=== PATIENT | female | born 1935 | race Caucasian/White ===

== ENCOUNTER 2016-09-13 14:57 | Emergency (ER) | payer MEDICARE, OTHER ==
[2016-03-18 13:57] VITALS: BMI 30.9
[~2016-09-13 14:57] MED LIST: ARICEPT10 MG PO; B12 INJECTION; BUMEX 1 MG TAB1 MG PO; CARAFATE1 G PO; CARDURA2 MG PO; CATAPRES0.1 MG PO; DESYREL50 MG PO; GABAPENTIN100 MG PO; GEMFIBROZIL600 MG PO; GLYBURIDE MICR1.5 MG PO; LEVOTHROID88 MCG PO; LOPRESSOR25 MG PO; METOPROLOL TAR100 MG PO; METOPROLOL TART50 MG PO; NEURONTIN 300300 MG PO; NITRO-DUR0.1 MG TRANSDERM; NITRO-DUR0.4 MG TD; NITROSTAT0.4 MG SL; OXYBUTYNIN CHLOR5 MG PO; PEPCID40 MG PO; PLAVIX75 MG PO; RESTORIL15 MG PO; RYBIX ODT50 MG PO; SINEMET 25-1001 EACH PO; SINGULAIR10 MG PO; TALWIN NX1 TAB; VITAMIN D250000 UNIT PO; ZYLOPRIM300 MG PO
== END 2016-09-13 18:59 | disposition home or self-care (01) ==
LOC: D.ER 14:57
DX: S01.01XA Laceration without foreign body of scalp, initial encounter (principal); W07.XXXA Fall from chair, initial encounter; Y93.89 Activity, other specified; Y92.019 Unspecified place in single-family (private) house as the place of occurrence of the external cause

== ENCOUNTER 2016-12-14 15:18 | Observation (INO) | payer MEDICARE, OTHER ==
[~2016-12-14] VITALS: Ht 162.6 cm; Wt 71.4 kg
--- NOTE | ~2016-12-14 | HEMODYNAMI ---
PATIENT:SRAVAN DOWNEY MEDICAL RECORD: [id number] : 33 [facility]ATION[id number] ADMISSION DATE: 12/14/16 Generatedon:12/15/201613:14 Patient name: SRAVAN DOWNEY Patient #: [id number] SSN: [id number] : 1935 Date of study: 12/15/2016 Page: Of Hemodynamic Procedure Report Patient Data Patient Demographics Procedure consent was obtained First Name: SRAVAN Gender: Female Last Name: NASREEN : 1935 Middle Initial: A Age: 81 year(s) Patient #: [id number] Race: Unknown SSN: [id number] Additional ID: [id number] Contact details Address: [address] [place] [address] [facility] State: [place] City: [place] Zip code: [address] Past Medical History Allergies Allergen Reaction Date Comments Reported Other allergy 12/15/2016 see list Admission Admission Data Admission Date: 12/14/2016 Admission Time: 20:21 Arrival Date: 12/15/2016 Arrival Time: 0:00 Room #: D.2105 Procedure Procedure Types Cath Procedure Diagnostic Procedure LHC LHC w/Coronaries Miscellaneous Procedures Moderate Sedation up to 15 minutes Procedure Description Procedure Date Procedure Date: 12/15/2016 Procedure Start Time: 12:59 Procedure End Time: 13:11 Procedure Staff Name Function Bola Bella RT Scrub Guillermo Kaufman RN Nurse Angie Masters RT Monitor Carlos Aleman MD Performing Physician Procedure Data Cath Procedure Fluoroscopy Diagnostic fluoroscopy Total fluoroscopy Time: 1.5 time: 1.5 min min Diagnostic fluoroscopy Total fluoroscopy dose: 332 dose: 332 mGy mGy Contrast Material Contrast Material Type Amount (ml) Isovue 300 67 Entry Location Entry Primary Successful Side Size Upsize Upsize Entry Closure Succes sful Closure Location (Fr) 1 (Fr) 2 (Fr) Remarks Device Remarks Femoral Right 5 Fr Exoseal artery Estimated blood loss: 10 ml Diagnostic catheters Device Type Used For End Catheter Placement Cordis 5Fr JL 4.0 Procedure Catheter (MP) Cordis 5Fr 3DRC Catheter Procedure (MP) Cordis 5Fr Pigtail Ventriculography Catheter (MP) Procedure Complications No complications Procedure Medications Medication Administration Route Dosage Oxygen NC 2 l/min Lidocaine 2% added to field 20 Heparin Flush Bag added to field 2 bags (1000units/500ml NS) 0.9% NaCl I.V. 100 ml/hr Zofran I.V. 4 mg Versed I.V. 0.5 mg Dilaudid I.V. 0.5 mg Versed I.V. 0.5 mg Dilaudid I.V. 0.5 mg Versed I.V. 0.5 mg Hemodynamics Rest Heart Rate: 61 (bpm) Pressure Samples Time Site Value (mmHg) Purpose Heart Use Rate(bpm) 13:04 LV 139/-8,11 Snapshot 61 13:04 AO 142/54(88) Pullback 62 13:04 LV 135/-2,20 Pullback 62 Gradients Valve Time Site 1 Site 2 Mean SEP/DFP Peak To Heart Use (mmHg) (sec/min) Peak Rate (mmHg) (bpm) Aortic 13:04 LV AO 0 9 0 62 135/-2,20 142/54(88) Calculations Valve P-P Mean Valve Index Valve Source Name Gradient Area Flow (cm2) Aortic 0 0 0 0 Snapshots Pre Cath Intra NCS Post Cath Vital Signs Time Heart Resp SPO2 NIBP (mmHg) Rhythm Pain Sedation Rate (ipm) (%) Status Level (bpm) 12:46:47 63 16 99 192/79(148) NSR 0 (11) 10(A) , No pain 12:51:16 59 16 99 171/71(148) NSR 0 (11) 10(A) , No pain 12:55:38 61 18 98 160/69(129) NSR 0 (11) 10(A) , No pain 13:00:06 59 19 95 132/59(107) NSR 0 (11) 9(A) , No pain 13:04:26 60 16 97 128/54(105) NSR 0 (11) 9(A) , No pain 13:08:44 61 17 95 132/54(110) NSR 0 (11) 10(A) , No pain Medications Time Medication Route Dose Verified Delivered Reason Notes Ef fectiveness by by 12:44:14 Oxygen NC 2 Figueroa Buffie used for l/min Axel Kaufman RN procedure 12:44:20 Heparin Flush added 2 Figueroa Figueroa used for verifed Bag to bags Axel Reyna MD procedure with (1000units/500ml field pharmacy NS) that is pork heparin, no beef. 12:44:20 Lidocaine 2% added 20ml Figueroa Figueroa for local to vial Axel Reyna MD anesthetic field 12:44:44 0.9% NaCl I.V. 100 Figueroa Buffie Per verifed ml/hr Axel Kaufman RN physician with pharmacy that is pork heparin, no beef. 12:45:21 Zofran I.V. 4 mg Figueroa Buffie Per Axel Kaufman RN physician 12:45:29 Versed I.V. 0.5 Figueroa Buffie for mg Axel Kaufman RN sedation 12:52:46 Dilaudid I.V. 0.5 Figueroa Buffie for mg Axel Kaufman RN sedation 12:57:12 Versed I.V. 0.5 Figueroa Buffie for mg Axel Kaufman RN sedation 12:57:16 Dilaudid I.V. 0.5 Figueroa Buffie for mg Axel Kaufman RN sedation 13:03:26 Versed I.V. 0.5 Figueroa Buffie for mg Axel Kaufman RN sedation Procedure Log Time Note 12:22:55 Arrival Date: 12/15/2016 12:00:00 AM 12:23:36 Diagnostic Cath status Elective 12:23:40 Guillermo Kaufman RN sent for patient. Start room use. 12:23:42 Time tracking: Regular hours 12:23:48 Plan of Care:Hemodynamics will remain stable., Cardiac rhythm will remain stable., Comfort level will be maintained., Respiratory function will remain adequate., Patient/ family verbilizes understanding of procedure., Procedure tolerated without complication., Recovers from procedure without complications.. 12:23:55 Patient received from Med II to CCL 2 Alert and oriented. Tansferred to table in Supine position. 12:44:13 Warm blankets applied, and jian hugger turned on for patient comfort. 12:44:14 Oxygen 2 l/min NC was administered by Guillermo Kaufman RN; used for procedure; 12:44:14 Correct patient and procedure confirmed by team. 12:44:15 Signed procedure consent form obtained from patient. 12:44:16 ECG and BP/O2 sat monitors applied to patient. 12:44:17 Vital chart was started 12:44:18 Baseline sample Acquired. 12:44:20 Heparin Flush Bag (1000units/500ml NS) 2 bags added to field was administered by Figueroa Reyna MD; used for procedure; verifed with pharmacy that is pork heparin, no beef. 12:44:20 Lidocaine 2% 20ml vial added to field was administered by Figueroa Reyna MD; for local anesthetic; 12:44:22 Rhythm: sinus rhythm 12:44:24 Full Disclosure recording started 12:44:34 H&P Date Dictated: 12/15/2016 Within 30 days and on chart.. 12:44:35 Pre-procedure instructions explained to patient. 12:44:38 Family unavailable. 12:44:40 Patient NPO since Midnight. 12:44:44 0.9% NaCl 100 ml/hr I.V. was administered by Guillermo Kaufman RN; Per physician; verifed with pharmacy that is pork heparin, no beef. 12:44:57 Patient allergic to Other allergysee list 12:45:01 Is the patient allergic to Iodine/contrast media? No. 12:45:05 Is patient on blood thinner?Yes 12:45:09 ACC The patient was administered the following blood thiners within the last 24 hours: ACCPlavix 12:45:16 Snore? Yes 12:45:17 Sleep apnea? Yes 12:45:21 Zofran 4 mg I.V. was administered by Guillermo Kaufman RN; Per physician; 12:45:25 Dentures? No ? 12:45:29 Versed 0.5 mg I.V. was administered by Guillermo Kaufman RN; for sedation; 12:45:31 Airway obstruction? No ? 12:45:45 Patient diabetic? No. 12:45:55 IV patent on arrival in right forearm with 0.9% NaCl at [facility]. 12:46:05 Lab results completed and on chart. 12:46:11 Right groin area was prepped with chlora-prep and draped in sterile fashion 12:46:20 Alarms reviewed by R. N. 12:46:21 Sharps counted by scrub and verified by RAdebayoNAdebayo 12:46:22 Physician paged 12:46:24 Physician arrived 12:47:56 --------ALL STOP TIME OUT------ 12:52:46 Dilaudid 0.5 mg I.V. was administered by Guillermo Kaufman RN; for sedation; 12:54:58 Final Timeout: patient, procedure, and site verified with staff and physician. All members of the team are in agreement. 12:55:01 Right groin site verified by team. 12:55:06 Physical assessment completed. ASA score P 2 - A patient with mild systemic disease as per Guillermo Kaufman RN. 12:55:10 Sedation plan: IV Moderate Sedation Versed 12:55:20 Use device set Femoral Dx 12:55:28 Acist Syringe opened to sterile field. 12:55:28 Bag Decanter opened to sterile field. 12:55:29 Medline Cath Pack opened to sterile field. 12:55:29 Terumo 5Fr [place] Sheath opened to sterile field. 12:55:30 St Gabriel 260cm J .035 wire opened to sterile field. 12:55:38 Acist Hand Control opened to sterile field. 12:55:38 Acist Manifold opened to sterile field. 12:55:39 Diagnostic Infinity 5Fr Multipack catheter opened to sterile field. 12:55:40 Tegaderm 4 x 4 opened to sterile field. 12:57:12 Versed 0.5 mg I.V. was administered by Guillermo Kaufman RN; for sedation; 12:57:16 Dilaudid 0.5 mg I.V. was administered by Guillermo Kaufman RN; for sedation; 12:58:21 Zero performed for pressure channel P1 12:58:46 Procedure started. 12:59:01 Local anesthetic to right femoral artery with Lidocaine 2% by Carlos Aleman MD.INITIAL ACCESS ONLY 12:59:10 A 5 Fr sheath was inserted into the Right Femoral artery 13:00:00 A Cordis 5Fr JL 4.0 Catheter (MP) was advanced over the wire and used for Procedure. 13:00:57 Catheter removed. 13:01:04 A Cordis 5Fr 3DRC Catheter (MP) was advanced over the wire and used for Procedure. 13:02:29 RCA angiography performed. 13:02:32 Catheter removed. 13:03:18 A Cordis 5Fr Pigtail Catheter (MP) was advanced over the wire and used for Ventriculography. 13:03:26 Versed 0.5 mg I.V. was administered by Guillermo Kaufman RN; for sedation; 13:03:37 LV gram done using KISER 13:04:57 Catheter removed. 13:05:18 Cordis 5Fr Exoseal opened to sterile field. 13:05:40 Sheath removed intact; hemostasis achieved with Exoseal to the Right Femoral artery. 13:06:02 Procedure ended.(Physican Out) 13:06:11 Fluoroscopy time 01.50 minutes. 13:07:03 Flurop Dose total: 332 13:07:03 Fluoroscopy dose: 332 mGy 13:07:08 Contrast amount:Isovue 300 67ml. 13:07:10 Sharps counted by scrub and verified by R.N. 13:09:39 Insertion/operative site no bleeding no hematoma. 13:09:44 Post-op/insertion site Right Femoral artery dressed using a 4 x 4 and Tegaderm. 13:09:49 Post Procedure Pulses reassessed and unchanged 13:10:02 Post-procedure physical assessment completed. ASA score P 2 - A patient with mild systemic disease as per Carlos Aleman MD. 13:10:06 Post procedure rhythm: unchanged. 13:10:10 Estimated blood loss: 10 ml 13:10:16 Post procedure instruction explained to patient.Patient verbalizes understanding. 13:10:23 Procedure and supply charges have been captured, reviewed, submitted and are correct. 13:10:46 Procedure Complication : No complications 13:10:49 Vital chart was stopped 13:10:50 See physician's report for complete and final results. 13:10:55 Report given to Med II. 13:11:00 Patient transfered to Med II with Bed. 13:11:02 Procedure ended. 13:11:02 Full Disclosure recording stopped 13:11:04 End room use (Document Last) Device Usage Item Name Manufacture Quantity Catalog Hospital Part Current Minimal Lo t# / Number Charge Number Stock Stock Serial# Code Acist Acist 1 34033 018624 942747 515443 20 Syringe Medical [employer] Inc Bag Microtek 1 2002S 857625 67391 608377 5 Wetpaint. Medline Cardinal 1 [id number] 144682 74710 269904 5 Cath Pack Health Terumo 5Fr Terumo 1 [id number] 462721 837215 505784 [address] [facility] 1 391983 446670 488506 755656 30 260cm J .035 wire Acist Hand Acist 1 43668 029598 722999 923662 5 Control Medical Systems Inc Acist Acist 1 72624 997678 700173 377537 5 Manifold Medical Systems Inc Diagnostic Cardinal 1 [id number] 762254 07952 275976 30 Infinity Health 5Fr Multipack catheter Tegaderm 4 3M 1 1626W 027250 967813 300991 5 x 4 Cordis 5Fr Cardinal 1 266125 5 JL 4.0 Health Catheter (MP) Cordis 5Fr Cardinal 1 750222 5 3DRC Health Catheter (MP) Cordis 5Fr Cardinal 1 748570 5 Pigtail Health Catheter (MP) Cordis 5Fr Cardinal 1 EX500 263215 192526 013781 10 [facility] Autoniq Signature Audit [place] Stage Time Signature Unsigned Intra-Procedure 12/15/2016 Angie Masters 1:14:17 PM RT(R) Signatures Monitor : Angie Masters Signature : RT Date : Time : [place] [id number] [place] [address]
[2016-12-14 16:52] LABS: BASOPHILS 0.3 % (0-2); EOSINOPHILS 1.8 % (0-7); HEMOGLOBIN 11.6 g/dL (12-16); IMMATURE GRANULOCYTES 0.2 % (0-5); LYMPHOCYTES 23.1 % (15-50); MCH 29.9 pg (26.0-34.0); MCHC 31.4 g/dL (31.0-37.0); MCV 95.4 fL (80.0-100.0); MEAN PLATELET VOLUME 10.4 fL (7.4-10.4); MONOCYTES 6.1 % (2-11); NEUTROPHILS 68.5 % (40-80); PLATELET COUNT 155 10x3/uL (130-400); RBC 3.88 10x6/uL (4.00-5.40); RDW 15.3 % (11.5-14.5); WBC 6.6 10x3/uL (4.8-10.8)
[2016-12-14 17:24] LABS: ALBUMIN 3.4 g/dL (3.4-5.0); ALKALINE PHOSPHATASE 70 U/L (46-116); ALT (SGPT) 10 U/L (10-68); BILIRUBIN - TOTAL 0.49 mg/dL (0.2-1.3); CALC OSMOLALITY 283 mosm/kg (275-300); CALCIUM 9.9 mg/dL (8.5-10.1); CARBON DIOXIDE 27.9 mmol/L (21.0-32.0); CHLORIDE - SERUM 104 mmol/L (98-107); CREATININE - SERUM 1.3 mg/dL (0.6-1.3); GLUCOSE 106 mg/dL (74-106); POTASSIUM - SERUM 4.4 mmol/L (3.5-5.1); PROTEIN - SERUM 6.5 g/dL (6.4-8.2); SODIUM 140 mmol/L (136-145); UREA NITROGEN 27 mg/dL (7-18); eGFR NON AFRICAN AMERICAN 41 mL/min (90-120)
[2016-12-14 17:37] LABS: CHOL - HDL RATIO 5.7 ratio (2.3-4.1); CHOLESTEROL, TOTAL 229 mg/dL (0-200); CKMB 1.2 U/L (0.0-3.6); CREATINE KINASE 63 UL (21-215); HDL CHOLESTEROL 40 mg/dL (32-96); LDL CHOLESTEROL 145 mg/dL (0-100); LDL-HDL RATIO 3.6 ratio (1.5-3.5); TRIGLYCERIDE 221 mg/dL (30-200)
[2016-12-14 17:49] LABS: TROPONIN-I < 0.017 ng/mL (0.000-0.060)
[2016-12-14 20:01] LABS: CKMB 1.2 U/L (0.0-3.6); CREATINE KINASE 78 UL (21-215)
[2016-12-14 20:03] LABS: TROPONIN-I < 0.017 ng/mL (0.000-0.060)
--- NOTE | 2016-12-14 22:30 | NUR ---
RECIEVED TO ROOM 2104 FROM ER. PT A&O. RESPERATIONS EVEN ON O2 AT 2 LITER VIA NC. IV TO RIGHT AC SL. PLACED ON TELEMETRY, 64 SR PER MT. PT DENIES PAIN OR NEEDS, BED LOW, CL IN REACH.
[2016-12-14] MEDS ORDERED: CRANBERRY 400 M1 TA1 PO (22:54)
[2016-12-15 02:42] VITALS: Ht 162.6 cm; Wt 71.4 kg
--- NOTE | 2016-12-15 03:03 | NUR ---
UP WITH ASSIST TO BR.
[2016-12-15 03:47] VITALS: BP 109/55
--- NOTE | 2016-12-15 07:19 | NUR ---
PT SITTING UP IN BED DENIES NEEDS WILL CONT TO MONITOR
[2016-12-15 07:37] LABS: BASOPHILS 0.5 % (0-2); EOSINOPHILS 3.2 % (0-7); HEMOGLOBIN 10.3 g/dL (12-16); LYMPHOCYTES 29.7 % (15-50); MCH 29.4 pg (26.0-34.0); MCHC 31.2 g/dL (31.0-37.0); MCV 94.3 fL (80.0-100.0); MEAN PLATELET VOLUME 9.8 fL (7.4-10.4); MONOCYTES 6.5 % (2-11); NEUTROPHILS 60.1 % (40-80); PLATELET COUNT 153 10x3/uL (130-400); WBC 5.6 10x3/uL (4.8-10.8)
[2016-12-15 07:56] LABS: ANION GAP 7.6 mmol/L (8-16); CALCIUM 9.4 mg/dL (8.5-10.1); CARBON DIOXIDE 30.5 mmol/L (21.0-32.0); CREATININE - SERUM 1.2 mg/dL (0.6-1.3); POTASSIUM - SERUM 4.1 mmol/L (3.5-5.1)
--- NOTE | 2016-12-15 08:25 | NUR ---
CONSENTS SIGNED FOR ACCOUNT MANAGEMENT ASSISTANT, PT PREOPED. CALLED AND SPOKE WITH JORGE IN ACCOUNT MANAGEMENT ASSISTANT AND LET HIM KNOW PT WAS ALLERGIC TO BEEF HEPARIN AND ASA.
[2016-12-15 08:34] VITALS: BP 133/44
[2016-12-15 11:53] VITALS: BP 163/61
--- NOTE | 2016-12-15 13:40 | NUR ---
PT IS BACK FROM [facility] SPECIALIST VS ARE WNL. R CHRISSY SITE IS WNL. PT STILL LETHARGIC, BUT EASY TO ARROUSE. WILL CONT TO MONITOR
--- NOTE | 2016-12-15 14:08 | NUR ---
PT VS STILL WNL PT R GROIN STILL WNL. AT BEDSIDE. PT STILL LETHARGIC BUT ARROUSES EASILY. DENIES NEEDS OTHER THAN FOOD. ORDERED WILL CONT TO MONITOR
--- NOTE | 2016-12-15 15:21 | NUR ---
CALLED DR GALAN AND GOT TELEPHONE ORDER FOR PT DC. ORDERED. DC PAPERWORK IS COMPLETE, WAITING ON PT BEDREST TO BE FINISHED AND HER TO WAKE UP A LITTLE MORE BEFORE DC HOME.
--- NOTE | 2016-12-15 15:40 | NUR ---
PT BEDREST IS FINISHED VS ARE WNL R GROIN SITE STILL WNL. PT IS STILL VERY LETHARGIC, WILL LET PT BECOME MORE AWAKE BEFORE DC HOME. DC PIV WITH CATH TIP INTACT. DC TELE AND RETURNED TO SUGAR REPROCESS OPERATOR HEAD WILL CONT TO MONITOR
--- NOTE | 2016-12-15 16:41 | NUR ---
PT IS STILL LETHARGIC. STILL EASY TO ARROUSE BUT STATES SHE DOESNT FEEL AWAKE ENOUGHT TO GO HOME YET. R GROIN SITE STILL WNL. STILL AT BEDSIDE.
--- NOTE | 2016-12-15 17:33 | NUR ---
WENT OVER DC PAPERWORK WITH PT PT VERBALIZES UNDERSTANDING. PT IS SITTING UP IN BED EATING DINNER AT BEDSIDE. PT TO CALL WHEN FINISHED WITH DINNER TO HELP HER GET DRESSED AND DC HOME
--- NOTE | 2016-12-17 10:39 | OP ---
PATIENT NAME: SRAVAN DOWNEY MEDICAL RECORD: [id number] :33 LOCATION:D.M2 D.2105 ADMISSION DATE:12/14/16 SURGEON: JOANIE LYLE MD DATE OF OPERATION: 12/15/2016 PROCEDURES: Left heart catheterization, selective coronary angiography, right femoral artery approach. CATHETERS: 5-Yakut sheath, 5/4/ left and right Anam, 5/4 pig. The procedure was well tolerated and the patient returned to tello. Sheath removed. ExoSeal device was placed. FINDINGS: Left ventriculography in 30-degree KISER view: Normal wall motion, normal systolic function. CORONARY ANATOMY: LEFT MAIN: Left main is free of disease. LAD: LAD is free of disease. Area of previous stenting is widely patent. No evidence of restenosis. No progression of [place] disease. CIRCUMFLEX: Free of disease. RIGHT CORONARY ARTERY: Dominant artery, gives rise to PDA, free of disease. IMPRESSION: No evidence of restenosis. No progression of [place] disease. Normal systolic function. TRANSINT:[id number] Voice Confirmation ID: [id number] DOCUMENT ID: [id number] JOANIE LYLE MD at 1039 CC: [id number] DICTATION DATE: 12/15/16 1310 WATER RESOURCE PROJECT MANAGER: 12/15/161946 DIS IN 12/15/16 [id number] [place] [address]
== END 2016-12-15 20:00 | disposition home or self-care (01) ==
LOC: D.ER 15:18 → OBSVTIME 20:21 → D.M2 20:21
PROVIDERS: Emergency Medicine; Internal Medicine Cardiovascular Disease; Nurse Practitioner Acute Care; ADMIT Family Medicine
DX: I25.10 Atherosclerotic heart disease of native coronary artery without angina pectoris (principal); I10 Essential (primary) hypertension

== ENCOUNTER → 2016-12-30 20:46 | Outpatient (CLI) | payer MEDICARE, OTHER ==
[~2016-12-30 20:46] MED LIST changes: +CRANBERRY 400 M1 TA1 PO
[2016-12-30 20:58] LABS: APPEARANCE CLEAR (CLEAR); BILIRUBIN NEGATIVE (NEGATIVE); COLOR YELLOW (YELLOW); GLUCOSE NEGATIVE (NEGATIVE); KETONE NEGATIVE (NEGATIVE); LEUKOCYTE ESTERASE NEGATIVE (NEGATIVE); NITRITE NEGATIVE (NEGATIVE); PROTEIN NEGATIVE (NEGATIVE); SPECIFIC GRAVITY 1.015 (1.005-1.020); UROBILINOGEN NORMAL (NORMAL)
== END | disposition home or self-care (01) ==
LOC: D.LABREF 20:46
PROVIDERS: Urology
DX: N39.0 Urinary tract infection, site not specified (principal)

== ENCOUNTER 2017-01-12 06:34 | Day surgery (SDC) | payer MEDICARE, OTHER ==
[2017-01-11 12:45] LABS: INR 1.06 (0.85-1.17); PROTIME 13.6 SECONDS (11.6-15.0)
[2017-01-11 12:46] LABS: CALCIUM 9.3 mg/dL (8.5-10.1); CARBON DIOXIDE 25.6 mmol/L (21.0-32.0); CREATININE - SERUM 1.2 mg/dL (0.6-1.3); POTASSIUM - SERUM 4.6 mmol/L (3.5-5.1)
[2017-01-11 13:25] LABS: BASOPHILS 0.3 % (0-2); EOSINOPHILS 4.4 % (0-7); HEMATOCRIT 33.4 % (36.0-48.0); HEMOGLOBIN 10.8 g/dL (12-16); IMMATURE GRANULOCYTES 0.2 % (0-5); LYMPHOCYTES 26.4 % (15-50); MCH 29.9 pg (26.0-34.0); MCHC 32.3 g/dL (31.0-37.0); MCV 92.5 fL (80.0-100.0); MEAN PLATELET VOLUME 11.6 fL (7.4-10.4); MONOCYTES 7.9 % (2-11); NEUTROPHILS 60.8 % (40-80); PLATELET COUNT 156 10x3/uL (130-400); RBC 3.61 10x6/uL (4.00-5.40); RDW 14.9 % (11.5-14.5); WBC 6.6 10x3/uL (4.8-10.8)
[~2017-01-12] VITALS: Ht 162.6 cm; Wt 71.2 kg
[2017-01-12 08:46] VITALS: BP 141/54; Ht 162.6 cm; Wt 71.2 kg
--- NOTE | 2017-01-12 14:09 | NUR ---
1120- PT TO ROOM WITH HOB ELEVATED. FAMILY AT BEDSIDE. VSS. FULL LIQUIDS OFFERED. 1155- VOIDED WITHOUT DIFFICULTY AFTER MEDICATION INSTILLATION. 1215- FULL LIQUIDS TOLERATED. 1240- IV D/C'D, PT TOLERATED. CATHETER INTACT. 1300- DISCHARGE INSTRUCTIONS COMPLETED, PT VERBALIZED UNDERSTANDING. PAPERWORK SIGNED. 1310- PT DISCHARGED VIA WHEELCHAIR WITH .
--- NOTE | 2017-01-13 14:28 | OP ---
PATIENT NAME: SRAVAN DOWNEY MEDICAL RECORD: [id number] :33 LOCATION:D.OPS ADMISSION DATE: SURGEON: CLARK LANDEROS MD DATE OF OPERATION: 01/12/2017 SURGEON: Clark Landeros MD. ANESTHESIA: MAC by Dr. Cooper. PREOPERATIVE DIAGNOSIS: Interstitial cystitis. FINDINGS: Single ureteral orifices, bladder inflammation with glomerulations. PROCEDURES: Cystoscopy, intravesical Rimso instillation 50 mL times 50%. SPECIMENS: None. COMPLICATIONS: None. ESTIMATED BLOOD LOSS: None. CLINICAL HISTORY: This is an 81-year-old female who has ongoing symptoms of urinary tract infection including urinary frequency, urgency, dysuria and suprapubic pain. We obtained a urine for specimen for culture by straight catheterization, it grew nothing. She comes now for cystoscopy to check for interstitial cystitis or bladder inflammation. She has tried oxybutynin, which did not help her urinary frequency. She also tried Myrbetriq to which she developed an allergy and the medication had to be stopped. She is allergic to multiple antibiotics, but she can tolerate Levaquin. We gave her Levaquin 250 mg IV instrumentation designer to the OR. DESCRIPTION OF PROCEDURE: The patient was given IV sedation. She was placed in the dorsal lithotomy position and prepped and draped. A 21-Belarusian cystoscope was used. She has single ureteral orifices on each side. No bladder tumors were seen. There is diffuse bladder inflammation and as the bladder was filled, we saw some of the capillaries burst and form little petechial hemorrhages in the bladder wall and there are called glomerulations. We then drained the bladder and removed the cystoscope. A 14-Belarusian red rubber catheter was introduced into the bladder and 50 mL of 50% Rimso solution was instilled into the bladder. We then removed the catheter, leaving the Rimso in the bladder. She will hold this for about 15 minutes and then void it out. She will come back to see me next week to have treatment of #2 given to her. TRANSINT:[id number] Voice Confirmation ID: [id number] DOCUMENT ID: [id number] CLARK LANDEROS MD at 1428 CC: [id number] DICTATION DATE: 01/12/17 1046 HEALTH RESEARCHER: 01/12/172032 [facility] 01/12/17 [facility] [address] [place] [address]
== END 2017-01-12 13:10 | disposition home or self-care (01) ==
LOC: D.OPS 06:34 → D.PAN 10:00 → D.OPS 10:00 → D.PAN 10:15 → D.OPS 13:10
PROVIDERS: Anesthesiology
DX: N30.10 Interstitial cystitis (chronic) without hematuria (principal); Z01.812 Encounter for preprocedural laboratory examination

== ENCOUNTER 2017-01-20 09:23 | Outpatient (CLI) | payer MEDICARE, OTHER ==
[~2017-01-20] VITALS: Ht 157.5 cm; Wt 72.7 kg
--- NOTE | ~2017-01-20 | PRO ---
PATIENT:SRAVAN DOWNEY MEDICAL RECORD: [id number] : 33 LOCATION:D.CAT ADMISSION DATE: 01/20/17 PROCEDURE PERFORMED BY: NIC BENAVIDES MD PROCEDURES: 1. Stent placement popliteal right. 2. COTTON WEIGHER popliteal right. 3. Aortofemoral runoff. 4. Abdominal aortography. INDICATIONS: Claudication, peripheral vascular disease. PROCEDURE IN DETAIL: After informed consent was obtained and after detailed Explanation of risks, benefits as well as alternative therapies, the patient elected to proceed with angiogram and angioplasty. The left femoral area was prepped and draped in normal sterile fashion. The left femoral artery was cannulated via modified Seldinger technique with placement of 6-Maldivian __sheath. All catheters exchanged through this sheath. FINDINGS: Abdominal aortography was performed. The catheter was pulled down for aortofemoral runoff. Abdominal aortography reveals no significant abdominal aortic disease. No dissection or aneurysmal formation. No renal artery stenosis. LEFT LEG: A. Iliac: The common internal and external iliacs have mild irregularities, but no flow limiting stenosis. B. Femoral system: The common, superficial, and deep femoral have mild irregularities, but no flow limiting stenosis. C. Popliteal and infrapopliteal vessels: Patent, although mildly diffusely diseased, but there is three vessel runoff to the foot. RIGHT LEG: A. Iliac: The common internal and external iliacs have mild irregularities, but no flow limiting stenosis. B. Femoral system: The common, superficial, and deep femoral are widely patent with only mild irregularities, no flow limiting stenosis. C. Popliteal and infrapopliteal vessels: The proximal popliteal vessel had 75% stenosis, otherwise this vessel is patent. There is three vessel runoff to the foot. COTTON WEIGHER AND STENT OF THE RIGHT POPLITEAL: Balloon used was a 6 x 40 balloon, it showed suboptimal result with ___ dissection. Stenting was undertaken with a 7 x 40 SMART stent resulting in 0% residual stenosis. OVERALL IMPRESSION: Successful COTTON WEIGHER and stenting of the right popliteal artery going from 75% initial stenosis to 0% residual stenosis. PROCEDURE NOTE [id number] SRAVAN DOWNEY NIC BENAVIDES MD CC: [id number] DICTATION DATE: 01/20/1718[address] JUSTICE: TC 01/21/171823 DEP CLI 01/20/17 [facility] [address] [place] [address]
--- NOTE | ~2017-01-20 | HEMODYNAMI ---
PATIENT:SRAVAN DOWNEY MEDICAL RECORD: [id number] : 33 LOCATION:[facility] ADMISSION DATE: 01/20/17 Generatedon:01/20/201714:43 Patient name: SRAVAN DOWNEY Patient #: [id number] SSN: [id number] : 1935 Date of study: 01/20/2017 Page: Of Hemodynamic Procedure Report Patient Data Patient Demographics Procedure consent was obtained First Name: SRAVAN Gender: Female Last Name: NASREEN : 1935 Middle Initial: A Age: 82 year(s) Patient #: [id number] Race: Unknown SSN: [id number] Additional ID: [id number] Contact details [address]: [address] [place] [address] [facility] State: [place] City: [place] Zip code: [address] Past Medical History Allergies Allergen Reaction Date Comments Reported Other allergy 12/15/2016 see list Other allergy 01/20/2017 Horse containing products, keflex, PCN, adhesive tape,crestor,asa, beef, cartia, demerol, lipitor, sulfa, tricor, premarin, duragesic. Admission Admission Data Admission Date: 01/20/2017 Admission Time: 9:23 Admit Source: Other Lab Results Lab Result Date: 01/20/2017 Lab Result Time: 10:46 Biochemistry Name Units Result Min Max BUN mg/dl 46 --(----)-* 7 18 Creatinine mg/dl 1.1 --(--*-)-- 0.6 1.3 CBC Name Units Result Min Max Hematocrit % 31.1 *-(----)-- 42 54 Hemoglobin g/dl 10.5 *-(----)-- 13.5 17.5 Procedure Procedure Types Cath Procedure Miscellaneous Procedures Moderate Sedation up to 15 minutes Peripheral Cath Diagnostic Procedure Cath Peripheral Ntvwu-Shxbxsn-Xhm-Off Peripheral vascular Intervention Stent Stent-Fem/Popw/plasty Procedure Description Procedure Date Procedure Date: 01/20/2017 Procedure Start Time: 14:21 Procedure End Time: 14:42 Procedure Staff Name Function Venancio Rivera MD Performing Physician Molly Manriquez RT Scrub Bola Bella RT Monitor Albert Newby RN Nurse Procedure Data Cath Procedure Fluoroscopy Diagnostic fluoroscopy Total fluoroscopy Time: 4.5 time: 4.5 min min Diagnostic fluoroscopy Total fluoroscopy dose: 245 dose: 245 mGy mGy Contrast Material Contrast Material Type Amount (ml) Isovue 300 99 Entry Location Entry Primary Successful Side Size Upsize 1 Upsize Entry Closure Coleman ccessful Closure Location (Fr) (Fr) 2 (Fr) Remarks Device Remarks Femoral Right 5 Fr 6 Fr 6 Fr Exoseal artery Mid-Length Short Estimated blood loss: 10 ml Diagnostic catheters Device Type Used For End Catheter Placement Cordis Tempo 5Fr UF Procedure catheter Procedure Complications No complications Procedure Medications Medication Administration Route Dosage Oxygen NC 2 l/min Heparin Flush Bag added to field 2 bags (1000units/500ml NS) 0.9% NaCl I.V. 100 ml/hr Versed I.V. 1 mg Fentanyl I.V. 50 mcg Heparin Bolus I.V. 4000 units Hemodynamics Rest HGB: 10.5 (g/dl) Heart Rate: 65 (bpm) Snapshots Pre Cath Intra NCS Post Cath Vital Signs Time Heart Resp SPO2 NIBP (mmHg) Rhythm Pain Sedation Rate (ipm) (%) Status Level (bpm) 14:07:37 62 18 97 196/85(150) NSR 0 (11) 10(A) , No pain 14:12:09 63 17 98 196/85(147) NSR 0 (11) 10(A) , No pain 14:16:46 53 16 95 184/70(139) NSR 0 (11) 10(A) , No pain 14:21:16 56 19 98 180/76(138) NSR 0 (11) 10(A) , No pain 14:25:49 56 14 97 167/68(127) NSR 0 (11) 9(A) , No pain 14:30:13 57 16 94 166/73(119) NSR 0 (11) 9(A) , No pain 14:34:39 59 16 99 159/71(129) NSR 0 (11) 9(A) , No pain 14:39:01 56 15 98 177/74(132) NSR 0 (11) 10(A) , No pain Medications Time Medication Route Dose Verified Delivered Reason Notes Effectiveness by by 14:14:19 Oxygen NC 2 Albert Albert Per physician l/min Odin Newby RN RN 14:14:35 Heparin Flush added 2 Albert Albert Per physician Bag to bags Odin Newby RN (1000units/500ml field RN NS) 14:14:45 0.9% NaCl I.V. 100 Albert Price Per physician ml/hr Odin Newby RN RN 14:22:16 Versed I.V. 1 mg Albert Price for sedation Odin Newby RN RN 14:22:24 Fentanyl I.V. 50 Albert Albert for sedation mcg Odin Newby RN RN 14:27:11 Heparin Bolus I.V. 4000 Albert Albert for units Odin Newby RN anticoagulation woodworking machine setter Log Time Note 13:09:51 Admit Source: Other 13:09:55 Diagnostic Cath status Elective 13:10:07 Time tracking: Regular hours 13:10:10 Plan of Care:Hemodynamics will remain stable., Cardiac rhythm will remain stable., Comfort level will be maintained., Respiratory function will remain adequate., Patient/ family verbilizes understanding of procedure., Procedure tolerated without complication., Recovers from procedure without complications.. 13:52:50 Bola Bella RT(R) sent for patient. Start room use. 13:58:29 Patient received from Pre/Post Procedure Room to CCL 2 Alert and oriented. Tansferred to table in Supine position. 13:58:30 Warm blankets applied, and jian hugger turned on for patient comfort. 13:58:31 Correct patient and procedure confirmed by team. 13:58:32 Signed procedure consent form obtained from patient. 13:58:33 ECG and BP/O2 sat monitors applied to patient. 13:58:34 Full Disclosure recording started 14:05:16 Vital chart was started 14:12:48 Baseline sample Acquired. 14:13:34 Rhythm: sinus rhythm 14:13:51 H&P Date Dictated: 01/18/2017 Within 30 days and on chart., H&P Addendum completed by physician on day of procedure. (MUST COMPLETE FOR ALL OUTPATIENTS). 14:13:52 Pre-procedure instructions explained to patient. 14:13:53 Pre-op teaching completed and patient verbalized understanding. 14:13:54 Family in patients room. 14:13:55 Patient NPO since Midnight. 14:14:19 Oxygen 2 l/min NC was administered by Albert Newby RN; Per physician; 14:14:35 Heparin Flush Bag (1000units/500ml NS) 2 bags added to field was administered by Albert Newby RN; Per physician; 14:14:45 0.9% NaCl 100 ml/hr I.V. was administered by Albert Newby RN; Per physician; 14:15:21 Patient allergic to Other allergyHorse containing products, keflex, PCN, adhesive tape,crestor,asa, beef, cartia, demerol, lipitor, sulfa, tricor, premarin, duragesic. 14:15:24 Is the patient allergic to Iodine/contrast media? No. 14:15:25 Is patient on blood thinner?Yes 14:15:38 ACC The patient was administered the following blood thiners within the last 24 hours: ACCPlavix 14:15:46 Patient diabetic? No. 14:15:48 Previous problem with sedation/anesthesia? No ? 14:15:49 Snore? Yes 14:15:49 Sleep apnea? Yes 14:15:50 Deviated septum? No 14:15:51 Opens mouth fully? Yes 14:15:51 Sticks out tongue? Yes 14:15:55 Airway obstruction? No ? 14:16:00 Dentures? Yes In tight 14:16:09 Patient pain scale 0/10 ?. 14:16:13 IV patent on arrival in left hand with 0.9% NaCl at [facility]. 14:17:20 Lab Result : BUN 46 mg/dl 14:17:20 Lab Result : Hemoglobin 10.5 g/dl 14:17:20 Lab Result : Creatinine 1.1 mg/dl 14:17:20 Lab Result : Hematocrit 31.1 % 14:17:23 Lab results completed and on chart. 14:17:26 Bilateral groins area was prepped with chlora-prep and draped in sterile fashion 14:17:27 Alarms reviewed by R. N. 14:17:27 Sharps counted by scrub and verified by R.N. 14:17:31 Tegaderm 4 x 4 opened to sterile field. 14:17:32 Acist Manifold opened to sterile field. 14:17:32 Acist Hand Control opened to sterile field. 14:17:34 Acist Syringe opened to sterile field. 14:17:34 Bag Decanter opened to sterile field. 14:17:34 Medline Cath Pack opened to sterile field. 14:17:35 Terumo 5Fr [place] Sheath opened to sterile field. 14:17:36 St Gabriel 260cm J .035 wire opened to sterile field. 14:17:43 Physician arrived 14:17:43 --------ALL STOP TIME OUT------ 14:17:44 Final Timeout: patient, procedure, and site verified with staff and physician. All members of the team are in agreement. 14:17:45 Bilateral groins site verified by team. 14:17:47 Physical assessment completed. ASA score P 2 - A patient with mild systemic disease as per Venancio Rivera MD. 14:17:49 Sedation plan: IV Moderate Sedation Versed, Fentanyl 14:19:06 Zero performed for pressure channel P1 14:20:19 Zero performed for pressure channel P1 14:20:59 Procedure started. 14:21:03 Local anesthetic to left femerol artery with Lidocaine 2% by Venancio Rivera MD.INITIAL ACCESS ONLY 14:21:40 A 5 Fr sheath was inserted into the Right Femoral artery 14:22:00 A USERJOY Technology 5Fr UF catheter was advanced over the wire and used for Procedure. 14:22:07 Abdominal angiogram w/ runoff was performed. 14:22:16 Versed 1 mg I.V. was administered by Albert Newby RN; for sedation; 14:22:23 Left leg runoff performed. 14:22:24 Fentanyl 50 mcg I.V. was administered by Albert Newby RN; for sedation; 14:22:54 Right leg runoff performed. 14:24:04 Terumo ADVANTAGE 260CM glide wire opened to sterile field. 14:25:06 glide wire advanced. 14:25:20 Terumo 6Fr [place] Destination Sheath opened to sterile field. 14:25:34 glide wire advanced around horn. 14:25:35 Catheter removed. 14:25:45 Sheath upsized to a 6 Fr Mid-Length. 14:26:18 Terumo TORQUE DEVICE PLASTIC .038 opened to sterile field. 14:27:11 Heparin Bolus 4000 units I.V. was administered by Albert Newby RN; for anticoagulation; 14:27:54 Merit BasixCompak Inflation Kit opened to sterile field. 14:28:56 Wire advanced across lesion. 14:30:11 Inflation number: 1 A Cordis Powerflex Pro 6.0 X 20 X 135 balloon was prepped and advanced across the Proximal Popliteal, Right, then inflated to 7 MONIKA for 0:10 (min:sec). 14:31:08 Balloon removed over the wire. 14:32:08 Cordis SMART 7 X 40 X 120 stent was deployed across Proximal Popliteal, Right . 14:32:10 Stent catheter was removed intact over wire. 14:32:17 Terumo 6Fr [place] Sheath opened to sterile field. 14:32:26 Wire removed. 14:33:20 Sheath upsized to a 6 Fr Short. 14:33:27 Cordis 6Fr Exoseal opened to sterile field. 14:33:38 Sheath removed intact; hemostasis achieved with Exoseal to the Right Femoral artery. 14:33:39 Procedure ended.(Physican Out) 14:38:07 Fluoroscopy time 04.50 minutes. 14:38:12 Fluoroscopy dose: 245 mGy 14:38:12 Flurop Dose total: 245 14:38:15 Contrast amount:Isovue 300 99ml. 14:38:18 Sharps counted by scrub and verified by R.N. 14:38:25 Insertion/operative site no bleeding no hematoma. 14:39:59 Post-op/insertion site Left Femoral artery dressed using a Bandaid. 14:40:07 Post left femerol artery:stable, soft, clean and dry 14:40:11 Post Procedure Pulses reassessed and unchanged 14:40:13 Post-procedure physical assessment completed. ASA score P 2 - A patient with mild systemic disease as per Venancio Rivera MD. 14:40:15 Post procedure rhythm: unchanged. 14:40:48 Estimated blood loss: 10 ml 14:40:49 Post procedure instruction explained to patient.Patient verbalizes understanding. 14:40:49 Patient needs reinforcement of post procedure teaching. 14:41:20 Procedure type changed to Cath procedure, Miscellaneous Procedures, Moderate Sedation up to 15 minutes, Peripheral Cath Diagnostic Procedure, Cath Peripheral, Wywhl-Enjsvnt-Jph-Off, Peripheral vascular Intervention, Stent, Stent-Fem/Popw/plasty 14:42:29 Procedure and supply charges have been captured, reviewed, submitted and are correct. 14:42:29 Vital chart was stopped 14:42:32 Procedure Complication : No complications 14:42:34 See physician's report for complete and final results. 14:42:36 Report given to Pre/Post Procedure Room. 14:42:38 Patient transfered to Pre/Post Procedure Room with Stretcher. 14:42:40 Procedure ended. 14:42:40 Full Disclosure recording stopped 14:42:45 End room use (Document Last) Intervention Summary Intervention Notes Time ActionType Lesion and Equipment Action# Pressure Duration Attributes Used 14:30:11 Inflate Proximal Cordis 1 7 00:10 balloon Popliteal, Powerflex Right Pro 6.0 X 20 X 135 balloon 14:32:08 Deploy self Proximal Cordis 1 expanding Popliteal, SMART 7 X stent Right 40 X 120 stent Device Usage Item Name Manufacture Quantity Catalog Hospital Part Current Minimal L ot# / Number Charge Number Stock Stock Serial# Code Tegade 4 1 [id number] 132338 [id number] 328883 5 x 4 Acist Acist 1 01896 695760 243753 587881 5 Manifold Medical Systems Inc Acist Hand Acist 1 13390 489731 377260 698722 5 Control Medical Systems Inc Acist Acist 1 33410 498509 121878 968724 20 Syringe Medical Systems Improveit! 360 Bag Microtek 1 2002S 324158 38408 913992 5 Associa. Medline Cardinal 1 [id number] 264660 38937 797902 5 Cath Pack Health Terumo 5Fr Terumo 1 [id number] 831772 613650 946426 [address] [facility] 1 542030 808499 251425 835060 30 260cm J .035 wire Cordis Cardinal 1 [id number] 852047 786987 626234 10 Tempo 5Fr Health UF catheter Terumo Terumo 1 [id number] 816362 126485 5 ADVANTAGE 260CM glide wire Terumo 6Fr Terumo 1 RSR01 563878 46638 685198 5 [place] Destination Sheath Terumo Sunset 1 TD01 392110 652467 579647 5 Spreetales DEVICE PLASTIC .038 Merit Merit 1 [id number] 364080 689690 195030 15 BasixCompak Medical Inflation Kit Cordis Cardinal 1 [id number] 377574 142161 730114 5 Powerflex Health Pro 6.0 X 20 X 135 balloon Cordis Cardinal 1 [id number] 543250 387637 0 1 [id number] SMART 7 X Health 40 X 120 stent Terumo 6Fr Terumo 1 [id number] 998102 712557 433101 40 [place] Sheath Cordis 6Fr Cardinal 1 EX600 601989 581204 647941 10 Teknovus Signature Audit Davis Stage Time Signature Unsigned Intra-Procedure 01/20/2017 Bola Bella 2:43:06 PM RT(R) Signatures Monitor : Bola Bella RT Signature : Date : Time : [facility] [address] [place] [address]
[2017-01-20] MEDS ORDERED: VITAMIN D250000 UNIT PO (09:58)
[2017-01-20 10:05] VITALS: BP 155/66; Ht 157.5 cm; Wt 72.7 kg
[2017-01-20 10:22] LABS: BASOPHILS 0.3 % (0-2); EOSINOPHILS 4.8 % (0-7); HEMATOCRIT 33.1 % (36.0-48.0); HEMOGLOBIN 10.5 g/dL (12-16); IMMATURE GRANULOCYTES 0.1 % (0-5); LYMPHOCYTES 26.1 % (15-50); MCH 29.7 pg (26.0-34.0); MCHC 31.7 g/dL (31.0-37.0); MCV 93.5 fL (80.0-100.0); MEAN PLATELET VOLUME 10.2 fL (7.4-10.4); MONOCYTES 6.2 % (2-11); NEUTROPHILS 62.5 % (40-80); PLATELET COUNT 159 10x3/uL (130-400); RBC 3.54 10x6/uL (4.00-5.40); RDW 15.1 % (11.5-14.5); WBC 7.3 10x3/uL (4.8-10.8)
[2017-01-20 10:40] LABS: ANION GAP 10.9 mmol/L (8-16); CALCIUM 9.4 mg/dL (8.5-10.1); CARBON DIOXIDE 28.5 mmol/L (21.0-32.0); CREATININE - SERUM 1.4 mg/dL (0.6-1.3); POTASSIUM - SERUM 4.4 mmol/L (3.5-5.1)
--- NOTE | 2017-01-20 15:15 | NUR ---
RESTING WITH EYES CLOSED, LEFT GROIN CDI, NO HEMATOMA OR BLEEDING, BANDAID INTACT
--- NOTE | 2017-01-20 15:45 | NUR ---
NO CHANGE IN LEFT GROIN, DENIES PAIN OR NEEDS, AT SIDE
--- NOTE | 2017-01-20 19:10 | NUR ---
D'C WITH , INSTRUCTIONS UNDERSTOOD, DENIES PAIN OR NEEDS
== END 2017-01-20 19:15 | disposition home or self-care (01) ==
LOC: D.CATH 09:23
PROVIDERS: Internal Medicine Interventional Cardiology
DX: I70.211 Atherosclerosis of native arteries of extremities with intermittent claudication, right leg (principal); Z01.812 Encounter for preprocedural laboratory examination

== ENCOUNTER 2017-01-22 17:37 | Emergency (ER) | payer MEDICARE, OTHER ==
[2017-01-20 10:05] VITALS: BMI 29.3
[2017-01-22 18:25] LABS: BASOPHILS 0.3 % (0-2); EOSINOPHILS 2.8 % (0-7); HEMATOCRIT 30.5 % (36.0-48.0); HEMOGLOBIN 9.8 g/dL (12-16); IMMATURE GRANULOCYTES 0.2 % (0-5); LYMPHOCYTES 18.2 % (15-50); MCHC 32.1 g/dL (31.0-37.0); MCV 93.3 fL (80.0-100.0); MEAN PLATELET VOLUME 9.8 fL (7.4-10.4); NEUTROPHILS 71.5 % (40-80); PLATELET COUNT 143 10x3/uL (130-400); RBC 3.27 10x6/uL (4.00-5.40); WBC 6.2 10x3/uL (4.8-10.8)
[2017-01-22 18:33] LABS: INR 1.06 (0.85-1.17); PROTIME 13.7 SECONDS (11.6-15.0)
[2017-01-22 18:34] LABS: APTT 27.7 SECONDS (22.8-39.4)
[2017-01-22 18:48] LABS: ALBUMIN 2.9 g/dL (3.4-5.0); ANION GAP 8.5 mmol/L (8-16); BILIRUBIN - TOTAL 0.39 mg/dL (0.2-1.3); CALCIUM 9.3 mg/dL (8.5-10.1); CARBON DIOXIDE 31.8 mmol/L (21.0-32.0); CREATININE - SERUM 1.6 mg/dL (0.6-1.3); POTASSIUM - SERUM 4.3 mmol/L (3.5-5.1); PROTEIN - SERUM 6.2 g/dL (6.4-8.2)
== END 2017-01-22 22:45 | disposition home or self-care (01) ==
LOC: D.ER 17:37
PROVIDERS: Family Medicine
DX: I72.4 Aneurysm of artery of lower extremity (principal)

== ENCOUNTER → 2017-02-10 14:56 | Outpatient (CLI) | payer MEDICARE, OTHER ==
[2017-01-20 10:05] VITALS: BMI 29.3
[2017-02-10 15:57] LABS: APPEARANCE CLEAR (CLEAR); COLOR YELLOW (YELLOW); LEUKOCYTE ESTERASE TRACE (NEGATIVE); SPECIFIC GRAVITY 1.015 (1.005-1.020)
[2017-02-10 15:58] LABS: BACTERIA FEW /hpf (NONE SEEN); BILIRUBIN NEGATIVE (NEGATIVE); GLUCOSE NEGATIVE (NEGATIVE); KETONE NEGATIVE (NEGATIVE); NITRITE NEGATIVE (NEGATIVE); PROTEIN TRACE mg/dL (NEGATIVE); RED CELLS - URINE OCC /hpf (0-5); UROBILINOGEN NORMAL (NORMAL); WHITE CELLS - URINE OCC /hpf (0-5)
== END | disposition home or self-care (01) ==
LOC: D.LABREF 14:56
PROVIDERS: Urology
DX: N39.0 Urinary tract infection, site not specified (principal)

== ENCOUNTER → 2017-02-20 11:27 | Outpatient (CLI) | payer MEDICARE, OTHER ==
[2017-01-20 10:05] VITALS: BMI 29.3
== END | disposition home or self-care (01) ==
LOC: D.US 11:27
DX: M79.605 Pain in left leg (principal); R60.0 Localized edema

== ENCOUNTER → 2017-02-24 20:16 | Outpatient (CLI) | payer MEDICARE, OTHER ==
[2017-01-20 10:05] VITALS: BMI 29.3
[2017-02-24 21:41] LABS: APPEARANCE CLEAR (CLEAR); BILIRUBIN NEGATIVE (NEGATIVE); COLOR YELLOW (YELLOW); GLUCOSE NEGATIVE (NEGATIVE); KETONE NEGATIVE (NEGATIVE); LEUKOCYTE ESTERASE NEGATIVE (NEGATIVE); NITRITE NEGATIVE (NEGATIVE); PROTEIN NEGATIVE (NEGATIVE); UROBILINOGEN NORMAL (NORMAL)
== END | disposition home or self-care (01) ==
LOC: D.LABREF 20:16
PROVIDERS: Urology
DX: N39.0 Urinary tract infection, site not specified (principal)

== ENCOUNTER 2017-05-11 05:28 | Day surgery (SDC) | payer MEDICARE, OTHER ==
[2017-05-10 16:51] LABS: BASOPHILS 0.1 % (0-2); EOSINOPHILS 2.2 % (0-7); HEMATOCRIT 36.2 % (36.0-48.0); HEMOGLOBIN 11.6 g/dL (12-16); IMMATURE GRANULOCYTES 0.3 % (0-5); LYMPHOCYTES 26.4 % (15-50); MCH 28.8 pg (26.0-34.0); MCV 89.8 fL (80.0-100.0); MONOCYTES 5.6 % (2-11); NEUTROPHILS 65.4 % (40-80); PLATELET COUNT 150 10x3/uL (130-400); RBC 4.03 10x6/uL (4.00-5.40); RDW 14.5 % (11.5-14.5); WBC 7.7 10x3/uL (4.8-10.8)
[2017-05-10 17:13] LABS: ANION GAP 10.2 mmol/L (8-16); CALCIUM 9.9 mg/dL (8.5-10.1); CARBON DIOXIDE 35.8 mmol/L (21.0-32.0); CREATININE - SERUM 2.6 mg/dL (0.6-1.3)
[~2017-05-11 05:28] MED LIST changes: +KLOR-CON M2020 MEQ PO; +PEPCID20 MG PO; -PEPCID40 MG PO
[2017-05-11 06:08] VITALS: BP 149/82; BMI 28.8
--- NOTE | 2017-05-11 09:04 | NUR ---
0850-RECD FROM PACU. UP TO BATHROOM WITH STAND BY ASSIST, VOIDED. IV PATENT. DENIES PAIN. RESP WITH EASE. FULL LIQUIDS SERVED.
--- NOTE | 2017-05-11 10:00 | NUR ---
FINISHED BREAKFAST. INSTRUCTED TO GET DRESSED. DENIES NEED FOR HELP, STATES WILL HELP HER.
--- NOTE | 2017-05-11 13:56 | OP ---
PATIENT NAME: SRAVAN DOWNEY MEDICAL RECORD: [id number] :34 LOCATION:D[facility] ADMISSION DATE: SURGEON: CLARK LANDEROS MD DATE OF OPERATION: 05/11/2017 SURGEON: Clark Landeros MD ANESTHESIA: MAC by Dr. Clark Cooper. PREOPERATIVE DIAGNOSIS: Urge urinary incontinence, not responsive to medication. PROCEDURE: Cystoscopy and intravesical Botox injection 100 units. FINDINGS: Single ureteral orifices bilaterally. Diffuse bladder inflammation. No bladder tumors. ESTIMATED BLOOD LOSS: None. CLINICAL HISTORY: This is an 82-year-old female who has a longstanding history of urge urinary incontinence. She has tried multiple oral medications, which have not worked. I performed cystoscopy on her while ago and noted that she had diffuse bladder inflammation. We tried to treat her with intravesical Rimso, which is an anti-inflammatory. This did not resolve her urge incontinence. She comes now today to have an intravesical Botox injected. SHE IS ALLERGIC TO WHOLE HOST OF MEDICATIONS. However, she is not allergic to Levaquin. 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 DESCRIPTION OF PROCEDURE: She was given IV sedation. She was then placed in the dorsal lithotomy position. Cystoscopy was performed using a 21-Arabic cystoscope with 30-degree lens. At 10 different locations 10 units of Botox was injected for a total of 100 units Overall. The Botox was dissolved in 10 mL of preservative-free normal saline. Once the procedure was done, the scope was removed. The patient was brought to the recovery room. TRANSINT:[id number] Voice Confirmation ID: [id number] DOCUMENT ID: [id number] CLARK LANDEROS MD at 1356 CC: [id number] DICTATION DATE: 05/11/17 08 LOCKSMITH HELPER: 05/11/17 [id number] [place] [address]
== END 2017-05-11 10:30 | disposition home or self-care (01) ==
LOC: D.OPS 05:28
PROVIDERS: Anesthesiology
DX: N39.41 Urge incontinence (principal); I25.10 Atherosclerotic heart disease of native coronary artery without angina pectoris; I10 Essential (primary) hypertension; G47.30 Sleep apnea, unspecified; K21.9 Gastro-esophageal reflux disease without esophagitis; Z95.5 Presence of coronary angioplasty implant and graft; Z01.812 Encounter for preprocedural laboratory examination

== ENCOUNTER → 2017-05-26 19:01 | Outpatient (CLI) | payer MEDICARE, OTHER ==
[2017-05-11 06:08] VITALS: BMI 28.8
== END | disposition home or self-care (01) ==
LOC: D.LABREF 19:01
DX: N39.0 Urinary tract infection, site not specified (principal)

== ENCOUNTER 2017-06-27 19:01 | Emergency (ER) | payer MEDICARE, OTHER | END 2017-06-27 21:58 | disposition home or self-care (01) | LOC: D.ER 19:01 | DX: R13.10 Dysphagia, unspecified (principal); E11.9 Type 2 diabetes mellitus without complications; I10 Essential (primary) hypertension ==

== ENCOUNTER 2017-07-04 10:58 | Emergency (ER) | payer MEDICARE, OTHER ==
[2017-07-04 11:51] LABS: ALBUMIN 3.3 g/dL (3.4-5.0); ANION GAP 12.7 mmol/L (8-16); BILIRUBIN - TOTAL 0.66 mg/dL (0.2-1.3); CALCIUM 10.6 mg/dL (8.5-10.1); CREATININE - SERUM 1.8 mg/dL (0.6-1.3); MAGNESIUM - SERUM 1.8 mg/dL (1.8-2.4); PROTEIN - SERUM 7.4 g/dL (6.4-8.2)
[2017-07-04 11:54] LABS: BASOPHILS 0.1 % (0-2); EOSINOPHILS 0.4 % (0-7); HEMATOCRIT 39.3 % (36.0-48.0); HEMOGLOBIN 12.7 g/dL (12-16); IMMATURE GRANULOCYTES 0.9 % (0-5); LYMPHOCYTES 16.9 % (15-50); MCH 29.2 pg (26.0-34.0); MCHC 32.3 g/dL (31.0-37.0); MCV 90.3 fL (80.0-100.0); MEAN PLATELET VOLUME 10.3 fL (7.4-10.4); MONOCYTES 7.5 % (2-11); NEUTROPHILS 74.2 % (40-80); PLATELET COUNT 214 10x3/uL (130-400); RBC 4.35 10x6/uL (4.00-5.40); RDW 15.7 % (11.5-14.5); WBC 11.3 10x3/uL (4.8-10.8)
[2017-07-04 11:57] LABS: POTASSIUM - SERUM 2.7 mmol/L (3.5-5.1)
[2017-07-04 12:43] LABS: APPEARANCE CLEAR (CLEAR); BILIRUBIN NEGATIVE (NEGATIVE); COLOR STRAW (YELLOW); GLUCOSE NEGATIVE (NEGATIVE); KETONE NEGATIVE (NEGATIVE); NITRITE NEGATIVE (NEGATIVE); PROTEIN NEGATIVE (NEGATIVE); SPECIFIC GRAVITY 1.005 (1.005-1.020); UROBILINOGEN NORMAL (NORMAL)
== END 2017-07-04 15:13 | disposition home or self-care (01) ==
LOC: D.ER 10:58
PROVIDERS: Emergency Medicine; Physician Assistant
DX: I95.1 Orthostatic hypotension (principal); M25.561 Pain in right knee; E87.6 Hypokalemia; N28.9 Disorder of kidney and ureter, unspecified; I10 Essential (primary) hypertension; E03.9 Hypothyroidism, unspecified

== ENCOUNTER → 2017-08-29 18:48 | Outpatient (CLI) | payer MEDICARE, OTHER | END | disposition home or self-care (01) | LOC: D.LABREF 18:48 | DX: N39.0 Urinary tract infection, site not specified (principal) ==

== ENCOUNTER → 2017-09-01 18:35 | Outpatient (CLI) | payer MEDICARE | END | disposition home or self-care (01) | LOC: D.LABREF 18:35 | DX: N39.0 Urinary tract infection, site not specified (principal) ==

== ENCOUNTER 2017-09-07 06:00 | Day surgery (SDC) | payer MEDICARE, OTHER | END 2017-09-07 11:15 | disposition home or self-care (01) | LOC: D.OPS 06:00 | DX: N39.41 Urge incontinence (principal); I25.10 Atherosclerotic heart disease of native coronary artery without angina pectoris; I10 Essential (primary) hypertension; E03.9 Hypothyroidism, unspecified; G47.30 Sleep apnea, unspecified; K21.9 Gastro-esophageal reflux disease without esophagitis; Z01.812 Encounter for preprocedural laboratory examination ==

== ENCOUNTER → 2017-09-22 18:40 | Outpatient (CLI) | payer MEDICARE, OTHER ==
[2017-09-07 07:05] VITALS: BMI 29.3
[~2017-09-22 18:40] MED LIST changes: +MACRODANTIN100 MG PO; +METOLAZONE2.5 MG PO; +METOPROLOL TART25 MG PO; -METOPROLOL TART50 MG PO; +NYAMYC60 GM TP; +ZANAFLEX2 M1 PO
== END | disposition home or self-care (01) ==
LOC: D.LABREF 15:51
DX: N39.0 Urinary tract infection, site not specified (principal)

== ENCOUNTER → 2017-10-24 17:42 | Outpatient (CLI) | payer MEDICARE, OTHER ==
[2017-09-07 07:05] VITALS: BMI 29.3
== END | disposition home or self-care (01) ==
LOC: D.LABREF 17:42
DX: N39.0 Urinary tract infection, site not specified (principal)

== ENCOUNTER → 2017-11-14 09:23 | Outpatient (CLI) | payer MEDICARE, OTHER ==
[2017-09-07 07:05] VITALS: BMI 29.3
== END | disposition home or self-care (01) ==
LOC: D.LABREF 09:23
DX: N39.0 Urinary tract infection, site not specified (principal)

== ENCOUNTER → 2017-12-05 17:42 | Outpatient (CLI) | payer MEDICARE, OTHER ==
[2017-09-07 07:05] VITALS: BMI 29.3
== END | disposition home or self-care (01) ==
LOC: D.LABREF 17:42
DX: N39.0 Urinary tract infection, site not specified (principal)

== ENCOUNTER → 2017-12-08 08:37 | Outpatient (CLI) | payer MEDICARE, OTHER ==
[2017-09-07 07:05] VITALS: BMI 29.3
== END | disposition home or self-care (01) ==
LOC: D.CT 08:37
DX: Z87.442 Personal history of urinary calculi (principal)

== ENCOUNTER 2017-12-15 08:48 | Outpatient (CLI) | payer MEDICARE, OTHER ==
[~2017-12-15] VITALS: Ht 162.6 cm; Wt 73.6 kg
--- NOTE | ~2017-12-15 | OP ---
PATIENT NAME: SRAVAN DOWNEY MEDICAL RECORD: [id number] :34 LOCATION:D.[facility] ADMISSION DATE: SURGEON: NIC BENAVIDES MD DATE OF OPERATION: 12/15/2017 PROCEDURES: 1. Aortofemoral runoff. 2. Abdominal aortography. INDICATION: Claudication and peripheral vascular disease. DESCRIPTION OF PROCEDURE: After informed consent was obtained and after detailed explanation of risks, benefits as well as alternative therapies, the patient elected to proceed with angiogram and aortofemoral runoff. The right femoral area was prepped and draped in normal sterile fashion. Right femoral artery was cannulated via modified Seldinger technique with placement of 5-Prydeinig sheath. All catheters exchanged through this sheath. FINDINGS: The abdominal aortography was performed. The catheter was pulled down for aortofemoral runoff. Abdominal aortography reveals no significant known aortic disease, no renal artery stenosis. No aneurysm or dissection. RIGHT LEG: A. Iliac: The common internal and external iliacs are tortuous with mild irregularities, but no flow-limiting stenosis. B. Femoral system: The common superficial and deep femoral have mild irregularities, but no flow-limiting stenosis. C. Popliteal has previously placed stent. This is widely patent with no significant restenosis. The infrapopliteal vessels are patent with 3-vessel runoff to the foot, although mildly diffusely diseased. LEFT LEG: A. Iliac: The common internal and external iliacs have mild irregularities, but no flow-limiting stenosis. B. Femoral system: The common superficial and deep femoral have mild irregularities, but no flow-limiting stenosis. C. Popliteal and infrapopliteal vessels are patent with 3-vessel runoff to the foot, although mildly diffusely diseased. OVERALL IMPRESSION: Wide patency of all vessels including the previously placed stent of the right popliteal. At this time, the leg pain is non-arteriovascular in etiology. TRANSINT:[id number] Voice Confirmation ID: [id number] DOCUMENT ID: [id number] NIC BENAVIDES MD at 1711 CC: [id number] DICTATION DATE: 12/15/17 1203 EXECUTIVE RECRUITER: 12/15/17 1227 DEP CLI 12/15/17 [place] [address]
--- NOTE | ~2017-12-15 | HEMODYNAMI ---
PATIENT:SRAVAN DOWNEY MEDICAL RECORD: [id number] : 33 LOCATION:[facility] ADMISSION DATE: 12/15/17 Generatedon:12/15/201712:05 Patient name: SRAVAN DOWNEY Patient #: [id number] SSN: [id number] : 1935 Date of study: 12/15/2017 Page: Of Hemodynamic Procedure Report Patient Data Patient Demographics Procedure consent was obtained First Name: SRAVAN Gender: Female Last Name: NASREEN : 1935 Middle Initial: A Age: 82 year(s) Patient #: [id number] Race: Unknown SSN: [id number] Additional ID: [id number] Contact details Address: [address] [place] [address] [facility] State: [place] City: [place] Zip code: [address] Past Medical History Allergies Allergen Reaction Date Comments Reported Other allergy 12/15/2016 see list Other allergy 01/20/2017 Horse containing products, keflex, PCN, adhesive tape,crestor,asa, beef, cartia, demerol, lipitor, sulfa, tricor, premarin, duragesic. Other allergy 12/15/2017 See chart Admission Admission Data Admission Date: 12/15/2017 Admission Time: 8:48 Procedure Procedure Types Cath Procedure Peripheral Cath Diagnostic Procedure Cath Peripheral Jljhi-Fipgfmt-Mfr-Off Procedure Description Procedure Date Procedure Date: 12/15/2017 Procedure Start Time: 11:55 Procedure End Time: 12:02 Procedure Staff Name Function Venancio Rivera MD Performing Physician Angie Masters RT Monitor Sandra Keene RT Scrub Guillermo Kaufman RN Nurse Procedure Data Cath Procedure Fluoroscopy Diagnostic fluoroscopy Total fluoroscopy Time: 0.5 time: 0.5 min min Diagnostic fluoroscopy Total fluoroscopy dose: 130 dose: 130 mGy mGy Contrast Material Contrast Material Type Amount (ml) Isovue 300 41 Entry Location Entry Primary Successful Side Size Upsize Upsize Entry Closure Succes sful Closure Location (Fr) 1 (Fr) 2 (Fr) Remarks Device Remarks Femoral Right 5 Fr Exoseal artery Estimated blood loss: 10 ml Diagnostic catheters Device Type Used For End Catheter Placement DIAGNOSTIC UF 5Fr Procedure catheter ([id number]) Procedure Complications No complications Procedure Medications Medication Administration Route Dosage Oxygen NC 2 l/min Lidocaine 2% added to field 20 Heparin Flush Bag added to field 2 bags (1000units/500ml NS) 0.9% NaCl I.V. 100 ml/hr Versed I.V. 0.5 mg Dilaudid I.V. 0.5 mg Versed I.V. 0.5 mg Versed I.V. 0.5 mg Dilaudid I.V. 0.5 mg Dilaudid I.V. 0.5 mg Hemodynamics Rest Heart Rate: 64 (bpm) Snapshots Pre Cath Intra NCS Post Cath Vital Signs Time Heart Resp SPO2 etCO2 NIBP (mmHg) Rhythm Pain Sedation Rate (ipm) (%) (mmHg) Status Level (bpm) 11:46:01 66 19 99 35.9 159/79(131) NSR 0 (11) 10(A) , No pain 11:50:23 65 17 95 30 153/73(122) NSR 0 (11) 10(A) , No pain 11:54:43 64 15 96 28.2 138/73(105) NSR 0 (11) 10(A) , No pain 11:59:03 65 14 98 27.7 146/71(100) NSR 0 (11) 9(A) , No pain 12:03:19 75 15 94 30.54 131/70(110) NSR 0 (11) 10(A) , No pain Medications Time Medication Route Dose Verified Delivered Reason Notes Effe ctiveness by by 11:44:12 Oxygen NC 2 Venancio Li used for l/min Nicole Kaufman RN procedure 11:44:19 Lidocaine 2% added 20ml Venancio Craft for local to vial Nicole Rivera MD anesthetic field 11:44:27 Heparin Flush added 2 Venancio Venancio used for Bag to bags Nicole Rivera MD procedure (1000units/500ml field NS) 11:44:35 0.9% NaCl I.V. 100 Venancio Buffie Per ml/hr Nicole Kaufman RN physician 11:52:11 Versed I.V. 0.5 Venancio Buffie for mg Nicole Kaufman RN sedation 11:52:21 Dilaudid I.V. 0.5 Venancio Li for mg Nicole Kaufman RN sedation 11:55:25 Versed I.V. 0.5 Venancio Li for mg Nicole Kaufman RN sedation 11:55:59 Dilaudid I.V. 0.5 Venancio Li for mg Nicole Kaufman RN sedation 11:59:02 Versed I.V. 0.5 Venancio Li for mg Nicole Kaufman RN sedation 11:59:06 Dilaudid I.V. 0.5 Venancio Li for mg Nicole Kaufman RN sedation Procedure Log Time Note 11:19:42 Diagnostic Cath Status : Elective 11:20:05 Guillermo Kaufman RN sent for patient. Start room use. 11:20:06 Time tracking: Regular hours (M-F 7:00 - 5:00) 11:20:10 Plan of Care:Hemodynamics will remain stable., Cardiac rhythm will remain stable., Comfort level will be maintained., Respiratory function will remain adequate., Patient/ family verbilizes understanding of procedure., Procedure tolerated without complication., Recovers from procedure without complications.. 11:31:36 Patient received from Pre/Post Procedure Room to [facility] 2 Alert and oriented. Tansferred to table in Supine position. 11:31:37 Warm blankets applied, and jian hugger turned on for patient comfort. 11:31:38 Correct patient and procedure confirmed by team. 11:31:39 Signed procedure consent form obtained from patient. 11:31:40 ECG and BP/O2 sat monitors applied to patient. 11:44:12 Oxygen 2 l/min NC was administered by Guillermo Kaufman RN; used for procedure; 11:44:19 Lidocaine 2% 20ml vial added to field was administered by Venancio Rivera MD; for local anesthetic; 11:44:27 Heparin Flush Bag (1000units/500ml NS) 2 bags added to field was administered by Venancio Rivera MD; used for procedure; 11:44:35 0.9% NaCl 100 ml/hr I.V. was administered by Guillermo Kaufman RN; Per physician; 11:44:42 Vital chart was started 11:49:51 Baseline sample Acquired. 11:49:57 Rhythm: sinus rhythm 11:49:58 Full Disclosure recording started 11:50:03 H&P Date Dictated: 12/14/2017 Within 30 days and on chart., H&P Addendum completed by physician on day of procedure. (MUST COMPLETE FOR ALL OUTPATIENTS). 11:50:04 Pre-procedure instructions explained to patient. 11:50:07 Family in waiting room. 11:50:10 Patient NPO since Midnight. 11:50:28 Patient allergic to Other allergySee chart 11:50:30 Is the patient allergic to Iodine/contrast media? No. 11:50:33 Was the patient premedicated? Yes 11:50:34 Is patient on blood thinner?Yes 11:50:36 ACC The patient was administered the following blood thiners within the last 24 hours: ACCPlavix 11:50:39 Patient diabetic? No. 11:50:44 Snore? Yes 11:50:45 Sleep apnea? Yes 11:50:51 Dentures? Yes tight 11:51:03 Patient pain scale 0/10 ?. 11:51:08 IV patent on arrival in left forearm with 0.9% NaCl at KVO. 11:51:13 Lab results completed and on chart. 11:51:43 Physician paged 11:51:44 --------ALL STOP TIME OUT------ 11:51:45 Final Timeout: patient, procedure, and site verified with staff and physician. All members of the team are in agreement. 11:51:49 Bilateral groins site verified by team. 11:51:53 Physical assessment completed. ASA score P 2 - A patient with mild systemic disease as per Venancio Rivera MD. 11:52:11 Versed 0.5 mg I.V. was administered by Guillermo Kaufman RN; for sedation; 11:52:21 Dilaudid 0.5 mg I.V. was administered by Guillermo Kaufman RN; for sedation; 11:52:36 Sedation plan: IV Moderate Sedation Medication:Versed 11:52:40 Use device set Femoral Dx 11:52:41 ACIST Syringe (59929) opened to sterile field. 11:52:42 Bag Decanter () opened to sterile field. 11:52:42 Medline Cath Pack ([id number]) opened to sterile field. 11:52:43 DIAGNOSTIC WIRE .035 260cm J wire ([id number]) opened to sterile field. 11:52:44 ACIST Hand Control (08771) opened to sterile field. 11:52:44 ACIST Manifold (80839) opened to sterile field. 11:52:50 Tegaderm 4 x 4 (1626W) opened to sterile field. 11:52:53 SHEATH Prelude 5Fr 0.035 (XUK-9J-01-035) opened to sterile field. 11:55:19 Procedure started. 11:55:25 Versed 0.5 mg I.V. was administered by Guillermo Kaufman RN; for sedation; 11:55:31 Local anesthetic to right femoral artery with Lidocaine 2% by Venancio Rivera MD.INITIAL ACCESS ONLY 11:55:40 A 5 Fr sheath was inserted into the Right Femoral artery 11:55:59 Dilaudid 0.5 mg I.V. was administered by Guillermo Kaufman RN; for sedation; 11:57:20 A DIAGNOSTIC UF 5Fr catheter ([id number]) was advanced over the wire and used for Procedure. 11:59:02 Versed 0.5 mg I.V. was administered by Guillermo Kaufman RN; for sedation; 11:59:04 Abdominal angiogram w/ runoff was performed. 11:59:06 Dilaudid 0.5 mg I.V. was administered by Guillermo Kaufman RN; for sedation; 12:00:38 Right leg runoff performed. 12:00:39 Left leg runoff performed. 12:00:44 Wire removed. 12:00:57 Sheath removed intact; hemostasis achieved with Exoseal to the Right Femoral artery. 12:01:02 EXOSEAL 5Fr (EX500) opened to sterile field. 12:01:14 Procedure ended.(Physican Out) 12:01:27 Fluoroscopy time 00.50 minutes. 12:01:33 Fluoroscopy dose: 130 mGy 12:01:33 Flurop Dose total: 130 12:01:48 Contrast amount:Isovue 300 41ml. 12:01:49 Sharps counted by scrub and verified by R.N. 12:01:51 Insertion/operative site no bleeding no hematoma. 12:01:54 Post-op/insertion site Right Femoral artery dressed using a 4 x 4 and Tegaderm. 12:01:55 Post Procedure Pulses reassessed and unchanged 12:02:00 Post-procedure physical assessment completed. ASA score P 2 - A patient with mild systemic disease as per Venancio Rivera MD. 12:02:03 Post procedure rhythm: unchanged. 12:02:08 Estimated blood loss: 10 ml 12:02:10 Post procedure instruction explained to patient.Patient verbalizes understanding. 12:02:20 Procedure and supply charges have been captured, reviewed, submitted and are correct. 12:02:40 Procedure Complication : No complications 12:02:42 Vital chart was stopped 12:02:43 See physician's report for complete and final results. 12:02:45 Report given to Pre/Post Procedure Room. 12:02:48 Patient transfered to Pre/Post Procedure Room with Stretcher. 12:02:50 Procedure ended. 12:02:50 Full Disclosure recording stopped 12:02:52 End room use (Document Last) Device Usage Item Name Manufacture Quantity Catalog Number Hospital Part Current M inimal Lot# / Charge Number Stock Stock Serial# Code ACIST Syringe Acist 1 [id number] 332362 573976 [id number] 2 0 (41368) [employer] Bag Decanter Microtek 1 2001S 152532 00033 [id number] 5 (2001S) Medical Inc. Medline Cath Cardinal 1 [id number] 658941 42297 882334 5 Pack Health ([id number]) DIAGNOSTIC WIRE [facility] [place] 1 861611 918735 566411 604189 3 0 .035 260cm J wire (773345) ACIST Hand Acist 1 59129 302007 195920 269838 5 Control (12886) [employer] Inc ACIST Manifold Acist 1 46393 185363 174589 911858 5 (39603) Medical Systems Inc Tegaderm 4 x 4 3M 1 1626W 261291 067478 599470 5 (1626W) SHEATH Prelude Merit 1 MJT-2U-80-035 270009 960766 199782 5 5Fr 0.035 Medical ([id number]-2L-15-035) DIAGNOSTIC UF Cardinal 1 [id number] 885877 416625 291909 1 0 5Fr catheter Health ([id number]) EXOSEAL 5Fr Cardinal 1 EX500 039496 429911 051001 1 0 (EX500) Health Signature Audit [place] Stage Time Signature Unsigned Intra-Procedure 12/15/2017 Angie Masters 12:05:16 PM RT(R) Signatures Monitor : Angie Masters Signature : RT Date : Time : [facility] [address] [place] [address]
[~2017-12-15 08:48] MED LIST changes: -MACRODANTIN100 MG PO; -METOLAZONE2.5 MG PO; -NYAMYC60 GM TP; -ZANAFLEX2 M1 PO
[2017-12-15] MEDS ORDERED: GABAPENTIN100 MG PO (10:02)
[2017-12-15] MEDS ORDERED: MACRODANTIN100 MG PO (10:04)
[2017-12-15] MEDS ORDERED: METOLAZONE2.5 MG PO (10:04)
[2017-12-15] MEDS ORDERED: ZANAFLEX2 M1 PO (10:08)
[2017-12-15] MEDS ORDERED: NYAMYC60 GM TP (10:08)
[2017-12-15 10:16] VITALS: BP 154/69; Ht 162.6 cm; Wt 73.6 kg
[2017-12-15 10:26] LABS: BASOPHILS 0.2 % (0-2); HEMOGLOBIN 11.7 g/dL (12-16); IMMATURE GRANULOCYTES 0.3 % (0-5); LYMPHOCYTES 20.8 % (15-50); MCH 29.4 pg (26.0-34.0); MCHC 32.5 g/dL (31.0-37.0); MCV 90.5 fL (80.0-100.0); MONOCYTES 6.1 % (2-11); NEUTROPHILS 70.6 % (40-80); PLATELET COUNT 190 10x3/uL (130-400); RBC 3.98 10x6/uL (4.00-5.40); RDW 15.2 % (11.5-14.5)
[2017-12-15 10:31] LABS: ANION GAP 10.7 mmol/L (8-16); CALCIUM 9.7 mg/dL (8.5-10.1); CARBON DIOXIDE 33.4 mmol/L (21.0-32.0); CREATININE - SERUM 1.5 mg/dL (0.6-1.3); POTASSIUM - SERUM 4.1 mmol/L (3.5-5.1)
[2017-12-16] MEDS ORDERED: GABAPENTIN100 MG PO (01:49)
== END 2017-12-15 14:35 | disposition home or self-care (01) ==
LOC: D.CATH 08:48
PROVIDERS: Internal Medicine Interventional Cardiology
DX: M79.605 Pain in left leg (principal); M79.604 Pain in right leg; Z01.812 Encounter for preprocedural laboratory examination

== ENCOUNTER 2017-12-15 19:19 | Inpatient (IN) | payer MEDICARE, OTHER ==
[~2017-12-15] VITALS: Ht 162.6 cm; Wt 73.0 kg
--- NOTE | ~2017-12-15 | DS ---
PATIENT:SRAVAN DOWNEY :33 MEDICAL RECORD: [id number] DISCHARGE SUMMARY ADMISSION DATE: 12/15/17 DISCHARGE DATE: 12/21/17 DATE OF ADMISSION: 12/15/2017 DATE OF DISCHARGE: 12/21/2017 ADMISSION DIAGNOSES: Acute respiratory distress. Shortness of breath. Status post testing with contrast. The patient had a vascular procedure test done with contrast, 3 hours later had severe shortness of breath, she had no rash, no other symptoms. She was admitted. DISCHARGE DIAGNOSES: Possible adverse reaction to contrast. Acute shortness of breath. Respiratory distress. Also history of Parkinson disease, coronary artery disease, hypertension. HOSPITAL COURSE: The patient was admitted through the Emergency Room with acute shortness of breath, placed on oxygen. Had some pulmonary edema and was diuresed. Cardiology consulted. No significant findings. Cardiology signed out. Pulmonology was consulted. Supportive care, nebulizers, supportive oxygen, also steroids. The patient is off of steroids, is breathing fine on room air, has been cleared by pulmonology and cardiology for discharge. The patient has home health already in place. The patient is discharged home in significantly improved condition. PHYSICAL EXAMINATION: VITAL SIGNS ON DISCHARGE: Temperature 97.5, blood pressure is 158/73, heart rate 86, respirations 15, O2 sats 97% on room air. GENERAL: Alert and oriented, no acute distress. HEART: Regular rate and rhythm. LUNGS: Clear. ABDOMEN: Soft, nontender. Bowel sounds positive. EXTREMITIES: Present times 4. NEUROLOGIC: Intact. SKIN: Warm and dry. No rash. LABORATORY DATA: CBC on discharge: White count is 10,000, hemoglobin 11.9, hematocrit 36.8, platelets 185. Chemistry shows sodium of 148, potassium 3.7, chloride 102, bicarb 31.2, BUN 47, creatinine 1.2, glucose 95. Again, the patient is discharged to home. Home health is in place. Discharge medications are per med rec. She will follow up in the clinic within the next 10 days. See chart for further details. Agree with diagnosis and input from cardiology and pulmonology. TRANSINT:[id number] Voice Confirmation ID: [id number] DOCUMENT ID: [id number] DISCHARGE SUMMARY REPORT [id number] SRAVAN DOWNEY HÉCTOR BARCLAY DO at 0759 CC: [id number] DICTATION DATE: 12/21/17 0754 FAST FOOD SHIFT SUPERVISOR: 12/21/17 1044 DIS IN 12/21/17 [facility] [address] [id number]
--- NOTE | ~2017-12-15 | CN ---
PATIENT NAME:SRAVAN NEWSOME MEDICAL RECORD: [id number] : 33 LOCATION:D. D.2134 ADMIT DATE: 12/15/17 ACCOUNT: [id number] CONSULTING PHYSICIAN: COLT SÁNCHEZ MD REFERRING PHYSICIAN: IOANA HORVATH DO DATE OF CONSULTATION: 12/16/2017 REQUESTING PHYSICIAN: Ioana Horvath DO REASON FOR CONSULTATION: Acute shortness of breath. HISTORY OF PRESENT ILLNESS: Ms. Newsome is an 82-year-old female who has an angiogram of the lower extremity. Yesterday, the patient went home and came back with worsening shortness of breath. She has orthopnea and PND. She is also very congested in her chest. Today, she has a runny nose and have a yellowish discharge. Denies any fever and chills. No night sweats. The patient came into the ER. The proBNP was elevated and the chest x-ray showed pulmonary edema. PAST MEDICAL HISTORY: 1. Asthma. 2. Obstructive sleep apnea. She is on CPAP machine at night. 3. Hypertension. 4. Coronary artery disease. 5. Peripheral vascular disease. 6. Fibromyalgia. PAST SURGICAL HISTORY: 1. Hysterectomy. 2. Hemorrhoidectomy. 3. Cardiac catheterization and stent placement. 4. Salpingo-oophorectomy, bilateral. 5. Right knee surgery, left knee arthroscopic surgery. 6. Cataract surgery. 7. Fatty tumor removed from the large intestine. 8. Fusion of the cervical spine C4 and C5. ALLERGIES: SHE IS ALLERGIC TO MULTIPLE MEDICATIONS, JULIEN INHIBITOR, BEEF, CEPHALEXIN, FENOFIBRATE, SULFA, ACETAMINOPHEN, ASPIRIN, CHOLESTYRAMINE, DILTIAZEM, ESTROGEN, FENOFIBRATE, FENTANYL, HEPARIN, HYDROCODONE, MEPERIDINE, PENICILLIN, CRESTOR. MEDICATIONS: ENJORE is reviewed. PERSONAL AND SOCIAL HISTORY: The patient is a nonsmoker, nondrinker. FAMILY HISTORY: Noncontributory. PHYSICAL EXAMINATION: GENERAL: Now, the patient is lying comfortably in bed. She is not in acute distress. VITAL SIGNS: The blood pressure is 123/59, pulse is 81, respiration is 17, temperature is 97.5, SpO2 is 100% on 7 liter oxymizer. HEENT: Conjunctivae are pink. Sclerae are not icteric. NECK: Supple, no JVD. CONSULT REPORT [id number] SRAVAN NEWSOME CHEST: There are bilateral crackles, wheeze on forceful expiration. HEART: Rate and rhythm regular with a grade 2/6 systolic murmur. ABDOMEN: Soft, bowel sounds present. No hepatosplenomegaly. RECTAL: Deferred. EXTREMITIES: No cyanosis, no clubbing, no pedal edema. IMAGING: Chest radiograph: There are increased interstitial marking. LABORATORY DATA: CBC: WBC is 7.7, hemoglobin 11.4, hematocrit 35.7, the platelet count 171. Chemistry: Sodium 141, potassium 4.2, BUN is 46, creatinine is 1.5. AST 21. ProBNP is 798. ABG on admission, the pH was 7.40, pCO2 is 50.4, pO2 is 79, and bicarbonate 31.6. IMPRESSION: 1. Acute hypoxic respiratory failure. 2. Acute asthma exacerbation. 3. Possible tracheobronchitis. 4. Pulmonary edema. 5. Gastroesophageal reflux disease. 6. Allergic rhinitis. 7. Obstructive sleep apnea, on CPAP. 8. History of lung nodule that was stable over 2 year followup. She follow up with Dr. Parra. RECOMMENDATION: 1. Start her on Lasix. Start albuterol/ipratropium nebulizer. Start Brovana and budesonide nebulizer. Start on methylprednisolone IV. Start on Singulair. Start her on doxycycline IV. 2. Mucinex DM 2 tablets b.i.d. 3. Flonase nasal spray. 4. Follow up labs and chest radiograph in the morning. Cardiac workup per Dr. Harkins. Dr. Horvath, thank you for involving me in the care of Ms. Newsome. TRANSINT:[id number] Voice Confirmation ID: [id number] DOCUMENT ID: [id number] COLT SÁNCHEZ MD at 1806 CC: IOANA HORVATH DO [id number] DICTATION DATE: 12/16/171652 SENIOR DRAFTER: 12/16/171922 DIS IN 12/21/17 [facility] [address] [place] [address]
--- NOTE | ~2017-12-15 | EC ---
PATIENT:SRAVAN DOWNEY DATE OF SERVICE: 12/15/17 SEX: F MEDICAL RECORD: [id number] DATE OF : 33 LOCATION:D.M2 D.213 AGE OF PATIENT: 82 ADMISSION DATE: 12/15/17 REFERRING PHYSICIAN: INTERPRETING PHYSICIAN: ELBA CHEEK MD ECHOCARDIOGRAM REPORT ECHO CHARGES 4 ECHO COMPLETE Date: 12/16 CLINICAL DIAGNOSIS: CHF/CHEST PAIN ECHOCARDIOGRAPHIC MEASUREMENTS (adult normal given) AC root (d.<3.7cm) 3.2 cm LV Septum d (<1.2 cm> 1.2 cm Valve Excursion 1.3 cm LV Septum (systole) 1.4 cm Left Atria (s.<4.0cm> 3.9 cm LVPW d(<1.2cm) 1.2 cm RV (d.<2.3cm) 3.7 cm LVPW (sytole) 1.6 cm LV diastole(<5.6CM) 4.8 cm MV E-F(>70mm/sec) cm LV systole 2.8 cm LVOT Diameter 1.7 cm MV exc.(>10mm) 1.5 cm Est.ejection fraction (50-75%) % DOPPLER: LVIT cm/sec A 116 cm/sec E 75.0 cm/sec LA cm/sec RVSP 28 mmHg LVOT 134 cm/sec AOP1/2T m/s Asc. Ao 171 cm/sec RVOT 1036 cm/sec RA cm/sec PA 140 cm/sec AV Gradient Peak 11.65mmHg AV Mean 6.15 mmHg AV Area 1.6 cm MV Gradient Peak 8.22 mmHg MV Mean 2.42 mmHg MV Area cm COMMENTS: Vehicle Body Maker: 2 JORDAN HUTCHISON Entry Level Software Engineer: 4 Dr. Cheek TAPE# PACS Pericardial Effusion N DATE OF SERVICE: PROCEDURE: Transthoracic echocardiogram. FINDINGS: This is difficult to interpret echo because of difficult imaging, is more qualitative, however. 1. Left ventricle has an ejection fraction that is preserved at 60% to 65%. The inflow characteristics are consistent with diastolic dysfunction. There is no obvious regional wall motion abnormalities. 2. The left atrium is normal size, normal function. ECHOCARDIOGRAM REPORT [id number] SRAVAN DOWNEY 3. Aortic valve is normal grossly. 4. The mitral valve is overall normal. 5. The tricuspid valve has trace tricuspid regurgitation. RVSP is normal. 6. The right ventricle appears to be normal to mildly dilated. 7. The right atrium is normal size, normal function. 8. The pulmonic valve is normal. 9. Pericardium is normal. CONCLUSION: The patient has evidence of hypertensive heart disease, otherwise normal echocardiogram. TRANSINT:[id number] Voice Confirmation ID: [id number] DOCUMENT ID: [id number] ELBA CHEEK MD at 1131 CC: [id number] DICTATION DATE: 12/17/17 0807 SPANISH SPEAKING NANNY: 12/17/17 1232 ADM IN [facility] [address] [id number]
[~2017-12-15 19:19] MED LIST changes: +MACRODANTIN100 MG PO; +METOLAZONE2.5 MG PO; +NYAMYC60 GM TP; +ZANAFLEX2 M1 PO
[2017-12-15 19:40] LABS: BASOPHILS 0.3 % (0-2); EOSINOPHILS 2.2 % (0-7); HEMATOCRIT 35.7 % (36.0-48.0); HEMOGLOBIN 11.4 g/dL (12-16); IMMATURE GRANULOCYTES 0.3 % (0-5); LYMPHOCYTES 37.4 % (15-50); MCH 29.2 pg (26.0-34.0); MCHC 31.9 g/dL (31.0-37.0); MCV 91.5 fL (80.0-100.0); MEAN PLATELET VOLUME 10.8 fL (7.4-10.4); MONOCYTES 7.9 % (2-11); NEUTROPHILS 51.9 % (40-80); PLATELET COUNT 171 10x3/uL (130-400); RDW 15.2 % (11.5-14.5); WBC 7.7 10x3/uL (4.8-10.8)
[2017-12-15 19:55] LABS: ALBUMIN 3.2 g/dL (3.4-5.0); ALKALINE PHOSPHATASE 74 U/L (46-116); ALT (SGPT) 7 U/L (10-68); BILIRUBIN - TOTAL 0.75 mg/dL (0.2-1.3); CALC OSMOLALITY 292 mosm/kg (275-300); CALCIUM 9.9 mg/dL (8.5-10.1); CARBON DIOXIDE 32.8 mmol/L (21.0-32.0); CHLORIDE - SERUM 102 mmol/L (98-107); CREATININE - SERUM 1.5 mg/dL (0.6-1.3); GLUCOSE 106 mg/dL (74-106); POTASSIUM - SERUM 4.2 mmol/L (3.5-5.1); SODIUM 141 mmol/L (136-145); UREA NITROGEN 46 mg/dL (7-18); eGFR NON AFRICAN AMERICAN 35 mL/min (90-120)
[2017-12-15 20:01] LABS: TROPONIN-I < 0.017 ng/mL (0.000-0.060)
[2017-12-15 22:11] LABS: APPEARANCE CLEAR (CLEAR); BILIRUBIN NEGATIVE (NEGATIVE); COLOR YELLOW (YELLOW); GLUCOSE NEGATIVE (NEGATIVE); KETONE NEGATIVE (NEGATIVE); NITRITE NEGATIVE (NEGATIVE); PROTEIN NEGATIVE (NEGATIVE); SPECIFIC GRAVITY 1.015 (1.005-1.020); UROBILINOGEN NORMAL (NORMAL)
[2017-12-16] MEDS ORDERED: GABAPENTIN100 MG PO (01:49)
[2017-12-16 01:50] VITALS: BP 135/72
[2017-12-16 01:52] VITALS: BP 135/72; BMI 27.7
[2017-12-16 08:35] VITALS: BP 123/59
[2017-12-16 09:37] VITALS: BMI 27.6
[2017-12-16 10:48] VITALS: Ht 162.6 cm; Wt 73.0 kg
[2017-12-16 12:00] VITALS: BP 126/56
[2017-12-16 17:02] VITALS: BP 146/59
[2017-12-16 20:50] VITALS: BP 142/44
[2017-12-17 01:31] VITALS: BP 157/68
[2017-12-17 05:41] VITALS: BP 144/61
[2017-12-17 07:10] LABS: BASOPHILS 0 % (0-2); EOSINOPHILS 0 % (0-7); HEMATOCRIT 34.4 % (36.0-48.0); HEMOGLOBIN 11.1 g/dL (12-16); IMMATURE GRANULOCYTES 0.2 % (0-5); LYMPHOCYTES 2.9 % (15-50); MCH 29.1 pg (26.0-34.0); MCHC 32.3 g/dL (31.0-37.0); MCV 90.1 fL (80.0-100.0); MEAN PLATELET VOLUME 10.5 fL (7.4-10.4); MONOCYTES 1.2 % (2-11); NEUTROPHILS 95.7 % (40-80); PLATELET COUNT 177 10x3/uL (130-400); RBC 3.82 10x6/uL (4.00-5.40); RDW 15.1 % (11.5-14.5)
[2017-12-17 07:19] LABS: WBC 11.4 10x3/uL (4.8-10.8)
[2017-12-17 07:31] LABS: BILIRUBIN - TOTAL 0.42 mg/dL (0.2-1.3); CALCIUM 9.9 mg/dL (8.5-10.1); CARBON DIOXIDE 30.5 mmol/L (21.0-32.0); CREATININE - SERUM 1.5 mg/dL (0.6-1.3); PROTEIN - SERUM 6.3 g/dL (6.4-8.2)
[2017-12-17 07:34] LABS: ANION GAP 13.9 mmol/L (8-16); POTASSIUM - SERUM 3.4 mmol/L (3.5-5.1)
[2017-12-17 09:09] VITALS: BP 145/73
[2017-12-17 12:00] VITALS: BP 149/68
[2017-12-17 17:23] VITALS: BP 159/73
[2017-12-17 22:05] VITALS: BP 145/54
[2017-12-18 02:28] VITALS: BP 138/64
[2017-12-18 05:12] LABS: BASOPHILS 0 % (0-2); EOSINOPHILS 0 % (0-7); HEMATOCRIT 33.7 % (36.0-48.0); HEMOGLOBIN 10.9 g/dL (12-16); IMMATURE GRANULOCYTES 0.5 % (0-5); LYMPHOCYTES 6.6 % (15-50); MCHC 32.3 g/dL (31.0-37.0); MCV 89.6 fL (80.0-100.0); MEAN PLATELET VOLUME 10.5 fL (7.4-10.4); MONOCYTES 2.8 % (2-11); NEUTROPHILS 90.1 % (40-80); PLATELET COUNT 186 10x3/uL (130-400); RBC 3.76 10x6/uL (4.00-5.40); RDW 15.1 % (11.5-14.5); WBC 12.5 10x3/uL (4.8-10.8)
[2017-12-18 05:21] LABS: ALBUMIN 2.8 g/dL (3.4-5.0); BILIRUBIN - TOTAL 0.4 mg/dL (0.2-1.3); CALCIUM 9.9 mg/dL (8.5-10.1); CREATININE - SERUM 1.2 mg/dL (0.6-1.3); PROTEIN - SERUM 6.2 g/dL (6.4-8.2)
[2017-12-18 05:22] VITALS: BP 163/70
[2017-12-18 08:20] VITALS: BP 170/71
[2017-12-18 11:24] VITALS: BP 165/87
[2017-12-18 16:10] VITALS: BP 135/58
[2017-12-18 20:00] VITALS: BP 168/70
[2017-12-19 08:35] VITALS: BP 201/83
[2017-12-19 12:02] VITALS: BP 165/74
[2017-12-19 16:12] VITALS: BP 151/60
[2017-12-19 20:00] VITALS: BP 142/58
[2017-12-20] VITALS: BP 140/60
[2017-12-20 04:46] LABS: BASOPHILS 0.1 % (0-2); EOSINOPHILS 0.2 % (0-7); HEMATOCRIT 39.1 % (36.0-48.0); HEMOGLOBIN 12.7 g/dL (12-16); IMMATURE GRANULOCYTES 1.2 % (0-5); LYMPHOCYTES 25.9 % (15-50); MCH 29.3 pg (26.0-34.0); MCHC 32.5 g/dL (31.0-37.0); MCV 90.1 fL (80.0-100.0); MEAN PLATELET VOLUME 11.1 fL (7.4-10.4); MONOCYTES 8.2 % (2-11); NEUTROPHILS 64.4 % (40-80); PLATELET COUNT 195 10x3/uL (130-400); RBC 4.34 10x6/uL (4.00-5.40); RDW 15.1 % (11.5-14.5); WBC 11.8 10x3/uL (4.8-10.8)
[2017-12-20 05:01] LABS: ANION GAP 5.3 mmol/L (8-16); CALCIUM 9.9 mg/dL (8.5-10.1); CARBON DIOXIDE 30.4 mmol/L (21.0-32.0); CREATININE - SERUM 1.2 mg/dL (0.6-1.3); POTASSIUM - SERUM 3.7 mmol/L (3.5-5.1)
[2017-12-20 08:22] VITALS: BP 153/69
[2017-12-20 12:09] VITALS: BP 159/69
[2017-12-20 16:16] VITALS: BP 149/67
[2017-12-20 22:01] VITALS: BP 158/73
[2017-12-21 01:03] VITALS: BP 178/84
[2017-12-21 04:59] LABS: ANION GAP 10.5 mmol/L (8-16); CALCIUM 9.3 mg/dL (8.5-10.1); CARBON DIOXIDE 31.2 mmol/L (21.0-32.0); CREATININE - SERUM 1.2 mg/dL (0.6-1.3); POTASSIUM - SERUM 3.7 mmol/L (3.5-5.1)
[2017-12-21 05:05] LABS: BASOPHILS 0 % (0-2); EOSINOPHILS 0.5 % (0-7); HEMATOCRIT 36.8 % (36.0-48.0); HEMOGLOBIN 11.9 g/dL (12-16); IMMATURE GRANULOCYTES 1.5 % (0-5); LYMPHOCYTES 25.8 % (15-50); MCH 29.2 pg (26.0-34.0); MCHC 32.3 g/dL (31.0-37.0); MCV 90.2 fL (80.0-100.0); MEAN PLATELET VOLUME 10.6 fL (7.4-10.4); MONOCYTES 9.1 % (2-11); NEUTROPHILS 63.1 % (40-80); PLATELET COUNT 185 10x3/uL (130-400); RBC 4.08 10x6/uL (4.00-5.40); RDW 15.3 % (11.5-14.5)
== END 2017-12-21 12:13 | disposition home health service (06) | DRG 204 ==
LOC: D.ER 19:19 → D.M2 22:01 → D.EDHOLD 22:01 → D.M2 22:16
PROVIDERS: Family Medicine
DX: R06.03 Acute respiratory distress (principal); J45.901 Unspecified asthma with (acute) exacerbation; J81.1 Chronic pulmonary edema; E87.1 Hypo-osmolality and hyponatremia; T50.8X5A Adverse effect of diagnostic agents, initial encounter; K21.9 Gastro-esophageal reflux disease without esophagitis; G20 Parkinson's disease; G47.33 Obstructive sleep apnea (adult) (pediatric); I10 Essential (primary) hypertension; I25.10 Atherosclerotic heart disease of native coronary artery without angina pectoris; I73.9 Peripheral vascular disease, unspecified; M79.7 Fibromyalgia

== ENCOUNTER → 2017-12-25 19:48 | Outpatient (CLI) | payer MEDICARE, OTHER ==
[2017-12-16 10:48] VITALS: BMI 27.6
== END | disposition home or self-care (01) ==
LOC: D.LABREF 19:48
DX: N39.0 Urinary tract infection, site not specified (principal)

== ENCOUNTER → 2018-01-31 10:23 | Outpatient (CLI) | payer MEDICARE, OTHER ==
[2017-12-16 10:48] VITALS: BMI 27.6
[~2018-01-31 10:23] MED LIST changes: +HYDRALAZINE HCL25 MG PO
== END | disposition home or self-care (01) ==
LOC: D.CT 10:23
DX: R10.9 Unspecified abdominal pain (principal); D63.1 Anemia in chronic kidney disease; I10 Essential (primary) hypertension; E11.49 Type 2 diabetes mellitus with other diabetic neurological complication

== ENCOUNTER → 2018-02-09 12:36 | Outpatient (CLI) | payer MEDICARE, OTHER ==
[2017-12-16 10:48] VITALS: BMI 27.6
== END | disposition home or self-care (01) ==
LOC: D.RAD 02-06 13:00
DX: G20 Parkinson's disease (principal)

== ENCOUNTER → 2018-03-09 09:13 | Outpatient (CLI) | payer MEDICARE, OTHER ==
[2017-12-16 10:48] VITALS: BMI 27.6
== END | disposition home or self-care (01) ==
LOC: D.US 09:13
DX: E11.49 Type 2 diabetes mellitus with other diabetic neurological complication (principal); I12.9 Hypertensive chronic kidney disease with stage 1 through stage 4 chronic kidney disease, or unspecified chronic kidney disease; N18.3 Chronic kidney disease, stage 3 (moderate); N28.1 Cyst of kidney, acquired

== ENCOUNTER 2018-04-08 14:51 | Inpatient (IN) | payer MEDICARE, OTHER ==
[~2018-04-08] VITALS: Ht 162.6 cm; Wt 71.9 kg
--- NOTE | ~2018-04-08 | DS ---
PATIENT:SRAVAN DOWNEY :33 MEDICAL RECORD: [id number] DISCHARGE SUMMARY ADMISSION DATE: 04/09/18 DISCHARGE DATE: DATE OF ADMISSION: 04/08/2018 DATE OF DISCHARGE: 04/13/2018 ADMISSION DIAGNOSES: Fall with head contusion, history of recurrent falls, history of advanced Parkinson's general decline. DISCHARGE DIAGNOSES: Recurrent falls, head contusion, advanced Parkinson's general decline, hypertension. HOSPITAL COURSE: The patient was admitted to the Emergency Room after another fall, hit her head. CT of the head was negative. Had some persistent symptoms and facial droop. MRI was obtained. No acute pathology. Nephrology was consulted with acute renal insufficiency. Renal function resolved with hydration. The patient is feeling much better. She is an assisted living facility now, concerned if she still meets criteria for this level of care. May need higher level of care. She does agree to rehabilitation. Discharged to rehab for strengthening, gait training. The patient is discharged to rehab in stable condition. PHYSICAL EXAMINATION: VITAL SIGNS ON DISCHARGE: Temperature 99.7, blood pressure is 170/77, heart rate 93, respirations 18, O2 sats 94%. HEART: Regular rate and rhythm. LUNGS: Clear. ABDOMEN: Soft. EXTREMITIES: Present times 4. NEUROLOGIC: No present focal deficits. SKIN: Warm and dry. No rash. The patient does have a neurologist in [place] that she sees, and manages her Parkinson disease. LABORATORY DATA: Chemistry on discharge, sodium 139, potassium 3.7, chloride 100, bicarbonate 29.2, BUN 29, creatinine 1.9. I have added hydralazine p.r.n. with blood pressure. We will continue other medications, supportive care. Agree with consult from specialists. TRANSINT:[id number] Voice Confirmation ID: [id number] DOCUMENT ID: [id number] HÉCTOR BARCLAY DO at 1523 CC: [id number] DICTATION DATE: 04/13/18936 CNC MILLING MACHINE OPERATOR: 04/13/18 1029 [place] [address]
[~2018-04-08 14:51] MED LIST changes: -HYDRALAZINE HCL25 MG PO
[2018-04-08 15:31] LABS: BASOPHILS 0.4 % (0-2); EOSINOPHILS 1.6 % (0-7); HEMATOCRIT 36.9 % (36.0-48.0); IMMATURE GRANULOCYTES 0.1 % (0-5); LYMPHOCYTES 31.9 % (15-50); MCH 29.8 pg (26.0-34.0); MCHC 32.5 g/dL (31.0-37.0); MCV 91.6 fL (80.0-100.0); MEAN PLATELET VOLUME 10.3 fL (7.4-10.4); MONOCYTES 8.6 % (2-11); NEUTROPHILS 57.4 % (40-80); PLATELET COUNT 174 10x3/uL (130-400); RBC 4.03 10x6/uL (4.00-5.40); RDW 14.9 % (11.5-14.5); WBC 7.7 10x3/uL (4.8-10.8)
[2018-04-08 15:43] LABS: APTT 26.7 SECONDS (22.8-39.4); INR 1.05 (0.85-1.17); PROTIME 13.3 SECONDS (11.6-15.0)
[2018-04-08 16:10] LABS: ALBUMIN 3.4 g/dL (3.4-5.0); ANION GAP 17.1 mmol/L (8-16); BILIRUBIN - TOTAL 0.49 mg/dL (0.2-1.3); CALCIUM 9.4 mg/dL (8.5-10.1); CARBON DIOXIDE 27.2 mmol/L (21.0-32.0); POTASSIUM - SERUM 3.3 mmol/L (3.5-5.1); PROTEIN - SERUM 6.5 g/dL (6.4-8.2)
[2018-04-08 18:21] LABS: CREATINE KINASE 215 UL (21-215)
[2018-04-08 18:34] LABS: CKMB 1.7 U/L (0.0-3.6)
[2018-04-08 19:30] VITALS: BP 190/85
[2018-04-08 20:05] VITALS: BP 167/59
[2018-04-09 03:14] VITALS: BP 150/68; BMI 26.1
[2018-04-09 04:30] VITALS: BP 174/71
[2018-04-09 05:11] LABS: BASOPHILS 0.2 % (0-2); EOSINOPHILS 2.1 % (0-7); HEMATOCRIT 33.8 % (36.0-48.0); IMMATURE GRANULOCYTES 0.2 % (0-5); LYMPHOCYTES 28.7 % (15-50); MCH 29.6 pg (26.0-34.0); MCHC 32.5 g/dL (31.0-37.0); MCV 90.9 fL (80.0-100.0); MEAN PLATELET VOLUME 10.5 fL (7.4-10.4); NEUTROPHILS 59.8 % (40-80); PLATELET COUNT 168 10x3/uL (130-400); RBC 3.72 10x6/uL (4.00-5.40); WBC 6.1 10x3/uL (4.8-10.8)
[2018-04-09 05:50] LABS: ANION GAP 11.4 mmol/L (8-16); CARBON DIOXIDE 27.9 mmol/L (21.0-32.0); MAGNESIUM - SERUM 1.7 mg/dL (1.8-2.4); POTASSIUM - SERUM 3.3 mmol/L (3.5-5.1)
[2018-04-09 05:51] LABS: CREATININE - SERUM 1.4 mg/dL (0.6-1.3)
[2018-04-09 08:58] VITALS: BP 167/84
[2018-04-09] MEDS ORDERED: METOLAZONE2.5 MG PO (10:38)
[2018-04-09] MEDS ORDERED: GABAPENTIN100 MG PO (10:41)
[2018-04-09 12:02] VITALS: BP 163/73
[2018-04-09 15:40] VITALS: BP 172/78
[2018-04-09 20:00] VITALS: BP 191/85
[2018-04-10] VITALS: BP 152/54
[2018-04-10 04:00] VITALS: BP 195/78
[2018-04-10 08:17] VITALS: BP 192/85
[2018-04-10 11:13] VITALS: BP 144/73
[2018-04-10 12:35] VITALS: Ht 162.6 cm; Wt 71.9 kg
[2018-04-10 14:27] LABS: BASOPHILS 0.2 % (0-2); EOSINOPHILS 1.9 % (0-7); HEMATOCRIT 35.4 % (36.0-48.0); HEMOGLOBIN 11.3 g/dL (12-16); IMMATURE GRANULOCYTES 0.3 % (0-5); LYMPHOCYTES 30.9 % (15-50); MCH 29.4 pg (26.0-34.0); MCHC 31.9 g/dL (31.0-37.0); MCV 91.9 fL (80.0-100.0); MEAN PLATELET VOLUME 10.2 fL (7.4-10.4); MONOCYTES 8.9 % (2-11); NEUTROPHILS 57.8 % (40-80); PLATELET COUNT 153 10x3/uL (130-400); RBC 3.85 10x6/uL (4.00-5.40); WBC 5.9 10x3/uL (4.8-10.8)
[2018-04-10 14:35] LABS: ANION GAP 12.2 mmol/L (8-16); CALCIUM 9.7 mg/dL (8.5-10.1); CARBON DIOXIDE 29.3 mmol/L (21.0-32.0); POTASSIUM - SERUM 3.5 mmol/L (3.5-5.1)
[2018-04-10 16:22] VITALS: BP 160/72
[2018-04-10 20:00] VITALS: BP 192/85
[2018-04-11 04:00] VITALS: BP 178/87
[2018-04-11 04:55] LABS: BASOPHILS 0.2 % (0-2); EOSINOPHILS 2.1 % (0-7); HEMATOCRIT 32.7 % (36.0-48.0); HEMOGLOBIN 10.5 g/dL (12-16); IMMATURE GRANULOCYTES 0.3 % (0-5); LYMPHOCYTES 31.4 % (15-50); MCH 29.2 pg (26.0-34.0); MCHC 32.1 g/dL (31.0-37.0); MCV 91.1 fL (80.0-100.0); MEAN PLATELET VOLUME 9.8 fL (7.4-10.4); MONOCYTES 7.3 % (2-11); NEUTROPHILS 58.7 % (40-80); PLATELET COUNT 159 10x3/uL (130-400); RBC 3.59 10x6/uL (4.00-5.40); RDW 14.8 % (11.5-14.5); WBC 6.3 10x3/uL (4.8-10.8)
[2018-04-11 05:14] LABS: APTT 27.5 SECONDS (22.8-39.4); INR 1.12 (0.85-1.17)
[2018-04-11 05:15] LABS: ANION GAP 10.8 mmol/L (8-16); CARBON DIOXIDE 27.8 mmol/L (21.0-32.0); CREATININE - SERUM 1.2 mg/dL (0.6-1.3); POTASSIUM - SERUM 3.6 mmol/L (3.5-5.1)
[2018-04-11 11:45] VITALS: BP 204/91
[2018-04-11 16:47] VITALS: BP 163/80
[2018-04-11 20:00] VITALS: BP 162/90
[2018-04-12 04:00] VITALS: BP 171/81
[2018-04-12 04:54] LABS: BASOPHILS 0.1 % (0-2); EOSINOPHILS 1.9 % (0-7); HEMATOCRIT 36.1 % (36.0-48.0); HEMOGLOBIN 11.8 g/dL (12-16); IMMATURE GRANULOCYTES 0.2 % (0-5); LYMPHOCYTES 17.3 % (15-50); MCH 29.7 pg (26.0-34.0); MCHC 32.7 g/dL (31.0-37.0); MCV 90.9 fL (80.0-100.0); MEAN PLATELET VOLUME 10.4 fL (7.4-10.4); MONOCYTES 8.3 % (2-11); NEUTROPHILS 72.2 % (40-80); PLATELET COUNT 168 10x3/uL (130-400); RBC 3.97 10x6/uL (4.00-5.40); RDW 14.8 % (11.5-14.5)
[2018-04-12 05:05] LABS: WBC 8.3 10x3/uL (4.8-10.8)
[2018-04-12 05:32] LABS: ANION GAP 11.9 mmol/L (8-16); CALCIUM 9.5 mg/dL (8.5-10.1); CARBON DIOXIDE 28.9 mmol/L (21.0-32.0); POTASSIUM - SERUM 3.8 mmol/L (3.5-5.1)
[2018-04-12 05:33] LABS: CREATININE - SERUM 1.6 mg/dL (0.6-1.3)
[2018-04-12 07:59] VITALS: BP 161/70
[2018-04-12 11:21] VITALS: BP 172/75
[2018-04-12 15:24] VITALS: BP 179/80
[2018-04-12 20:00] VITALS: BP 151/67
[2018-04-13] VITALS: BP 116/48
[2018-04-13 04:00] VITALS: BP 162/57
[2018-04-13 06:23] LABS: ANION GAP 13.5 mmol/L (8-16); CALCIUM 9.7 mg/dL (8.5-10.1); CARBON DIOXIDE 29.2 mmol/L (21.0-32.0); CREATININE - SERUM 1.9 mg/dL (0.6-1.3); POTASSIUM - SERUM 3.7 mmol/L (3.5-5.1)
[2018-04-13 07:59] VITALS: BP 170/77
[2018-04-13] MEDS ORDERED: HYDRALAZINE HCL25 MG PO (09:27)
[2018-04-13 11:25] VITALS: BP 129/58
== END 2018-04-13 16:08 | DRG 700 ==
LOC: D.ER 14:51 → D.EDHOLD 19:37 → D.M2 19:37 → OBSVTIME 19:37 → D.M2 19:55
PROVIDERS: Family Medicine; Internal Medicine Nephrology
DX: N28.9 Disorder of kidney and ureter, unspecified (principal); E86.0 Dehydration; S00.93XA Contusion of unspecified part of head, initial encounter; W19.XXXA Unspecified fall, initial encounter; Z91.81 History of falling; E78.5 Hyperlipidemia, unspecified; I25.10 Atherosclerotic heart disease of native coronary artery without angina pectoris; I10 Essential (primary) hypertension; G20 Parkinson's disease; F02.80 Dementia in other diseases classified elsewhere, unspecified severity, without behavioral disturbance, psychotic disturbance, mood disturbance, and anxiety; R29.810 Facial weakness

== ENCOUNTER 2018-04-13 16:14 | Inpatient (IN) | payer MEDICARE, OTHER ==
[~2018-04-13] VITALS: Ht 162.6 cm; Wt 71.2 kg
--- NOTE | ~2018-04-13 | RHP ---
PATIENT: SRAVAN DOWNEY MEDICAL RECORD: [id number] ACCOUNT: [id number] LOCATION:[facility] Augie1111 : 33 ADMISSION DATE: 04/13/18 REHABILITATION HISTORY AND PHYSICAL EXAMINATION POST ADMISSION PHYSICIAN EXAMINATION POST-ADMISSION PHYSICAL EXAM AND HISTORY AND PHYSICAL ADMITTING DIAGNOSIS: Right frontal scalp hematoma after a fall and traumatic brain injury. HISTORY OF PRESENT ILLNESS: The patient is an 83-year-old female patient who is admitted to inpatient rehab with traumatic brain injury after a fall. She arrived in the ED on 04/08/2018 with reports of fall at home and feeling dizzy. She hit her head when she fell. She was on Plavix. She reported a headache, but no loss of consciousness. She had had a history of frequent falls. She was noted to have facial droop status post head contusion, right forehead scalp hematoma, purple bruising around both eyes and forehead, nasal trauma. MRI of the brain was negative. She was noted to be dehydrated and have elevated renal functions which resolved with hydration. She lives with her spouse in an independent facility. She has been moderately independent with rolling walker for ADLs and mobility. Currently, she is moderate to max assist for ADLs and mobility, ambulating 25 feet with a rolling walker and assistance. Her spouse thinks that she may need medications adjustments due to recent falls. Barriers to discharge include dementia, living in an independent facility, chronic dizziness, need for possible medication changes. She is adamant that she wants to regain her balance and strength, so she can return back to her prior level of functioning and return home. COMORBIDITIES: In this patient include dehydration, acute kidney injury, dizziness, Parkinson's, generalized weakness, fatigue, frequent falls, diabetes, coronary artery disease, hypertension, peripheral vascular disease, hypothyroidism, chronic pulmonary edema, hyperkalemia, sleep apnea, gastroesophageal reflux disease, fibromyalgia, multiple allergies. PAST MEDICAL HISTORY: Significant for cataracts, Parkinson's, thyroid problems, hypertension, history of coronary artery disease with stents, hyperlipidemia. She has obstructive sleep apnea for which she uses CPAP for. Pulmonary edema, degenerative disk disease, fibromyalgia and peripheral vascular disease. PAST SURGICAL HISTORY: Includes hemorrhoidectomy. She has had stents. She has had a left knee replacement and a right knee replacement. She has had a cholecystectomy, multiple arthroscopies, cataract surgery, a fatty tumor removed and a fusion of C4-C5. ALLERGIES: BEEF CONTAINING PRODUCTS, JULIEN INHIBITORS, KEFLEX, TRICOR, SULFA, ADHESIVE TAPE, ASPIRIN, BAYCOL, CARTIA XT, DILTIAZEM, CHOLESTYRAMINE, FENOFIBRATE, FENTANYL, HEPARIN, HYDROCODONE, DEMEROL, PENICILLIN, CRESTOR. ALSO MACADAMIA NUTS, PECANS, PISTACHIOS, HORSE SERUM AND ANY TYPE OF SURGICAL GLUE. MEDICATIONS: Current medications include polyethylene glycol 17 grams daily, Colace 100 mg daily, vitamin D 50,000 units weekly, B12 1000 mcg every 30 days IM. She is on Zaroxolyn 2.5 mg every other day, Synthroid 88 mcg daily, Pepcid 40 mg daily, Bumex 2 mg daily, allopurinol 300 mg daily, Sinemet 25/100 two tabs q.i.d., potassium chloride 20 mEq b.i.d. Nitro-Dur patch she applies daily 0.1 HISTORY AND PHYSICAL [id number] STILLINGS,SRAVAN A mg, nitroglycerin spray p.r.n. chest pain, Singulair 10 mg at bedtime, Apresoline 25 mg t.i.d., Neurontin 100 mg b.i.d. and Plavix 75 mg daily. HABITS: No current alcohol or tobacco use. FAMILY HISTORY: Noncontributory. SOCIAL HISTORY: The patient hopes to return back to her independent living center and hopefully get back to her prior level of functioning. REVIEW OF SYSTEMS: GENERAL: Does complain of weakness and fatigue. HEENT: Denies cold, cough, or congestion. CARDIOVASCULAR: Denies any chest pain. PHYSICAL EXAMINATION: VITAL SIGNS: Her vital signs are stable. She is afebrile. GENERAL: An elderly female, in no acute distress, alert upon exam. HEENT: Normocephalic and atraumatic. Mucosa moist. NECK: Supple. LUNGS: Clear at this time. HEART: Regular rate and rhythm. ABDOMEN: Benign. EXTREMITIES: No clubbing, cyanosis or edema. NEUROLOGIC: She is slow to mentate, does have a noted tremor, but she is noted to answer most questions. SKIN: She does have a noted healing hematoma to her forehead. LABORATORY DATA: White count 13.6, H&H of 11 and 34 and platelet count was noted to be 151. Her sodium is 134, potassium 3.3, BUN and creatinine of 32 and 2.0 and blood sugar is noted to be 101. ASSESSMENT: This is an 83-year-old female patient admitted to rehab with a working diagnosis of traumatic brain injury. The patient has potential to make improvement. We instituted the following multiple disciplinary therapies including, but not limited to physical, occupational, respiratory, speech, nutritional services, prosthetics and orthotics. Given her complex medical condition and risk for more complications, rehabilitation services cannot be provided at a low level of care such as a skilled nurse facility. PLAN: 1. Admit to [facility] for intensive inpatient therapy to include the following disciplines: A. Physical therapy to improve gait, all transfer skills and bed mobility to a modified independent level. B. Occupational therapy to improve activities of daily living to a modified independent level. C. Case management to assist with discharge planning and placement options. D. Nutrition to assist with nutritional needs. E. Rehabilitation nursing to assist in monitoring the patient's underlying medical conditions and to assist with any type of bowel or bladder management. 2. The patient's current medication and medical care will be continued. 3. The patient will be placed on standard fall precautions. 4. Estimated length of stay is approximately 7-10 days. 5. We will watch her medications closely. We will watch for any signs of HISTORY AND PHYSICAL [id number] JOSSE DOWNEYARA A dizziness or side effects of these medications during her stay and hopefully we will get her up and going again and back home with her . TRANSINT:[id number] Voice Confirmation ID: [id number] DOCUMENT ID: [id number] AYSE notes whether there has been none or any medical/functional change since admission: - No change since preadmission screen. AYSE attests patient continues to be appropriate for IRF: - Continues to be appropriate. HAKEEM DAHL MD at 1244 CC: [id number] DICTATION DATE: 04/14/18 173 [employer] WORKER: 04/14/18 1905 DIS IN 04/27/18 [facility] [address] [id number]
[~2018-04-13 16:14] MED LIST changes: +HYDRALAZINE HCL25 MG PO
[2018-04-13 17:12] VITALS: BMI 27.0
[2018-04-13 18:00] VITALS: BP 159/74
[2018-04-13 19:45] VITALS: BP 159/74
[2018-04-14 05:47] LABS: BASOPHILS 0.1 % (0-2); EOSINOPHILS 0.1 % (0-7); HEMATOCRIT 34.2 % (36.0-48.0); HEMOGLOBIN 11.3 g/dL (12-16); IMMATURE GRANULOCYTES 0.2 % (0-5); LYMPHOCYTES 18.3 % (15-50); MCH 29.7 pg (26.0-34.0); MEAN PLATELET VOLUME 10.2 fL (7.4-10.4); NEUTROPHILS 73.3 % (40-80); PLATELET COUNT 151 10x3/uL (130-400); WBC 13.6 10x3/uL (4.8-10.8)
[2018-04-14 06:03] LABS: ANION GAP 10.8 mmol/L (8-16); CALCIUM 9.3 mg/dL (8.5-10.1); CARBON DIOXIDE 30.5 mmol/L (21.0-32.0); POTASSIUM - SERUM 3.3 mmol/L (3.5-5.1)
[2018-04-14 08:56] VITALS: BP 133/72
[2018-04-14 11:44] VITALS: BMI 26.9
[2018-04-14 21:54] VITALS: BP 142/76
[2018-04-15 09:04] VITALS: BP 149/84
[2018-04-15 19:40] VITALS: BP 115/73
[2018-04-16 06:42] LABS: BASOPHILS 0.1 % (0-2); EOSINOPHILS 0.3 % (0-7); HEMOGLOBIN 11.3 g/dL (12-16); IMMATURE GRANULOCYTES 0.3 % (0-5); LYMPHOCYTES 16.7 % (15-50); MCH 29.9 pg (26.0-34.0); MCHC 33.2 g/dL (31.0-37.0); MCV 89.9 fL (80.0-100.0); MEAN PLATELET VOLUME 10.5 fL (7.4-10.4); MONOCYTES 9.7 % (2-11); NEUTROPHILS 72.9 % (40-80); RBC 3.78 10x6/uL (4.00-5.40); RDW 14.8 % (11.5-14.5); WBC 9.8 10x3/uL (4.8-10.8)
[2018-04-16 07:00] LABS: CALCIUM 9.7 mg/dL (8.5-10.1); CARBON DIOXIDE 31.2 mmol/L (21.0-32.0); CREATININE - SERUM 2.2 mg/dL (0.6-1.3); PLATELET COUNT 211 10x3/uL (130-400); POTASSIUM - SERUM 3.2 mmol/L (3.5-5.1)
[2018-04-16 08:00] VITALS: BP 127/62
[2018-04-17 07:00] VITALS: BP 126/55; BP 135/66
[2018-04-17 20:09] VITALS: BP 105/66
[2018-04-18 06:42] LABS: BASOPHILS 0.2 % (0-2); EOSINOPHILS 0.9 % (0-7); HEMATOCRIT 33.6 % (36.0-48.0); HEMOGLOBIN 11.2 g/dL (12-16); IMMATURE GRANULOCYTES 0.3 % (0-5); LYMPHOCYTES 20.7 % (15-50); MCH 29.7 pg (26.0-34.0); MCHC 33.3 g/dL (31.0-37.0); MCV 89.1 fL (80.0-100.0); MEAN PLATELET VOLUME 10.1 fL (7.4-10.4); MONOCYTES 9.3 % (2-11); NEUTROPHILS 68.6 % (40-80); RBC 3.77 10x6/uL (4.00-5.40); RDW 14.5 % (11.5-14.5); WBC 9.5 10x3/uL (4.8-10.8)
[2018-04-18 06:43] LABS: PLATELET COUNT 271 10x3/uL (130-400)
[2018-04-18 06:51] LABS: ANION GAP 13.1 mmol/L (8-16); CALCIUM 9.8 mg/dL (8.5-10.1); CARBON DIOXIDE 31.4 mmol/L (21.0-32.0); CREATININE - SERUM 2.5 mg/dL (0.6-1.3); POTASSIUM - SERUM 3.5 mmol/L (3.5-5.1)
[2018-04-18 08:27] VITALS: BP 119/63
[2018-04-18 20:29] VITALS: BP 105/49
[2018-04-19 08:00] VITALS: BP 122/50
[2018-04-19 19:00] VITALS: BP 102/53
[2018-04-20 07:06] LABS: BASOPHILS 0.1 % (0-2); HEMATOCRIT 33.1 % (36.0-48.0); HEMOGLOBIN 10.7 g/dL (12-16); IMMATURE GRANULOCYTES 0.4 % (0-5); LYMPHOCYTES 19.6 % (15-50); MCH 29.2 pg (26.0-34.0); MCHC 32.3 g/dL (31.0-37.0); MCV 90.4 fL (80.0-100.0); MEAN PLATELET VOLUME 9.8 fL (7.4-10.4); NEUTROPHILS 70.9 % (40-80); PLATELET COUNT 293 10x3/uL (130-400); RBC 3.66 10x6/uL (4.00-5.40); RDW 14.4 % (11.5-14.5); WBC 9.7 10x3/uL (4.8-10.8)
[2018-04-20 07:19] LABS: ANION GAP 10.3 mmol/L (8-16); CALCIUM 9.3 mg/dL (8.5-10.1); CARBON DIOXIDE 32.6 mmol/L (21.0-32.0); CREATININE - SERUM 2.6 mg/dL (0.6-1.3); POTASSIUM - SERUM 3.9 mmol/L (3.5-5.1)
[2018-04-20 08:00] VITALS: BP 129/68
[2018-04-20 13:52] LABS: APPEARANCE CLEAR (CLEAR); BILIRUBIN NEGATIVE (NEGATIVE); COLOR YELLOW (YELLOW); GLUCOSE NEGATIVE (NEGATIVE); KETONE NEGATIVE (NEGATIVE); NITRITE NEGATIVE (NEGATIVE); PROTEIN NEGATIVE (NEGATIVE); UROBILINOGEN NORMAL (NORMAL)
[2018-04-20 13:54] LABS: AMORPHOUS SEDIMENT <1+ /lpf (NONE SEEN); BACTERIA FEW /hpf (NONE SEEN); EPITHELIAL CELLS OCC /hpf (0-5); MUCUS <1+ /lpf (NONE SEEN); WHITE CELLS - URINE 0-5 /hpf (0-5)
[2018-04-20 19:00] VITALS: BP 131/70
[2018-04-21 12:00] VITALS: BP 127/52
[2018-04-22 10:32] VITALS: BP 123/59
[2018-04-22 21:31] VITALS: BP 132/64
[2018-04-23 06:43] LABS: BASOPHILS 0.1 % (0-2); EOSINOPHILS 0.7 % (0-7); HEMATOCRIT 36.1 % (36.0-48.0); HEMOGLOBIN 11.7 g/dL (12-16); LYMPHOCYTES 16.8 % (15-50); MCH 29.3 pg (26.0-34.0); MCHC 32.4 g/dL (31.0-37.0); MCV 90.3 fL (80.0-100.0); MEAN PLATELET VOLUME 9.7 fL (7.4-10.4); NEUTROPHILS 74.4 % (40-80); RDW 14.6 % (11.5-14.5); WBC 11.2 10x3/uL (4.8-10.8)
[2018-04-23 06:48] LABS: ANION GAP 13.1 mmol/L (8-16); CARBON DIOXIDE 32.9 mmol/L (21.0-32.0); CREATININE - SERUM 2.4 mg/dL (0.6-1.3)
[2018-04-23 07:00] LABS: PLATELET COUNT 398 10x3/uL (130-400)
[2018-04-23 08:00] VITALS: BP 129/68
[2018-04-23 19:31] VITALS: BP 107/59
[2018-04-24 06:30] LABS: ANION GAP 13.7 mmol/L (8-16); CALCIUM 10.1 mg/dL (8.5-10.1); CARBON DIOXIDE 31.4 mmol/L (21.0-32.0); CREATININE - SERUM 2.4 mg/dL (0.6-1.3); POTASSIUM - SERUM 3.1 mmol/L (3.5-5.1)
[2018-04-24 08:00] VITALS: BP 126/70
[2018-04-24 19:00] VITALS: BP 121/74
[2018-04-25 06:39] LABS: BASOPHILS 0.1 % (0-2); EOSINOPHILS 1.2 % (0-7); HEMATOCRIT 33.5 % (36.0-48.0); IMMATURE GRANULOCYTES 1.4 % (0-5); LYMPHOCYTES 25.8 % (15-50); MCH 29.8 pg (26.0-34.0); MCHC 32.8 g/dL (31.0-37.0); MCV 90.8 fL (80.0-100.0); MEAN PLATELET VOLUME 9.1 fL (7.4-10.4); MONOCYTES 7.1 % (2-11); NEUTROPHILS 64.4 % (40-80); PLATELET COUNT 339 10x3/uL (130-400); RBC 3.69 10x6/uL (4.00-5.40); RDW 14.9 % (11.5-14.5); WBC 8.6 10x3/uL (4.8-10.8)
[2018-04-25 06:50] LABS: ANION GAP 8.6 mmol/L (8-16); CALCIUM 10.2 mg/dL (8.5-10.1); CARBON DIOXIDE 32.7 mmol/L (21.0-32.0); CREATININE - SERUM 2.6 mg/dL (0.6-1.3)
[2018-04-25 06:52] LABS: POTASSIUM - SERUM 4.3 mmol/L (3.5-5.1)
[2018-04-25 08:00] VITALS: BP 150/68
[2018-04-25 20:31] VITALS: BP 112/57
[2018-04-26 08:00] VITALS: BP 114/53
[2018-04-26 13:32] VITALS: Ht 162.6 cm; Wt 71.2 kg
[2018-04-26 19:00] VITALS: BP 119/64
[2018-04-27 07:08] LABS: BASOPHILS 0.1 % (0-2); EOSINOPHILS 1.9 % (0-7); HEMATOCRIT 31.6 % (36.0-48.0); IMMATURE GRANULOCYTES 0.8 % (0-5); LYMPHOCYTES 21.9 % (15-50); MCH 28.8 pg (26.0-34.0); MCHC 31.6 g/dL (31.0-37.0); MCV 91.1 fL (80.0-100.0); MEAN PLATELET VOLUME 9.4 fL (7.4-10.4); MONOCYTES 7.6 % (2-11); NEUTROPHILS 67.7 % (40-80); PLATELET COUNT 332 10x3/uL (130-400); RBC 3.47 10x6/uL (4.00-5.40); WBC 7.9 10x3/uL (4.8-10.8)
[2018-04-27 07:21] LABS: ANION GAP 9.6 mmol/L (8-16); CALCIUM 9.8 mg/dL (8.5-10.1); CREATININE - SERUM 2.4 mg/dL (0.6-1.3); POTASSIUM - SERUM 3.6 mmol/L (3.5-5.1)
[2018-04-27] MEDS ORDERED: ULTRAM50 MG PO (08:11)
[2018-04-27] MEDS ORDERED: BUMEX2 MG PO (08:11)
== END 2018-04-27 11:55 | disposition home health service (06) | DRG 949 ==
LOC: D.REHAB 16:14
PROVIDERS: Emergency Medicine
DX: S06.9X0D Unspecified intracranial injury without loss of consciousness, subsequent encounter (principal); N17.9 Acute kidney failure, unspecified; J81.1 Chronic pulmonary edema; W19.XXXD Unspecified fall, subsequent encounter; E86.0 Dehydration; G20 Parkinson's disease; R53.1 Weakness; R53.83 Other fatigue; Z66 Do not resuscitate; E11.9 Type 2 diabetes mellitus without complications; I25.10 Atherosclerotic heart disease of native coronary artery without angina pectoris; I10 Essential (primary) hypertension; I73.9 Peripheral vascular disease, unspecified; E03.9 Hypothyroidism, unspecified; E87.5 Hyperkalemia; G47.30 Sleep apnea, unspecified; K21.9 Gastro-esophageal reflux disease without esophagitis; M79.7 Fibromyalgia

== ENCOUNTER → 2018-05-07 14:25 | Outpatient (CLI) | payer MEDICARE, OTHER ==
[2018-04-26 13:32] VITALS: BMI 26.9
[~2018-05-07 14:25] MED LIST changes: +BUMEX2 MG PO; +ULTRAM50 MG PO
[2018-05-07 14:47] LABS: ANION GAP 8.6 mmol/L (8-16); CALCIUM 9.7 mg/dL (8.5-10.1); CARBON DIOXIDE 34.7 mmol/L (21.0-32.0); CREATININE - SERUM 1.9 mg/dL (0.6-1.3); POTASSIUM - SERUM 3.3 mmol/L (3.5-5.1)
== END | disposition home or self-care (01) ==
LOC: D.LABREF 14:25
PROVIDERS: Family Medicine
DX: E87.6 Hypokalemia (principal)

== ENCOUNTER → 2018-05-14 18:42 | Outpatient (CLI) | payer MEDICARE, OTHER ==
[2018-04-26 13:32] VITALS: BMI 26.9
== END | disposition home or self-care (01) ==
LOC: D.LABREF 18:42
DX: D72.829 Elevated white blood cell count, unspecified (principal); R31.9 Hematuria, unspecified

== ENCOUNTER → 2018-05-24 11:27 | Outpatient (CLI) | payer MEDICARE, OTHER ==
[2018-04-26 13:32] VITALS: BMI 26.9
== END | disposition home or self-care (01) ==
LOC: D.CT 11:27
DX: R55 Syncope and collapse (principal)

== ENCOUNTER 2018-06-02 11:26 | Emergency (ER) | payer MEDICARE, OTHER ==
[~2018-06-02] VITALS: Ht 162.6 cm; Wt 70.5 kg
[2018-06-02 11:29] VITALS: Ht 162.6 cm; Wt 70.5 kg
[2018-06-02 12:10] LABS: BASOPHILS 0.3 % (0-2); EOSINOPHILS 1.7 % (0-7); HEMATOCRIT 34.6 % (36.0-48.0); HEMOGLOBIN 10.9 g/dL (12-16); IMMATURE GRANULOCYTES 0.2 % (0-5); LYMPHOCYTES 32.5 % (15-50); MCH 29.2 pg (26.0-34.0); MCHC 31.5 g/dL (31.0-37.0); MCV 92.8 fL (80.0-100.0); MEAN PLATELET VOLUME 9.9 fL (7.4-10.4); MONOCYTES 7.9 % (2-11); NEUTROPHILS 57.4 % (40-80); PLATELET COUNT 185 10x3/uL (130-400); RBC 3.73 10x6/uL (4.00-5.40); RDW 14.8 % (11.5-14.5); WBC 6.4 10x3/uL (4.8-10.8)
[2018-06-02 12:18] LABS: APTT 22.1 SECONDS (22.8-39.4)
[2018-06-02 12:19] LABS: INR 1.01 (0.85-1.17); PROTIME 12.9 SECONDS (11.6-15.0)
[2018-06-02 12:22] LABS: ALBUMIN 2.9 g/dL (3.4-5.0); ANION GAP 11.1 mmol/L (8-16); BILIRUBIN - TOTAL 0.5 mg/dL (0.2-1.3); CALCIUM 9.9 mg/dL (8.5-10.1); CARBON DIOXIDE 27.8 mmol/L (21.0-32.0); CREATININE - SERUM 1.3 mg/dL (0.6-1.3); POTASSIUM - SERUM 3.9 mmol/L (3.5-5.1); PROTEIN - SERUM 6.3 g/dL (6.4-8.2)
[2018-06-02 13:13] VITALS: BP 132/58
== END 2018-06-02 13:14 | disposition home or self-care (01) ==
LOC: D.ER 11:26
PROVIDERS: Family Medicine
DX: S00.93XA Contusion of unspecified part of head, initial encounter (principal); W01.10XA Fall on same level from slipping, tripping and stumbling with subsequent striking against unspecified object, initial encounter; Y93.89 Activity, other specified; Y92.89 Other specified places as the place of occurrence of the external cause; G20 Parkinson's disease; H53.8 Other visual disturbances; R51 Headache; Z79.01 Long term (current) use of anticoagulants; I10 Essential (primary) hypertension; K21.9 Gastro-esophageal reflux disease without esophagitis

== ENCOUNTER → 2018-06-04 16:27 | Outpatient (CLI) | payer MEDICARE, OTHER ==
[2018-06-02 11:29] VITALS: BMI 26.6
[2018-06-04 16:54] LABS: ANION GAP 11.8 mmol/L (8-16); CALCIUM 10.5 mg/dL (8.5-10.1); CARBON DIOXIDE 26.7 mmol/L (21.0-32.0); CREATININE - SERUM 1.2 mg/dL (0.6-1.3)
[2018-06-04 16:55] LABS: POTASSIUM - SERUM 4.5 mmol/L (3.5-5.1)
== END | disposition home or self-care (01) ==
LOC: D.LABREF 16:27
PROVIDERS: Family Medicine
DX: I10 Essential (primary) hypertension (principal)

== ENCOUNTER → 2018-06-06 18:02 | Outpatient (CLI) | payer MEDICARE, OTHER ==
[2018-06-02 11:29] VITALS: BMI 26.6
== END | disposition home or self-care (01) ==
LOC: D.LABREF 18:02
DX: D72.829 Elevated white blood cell count, unspecified (principal)

== ENCOUNTER → 2018-06-11 09:00 | Outpatient (CLI) | payer MEDICARE, OTHER ==
[2018-06-02 11:29] VITALS: BMI 26.6
== END | disposition home or self-care (01) ==
LOC: D.NM 09:00
DX: E83.52 Hypercalcemia (principal)

== ENCOUNTER → 2018-06-20 11:49 | Outpatient (CLI) | payer MEDICARE, OTHER ==
[2018-06-02 11:29] VITALS: BMI 26.6
[2018-06-20 12:08] LABS: ANION GAP 10.1 mmol/L (8-16); CALCIUM 10.1 mg/dL (8.5-10.1); CARBON DIOXIDE 27.8 mmol/L (21.0-32.0); POTASSIUM - SERUM 3.9 mmol/L (3.5-5.1)
== END | disposition home or self-care (01) ==
LOC: D.LABREF 11:49
PROVIDERS: Family Medicine
DX: E87.6 Hypokalemia (principal)

== ENCOUNTER → 2018-06-22 16:56 | Outpatient (CLI) | payer MEDICARE, OTHER ==
[2018-06-02 11:29] VITALS: BMI 26.6
== END | disposition home or self-care (01) ==
LOC: D.LABREF 16:56
DX: R31.9 Hematuria, unspecified (principal); D72.829 Elevated white blood cell count, unspecified

== ENCOUNTER → 2018-08-06 08:16 | Outpatient (CLI) | payer MEDICARE, OTHER ==
[~2018-08-06] VITALS: Ht 162.6 cm; Wt 68.2 kg
--- NOTE | ~2018-08-06 | HEMODYNAMI ---
PATIENT:SRAVAN DOWNEY MEDICAL RECORD: [id number] : 33 LOCATION:[facility] ADMISSION DATE: 08/06/18 Generatedon:08/06/201810:51 Patient name: SRAVAN DOWNEY Patient #: [id number] SSN: [id number] : 1935 Date of study: 08/06/2018 Page: Of Hemodynamic Procedure Report Patient Data Patient Demographics Procedure consent was obtained First Name: SRAVAN Gender: Female Last Name: NASREEN : 1935 Middle Initial: A Age: 83 year(s) Patient #: [id number] Race: Unknown SSN: [id number] Additional ID: [id number] Contact details Address: [address] [place] [address] [facility] State: [place] City: [place] Zip code: [address] Past Medical History Allergies Allergen Reaction Date Comments Reported Other allergy 12/15/2016 see list Other allergy 01/20/2017 Horse containing products, keflex, PCN, adhesive tape,crestor,asa, beef, cartia, demerol, lipitor, sulfa, tricor, premarin, duragesic. Other allergy 12/15/2017 See chart Other allergy 08/06/2018 ADHESIVE TAPE, ASPIRIN, BAYCOL, BEEF PRODUCTS, CARTIA XT, CRESTOR, DEMEROL, DURAGESIC, HEPARIN (BEEF), HORSE/EQUINE PRODCUTS, KEFLEX, LIPITOR, NORCO, PCN, PREMARIN, SULFA, TEGADERM, TRICOR Admission Admission Data Admission Date: 08/06/2018 Admission Time: 8:16 Height (in.): 65 BSA: 1.74 (m2) Height (cm.): 165.1 BMI: 24.63 (kg/m2) Weight (lbs.): 148 Weight (kg.): 67.13 Lab Results Lab Result Date: 08/06/2018 Lab Result Time: 0:00 Biochemistry Name Units Result Min Max BUN mg/dl 31 --(----)-* 7 18 Creatinine mg/dl 1.3 --(---*)-- 0.6 1.3 CBC Name Units Result Min Max Hemoglobin g/dl 11 *-(----)-- 13.5 17.5 Procedure Procedure Types Cath Procedure Diagnostic Procedure [facility] w/Coronaries FFR/IVUS Intra-Coronary IVUS Initial Sedation Charges Moderate Sedation up to 15 minutes PCI Procedure Coronary Stent Coronary Stent Initial x2 Peripheral Cath Diagnostic Procedure Animal Skinner Peripheral Procedures Four Vessel Arteriogram Procedure Description Procedure Date Procedure Date: 08/06/2018 Procedure Start Time: 10:26 Procedure End Time: 10:49 Procedure Staff Name Function Venancio Rivera MD Performing Physician Elaina Ingram RT Monitor Bola Bella RT Scrub Scott Diane RN Nurse Guillermo Kaufman RN Retail Store Associate Procedure Data Cath Procedure Fluoroscopy Diagnostic fluoroscopy Total fluoroscopy Time: 4.2 time: 4.2 min min Diagnostic fluoroscopy Total fluoroscopy dose: 593 dose: 593 mGy mGy Contrast Material Contrast Material Type Amount (ml) Isovue 300 128 Entry Location Entry Primary Successful Side Size Upsize Upsize Entry Closure Succes sful Closure Location (Fr) 1 (Fr) 2 (Fr) Remarks Device Remarks Femoral Left 5 Fr 6 Fr Exoseal artery Short Estimated blood loss: 10 ml Diagnostic catheters Device Type Used For End Catheter Placement MULTIPACK Pigtail 5 Fr Procedure catheter MULTIPACK JL 4.0 5Fr Procedure catheter MULTIPACK 3DRC 5Fr Procedure catheter Procedure Complications No complications Procedure Medications Medication Administration Route Dosage 0.9% NaCl I.V. 100 ml/hr Oxygen etCO2 Nasal cannula 2 l/min Heparin Flush Bag added to field 2 bags (1000units/500ml NS) Lidocaine 2% added to field 20 Versed I.V. 0.5 mg Heparin Bolus I.V. 4000 units Plavix P.O. 75 mg Hemodynamics Rest BSA: 1.74 (m2) HGB: 11 (g/dl) O2 Consumption: Estimated: 155.77 (ml/min) O2 Cons umption indexed: Estimated:89.52 (ml/min/m) Heart Rate: 71 (bpm) Snapshots Pre Cath Intra NCS Post Cath Vital Signs Time Heart Resp SPO2 etCO2 NIBP (mmHg) Rhythm Pain Sedation Rate (ipm) (%) (mmHg) Status Level (bpm) 10:23:28 69 16 100 0 198/98(159) NSR 0 (11) 10(A) , No pain 10:27:54 69 15 99 0 196/92(161) NSR 0 (11) 10(A) , No pain 10:32:18 70 15 100 0 202/92(166) NSR 0 (11) 10(A) , No pain 10:36:46 70 14 99 0 192/92(151) NSR 0 (11) 10(A) , No pain 10:41:11 67 13 97 0 190/90(157) NSR 0 (11) 10(A) , No pain 10:45:33 68 13 99 0 205/97(164) NSR 0 (11) 10(A) , No pain 10:50:01 68 14 100 0 212/94(171) NSR 0 (11) 10(A) , No pain Medications Time Medication Route Dose Verified Delivered Reason Notes Effectiveness by by 10:24:39 0.9% NaCl I.V. 100 Scott Scott Per physician ml/hr Benedicto Diane RN RN 10:24:48 Oxygen etCO2 2 Scott Scott Per physician Nasal l/min Benedicto Diane cannula RN RN 10:24:58 Heparin Flush added 2 Scott Scott used for Bag to bags Benedicto Diane procedure (1000units/500ml RN RN NS) 10:25:09 Lidocaine 2% added 20ml Scott Scott for local to vial Benedicto Diane anesthetic RN RN 10:25:22 Versed I.V. 0.5 Scott Scott for sedation mg Benedicto Diane RN RN 10:35:37 Heparin Bolus I.V. 4000 Scott Scott for units Benedicto Diane anticoagulation RN RN 10:44:17 Plavix P.O. 75 mg Scott Scott for Benedicto Diane antiplatelet RN RN therapy Procedure Log Time Note 9:59:34 Signed procedure consent form obtained from patient. 9:59:35 Diagnostic Cath status Elective 9:59:36 Time tracking: Regular hours (M-F 7:00 - 5:00) 9:59:41 Plan of Care:Hemodynamics will remain stable., Cardiac rhythm will remain stable., Comfort level will be maintained., Respiratory function will remain adequate., Patient/ family verbilizes understanding of procedure., Procedure tolerated without complication., Recovers from procedure without complications.. 9:59:51 H&P Date Dictated: 08/02/2018 Within 30 days and on chart., H&P Addendum completed by physician on day of procedure. (MUST COMPLETE FOR ALL OUTPATIENTS). 10:00:17 Guillermo Kaufman RN sent for patient. Start room use. 10:01:54 Patient allergic to Other allergyADHESIVE TAPE, ASPIRIN, BAYCOL, BEEF PRODUCTS, CARTIA XT, CRESTOR, DEMEROL, DURAGESIC, HEPARIN (BEEF), HORSE/EQUINE PRODCUTS, KEFLEX, LIPITOR, NORCO, PCN, PREMARIN, SULFA, TEGADERM, TRICOR 10:08:13 Patient received from Pre/Post Procedure Room to CCL 2 Alert and oriented. Tansferred to table in Supine position. 10:08:13 Warm blankets applied, and jian hugger turned on for patient comfort. 10:08:14 Correct patient and procedure confirmed by team. 10:08:14 ECG and BP/O2 sat monitors applied to patient. 10:19:39 Vital chart was started 10:19:40 Baseline sample Acquired. 10:19:44 Rhythm: sinus rhythm 10:19:44 Full Disclosure recording started 10:19:45 Pre-procedure instructions explained to patient. 10:19:45 Pre-op teaching completed and patient verbalized understanding. 10:19:50 Family in patients room. 10:19:51 Patient NPO since Midnight. 10:19:58 Is patient on blood thinner?Yes 10:20:00 ACC The patient was administered the following blood thiners within the last 24 hours: ACCPlavix 10:20:01 Patient diabetic? No. 10:20:03 Patient not . Patient is over age 55. 10:20:05 Previous problem with sedation/anesthesia? No ? 10:20:07 Snore? Yes 10:20:08 Sleep apnea? Yes 10:20:09 Deviated septum? No 10:20:11 Opens mouth fully? Yes 10:20:12 Sticks out tongue? Yes 10:20:14 Airway obstruction? No ? 10:20:16 Dentures? No ? 10:20:19 Pre procedure: left dorsailis pedis pulse 1+ Palpable, but thready & weak; easily obliterated 10:20:26 IV patent on arrival in left hand with 0.9% NaCl at O. 10::55 Lab Result : Creatinine 1.3 mg/dl 10::55 Lab Result : BUN 31 mg/dl 10::55 Lab Result : Hemoglobin 11 g/dl 10::58 Lab results completed and on chart. 10:21:01 Left groin area was prepped with chlora-prep and draped in sterile fashion 10:21:02 Alarms reviewed by R. N. 10:21:03 Sharps counted by scrub and verified by R.N. 10:21:05 Use device set Femoral Dx 10:21:07 ACIST Syringe (98470) opened to sterile field. 10:21:08 Bag Decanter (2002S) opened to sterile field. 10:21:09 ACIST Hand Control (34897) opened to sterile field. 10:21:10 ACIST Manifold (57267) opened to sterile field. 10:21:10 Tegaderm 4 x 4 (1626W) opened to sterile field. 10:21:12 Medline Cath Pack ([id number]) opened to sterile field. 10:21:13 DIAGNOSTIC WIRE .035 260cm J wire (807959) opened to sterile field. 10:21:14 DIAGNOSTIC Multipack 5Fr catheter set (LP7788) opened to sterile field. 10:21:15 SHEATH 5FR Kevin (VXF885) opened to sterile field. 10:22:42 Patient Height : 65 inches 10:22:45 Patient Weight : 148 lbs 10::58 --------ALL STOP TIME OUT------ 10:23:59 Final Timeout: patient, procedure, and site verified with staff and physician. All members of the team are in agreement. 10:24:01 Left groin site verified by team. 10:24:03 Physical assessment completed. ASA score P 2 - A patient with mild systemic disease as per Venancio Rivera MD. 10:24:06 Sedation plan: IV Moderate Sedation Medication:Versed, Fentanyl 10:24:23 Zero performed for pressure channel P1 10:24:28 Zero performed for pressure channel P1 10:24:39 0.9% NaCl 100 ml/hr I.V. was administered by Scott Diane RN; Per physician; 10:24:48 Oxygen 2 l/min etCO2 Nasal cannula was administered by Scott Diane RN; Per physician; 10:24:58 Heparin Flush Bag (1000units/500ml NS) 2 bags added to field was administered by Scott Diane RN; used for procedure; 10:25:09 Lidocaine 2% 20ml vial added to field was administered by Scott Diane RN; for local anesthetic; 10:25:22 Versed 0.5 mg I.V. was administered by Scott Diane RN; for sedation; 10:26:38 Procedure started. 10:26:48 Local anesthetic to left femerol artery with Lidocaine 2% by Venancio Rivera MD.INITIAL ACCESS ONLY 10:27:50 Procedure type changed to Cath procedure, Diagnostic procedure, LHC, LHC w/Coronaries, FFR/IVUS, Intra-Coronary IVUS Initial, Sedation Charges, Moderate Sedation up to 15 minutes, PCI procedure, Coronary Stent, Coronary Stent Initial x2, Peripheral Cath Diagnostic Procedure, Animal Skinner Peripheral Procedures, Four Vessel Arteriogram 10:28:00 A 5 Fr sheath was inserted into the Left Femoral artery 10:28:11 A MULTIPACK Pigtail 5 Fr catheter was advanced over the wire and used for Procedure. 10:28:27 LV gram done using KISER 10:28:30 Injector settings: Ml/sec: 10, Volume: 20, 10:28:46 EF : 50 % 10:28:54 Catheter removed. 10:29:06 A MULTIPACK JL 4.0 5Fr catheter was advanced over the wire and used for Procedure. 10:29:51 LCA angiography performed. 10:29:53 Catheter removed. 10:29:57 A MULTIPACK 3DRC 5Fr catheter was advanced over the wire and used for Procedure. 10:30:29 RCA angiography performed. 10:30:41 SHEATH 6FR Kevin (MDO471) opened to sterile field. 10:31:34 Left carotid angiography performed. 10:32:32 Right carotid angiography performed. 10:32:39 Catheter removed. 10:32:48 CHOICE PT Extra Support 182cm wire ([id number]) opened to sterile field. 10:32:48 INFLATOR Merit BasixCompak (VM5226) opened to sterile field. 10:33:09 Sheath upsized to a 6 Fr Short. 10:34:05 GUIDE 6FR 3DRC catheter (VN35ATE) opened to sterile field. 10:34:13 [place] IVUS Catheter (96957N) opened to sterile field. 10:34:21 6 Fr 3DRC guide catheter was inserted over the wire 10:34:33 CHOICE ES 182 wire advanced. 10:34:34 Wire advanced across lesion. 10:35:37 Heparin Bolus 4000 units I.V. was administered by Scott Diane RN; for anticoagulation; 10:36:32 IVUS catheter advanced over wire. 10:36:35 IVUS pass to RCA lesion performed. 10:36:36 IVUS catheter removed over wire. 10:38:25 Place stent Inflation Number: 1 A MANFRED RX 4.0 x 12 stent ([id number]) was prepped and advanced across the Mid RCA. The stent was deployed at 17 MONIKA for 0:10 (min:sec). 10:38:42 Wire removed. 10:38:43 Stent catheter was removed intact over wire. 10:38:44 Guide catheter removed. 10:39:33 GUIDE 6FR XBLAD 3.5 catheter ([id number]) opened to sterile field. 10:39:42 6 Fr XBLAD 3.5 guide catheter was inserted over the wire 10:40:47 CHOICE ES 182 wire advanced. 10:40:48 Wire advanced across lesion. 10:41:42 Place stent Inflation Number: 1 A MANFRED RX 3.0 x 18 stent ([id number]) was prepped and advanced across the Mid LAD. The stent was deployed at 19 MONIKA for 0:10 (min:sec). 10:42:23 Stent catheter was removed intact over wire. 10:42:24 Wire removed. 10:42:25 Guide catheter removed. 10:42:31 EXOSEAL 6Fr (EX600) opened to sterile field. 10:42:40 Sheath removed intact; hemostasis achieved with Exoseal to the Left Femoral artery. 10:42:42 Procedure ended.(Physican Out) 10:43:14 Fluoroscopy time 04.20 minutes. 10:43:18 Fluoroscopy dose: 593 mGy 10:43:18 Flurop Dose total: 593 10:43:21 Contrast amount:Isovue 300 128ml. 10:43:22 Sharps counted by scrub and verified by R.N. 10:43:26 Post-op/insertion site Left Femoral artery dressed using a Bandaid. 10:43:47 Post-procedure physical assessment completed. ASA score P 2 - A patient with mild systemic disease as per Venancio Rivera MD. 10:44:04 Post procedure rhythm: sinus rhythm 10:44:06 Estimated blood loss: 10 ml 10:44:07 Post procedure instruction explained to patient.Patient verbalizes understanding. 10:44:08 Patient needs reinforcement of post procedure teaching. 10:44:17 Plavix 75 mg P.O. was administered by Scott Diane RN; for antiplatelet therapy; 10:45:51 Procedure and supply charges have been captured, reviewed, submitted and are correct. 10:45:55 Procedure Complication : No complications 10:49:51 Vital chart was stopped 10:49:51 See physician's report for complete and final results. 10:49:53 Report given to Pre/Post Procedure Room. 10:49:55 Patient transfered to Pre/Post Procedure Room with Bed. 10:49:57 Procedure ended. 10:49:57 Full Disclosure recording stopped 10:50:05 End room use (Document Last) Intervention Summary Intervention Notes Time ActionType Lesion and Equipment Used Action# Pressure Duration Attributes 10:38:25 Place stent Mid RCA MANFRED RX 4.0 x 1 17 00:10 12 stent ([id number]) 10:41:42 Place stent Mid LAD MANFRED RX 3.0 x 1 19 00:10 18 stent ([id number]) Device Usage Item Name Manufacture Quantity Catalog Number Hospital Part Current M inimal Lot# / Charge Number Stock Stock Serial# Code ACIST Syringe Acist 1 22230 302511 658112 092604 2 0 (83709) Medical Systems Inc Bag Decanter Microtek 1 2001S 722869 77166 279896 5 () Medical Inc. ACIST Hand Acist 1 48935 649558 490993 282826 5 Control Medical (26815) Systems Inc ACIST Manifold Acist 1 77057 784739 387462 074325 5 (99176) Medical Systems Inc Tegaderm 4 x 4 3M 1 1626W 318793 869621 524029 5 (1626W) Medline Cath Medline 1 [id number] 803871 33682 018315 5 Pack ([id number]) DIAGNOSTIC [place] 1 951593 086674 912710 227532 3 0 WIRE .035 260cm J wire (058324) DIAGNOSTIC Cardinal 1 XR3869 367304 83728 094192 3 0 Multipack 5Fr Health catheter set (OR0111) SHEATH 5FR Terumo 1 WQJ659 967961 038168 775651 5 Kevin (WNT696) MULTIPACK Cardinal 1 426869 5 Pigtail 5 Fr Health catheter MULTIPACK JL Cardinal 1 380390 5 4.0 5Fr Health catheter MULTIPACK 3DRC Cardinal 1 171364 5 5Fr catheter Health SHEATH 6FR Terumo 1 AKY334 568593 570916 246184 4 0 Kevin (WDZ496) CHOICE PT [place] 1 [id number] 472076 968344 472782 5 Extra Support Scientific 182cm wire ([id number]) INFLATOR Merit Merit 1 EC6245 921939 512219 251646 1 5 ILink GlobalmsUsarium Medical (SP0531) GUIDE 6FR 3DRC Medtronic 1 GO56ICW 625696 099220 338181 1 catheter ([id number]) [place] 1 76488Y 802539 392803 574441 8 [place] IVUS Catheter (11178L) MANFRED RX 4.0 x Medtronic 1 [id number] 754448 8375190 575407 5 [id number] 12 stent ([id number]) GUIDE 6FR Cardinal 1 [id number] 717973 055895 187369 1 0 XBLAD 3.5 Health catheter ([id number]) MANFRED RX 3.0 x Medtronic 1 [id number] 770434 1187337 103560 5 [id number] 18 stent ([id number]) EXOSEAL 6Fr Cardinal 1 EX600 035309 350099 565556 1 0 (EX600) Health Signature Audit [place] Stage Time Signature Unsigned Intra-Procedure 08/06/2018 Elaina Ingram 10:51:27 AM RT(R) Signatures Monitor : Elaina Ingram Signature : RT Date : Time : [facility] [address] [place] [address]
[~2018-08-06 08:16] MED LIST changes: +STOOL SOFTENER100 M1 PO
[2018-08-06 09:07] VITALS: BP 115/82; Ht 162.6 cm; Wt 68.2 kg
[2018-08-06 09:35] LABS: BASOPHILS 0.3 % (0-2); EOSINOPHILS 1.6 % (0-7); HEMATOCRIT 35.3 % (36.0-48.0); IMMATURE GRANULOCYTES 0.3 % (0-5); LYMPHOCYTES 26.2 % (15-50); MCH 28.9 pg (26.0-34.0); MCHC 31.2 g/dL (31.0-37.0); MCV 92.9 fL (80.0-100.0); MONOCYTES 7.6 % (2-11); PLATELET COUNT 213 10x3/uL (130-400); RDW 14.8 % (11.5-14.5); WBC 7.5 10x3/uL (4.8-10.8)
[2018-08-06 09:46] LABS: ANION GAP 9.8 mmol/L (8-16); CALCIUM 9.9 mg/dL (8.5-10.1); CARBON DIOXIDE 29.4 mmol/L (21.0-32.0); CREATININE - SERUM 1.3 mg/dL (0.6-1.3); POTASSIUM - SERUM 4.2 mmol/L (3.5-5.1)
--- NOTE | 2018-08-06 11:15 | NUR ---
PT. RESTING. AROUSES TO VOICE. HR 65. DENIES CP. BP 195/96. CALLED DR. BENAVIDES AND ORDERS RECEIVED FOR CLONIDINE 0.2 MG PO ONCE. O2 100%. LEFT GROIN C//DI. NO BLEEDING. NO HEMATOMA. LEFT PIV PATENT. SKIN PINK AND WARM.
--- NOTE | 2018-08-06 11:43 | NUR ---
SLEEPING. AROUSES TO VOICE. AT BS. DENIES PAIN. BP 186/86. HR NSR 65. LEFT GROIN C/D/I. NO BLEEDING. NO HEMATOMA. SKIN PINK AND WARM
--- NOTE | 2018-08-06 12:02 | NUR ---
PT. SLEEPING. AROUSES TO VOICE. DENIES PAIN. VSS. BP 198/96. RECEIVED CLONIDINE.LEFT GROIN C/D/I. NO BLEEDING. NO HEMATOMA. SKIN PINK AND WARM
--- NOTE | 2018-08-06 12:29 | NUR ---
AROUSES TO VOICE. BP 177/82. HR NSR 62. DENIES CP. LEFT GROIN C/D/I. NO BLEEDING. NO HEMATOMA. FAMILY AT BS
--- NOTE | 2018-08-06 13:05 | NUR ---
SLEEPING. AROUSES TO VOICE.DR. BENAVIDES AT SPEAKING WITH FAMILY. VSS NSR 62. BP 154/78. O2 SAT 100%. LEFT GROIN C/D/I. NO BLEEDING. NO HEMATOMA. 2+ PULSES
--- NOTE | 2018-08-06 13:23 | NUR ---
PT. SLEEPING. VSS. DENIES PAIN. LEFT GROIN. C/D/I. NO BLEEDING. NO HEMATOMA.
--- NOTE | 2018-08-06 14:13 | NUR ---
PT. RESTING. DENIES PAIN. VSS. NSR 63. BP 108/61 LEFT GROIN C/D/I. NO BLEEDING. DENIES NUMBNESS OR TINGLING.
--- NOTE | 2018-08-06 14:30 | NUR ---
PT. SLEEPY. AROUSES TO VOICE. VSS. HOB INCREASED. LEFT GROIN C//DI. NO BLEEDING. NO HEMATOMA. SKIN PINK AND WARM.
--- NOTE | 2018-08-06 15:00 | NUR ---
DISCHARGE INSTRUCTIONS REVIEWED WITH PT AND SPOUSE. DENIES PAIN.I ASSISTED PT TO WC AND TO BATHROOM. VOIDED CLEAR YELLOW OUTPUT. PT. EXTREMELY WEAK AND REQUIRED ASSIST WITH PERSON AND EQUIPMENT. IS CONCERNED FOR CARING FOR HER AT HOME. THEY HAVE A SON THAT IS COMING FROM [place] TO HELP GET PT. HOME
--- NOTE | 2018-08-06 15:20 | NUR ---
SMALL AMT. OF BLEEDING TO RIGHT GROIN.DIRECT PRESSURE HELD FOR 5 MINUTES. NO NEW BLEEDING. DRESSING REMOVED AND SITE IS CLEAN. REPLACED WITH 2X2 AND TRANSPARENT DRESSING.
--- NOTE | 2018-08-06 15:45 | NUR ---
PT. DISCHARGED HOME
--- NOTE | 2018-08-07 13:29 | OP ---
PATIENT NAME: SRAVAN DOWNEY MEDICAL RECORD: [id number] :34 LOCATION:D.CAT ADMISSION DATE: SURGEON: NIC BENAVIDES MD DATE OF OPERATION: 08/06/2018 DATE OF SERVICE: 08/06/2018 PROCEDURES: 1. PTCA stent LAD. 2. PTCA stent RCA. 3. Intravascular ultrasound RCA. 4. Left heart catheterization. 5. Selective coronary angiography. 6. Left ventriculogram. 7. Four-vessel carotid and vertebral angiography. INDICATION: Angina and coronary artery disease, unsteady gait, carotid vascular disease. PROCEDURE IN DETAIL: After informed consent was obtained and after a detailed description of risks, benefits as well as alternative therapies, the patient elected to proceed with angiogram and angioplasty. The right femoral area was prepped and draped in normal sterile fashion. Right femoral artery was cannulated via modified Seldinger technique with placement of 6-Iranian sheath. All catheters exchanged through this sheath. FINDINGS: Four-vessel carotid and vertebral angiography. There was subselection of each subclavian as well as the left carotid. RIGHT SIDE: Common internal and external carotids have mild plaquing, none greater than 20%, no flow-limiting stenosis. LEFT SYSTEM: The common internal and external carotids have mild plaqueing, no flow-limiting stenosis. Vertebral arteries bilaterally are devoid of disease. Left ventriculogram was performed in standard 30-degree KISER view, reveals good cardiac wall motion throughout all segments. Overall ejection fraction estimated at 60%. SELECTIVE CORONARY ANGIOGRAPHY: 1. Left main is with no significant angiographic disease. 2. Left anterior descending has previously placed stent in the proximal mid vessel with 80% in-stent restenosis. 3. The left circumflex has mild irregularities, but no flow-limiting stenosis. 4. The right coronary has previously placed stent with 70% in-stent restenosis confirmed by intravascular ultrasound. PTCA STENT OF THE RCA: The stent used was a 4.0 x 12 mm [place]. Result was 0% residual stenosis. PTCA STENT OF THE LAD: The stent used was a 3.0 x 18 mm [place]. Result was 0% residual stenosis. OVERALL IMPRESSION: Successful percutaneous transluminal coronary angioplasty stent of the left anterior descending and right coronary artery going from 70-80% initial stenosis to 0% residual. OPERATIVE REPORT [id number] SRAVAN DOWNEY TRANSINT:[id number] Voice Confirmation ID: [id number] DOCUMENT ID: [id number] NIC BENAVIDES MD at 1329 CC: [id number] DICTATION DATE: 08/06/18 1047 NUCLEAR POWER PLANT ENGINEER: 08/06/18 1346 DEP CLI 08/06/18 [place] [id number]
== END | disposition home or self-care (01) ==
LOC: D.CATH 08:16
PROVIDERS: Internal Medicine Interventional Cardiology
DX: I25.119 Atherosclerotic heart disease of native coronary artery with unspecified angina pectoris (principal); T82.855A Stenosis of coronary artery stent, initial encounter; Y83.8 Other surgical procedures as the cause of abnormal reaction of the patient, or of later complication, without mention of misadventure at the time of the procedure; R26.81 Unsteadiness on feet
CPT/HCPCS: 93458; 92978; 36222; 36225; C9600 ×2

== ENCOUNTER 2018-10-23 09:10 | Observation (INO) | payer MEDICARE, BC ==
[~2018-10-23] VITALS: Ht 162.6 cm; Wt 68.0 kg
--- NOTE | ~2018-10-23 | OP ---
PATIENT NAME: SRAVAN DOWNEY MEDICAL RECORD: [id number] :34 LOCATION:D.M2 D.2122 ADMISSION DATE:10/23/18 SURGEON: NIC BENAVIDES MD DATE OF OPERATION: 10/24/2018 DATE OF SERVICE: 10/24/2018 PROCEDURES: 1. PTCA stent LAD. 2. PTCA stent left circumflex. 3. Intravascular ultrasound. 4. Left heart catheterization. 5. Selective coronary angiography. 6. Left ventriculogram. INDICATION: Unstable angina and coronary artery disease. PROCEDURE PERFORMED: After informed consent was obtained and after a detailed description of risks, benefits as well as alternative therapies, the patient elected to proceed with angiogram and angioplasty. The right femoral area was prepped and draped in normal sterile fashion. Right femoral artery was cannulated via modified Seldinger technique with placement of 6-Vietnamese sheath. All catheters exchanged through this sheath. FINDINGS: The left ventriculogram was performed in standard 30-degree KISER view, reveals good cardiac wall motion throughout all segments. Overall ejection fraction estimated at 60%. SELECTIVE CORONARY ANGIOGRAPHY: 1. Left main is with no significant angiographic disease. 2. Left anterior descending has 75% stenosis in the proximal vessel confirmed by intravascular ultrasound. 3. Left circumflex has 90% stenosis in the mid vessel. 4. Right coronary has moderate irregularities, but no flow-limiting stenosis. PTCA STENT OF THE LAD AND CIRCUMFLEX: The LAD was addressed with a 3.5 x 18 mm Integrity and the circumflex with a 2.5 x 14 mm Integrity. Result was 0% residual stenosis. OVERALL IMPRESSION: Successful percutaneous transluminal coronary angioplasty stent of the left anterior descending and circumflex, both going from 75-90% initial stenosis to 0% residual. TRANSINT:[id number] Voice Confirmation ID: [id number] DOCUMENT ID: [id number] NIC BENAVIDES MD CC: [id number] DICTATION DATE: 10/24/18 1055 OCCUPATIONAL THERAPY SUPERVISOR: 10/24/18 1205 ADM IN [place] [id number] [place] [address]
--- NOTE | ~2018-10-23 | DS ---
PATIENT:SRAVAN NEWSOME :33 MEDICAL RECORD: [id number] DISCHARGE SUMMARY ADMISSION DATE: 10/23/18 DISCHARGE DATE: 10/24/18 DISCHARGE DIAGNOSES: 1. Percutaneous transluminal coronary angioplasty and stent of the left anterior descending and circumflex this admission. 2. Unstable angina. 3. Coronary artery disease. 4. Hypertension. 5. Hyperlipidemia. HOSPITAL COURSE: Ms. Newsome presents with unstable anginal symptomatology, found to have significant disease of the circumflex and LAD, underwent successful PTCA and stent of both territories, was discharged home with the addition of aspirin and Plavix to her medical regimen. Will follow up with [facility] in 1 month. TRANSINT:[id number] Voice Confirmation ID: [id number] DOCUMENT ID: [id number] NIC BENAVIDES MD CC: [id number] DICTATION DATE: 10/24/18 1055 VARNISHING UNIT TOOL SETTER: 10/25/18 0136 DIS IN 10/24/18 [facility] [address] [place] [address]
--- NOTE | ~2018-10-23 | HEMODYNAMI ---
PATIENT:SRAVAN DOWNEY MEDICAL RECORD: [id number] : 33 [facility] ADMISSION DATE: 10/23/18 Generatedon:10/24/201810:55 Patient name: SRAVAN DOWNEY Patient #: [id number] SSN: [id number] : 1935 Date of study: 10/24/2018 Page: Of Hemodynamic Procedure Report Patient Data Patient Demographics Procedure consent was obtained First Name: SRAVAN Gender: Female Last Name: NASREEN : 1935 Middle Initial: A Age: 83 year(s) Patient #: [id number] Race: Unknown SSN: [id number] Additional ID: [id number] Contact details Address: [address] [place] [address] [facility] [place] State: [place] City: [place] Zip code: [address] Past Medical History Allergies Allergen Reaction Date Comments Reported Other allergy 12/15/2016 see list Other allergy 01/20/2017 Horse containing products, keflex, PCN, adhesive tape,crestor,asa, beef, cartia, demerol, lipitor, sulfa, tricor, premarin, duragesic. Other allergy 12/15/2017 See chart Other allergy 08/06/2018 ADHESIVE TAPE, ASPIRIN, BAYCOL, BEEF PRODUCTS, CARTIA XT, CRESTOR, DEMEROL, DURAGESIC, HEPARIN (BEEF), HORSE/EQUINE PRODCUTS, KEFLEX, LIPITOR, NORCO, PCN, PREMARIN, SULFA, TEGADERM, TRICOR Other allergy 10/24/2018 BEEF CONTAINING PRODUCTS, JULIEN INHIBITORS, KEFLEX, TRICOR, SULFA, ADHESIVE TAPE, ASPIRIN, BAYCOL, CARTIA XT, PREMARIN, FENTANYL, NORCO, DEMEROL, PCN, CRESTOR, VALIUM, NUTS, HORSE SERUM, GONZALES SURGICAL GLUE Admission Admission Data Admission Date: 10/23/2018 Admission Time: 12:01 Room #: D.2121 Lab Results Lab Result Date: 10/24/2018 Lab Result Time: 0:00 Biochemistry Name Units Result Min Max BUN mg/dl 29 --(----)-* 7 18 Creatinine mg/dl 1.4 --(----)*- 0.6 1.3 CBC Name Units Result Min Max Hematocrit % 32.5 *-(----)-- 42 54 Hemoglobin g/dl 10 *-(----)-- 13.5 17.5 Procedure Procedure Types Cath Procedure Diagnostic Procedure [facility] w/Coronaries FFR/IVUS Intra-Coronary IVUS Initial PCI Procedure Coronary Stent Coronary Stent Initial x2 Procedure Description Procedure Date Procedure Date: 10/24/2018 Procedure Start Time: 10:27 Procedure End Time: 10:51 Procedure Staff Name Function Venancio Rivera MD Performing Physician Elaina Ingram RT Monitor Bola Bella RT Scrub Scott Diane RN Nurse Procedure Data Cath Procedure Fluoroscopy Diagnostic fluoroscopy Total fluoroscopy Time: 5.7 time: 5.7 min min Diagnostic fluoroscopy Total fluoroscopy dose: 808 dose: 808 mGy mGy Contrast Material Contrast Material Type Amount (ml) Isovue 300 125 Entry Location Entry Primary Successful Side Size Upsize Upsize Entry Closure Succes sful Closure Location (Fr) 1 (Fr) 2 (Fr) Remarks Device Remarks Femoral Right 5 Fr 6 Fr Exoseal artery Short Estimated blood loss: 10 ml Diagnostic catheters Device Type Used For End Catheter Placement MULTIPACK Pigtail 5 Fr Procedure catheter MULTIPACK JL 4.0 5Fr Procedure catheter MULTIPACK 3DRC 5Fr Procedure catheter Procedure Complications No complications Procedure Medications Medication Administration Route Dosage 0.9% NaCl I.V. 100 ml/hr Oxygen etCO2 Nasal cannula 2 l/min Heparin Flush Bag added to field 2 bags (1000units/500ml NS) Lidocaine 2% added to field 20 Heparin Bolus I.V. 4000 units Hemodynamics Rest Heart Rate: 85 (bpm) Snapshots Pre Cath Intra NCS Post Cath Vital Signs Time Heart Resp SPO2 etCO2 NIBP (mmHg) Rhythm Pain Sedation Rate (ipm) (%) (mmHg) Status Level (bpm) 10:15:48 78 15 99 28.7 132/75(112) NSR 0 (11) 10(A) , No pain 10:19:56 86 14 98 34.8 124/78(112) NSR 0 (11) 10(A) , No pain 10:24:04 75 13 97 12.8 125/71(102) NSR 0 (11) 10(A) , No pain 10:28:09 97 15 97 18.9 122/78(108) NSR 0 (11) 10(A) , No pain 10:32:15 78 14 92 33.2 128/72(112) NSR 0 (11) 10(A) , No pain 10:36:21 74 13 99 20.4 134/79(121) NSR 0 (11) 10(A) , No pain 10:40:33 78 13 92 33.3 127/71(107) NSR 0 (11) 10(A) , No pain 10:44:41 74 12 96 37.8 136/75(111) NSR 0 (11) 10(A) , No pain 10:48:53 79 16 97 0 139/74(123) NSR 0 (11) 10(A) , No pain Medications Time Medication Route Dose Verified Delivered Reason Notes Effectiveness by by 10:14:04 0.9% NaCl I.V. 100 Scott Scott Per physician ml/hr Benedicto Diane RN RN 10:14:16 Oxygen etCO2 2 Scott Scott for low 02 sats Nasal l/min Benedicto Diane cannula RN RN 10:14:26 Heparin Flush added 2 Scott Scott used for Bag to bags Benedicto Diane procedure (1000units/500ml RN RN NS) 10:14:38 Lidocaine 2% added 20ml Scott Scott for local to vial Benedicto Diane anesthetic field RN RN 10:36:26 Heparin Bolus I.V. 4000 Scott Scott for units Benedicto Diane anticoagulation RN baker test Log Time Note 9:50:54 Bola Bella RT(R) sent for patient. Start room use. 9:56:15 Signed procedure consent form obtained from patient. 9:56:16 Time tracking: Regular hours (M-F 7:00 - 5:00) 9:56:20 Plan of Care:Hemodynamics will remain stable., Cardiac rhythm will remain stable., Comfort level will be maintained., Respiratory function will remain adequate., Patient/ family verbilizes understanding of procedure., Procedure tolerated without complication., Recovers from procedure without complications.. 10:00:24 Patient allergic to Other allergyBEEF CONTAINING PRODUCTS, JULIEN INHIBITORS, KEFLEX, TRICOR, SULFA, ADHESIVE TAPE, ASPIRIN, BAYCOL, CARTIA XT, PREMARIN, FENTANYL, NORCO, DEMEROL, PCN, CRESTOR, VALIUM, NUTS, HORSE SERUM, GONZALES SURGICAL GLUE 10:00:59 Lab Result : BUN 29 mg/dl 10:00:59 Lab Result : Creatinine 1.4 mg/dl 10:00:59 Lab Result : Hematocrit 32.5 % 10:00:59 Lab Result : Hemoglobin 10 g/dl 10:03:42 Patient received from Med II to CCL 2 Alert and oriented. Tansferred to table in Supine position. 10:03:43 Warm blankets applied, and jian hugger turned on for patient comfort. 10:03:44 Correct patient and procedure confirmed by team. 10:03:44 ECG and BP/O2 sat monitors applied to patient. 10:14:04 0.9% NaCl 100 ml/hr I.V. was administered by Scott Diane RN; Per physician; 10:14:16 Oxygen 2 l/min etCO2 Nasal cannula was administered by Scott Diane RN; for low 02 sats; 10:14:26 Heparin Flush Bag (1000units/500ml NS) 2 bags added to field was administered by Scott Diane RN; used for procedure; 10:14:38 Lidocaine 2% 20ml vial added to field was administered by Scott Diane RN; for local anesthetic; 10:14:43 Vital chart was started 10:15:21 Baseline sample Acquired. 10:15:26 Rhythm: sinus rhythm 10:15:27 Full Disclosure recording started 10:15:28 Pre-procedure instructions explained to patient. 10:15:29 Pre-op teaching completed and patient verbalized understanding. 10:15:31 Family in patients room. 10:15:33 Patient NPO since Midnight. 10:15:35 Is patient on blood thinner?Yes 10:15:37 ACC The patient was administered the following blood thiners within the last 24 hours: ACCPlavix 10:15:44 PLAVIX LAST NIGHT 10:15:46 Patient diabetic? No. 10:16:05 If diabetic: On Metformin? No 10:16:07 Previous problem with sedation/anesthesia? No ? 10:16:07 Snore? Yes 10:16:08 Sleep apnea? No 10:16:09 Deviated septum? No 10:16:10 Opens mouth fully? Yes 10:16:10 Sticks out tongue? Yes 10:16:14 Airway obstruction? No ? 10:16:17 Dentures? Yes IN TIGHT 10:16:19 Pre procedure: right dorsailis pedis pulse 2+ Normal; easily identifiable; not easily obliterated 10:16:22 Patient pain scale 0/10 ?. 10:16:25 IV patent on arrival in left forearm with 0.9% NaCl at [facility]. 10:16:27 Lab results completed and on chart. 10:16:29 Right groin area was prepped with chlora-prep and draped in sterile fashion 10:16:30 Alarms reviewed by R. N. 10:16:31 Sharps counted by scrub and verified by R.N. 10:16:34 Use device set Femoral Dx 10:16:35 ACIST Syringe (24154) opened to sterile field. 10:16:35 Bag Decanter (2002S) opened to sterile field. 10:16:38 ACIST Hand Control (02656) opened to sterile field. 10:16:38 ACIST Manifold (64392) opened to sterile field. 10:16:39 Tegaderm 4 x 4 (1626W) opened to sterile field. 10:16:40 Medline Cath Pack ([id number]) opened to sterile field. 10:16:41 DIAGNOSTIC WIRE .035 260cm J wire (903129) opened to sterile field. 10:16:42 DIAGNOSTIC Multipack 5Fr catheter set (RS6194) opened to sterile field. 10:16:43 SHEATH 5FR Grandview (JTQ218) opened to sterile field. 10:23:19 Zero performed for pressure channel P1 10:25:49 --------ALL STOP TIME OUT------ 10:25:50 Final Timeout: patient, procedure, and site verified with staff and physician. All members of the team are in agreement. 10:25:51 Right groin site verified by team. 10:25:54 Maximum allowable Isovue 300 dose 300ml. Physician notified. (300ml for normal creatinines. For patients with creatinine of 1.7 or higher multiply weight(kg) x 5 divided by creatinine.) 10:25:57 Fire Safety Assessment: A--An alcohol-based skin anteseptic being used preoperatively., C--Open oxygen or nitrous oxide is being used., D--An ESU, laser, or fiber-optic light is being used. 10:26:00 Physical assessment completed. ASA score P 2 - A patient with mild systemic disease as per Venancio Rivera MD. 10:26:02 Sedation plan: IV Moderate Sedation Medication:Versed, Fentanyl 10::35 Procedure started. 10:27:52 Local anesthetic to right femoral artery with Lidocaine 2% by Venancio Rivera MD.INITIAL ACCESS ONLY 10:28:19 A 5 Fr sheath was inserted into the Right Femoral artery 10::35 A MULTIPACK Pigtail 5 Fr catheter was advanced over the wire and used for Procedure. 10:29:30 LV gram done using KISER 10::32 Injector settings: Ml/sec: 10, Volume: 20, 10:29:37 EF : 50 % 10:29:38 Catheter removed. 10:29:46 A MULTIPACK JL 4.0 5Fr catheter was advanced over the wire and used for Procedure. 10:31:33 LCA angiography performed. 10:31:34 Catheter removed. 10:32:07 SHEATH 6FR Grandview (CKG902) opened to sterile field. 10:32:07 CHOICE PT Extra Support 182cm wire ([id number]) opened to sterile field. 10:32:08 INFLATOR Merit BasixCompak (QP7978) opened to sterile field. 10:32:08 Delmar Wyand[place] Eagleye IVUS Catheter (44091E) opened to sterile field. 10:32:44 GUIDE 6FR XBLAD 3.5 catheter ([id number]) opened to sterile field. 10:32:52 A MULTIPACK 3DRC 5Fr catheter was advanced over the wire and used for Procedure. 10:32:58 RCA angiography performed. 10:33:01 Catheter removed. 10:33:41 Sheath upsized to a 6 Fr Short. 10:35:08 6 Fr XBLAD 3.5 guide catheter was inserted over the wire 10:36:04 Guide catheter removed. 10:36:13 SHEATH 6FR Destination (RSR01) opened to sterile field. 10:36:26 Heparin Bolus 4000 units I.V. was administered by Scott Diane RN; for anticoagulation; 10:36:51 SHORT SHEATH EXCHANGED FOR LONG 6FR 10:37:31 6 Fr XBLAD 3.5 guide catheter was inserted over the wire 10:38:41 CHOICE ES 182 wire advanced. 10:38:47 Wire advanced across lesion. 10:41:24 IVUS catheter advanced over wire. 10:41:25 IVUS pass to LAD lesion performed. 10:41:26 IVUS catheter removed over wire. 10:43:01 Place stent Inflation Number: 1 A INTEGRITY RX 3.5 x 18 stent ([id number]) was prepped and advanced across the Prox LAD. The stent was deployed at 17 MONIKA for 0:10 (min:sec). 10:43:19 Stent catheter was removed intact over wire. 10:44:17 Wire redirected to CIRC . 10:44:37 Wire advanced across lesion. 10:46:12 Place stent Inflation Number: 1 A INTEGRITY RX 2.5 x 14 stent ([id number]) was prepped and advanced across the Dist CX. The stent was deployed at 11 MONIKA for 0:10 (min:sec). 10:46:29 Inflation number: 2 The stent balloon was then re-inflated across the Dist CX to 11 MONIKA for 0:10 (min:sec). 10:46:43 Stent catheter was removed intact over wire. 10:46:44 Wire removed. 10:46:44 Guide catheter removed. 10:47:30 EXOSEAL 6Fr (EX600) opened to sterile field. 10:47:43 LONG SHEATH EXCHANGED FOR SHORT SHEATH 10:47:54 Sheath removed intact; hemostasis achieved with Exoseal to the Right Femoral artery. 10:48:42 Procedure ended.(Physican Out) 10:49:52 Fluoroscopy time 05.70 minutes. 10:49:55 Fluoroscopy dose: 808 mGy 10:49:55 Flurop Dose total: 808 10:49:58 Contrast amount:Isovue 300 125ml. 10:49:59 Sharps counted by scrub and verified by R.N. 10:50:02 Post-op/insertion site Right Femoral artery dressed using a 4 x 4 and Tegaderm. 10:50:04 Post-procedure physical assessment completed. ASA score P 2 - A patient with mild systemic disease as per Venancio Rivera MD. 10:50:09 Post procedure rhythm: unchanged. 10:50:11 Estimated blood loss: 10 ml 10:50:11 Post procedure instruction explained to patient.Patient verbalizes understanding. 10:50:12 Patient needs reinforcement of post procedure teaching. 10:51:10 Procedure type changed to Cath procedure, Diagnostic procedure, LHC, LHC w/Coronaries, FFR/IVUS, Intra-Coronary IVUS Initial, PCI procedure, Coronary Stent, Coronary Stent Initial x2 10:51:42 Procedure and supply charges have been captured, reviewed, submitted and are correct. 10:51:44 Procedure Complication : No complications 10:51:46 Vital chart was stopped 10:51:46 See physician's report for complete and final results. 10:51:48 Report given to [facility]. 10:51:51 Patient transfered to [facility] with Bed. 10:51:56 Procedure ended. 10:51:56 Full Disclosure recording stopped 10:52:01 End room use (Document Last) Intervention Summary Intervention Notes Time ActionType Lesion and Equipment Action# Pressure Duration Attributes Used 10:43:01 Place stent Prox LAD INTEGRITY RX 1 17 00:10 3.5 x 18 stent ([id number]) 10:46:12 Place stent Dist CX INTEGRITY RX 1 11 00:10 2.5 x 14 stent ([id number]) 10:46:29 Reinflate Dist CX INTEGRITY RX 2 11 00:10 stent 2.5 x 14 balloon stent ([id number]) Device Usage Item Name Manufacture Quantity Catalog Number Hospital Part Current [facility] Lot# / Charge Number Stock Stock Serial# Code ACIST Acist 1 59022 031991 022326 040365 20 Syringe Medical (33276) Systems Inc Bag Decanter Microtek 1 2001S 594839 92175 236940 5 () Medical Inc. ACIST Hand Acist 1 52092 381264 321234 480757 5 Control Medical (09085) Systems Inc ACIST Acist 1 31396 520270 847756 494353 5 Manifold Medical (48348) Systems Inc Tegaderm 4 x 3M 1 1626W 805630 635570 958497 5 4 (1626W) Medline Cath Medline 1 [id number] 365701 04602 640459 5 Pack ([id number]) DIAGNOSTIC [facility] 1 408360 673632 421106 639487 30 WIRE .035 260cm J wire (829673) DIAGNOSTIC Cardinal 1 BS0519 287550 14553 741030 30 Multipack Health 5Fr catheter set (JN7871) SHEATH 5FR Terumo 1 BBC414 200213 701669 467922 5 Grandview (LXA974) MULTIPACK Cardinal 1 878562 5 Pigtail 5 Fr Health catheter MULTIPACK JL Cardinal 1 056845 5 4.0 5Fr Health catheter MULTIPACK Cardinal 1 358675 5 3DRC 5Fr Health catheter SHEATH 6FR Terumo 1 VGM154 077254 613997 355535 40 Grandview (DWI377) CHOICE PT Seanor 1 [id number] 435696 351487 444138 5 Extra Scientific Support 182cm wire ([id number]) INFLATOR Merit 1 CF6549 316500 936174 544601 15 [facility] Medical BasixCompak (EN9471) Delmar Delmar 1 33840Z 267322 859058 300753 8 [place] Eagleye IVUS Catheter (96485X) GUIDE 6FR Cardinal 1 [id number] 605679 676072 750093 10 XBLAD 3.5 Health catheter (90629303) SHEATH 6FR Terumo 1 RSR01 839961 39431 175187 5 Destination (RSR01) INTEGRITY RX Medtronic 1 [id number] 738879 331606 679125 5 [id number] 3.5 x 18 stent ([id number]) INTEGRITY RX Medtronic 1 [id number] 532225 363741 114797 5 [id number] 2.5 x 14 stent ([id number]) EXOSEAL 6Fr Cardinal 1 EX600 129036 300705 153563 10 (EX600) Health Signature Audit [place] Stage Time Signature Unsigned Intra-Procedure 10/24/2018 Elaina Ingram 10:55:42 AM RT(R) Signatures Monitor : Elaina Ingram Signature : RT Date : Time : [id number] [place] [address]
--- NOTE | ~2018-10-23 | HP ---
PATIENT: SRAVAN NEWSOME MEDICAL RECORD: [id number] ACCOUNT: [id number] LOCATION:[address] : 34 ADMISSION DATE: 10/23/18 PCP: HÉCTOR BARCLAY DO HISTORY AND PHYSICAL EXAMINATION DIAGNOSES: 1. Unstable angina. 2. Coronary artery disease. 3. Hypertension. 4. Hyperlipidemia. HISTORY OF PRESENT ILLNESS: Mrs. Newsome has had 1 week of increasing anginal symptomatology. She does have a history of coronary artery disease, previous PTCA stent approximately 2 years ago. Her anginal symptomatology has worsened over the past 24 hours. She presented to the Emergency Room. She has no acute changes on EKG. PHYSICAL EXAMINATION: GENERAL APPEARANCE: Well-nourished, well-developed, appears stated age. Level of distress, comfortable. PSYCHIATRIC: Mental status, alert, normal affect. Orientation, oriented to time, place and person. EYES: Lids and conjunctiva, noninjected. No discharge, no pallor. ENT: Lips, teeth, gums, normal dentition. Oropharynx, no cyanosis, no pallor. NECK: Carotid arteries, bilateral normal upstroke, no bruits, no thrills. JUGULAR VEINS: No jugular venous pressure or distention. CERVICAL LYMPH NODES: Nontender, nonenlarged. THYROID: Not enlarged. Nontender. No nodules. LUNGS: Respiratory effort, unlabored. CHEST: Normal curvature. No thoracic deformity. No chest wall tenderness. Percussion, resonant. Auscultation, clear. No wheezes, no rales, no rhonchi. CARDIOVASCULAR: Precordial exam, nondisplaced. No heaves or pericardial thrills. Rate and rhythm, regular. Heart sounds, normal S1, normal S2. No S3, no gallop, no rub. Systolic murmur, not heard. Diastolic murmur, not heard. EXTREMITIES: No cyanosis, no edema. Peripheral pulses, full and equal in all extremities, except as noted. No bruits appreciated. ABDOMEN: Soft, nondistended. Normal aorta. No bruit. Nontender. No masses. Liver, nontender, no hepatomegaly. Spleen, nontender, no splenomegaly. MUSCULOSKELETAL: No joint tenderness. No joint swelling. No erythema. NEUROLOGICAL: Normal gait, normal strength, normal tone. SKIN: Warm and dry. OVERALL IMPRESSION: Unstable anginal symptomatology in a patient with a past history of coronary artery disease, most likely she has recurrent hemodynamically significant coronary artery disease. We will admit and perform repeat cardiac catheterization. TRANSINT:[id number] Voice Confirmation ID: [id number] DOCUMENT ID: [id number] HISTORY AND PHYSICAL [id number] SRAVAN NEWSOME JEFFREY MD CC: [id number] DICTATION DATE: 10/25/18 1042 WEB SITE DEVELOPER: 10/25/18 1056 DIS IN 10/24/18 [address] [place] [address]
[2018-10-23] MEDS ORDERED: COLCRYS0.6 MG PO (09:19)
[2018-10-23] MEDS ORDERED: CATAPRES0.1 MG PO (09:19)
[2018-10-23] MEDS ORDERED: FLOVENT HFA 410.6 GM INH (09:20)
[2018-10-23] MEDS ORDERED: NITROSTAT0.4 MG SL (09:20)
[2018-10-23] MEDS ORDERED: HYDROCODON-ACE1 EA10 PO (09:20)
[2018-10-23 09:36] LABS: BASOPHILS 0.1 % (0-2); EOSINOPHILS 1.7 % (0-7); HEMATOCRIT 32.5 % (36.0-48.0); IMMATURE GRANULOCYTES 0.2 % (0-5); LYMPHOCYTES 16.9 % (15-50); MCH 28.5 pg (26.0-34.0); MCHC 30.8 g/dL (31.0-37.0); MCV 92.6 fL (80.0-100.0); MEAN PLATELET VOLUME 9.9 fL (7.4-10.4); MONOCYTES 5.9 % (2-11); NEUTROPHILS 75.2 % (40-80); PLATELET COUNT 229 10x3/uL (130-400); RBC 3.51 10x6/uL (4.00-5.40); RDW 14.2 % (11.5-14.5); WBC 9.2 10x3/uL (4.8-10.8)
[2018-10-23 09:48] LABS: APTT 29.5 SECONDS (22.8-39.4); INR 1.1 (0.85-1.17); PROTIME 13.7 SECONDS (11.6-15.0)
[2018-10-23 09:51] LABS: ALBUMIN 2.8 g/dL (3.4-5.0); ALKALINE PHOSPHATASE 55 U/L (46-116); ALT (SGPT) 8 U/L (10-68); BILIRUBIN - TOTAL 0.33 mg/dL (0.2-1.3); CALC OSMOLALITY 294 mosm/kg (275-300); CALCIUM 9.7 mg/dL (8.5-10.1); CARBON DIOXIDE 33.4 mmol/L (21.0-32.0); CHLORIDE - SERUM 106 mmol/L (98-107); CREATININE - SERUM 1.4 mg/dL (0.6-1.3); GLUCOSE 102 mg/dL (74-106); POTASSIUM - SERUM 3.5 mmol/L (3.5-5.1); PROTEIN - SERUM 6.5 g/dL (6.4-8.2); SODIUM 145 mmol/L (136-145); UREA NITROGEN 29 mg/dL (7-18); eGFR NON AFRICAN AMERICAN 38 mL/min (90-120)
[2018-10-23 10:03] LABS: CKMB 0.8 U/L (0.0-3.6); CREATINE KINASE 30 UL (21-215); MAGNESIUM - SERUM 1.8 mg/dL (1.8-2.4)
[2018-10-23 11:30] VITALS: BP 184/89
[2018-10-23 12:13] VITALS: BP 157/87
--- NOTE | 2018-10-23 13:32 | NUR ---
RECIEVED FROM ER. PT IS ALERT BUT HAS PARKINSONS AND DEMITA SO IS NOT SURE OF WHAT IS GOING ON. SON AT BEDSIDE. NO C/O CHEST PAIN AT PRESENT TIME, SL TO LEFT AC. WILL MONITOR
[2018-10-23 14:28] VITALS: BP 157/77; BMI 25.8
--- NOTE | 2018-10-23 14:55 | NUR ---
ASSESSMENT COMPLETE AT THIS TIME PT RESTING QUIETLY NAD NOTED TELEMETRY INTACT ST RATE 104 SALINE LOCK INTACT LAC WITH OCCLUSIVE DRSG SITE FREE OF REDNESS OR EDEMA WILL CONTINUE TO MONITOR
[2018-10-23 16:30] VITALS: BP 136/61
--- NOTE | 2018-10-23 18:54 | NUR ---
LYING QUIETLY. TELEMERTY SHOWS SR. FAMILY AT BEDSIDE
--- NOTE | 2018-10-23 19:10 | NUR ---
WASTED MORPHINE WITH THE NURSE CARING FOR THIS PATIENT - PATIENT WAS GIVEN 1 MG OF MORPHINE AND IT WAS ENTERED THAT THE PATIENT WAS GIVEN 0.5 MG OF MORPHINE IN THE PYXIS. THE AMOUNT WASTED WAS 0.75 ML.
--- NOTE | 2018-10-23 19:12 | NUR ---
PATIENT WAS GIVEN 1 MG OF MORPHINE. IN THE PYXIS IT WAS ENTERED THAT PATIENT WAS GIVEN 0.5 MG. THE CORRECT AMOUNT WASTED WAS 0.75 ML. WASTED WITH Katt REICH. PHARMACY NOTIFIED.
--- NOTE | 2018-10-23 19:40 | NUR ---
PT ASLEEP, RESP EVEN AND UNLABORED. MOUTH BREATHER, NO S/S OF DISTRESS. PT BEDLOW AND CALL LIGHT IN REACH. NAME AND DATE PLACED ON BOARD. WILL CPOC
[2018-10-23 20:00] VITALS: BP 149/66
--- NOTE | 2018-10-23 21:27 | NUR ---
PT USED BEDPAN, VERBALIZED UNDERSTANDING OF MEDICATIONS. VERBALIZED NAME AND . VERBALIZED PLACE AND YEAR. REORIENTED TO TIME. PT DENIES ANY NEEDS. WILL CALL FOR ASSIST.
--- NOTE | 2018-10-23 23:46 | NUR ---
PT IS NPO AFTER MIDNIGHT FOR POSSIBLE HEART CATH. PT WILL CALL FOR ASSIST WHEN NEEDED. WILL CPOC
[2018-10-24 00:30] VITALS: BP 142/67
--- NOTE | 2018-10-24 01:25 | NUR ---
PT USED BEDPAN. NPO SINCE MIDNIGHT. NOTHING AT BEDSIDE. NO S/S OF DISTRESS. WILL CPOC
--- NOTE | 2018-10-24 03:29 | NUR ---
PT COMPLAINS OF PAIN, NORCO GIVEN WITH SIP OF WATER.
--- NOTE | 2018-10-24 05:00 | NUR ---
NITRO 0.4 TAB GIVEN FOR CHEST PAIN. PT INSTRUCTED TO CALL IN 5 MINS IF CHEST PAIN CONTINUES.
[2018-10-24 05:30] VITALS: BP 132/68
--- NOTE | 2018-10-24 06:44 | NUR ---
PT NOW RESTING IN BED. DENIES ANY CHEST PAIN AT THIS TIME. LAST NITRO 0600 NO S/S OF DISTRESS. WILL CPOC
--- NOTE | 2018-10-24 07:51 | NUR ---
REPORT RECEIVED. WILL CONTINUE WITH POC. PT CURRENTLY LYING SUPINE. CALL LIGHT W/I REACH. PT IS AA BUT CONFUSED TO SITUATION, TIME, AND PLACE. PT IS BEDFAST. SIDE RAIL UP X2. RR EVEN AND UNLABORED ON RA. L.AC PIV IS SALINE LOCKED. PT DENIES ANY NEEDS AT THIS TIME. NO S/S OF DISTRESS NOTED. WILL CTM.
[2018-10-24 08:30] VITALS: BP 111/54
[2018-10-24 12:51] VITALS: Ht 162.6 cm; Wt 68.0 kg
--- NOTE | 2018-10-24 15:26 | NUR ---
Blanchable redness to coccyx. Recommend assist with turning/repositioning q 2 hours. Will monitor as needed.
[2018-10-24 15:47] VITALS: BP 140/82
--- NOTE | 2018-10-24 16:18 | NUR ---
PT DISCHARGED BACK TO [facility] VIA [facility] TRANSPORTATION. PIV REMOVED WITH CATHETER TIP FULLY INTACT. PT DAUGHTER SIGNED PROPER DISCHARGE INSTRUCTION AND REMOVED ALL VALUABLES FROM THE ROOM.
== END 2018-10-24 16:19 | disposition home or self-care (01) ==
LOC: D.ER 09:10 → D.M2 12:01 → OBSVTIME 12:01 → D.M2 10-24 16:19
PROVIDERS: Family Medicine; ADMIT Internal Medicine Interventional Cardiology; ATTEND Internal Medicine Interventional Cardiology
DX: I25.110 Atherosclerotic heart disease of native coronary artery with unstable angina pectoris (principal); I10 Essential (primary) hypertension; E78.5 Hyperlipidemia, unspecified

== ENCOUNTER 2018-10-26 09:54 | Observation (INO) | payer MEDICARE, BC ==
[~2018-10-26] VITALS: Ht 162.6 cm; Wt 61.4 kg
[~2018-10-26 09:54] MED LIST changes: +COLCRYS0.6 MG PO; +FLOVENT HFA 410.6 GM INH; +HYDROCODON-ACE1 EA10 PO; -PEPCID20 MG PO; +PEPCID40 MG PO
[2018-10-26 10:04] VITALS: BP 107/60
[2018-10-26 10:28] LABS: BASOPHILS 0.1 % (0-2); EOSINOPHILS 1.8 % (0-7); HEMOGLOBIN 9.5 g/dL (12-16); IMMATURE GRANULOCYTES 0.3 % (0-5); LYMPHOCYTES 12.3 % (15-50); MCH 27.9 pg (26.0-34.0); MCHC 30.6 g/dL (31.0-37.0); MCV 90.9 fL (80.0-100.0); MEAN PLATELET VOLUME 10.4 fL (7.4-10.4); MONOCYTES 4.9 % (2-11); NEUTROPHILS 80.6 % (40-80); PLATELET COUNT 235 10x3/uL (130-400); RBC 3.41 10x6/uL (4.00-5.40); RDW 14.8 % (11.5-14.5); WBC 7.1 10x3/uL (4.8-10.8)
[2018-10-26 10:36] LABS: ALBUMIN 2.1 g/dL (3.4-5.0); ALKALINE PHOSPHATASE 51 U/L (46-116); ALT (SGPT) 6 U/L (10-68); BILIRUBIN - TOTAL 0.57 mg/dL (0.2-1.3); CALC OSMOLALITY 279 mosm/kg (275-300); CALCIUM 9.2 mg/dL (8.5-10.1); CARBON DIOXIDE 32.9 mmol/L (21.0-32.0); CHLORIDE - SERUM 97 mmol/L (98-107); CREATININE - SERUM 1.9 mg/dL (0.6-1.3); GLUCOSE 136 mg/dL (74-106); POTASSIUM - SERUM 3.4 mmol/L (3.5-5.1); PROTEIN - SERUM 5.9 g/dL (6.4-8.2); SODIUM 135 mmol/L (136-145); UREA NITROGEN 36 mg/dL (7-18); eGFR NON AFRICAN AMERICAN 27 mL/min (90-120)
[2018-10-26 10:45] LABS: INR 1.33 (0.85-1.17); PROTIME 15.9 SECONDS (11.6-15.0)
[2018-10-26 10:46] LABS: APTT 34.9 SECONDS (22.8-39.4)
[2018-10-26 10:52] LABS: CKMB 1.3 U/L (0.0-3.6); CREATINE KINASE 57 UL (21-215); MAGNESIUM - SERUM 1.8 mg/dL (1.8-2.4)
[2018-10-26 10:54] LABS: TROPONIN-I 2.466 ng/mL (0.000-0.060)
--- NOTE | 2018-10-26 11:31 | NUR ---
PT RESTING QUIETLY IN BED AT THIS TIME IN NO ACUTE DISTRESS, EYES CLOSED, RESPIRATIONS EVEN AND UNLABORED. VSS. WILL CONTINUE TO MONITOR FOR CHANGES.
--- NOTE | 2018-10-26 11:35 | NUR ---
DR. VALENTINE AT BEDSIDE AT THIS TIME.
--- NOTE | 2018-10-26 12:15 | NUR ---
CALLED REPORT TO MATHIEU POLO AT THIS TIME, REPORTS THAT ROOM IS STILL DIRTY AND NURSE WOULD INFORM ME WHEN ROOM WAS CLEAN.
--- NOTE | 2018-10-26 12:56 | NUR ---
TRANSFER FROM ER BY STRETCHER. OREINTED TO ROOM. CALL LIGHT IN REACH. WILL CONT. PLAN OF CARE.
[2018-10-26 13:28] VITALS: BP 107/60; Ht 162.6 cm; Wt 61.4 kg
[2018-10-26] MEDS ORDERED: HYDRALAZINE HCL25 MG PO (15:19)
[2018-10-26] MEDS ORDERED: OMEPRAZOLE40 MG PO (15:53)
[2018-10-26 16:39] VITALS: BP 144/75
--- NOTE | 2018-10-26 19:28 | NUR ---
RESUMING PATIENT CARE. PATIENT RESTING COMFORTABLY IN BED. RESPIRATIONS ARE EVEN AND UNLABORED. NO S/S OF DISTRESS. NO C/O PAIN. CALL LIGHT WITHIN REACH. SON AT BEDSIDE. WILL CPOC.
[2018-10-26 20:00] VITALS: BP 148/80
[2018-10-27 00:06] VITALS: BP 140/72
--- NOTE | 2018-10-27 01:39 | NUR ---
PATIENT RESTING COMFORTABLY IN BED. RESPIRATIONS ARE EVEN AND UNLABORED. NO S/S OF DISTRESS. NO C/O PAIN. CALL LIGHT WITHIN REACH. WILL CPOC.
[2018-10-27 04:00] VITALS: BP 140/70
[2018-10-27 05:09] LABS: BASOPHILS 0.2 % (0-2); EOSINOPHILS 2.2 % (0-7); HEMATOCRIT 28.7 % (36.0-48.0); HEMOGLOBIN 8.9 g/dL (12-16); IMMATURE GRANULOCYTES 0.2 % (0-5); LYMPHOCYTES 18.3 % (15-50); MCH 27.9 pg (26.0-34.0); MEAN PLATELET VOLUME 10.1 fL (7.4-10.4); MONOCYTES 8.3 % (2-11); NEUTROPHILS 70.8 % (40-80); PLATELET COUNT 203 10x3/uL (130-400); RBC 3.19 10x6/uL (4.00-5.40); RDW 14.6 % (11.5-14.5); WBC 6.4 10x3/uL (4.8-10.8)
[2018-10-27 05:26] LABS: ANION GAP 9.4 mmol/L (8-16); CALCIUM 8.9 mg/dL (8.5-10.1); CARBON DIOXIDE 31.4 mmol/L (21.0-32.0); CREATININE - SERUM 1.5 mg/dL (0.6-1.3); POTASSIUM - SERUM 3.8 mmol/L (3.5-5.1)
[2018-10-27 09:51] VITALS: BP 132/56
[2018-10-27 13:11] VITALS: BP 137/67
--- NOTE | 2018-10-27 13:33 | NUR ---
REPORTED PT WALKED 250 FT WITH THERAPY USING WALKER SOME DIFFICULTY GUIDING WALKER. 02 SAT 90-94 UP TO BATHROOM WITH ASSIST X1 VELMA STATES THEY WILL BE ABLE TO ASSIST [facility] WILL PICK HER UP AT 1500
--- NOTE | 2018-10-27 13:33 | NUR ---
REPORT CALLED TO RANJIT MONTALVO SPOKE WITH VELMA REINA TO BE PICKED UP AT 1500
--- NOTE | 2018-10-27 14:02 | MORECARE ---
CASE MANAGEMENT DISCHARGE SUMMARY PATIENT: SRAVAN DOWNEY UNIT: [id number] ADM DATE: 10/26/18 AGE: 83 : 34 SEX: F ROOM/BED: D.2115 AUTHOR: TORREY MIRAMONTES PHYSICIAN: REFERRING PHYSICIAN: MABLE VALENTINE M.D. DATE OF SERVICE: 10/27/18 Discharge Plan Patient Name: SRAVAN DOWNEY Facility: [facility]:[place] : 1935 Planned Disposition: Assisted Living Anticipated Discharge Date: 10/27/18 Discharge Date: Expected LOS: 1 Initial Reviewer: [email or web address] Initial Review Date: 10/26/2018 Generated: 10/27/18 3:01 pm Patient Name: SRAVAN DOWNEY Page [id number] at 1402 All edits/amendments must be made on the electronic document DICTATION DATE: 10/27/[address] MANAGER: HILDA 10/27/18 1401 RPT#: [id number] DC DATE: STATUS: ADM IN [facility] [address] [place] [address] END OF REPORT
--- NOTE | 2018-10-27 14:08 | MORECARE ---
CASE MANAGEMENT DISCHARGE SUMMARY PATIENT: SRAVAN DOWNEY UNIT: [id number] ADM DATE: 10/26/18 AGE: 83 : 34 SEX: F ROOM/BED: D.8331 AUTHOR: TORREY MIRAMONTES PHYSICIAN: REFERRING PHYSICIAN: MABLE VALENTINE M.D. DATE OF SERVICE: 10/27/18 Discharge Plan Patient Name: SRAVAN DOWNEY Facility: [facility]:[place] : 1935 Planned Disposition: Assisted Living Anticipated Discharge Date: 10/27/18 Discharge Date: Expected LOS: 1 Initial Reviewer: [email or web address] Initial Review Date: 10/26/2018 Generated: 10/27/18 3:08 pm Comments DCP- Discharge Planning Updated by [email or web address]: Nadia Littlejohn on 10/27/18 1:[address] 1000 CM REVIEWED PATIENT CHART FOR DISCHARGE. TC TO [facility] AND SPOKE W/ ROYCE. TRANSFERED TO THE NURSE, VELMA. PRIMARY NURSE NEEDED TO CALL REPORT. THEN VELMA WILL CALL THEIR CHARGE NURSE AND ADVISE IF THEY CAN TAKE PATIENT BACK. SHE VOICED SOME CONCERNS REGARDING HER STABILITY IN [facility]IV[facility] SETTING. DISCUSSED TC WITH DALIA, THE PRIMARY NURSE, WILL GET PHYSICAL THERAPY EVAL AND CHECK O2 SATURATION ON RM AIR. REC TELEPHONE CALL FROM DALIA. SHE HAD CALLED REPORT TO VELMA, THE NURSE, AT [facility]. THEY WILL ACCEPT THE PATIENT BACK. THEY WILL PICK HER UP AT 1500. THE PATIENT WAS ABLE TO AMBULATE 250 FEET UTILIZING THE WALKER. SHE MAINATINED HER O2 SATS ON RM AIR AT 90- 94 %. AMBULATED TO THE BATHROOM W/ ASSIST OF ONE. Last DP export: 10/27/18 1:01 pm Patient Name: SRAVAN DOWNEY Page [phone] at 1408 All edits/amendments must be made on the electronic document DICTATION DATE: 10/27/181406 MANAGER CASE MANAGEMENT: HILDA 10/27/181406 RPT#: [id number] DC DATE: STATUS: ADM IN [facility] [address] [place] [address] END OF REPORT
--- NOTE | 2018-10-27 15:30 | NUR ---
REVIEWED DISCHARGE INSTRUCTIONS WITH PT STATES UNDERSTANDING COPY GIVEN SALINE LOCK DCD TO RAC WITH IV CATHETER INTACT SITE FREE OF REDNESS OR EDEMA AWAITING RIDE FROM [facility]
--- NOTE | 2018-10-27 16:30 | NUR ---
RIDE HERE STAFF FROM [facility]IV[facility] RANJIT HENAO PT LEFT UNIT VIA W/C IN STABLE CONDITION WITH ALL PERSONAL BELONGINGS
== END 2018-10-27 16:30 | disposition home or self-care (01) ==
LOC: D.ER 09:54 → OBSVTIME 12:04 → D.EDHOLD 12:04 → D.M2 12:14
PROVIDERS: Family Medicine; ADMIT Internal Medicine Cardiovascular Disease; ATTEND Internal Medicine Cardiovascular Disease
DX: I21.4 Non-ST elevation (NSTEMI) myocardial infarction (principal); I25.10 Atherosclerotic heart disease of native coronary artery without angina pectoris; I11.0 Hypertensive heart disease with heart failure; I50.9 Heart failure, unspecified; K21.9 Gastro-esophageal reflux disease without esophagitis; M79.7 Fibromyalgia

== ENCOUNTER 2018-11-20 04:04 | Inpatient (IN) | payer MEDICARE, BC ==
[~2018-11-20 04:04] MED LIST changes: +OMEPRAZOLE40 MG PO
[2018-11-20] MEDS ORDERED: VITAMIN B-121000 MCG PO (04:13)
[2018-11-20] MEDS ORDERED: COLCRYS0.6 MG PO (04:13)
[2018-11-20] MEDS ORDERED: PEPCID AC20 MG PO (04:14)
[2018-11-20] MEDS ORDERED: COLACE100 MG PO (04:14)
[2018-11-20 04:51] VITALS: BP 177/84
[2018-11-20 04:56] LABS: BASOPHILS 0.5 % (0-2); EOSINOPHILS 3.2 % (0-7); HEMATOCRIT 30.3 % (36.0-48.0); HEMOGLOBIN 9.2 g/dL (12-16); IMMATURE GRANULOCYTES 0.2 % (0-5); LYMPHOCYTES 27.6 % (15-50); MCHC 30.4 g/dL (31.0-37.0); MCV 92.1 fL (80.0-100.0); MEAN PLATELET VOLUME 10.5 fL (7.4-10.4); MONOCYTES 9.4 % (2-11); NEUTROPHILS 59.1 % (40-80); PLATELET COUNT 189 10x3/uL (130-400); RBC 3.29 10x6/uL (4.00-5.40); RDW 16.4 % (11.5-14.5); WBC 6.3 10x3/uL (4.8-10.8)
--- NOTE | 2018-11-20 05:00 | NUR ---
PT SLEEPING ON BED. PT WAKES TO VERBAL STIMULI. PT DENIES NEEDS AT THIS TIME. PT REPORTS DECREASE IN SOB.
[2018-11-20 05:03] LABS: INR 1.21 (0.85-1.17); PROTIME 14.8 SECONDS (11.6-15.0)
[2018-11-20 05:27] LABS: ALBUMIN 2.8 g/dL (3.4-5.0); ALKALINE PHOSPHATASE 50 U/L (46-116); ALT (SGPT) 8 U/L (10-68); BILIRUBIN - TOTAL 0.37 mg/dL (0.2-1.3); CALC OSMOLALITY 292 mosm/kg (275-300); CALCIUM 9.5 mg/dL (8.5-10.1); CARBON DIOXIDE 29.2 mmol/L (21.0-32.0); CHLORIDE - SERUM 109 mmol/L (98-107); CREATININE - SERUM 1.4 mg/dL (0.6-1.3); GLUCOSE 100 mg/dL (74-106); POTASSIUM - SERUM 4.2 mmol/L (3.5-5.1); SODIUM 144 mmol/L (136-145); UREA NITROGEN 30 mg/dL (7-18); eGFR NON AFRICAN AMERICAN 38 mL/min (90-120)
[2018-11-20 05:43] LABS: CREATINE KINASE 37 UL (21-215); PRO BNP 10962 pg/mL (0-450); TROPONIN-I 0.024 ng/mL (0.000-0.060)
--- NOTE | 2018-11-20 06:10 | NUR ---
PT SLEEPING ON BED. VISITORS FROM JENY AT PT BEDSIDE.
[2018-11-20 06:30] VITALS: BP 171/80
--- NOTE | 2018-11-20 06:47 | NUR ---
RN SPOKE WITH PT SON, ESVIN DOWNEY [phone].
--- NOTE | 2018-11-20 07:00 | NUR ---
HAND-OFF REPORT RECEIVED FROM OFF-GOING NURSE MELANI TORRES. PT OBSERVED LYING IN BED, RESPIRATIONS EVEN AND UNLABORED. NO SIGNS OF DISRESS, CALL LIGHT IN REACH, SIDE RAILS RAISED X2. PT ORIENTED TO PERSON AND PLACE. DENIES NEEDS. WILL CONTINUE TO MONITOR.
[2018-11-20 08:00] VITALS: BP 160/79
--- NOTE | 2018-11-20 08:27 | NUR ---
PT ASSISTED TO THE BATHROOM, SOLIED CLOTHING CHANGED FOLLOWING URINARY INCONTINENCE. CLEAN BRIEF PROVIDED. PT REMAINS ORIENTED X2 TO PERSON. BREAKFAST TRAY PROVIDED AT THIS TIME PER DIETARY ORDERS. CALL LIGHT IN REACH.
[2018-11-20 08:50] VITALS: BMI 25.9
[2018-11-20 12:23] LABS: CKMB 0.7 U/L (0.0-3.6); CREATINE KINASE 31 UL (21-215); TROPONIN-I 0.039 ng/mL (0.000-0.060)
--- NOTE | 2018-11-20 12:43 | NUR ---
PT TRANSFERRED ONTO AND OFF OF BEDPAN MULTIPLE TIMES IN THE PAST SEVERAL HOURS. PT ALERT, ORIENTED TO PERSON AND PLACE. FRIEND OF PT AT THE BEDSIDE. COMPLETE LINEN CHANGE AND GOWN CHANGE PROVIDED AT THIS TIME. LUNCH TRAY GIVEN AT THIS TIME. CALL LIGHT IN REACH, WILL CONTINUE TO MONITOR.
[2018-11-20 15:18] VITALS: BMI 26.8
[2018-11-20 16:48] LABS: CKMB 0.5 U/L (0.0-3.6); CREATINE KINASE 29 UL (21-215); TROPONIN-I 0.031 ng/mL (0.000-0.060)
--- NOTE | 2018-11-20 19:18 | NUR ---
PATIENT LAYING IN BED. EYES CLOSED, CHEST RISING AND FALLING. NO DISTRESS NOTED.
[2018-11-20 19:26] VITALS: BP 165/76
[2018-11-20 20:00] VITALS: BP 168/83
--- NOTE | 2018-11-20 23:18 | NUR ---
PATIENT LAYING IN BED. NO DISTRESS NOTED. NO COMPLAINTS AT THIS TIME.
[2018-11-20 23:41] LABS: CKMB 0.6 U/L (0.0-3.6); CREATINE KINASE 26 UL (21-215); TROPONIN-I 0.042 ng/mL (0.000-0.060)
[2018-11-21] VITALS: BP 178/86
--- NOTE | 2018-11-21 01:44 | NUR ---
PATIENT LAYING IN BED. NO DISTRESS NOTED. NO COMPLAINTS AT THIS TIME.
[2018-11-21 04:00] VITALS: BP 159/77
--- NOTE | 2018-11-21 04:32 | NUR ---
PATIENT LAYING IN BED, EYES CLOSED, CHEST RISING AND FALLING. NO DISTRESS NOTED.
[2018-11-21 06:49] LABS: BASOPHILS 0.3 % (0-2); EOSINOPHILS 2.5 % (0-7); HEMATOCRIT 29.3 % (36.0-48.0); IMMATURE GRANULOCYTES 0.2 % (0-5); LYMPHOCYTES 21.2 % (15-50); MCH 28.2 pg (26.0-34.0); MCHC 30.7 g/dL (31.0-37.0); MCV 91.8 fL (80.0-100.0); MEAN PLATELET VOLUME 10.4 fL (7.4-10.4); MONOCYTES 9.6 % (2-11); NEUTROPHILS 66.2 % (40-80); PLATELET COUNT 188 10x3/uL (130-400); RBC 3.19 10x6/uL (4.00-5.40); RDW 16.6 % (11.5-14.5); WBC 6.3 10x3/uL (4.8-10.8)
[2018-11-21 07:04] LABS: ALBUMIN 2.5 g/dL (3.4-5.0); ANION GAP 12.2 mmol/L (8-16); BILIRUBIN - TOTAL 0.58 mg/dL (0.2-1.3); CALCIUM 9.4 mg/dL (8.5-10.1); CARBON DIOXIDE 27.8 mmol/L (21.0-32.0); CREATININE - SERUM 1.3 mg/dL (0.6-1.3); MAGNESIUM - SERUM 2.1 mg/dL (1.8-2.4); PROTEIN - SERUM 5.7 g/dL (6.4-8.2)
--- NOTE | 2018-11-21 07:23 | NUR ---
RESUMING PT CARE, PT LAYING IN BED WITH EYES OPEN, RESPIRATIONS EVEN AND UNALBORED. CALL LIGHT IN REACH, WILL CONTINUE TO MONITOR AND FOLLOW PLAN OF CARE.
[2018-11-21 09:21] VITALS: BP 155/74
--- NOTE | 2018-11-21 09:49 | NUR ---
I have reviewed this patient and I concur with the Shift Assessment completed by the Licensed Practical Nurse today this shift.
[2018-11-21 11:10] LABS: % SATURATION 13 % (15-55); IRON 25 ug/dl (35-150); TOTAL IRON BIND CAPACITY 190 ug/dl (260-445); UNSAT IRON BIND CAPACITY 165 ug/dl (150-375)
[2018-11-21 12:07] VITALS: BP 164/77
--- NOTE | 2018-11-21 12:43 | NUR ---
PT LAYING IN BED WITH EYES CLOSED, RESPIRATIONS EVEN AND UNLABORED, CALL LIGHT IN REACH. WILL CONTINUE TO MONITOR.
[2018-11-21 12:48] VITALS: BMI 26.2
[2018-11-21 15:57] VITALS: BP 146/73
--- NOTE | 2018-11-21 19:22 | NUR ---
PATIENT LAYING IN BED. EYES CLOSED, CHEST RISING AND FALLING. NO DISTRESS NOTED.
[2018-11-21 20:00] VITALS: BP 143/78
--- NOTE | 2018-11-21 22:59 | NUR ---
PATIENT LAYING IN BED. NO COMPLAINTS AT THIS TIME. NO DISTRESS NOTED.
--- NOTE | 2018-11-22 03:37 | NUR ---
PATIENT LAYING IN BED. EYES CLOSED, CHEST RISING AND FALLING. NO DISTRESS NOTED.
[2018-11-22 04:00] VITALS: BP 160/78
[2018-11-22 05:11] LABS: BASOPHILS 0.3 % (0-2); EOSINOPHILS 3.7 % (0-7); HEMATOCRIT 30.1 % (36.0-48.0); HEMOGLOBIN 9.3 g/dL (12-16); IMMATURE GRANULOCYTES 0.3 % (0-5); LYMPHOCYTES 20.9 % (15-50); MCH 28.2 pg (26.0-34.0); MCHC 30.9 g/dL (31.0-37.0); MCV 91.2 fL (80.0-100.0); MEAN PLATELET VOLUME 10.5 fL (7.4-10.4); MONOCYTES 10.8 % (2-11); PLATELET COUNT 204 10x3/uL (130-400); RDW 16.2 % (11.5-14.5); WBC 6.2 10x3/uL (4.8-10.8)
[2018-11-22 05:34] LABS: ALBUMIN 2.3 g/dL (3.4-5.0); ANION GAP 7.5 mmol/L (8-16); BILIRUBIN - TOTAL 0.34 mg/dL (0.2-1.3); CALCIUM 9.4 mg/dL (8.5-10.1); CARBON DIOXIDE 30.6 mmol/L (21.0-32.0); CREATININE - SERUM 1.1 mg/dL (0.6-1.3); MAGNESIUM - SERUM 2.1 mg/dL (1.8-2.4); POTASSIUM - SERUM 4.1 mmol/L (3.5-5.1); PROTEIN - SERUM 5.8 g/dL (6.4-8.2)
--- NOTE | 2018-11-22 06:17 | NUR ---
PATIENT LAYING IN BED, EYES CLOSED, CHEST RISING AND FALLING. NO DISTRESS NOTED.
[2018-11-22 08:15] VITALS: BP 175/89
[2018-11-22 11:11] LABS: FOLATE (FOLIC ACID) - SERUM 5.4 ng/mL (>3.0)
[2018-11-22 13:09] VITALS: BP 161/72
--- NOTE | 2018-11-22 14:24 | NUR ---
STOOL SAMPLE SENT TO THE LAB ORDERED.
--- NOTE | 2018-11-22 14:44 | NUR ---
I have reviewed this patient and I concur with the Shift Assessment completed by the Licensed Practical Nurse today this shift.
[2018-11-22 15:21] VITALS: BP 158/78
--- NOTE | 2018-11-22 19:50 | NUR ---
AWAKE IN BED I ASSISTED WITH COMFORT AT THIS TIME AND REPOSITIONED PT USING PILLOWS FOR SUPORT. BED IS LOW AND LOCKED SKIN IS COOL AND DRY IV TO LEFT HAND IS SL LUNGS ARE CLEAR DEMINISHED LOWER BASESO2 IS AT 2L NC BOWEL SOUNDS X4 ABD SLIGHTLY FIRM. CALL LIGHT IS IN REACH
[2018-11-22 20:05] VITALS: BP 153/82
[2018-11-23] VITALS: BP 142/80
--- NOTE | 2018-11-23 03:17 | NUR ---
I have reviewed this patient and I concur with the Shift Assessment completed by the Licensed Practical Nurse today this shift.
[2018-11-23 04:00] VITALS: BP 139/91
[2018-11-23 04:28] LABS: BASOPHILS 0.3 % (0-2); EOSINOPHILS 1.9 % (0-7); HEMATOCRIT 30.1 % (36.0-48.0); HEMOGLOBIN 9.3 g/dL (12-16); IMMATURE GRANULOCYTES 0.2 % (0-5); LYMPHOCYTES 23.2 % (15-50); MCH 28.4 pg (26.0-34.0); MCHC 30.9 g/dL (31.0-37.0); MCV 91.8 fL (80.0-100.0); MEAN PLATELET VOLUME 9.6 fL (7.4-10.4); NEUTROPHILS 63.4 % (40-80); PLATELET COUNT 191 10x3/uL (130-400); RBC 3.28 10x6/uL (4.00-5.40); RDW 15.9 % (11.5-14.5); WBC 6.2 10x3/uL (4.8-10.8)
[2018-11-23 04:48] LABS: ALBUMIN 2.2 g/dL (3.4-5.0); ANION GAP 12.8 mmol/L (8-16); BILIRUBIN - TOTAL 0.53 mg/dL (0.2-1.3); CALCIUM 9.3 mg/dL (8.5-10.1); CARBON DIOXIDE 26.3 mmol/L (21.0-32.0); CREATININE - SERUM 1.1 mg/dL (0.6-1.3); MAGNESIUM - SERUM 2.1 mg/dL (1.8-2.4); POTASSIUM - SERUM 4.1 mmol/L (3.5-5.1); PROTEIN - SERUM 5.7 g/dL (6.4-8.2)
[2018-11-23 07:56] VITALS: BP 150/65
--- NOTE | 2018-11-23 09:06 | NUR ---
ALERT AND ORIENTED WITH S/L TO LEFT HAND INTACT. ABD. SOFT WITH BS NOTED. LUNGS CTA. TREMOR NOTED TO BUE. MAX ASSIST AT THIS TIME. DENIES ANY PAIN OR DISCOMFORT. O2 2L N/C. ENCOURAGED TO USE CALL LIGHT FOR ASSIST.
[2018-11-23 12:20] VITALS: BP 164/80
--- NOTE | 2018-11-23 14:11 | NUR ---
Nutrition follow-up: Diet: Low sodium PO intake ~50% average of meals Labs reviewed Wt: 160# -> up 7# +BM PO intake fair at this time Will continue to provide food choice and honor food preferences within diet restrictions. RDN following.
--- NOTE | 2018-11-23 14:18 | MORECARE ---
CASE MANAGEMENT DISCHARGE SUMMARY PATIENT: SRAVAN DOWNEY UNIT: [id number] ADM DATE: 11/20/18 AGE: 83 : 34 SEX: F ROOM/BED: D.2103 AUTHOR: TORREY MIRAMONTES PHYSICIAN: REFERRING PHYSICIAN: JOSE ESPINAL MD DATE OF SERVICE: 11/23/18 Discharge Plan Patient Name: SRAVAN DOWNEY Facility: [facility]:[place] : 1935 Planned Disposition: Home with Home Health Anticipated Discharge Date: 11/23/18 Discharge Date: Expected LOS: 3 Initial Reviewer: [email or web address] Initial Review Date: 11/23/2018 Generated: 11/23/18 3:18 pm DCPIA - Discharge Planning Initial Assessment Updated by [email or web address]: Kedar Crarero on 11/23/18 2:15 pm * Is the patient Alert and Oriented? Yes * How many steps to enter\exit or inside your home? NONE * PCP DR. BARCLAY * Pharmacy [facility] * Preadmission Environment Assisted Living * Facility Name [facility] * ADLs Partial Dependent * Partial ADLs (Assistance needed) Medication Management * Equipment Cane Rolling Walker Wheelchair * Other Equipment [facility] PATIENT - MEDICAL EQUIPMENT PROVIDER PREFERENCE * List name and contact numbers for known caregivers / representatives who currently or will assist patient after discharge: CHANDRAKANT POTTS, CHANDRAKANT CLARK/POJose E, * Verbal permission to speak to the caregivers and representatives has been obtained from the patient. N/A * Community resources currently utilized Home Health * Please name any agencies selected above. [facility], NURSING, SPEECH THERAPY * Additional services required to return to the preadmission environment? Yes * Can the patient safely return to the preadmission environment? Yes * Has this patient been hospitalized within the prior 30 days at any hospital? No Patient Name: SRAVAN DOWNEY Page [phone] at 1418 All edits/amendments must be made on the electronic document DICTATION DATE: 11/23/18 1418 PRINCIPAL DEVELOPER: HILDA 11/23/18 1418 RPT#: [id number] DC DATE: STATUS: ADM IN [facility] [address] [place] [address] END OF REPORT
--- NOTE | 2018-11-23 14:26 | MORECARE ---
CASE MANAGEMENT DISCHARGE SUMMARY PATIENT: SRAVAN DOWNEY UNIT: [id number] ADM DATE: 11/20/18 AGE: 83 : 34 SEX: F ROOM/BED: D.2109 AUTHOR: KULWINDER,DOC PHYSICIAN: REFERRING PHYSICIAN: JOSE ESPINAL MD DATE OF SERVICE: 11/23/18 Discharge Plan Patient Name: SRAVAN DOWNEY Facility: [facility]:[place] : 1935 Planned Disposition: Home with Home Health Anticipated Discharge Date: 11/23/18 Discharge Date: Expected LOS: 3 Initial Reviewer: [email or web address] Initial Review Date: 11/23/2018 Generated: 11/23/18 3:26 pm Comments DCP- Discharge Planning Updated by [id number]: Kedar Carrero on 11/23/18 1:[address] Patient Name: SRAVAN DOWNEY Admission Status: ER Accout number: [id number] Admission Date: 11-20-2018 : 1935 Admission Diagnosis:CHEST PAIN, UNSPECIFIED Attending: JOSE SALCIDO Current LOS: 3 Anticipated DC Date: 11-23-2018 Planned Disposition: Home with Home Health Primary Insurance: MEDICARE A & B PLANNED EXTERNAL PROVIDER: [facility] Discharge Planning Comments: CM MET WITH PT IN ROOM TO DISCUSS DISCHARGE PLANNING AND NEEDS. PT REPORTS LIVING AT [facility] WHERE SHE HAS HELP WITH MEDICATION MANAGEMENT, MEAL PREPARATION, TRANSPORTATION SERVICES AND AN EMERGENCY BUTTON TO CALL FOR HELP IF NEEDED. PT HAS CANE, ROLLING WALKER WITH SEAT AND BRAKES WELL WHEELCHAIR FROM [facility] PATIENT. PT HAS HOME HEALTH FOR NURSING AND SPEECH THERAPY FROM [facility]. CM DISCUSSED AVAILABILITY OF HOME HEALTH, REHAB SERVICES AND MEDICAL EQUIPMENT. PT DENIES REHAB NEEDS OR ADDITIONAL NEEDS FOR DISCHARGE HOME. PT WANTS TO RETURN TO [facility], REPORTS [facility] WILL PICK HER UP FOR DISCHARGE HOME. CHOICE COMPLETED FOR [facility]. CM SPOKE TO LYNDON OF [facility] AT [employer] STATION WHO VERIFIED PT IS ON HOLD FOR HOME HEALTH SERVICES. CM FAXED UPDATE TO [facility] AT [phone]. CM SPOKE TO DR. ESPINAL WHO INFORMED CM THAT PT IS WEAK AND NEEDS REHAB. CM MET WITH PT IN ROOM, DISCUSSED AVAILABILITY OF REHAB SERVICES, ADVISED THE DOCTOR RECOMMENDS REHAB AND CM ALSO RECOMMENDED REHAB TO PT. PT REFUSED AND STATES SHE IS GOING HOME AND CARE CAN PROVIDE THERAPY SERVICES AT HER HOME, [facility]. FOR DISCHARGE, NOTIFY [facility], , , FAX DISCHARGE INFORMATION TO [facility] AT [phone]. NURSE REPORT TO BE CALLED TO [facility] AT [phone]. PT REPORTS [facility] TO PROVIDE TRANSPORTATION FOR DISCHARGE. Ems Educator: Kedar Carrero DCPIA - Discharge Planning Initial Assessment Updated by [email or web address]: Kedar Carrero on 11/23/18 2:15 pm * Is the patient Alert and Oriented? Yes * How many steps to enter\exit or inside your home? NONE * PCP DR. BARCLAY * Pharmacy [facility] * Preadmission Environment Assisted Living * Facility Name [facility] * ADLs Partial Dependent * Partial ADLs (Assistance needed) Medication Management * Equipment Cane Rolling Walker Wheelchair * Other Equipment [facility] PATIENT - MEDICAL EQUIPMENT PROVIDER PREFERENCE * List name and contact numbers for known caregivers / representatives who currently or will assist patient after discharge: ESVIN DOWNEY, SON, JOHN DOWNEY, SON/POA, * Verbal permission to speak to the caregivers and representatives has been obtained from the patient. N/A * Community resources currently utilized Home Health * Please name any agencies selected above. [facility], NURSING, SPEECH THERAPY * Additional services required to return to the preadmission environment? Yes * Can the patient safely return to the preadmission environment? Yes * Has this patient been hospitalized within the prior 30 days at any hospital? No Last DP export: 11/23/18 1:18 pm Patient Name: SRAVAN DOWNEY Page [phone] at 1428 All edits/amendments must be made on the electronic document DICTATION DATE: 11/23/181424 VARNISH THINNER: HILDA 11/23/181424 RPT#: [id number] AL DATE: STATUS: ADM IN [facility] [address] [place] [address] END OF REPORT
--- NOTE | 2018-11-23 14:35 | MORECARE ---
CASE MANAGEMENT DISCHARGE SUMMARY PATIENT: SRAVAN DOWNEY UNIT: [id number] ADM DATE: 11/20/18 AGE: 83 : 34 SEX: F ROOM/BED: D.2104 AUTHOR: KULWINDER,DOC PHYSICIAN: REFERRING PHYSICIAN: JOSE ESPINAL MD DATE OF SERVICE: 11/23/18 Discharge Plan Patient Name: SRAVAN DOWNEY Facility: [facility]:[place] : 1935 Planned Disposition: Home with Home Health Anticipated Discharge Date: 11/23/18 Discharge Date: Expected LOS: 3 Initial Reviewer: [email or web address] Initial Review Date: 11/23/2018 Generated: 11/23/18 3:35 pm Comments DCP- Discharge Planning Updated by [email or web address]: Kedar Carrero on 11/23/18 1:[address] Patient Name: SRAVAN DOWNEY Admission Status: ER Accout number: [id number] Admission Date: 11-20-2018 : 1935 Admission Diagnosis:CHEST PAIN, UNSPECIFIED Attending: JOSE SALCIDO Current LOS: 3 Anticipated DC Date: 11-23-2018 Planned Disposition: Home with Home Health Primary Insurance: MEDICARE A & B PLANNED EXTERNAL PROVIDER: [facility] Discharge Planning Comments: CM MET WITH PT IN ROOM TO DISCUSS DISCHARGE PLANNING AND NEEDS. PT REPORTS LIVING AT [facility] WHERE SHE HAS HELP WITH MEDICATION MANAGEMENT, MEAL PREPARATION, TRANSPORTATION SERVICES AND AN EMERGENCY BUTTON TO CALL FOR HELP IF NEEDED. PT HAS CANE, ROLLING WALKER WITH SEAT AND BRAKES WELL WHEELCHAIR FROM [facility] PATIENT. PT HAS HOME HEALTH FOR NURSING AND SPEECH THERAPY FROM [facility]. CM DISCUSSED AVAILABILITY OF HOME HEALTH, REHAB SERVICES AND MEDICAL EQUIPMENT. PT DENIES REHAB NEEDS OR ADDITIONAL NEEDS FOR DISCHARGE HOME. PT WANTS TO RETURN TO [facility], REPORTS [facility] WILL PICK HER UP FOR DISCHARGE HOME. CHOICE COMPLETED FOR [facility]. CM SPOKE TO LYNDON OF [facility] AT [employer] STATION WHO VERIFIED PT IS ON HOLD FOR HOME HEALTH SERVICES. CM FAXED UPDATE TO [facility] AT [phone]. CM SPOKE TO DR. ESPINAL WHO INFORMED CM THAT PT IS WEAK AND NEEDS REHAB. CM MET WITH PT IN ROOM, DISCUSSED AVAILABILITY OF REHAB SERVICES, ADVISED THE DOCTOR RECOMMENDS REHAB AND CM ALSO RECOMMENDED REHAB TO PT. PT REFUSED AND STATES SHE IS GOING HOME AND [facility] CAN PROVIDE THERAPY SERVICES AT HER HOME, [facility]. FOR DISCHARGE, NOTIFY [facility], , , FAX DISCHARGE INFORMATION TO [facility] AT [phone]. NURSE REPORT TO BE CALLED TO [facility] AT [phone]. PT REPORTS [facility] TO PROVIDE TRANSPORTATION FOR DISCHARGE. Wellness Educator: Kedar Carrero DCPIA - Discharge Planning Initial Assessment Updated by [email or web address]: Kedar Carrero on 11/23/18 2:15 pm * Is the patient Alert and Oriented? Yes * How many steps to enter\exit or inside your home? NONE * PCP DR. BARCLAY * Pharmacy [facility] * Preadmission Environment Assisted Living * Facility Name [facility] * ADLs Partial Dependent * Partial ADLs (Assistance needed) Medication Management * Equipment Cane Rolling Walker Wheelchair * Other Equipment [facility] PATIENT - MEDICAL EQUIPMENT PROVIDER PREFERENCE * List name and contact numbers for known caregivers / representatives who currently or will assist patient after discharge: ESVIN DOWNEY, SON, JOHN DOWNEY, SON/POA, * Verbal permission to speak to the caregivers and representatives has been obtained from the patient. N/A * Community resources currently utilized Home Health * Please name any agencies selected above. [facility], NURSING, SPEECH THERAPY * Additional services required to return to the preadmission environment? Yes * Can the patient safely return to the preadmission environment? Yes * Has this patient been hospitalized within the prior 30 days at any hospital? No External Providers External Provider: [facility] Next Contact Date: 11/23/2018 Service Request Date: Service Type: Resolution: Reviewer: Comments: Last DP export: 11/23/18 1:26 pm Patient Name: SRAVAN DOWNEY Page [phone] at 1431 All edits/amendments must be made on the electronic document DICTATION DATE: 11/23/18 1431 BEHAVIOUR SUPPORT TEACHER: HILDA 11/23/18 1435 RPT#: [id number] DC DATE: STATUS: ADM IN [facility] [address] [place] [address] END OF REPORT
[2018-11-23 15:56] VITALS: BP 163/79
--- NOTE | 2018-11-23 16:24 | MORECARE ---
CASE MANAGEMENT DISCHARGE SUMMARY PATIENT: SRAVAN DOWNEY UNIT: [id number] ADM DATE: 11/20/18 AGE: 83 : 34 SEX: F ROOM/BED: D.2103 AUTHOR: KULWINDER,DOC PHYSICIAN: REFERRING PHYSICIAN: JOSE ESPINAL MD DATE OF SERVICE: 11/23/18 Discharge Plan Patient Name: SRAVAN DOWNEY Facility: [facility]:[place] : 1935 Planned Disposition: Penitentiary Facility Anticipated Discharge Date: 11/23/18 Discharge Date: Expected LOS: 3 Initial Reviewer: [email or web address] Initial Review Date: 11/23/2018 Generated: 11/23/18 5:24 pm Comments DCP- Discharge Planning Updated by [id number]: Kedar Carrero on 11/23/18 3:[address] Patient Name: SRAVAN DOWNEY Encounter No: [id number] : 1935 Primary Insurance: MEDICARE A & B Anticipated DC Date: 11-23-2018 Planned Disposition: Penitentiary Facility External Planned Provider: [facility], MEDICARE REHAB BED DCP follow-up note: PT CALLED TO CM FROM HER ROOM CM WALKED PAST. CM MET WITH PT IN ROOM. PT STATES SHE MAY CONSIDER GOING TO [place] FOR REHAB HER IS OUT THERE AND SHE WANTS CM TO SEND REFERRAL. CHOICE LISTING PROVIDED, PT SIGNED CHOICE FOR [facility]. CM CALLED [facility], , SPOKE TO [facility] WHO REPORTS SHE WILL SCREEN FOR REFERRAL BUT MAY NOT HAVE DETERMINATION UNTIL 11-26-18. CM FAXED REFERRAL TO [facility], . CM WAITING ON ADMISSION DETERMINATION FROM [facility]. CELI Wu DCP- Discharge Planning Updated by [id number]: Kedar Carrero on 11/23/18 1:[address] Patient Name: SRAVAN DOWNEY Admission Status: ER Accout number: [id number] Admission Date: 11-20-2018 : 1935 Admission Diagnosis:CHEST PAIN, UNSPECIFIED Attending: JOSE SALCIDO Current LOS: 3 Anticipated DC Date: 11-23-2018 Planned Disposition: Home with Home Health Primary Insurance: MEDICARE A & B PLANNED EXTERNAL PROVIDER: [facility] Discharge Planning Comments: CM MET WITH PT IN ROOM TO DISCUSS DISCHARGE PLANNING AND NEEDS. PT REPORTS LIVING AT [facility] WHERE SHE HAS HELP WITH MEDICATION MANAGEMENT, MEAL PREPARATION, TRANSPORTATION SERVICES AND AN EMERGENCY BUTTON TO CALL FOR HELP IF NEEDED. PT HAS CANE, ROLLING WALKER WITH SEAT AND BRAKES WELL WHEELCHAIR FROM [facility] PATIENT. PT HAS HOME HEALTH FOR NURSING AND SPEECH THERAPY FROM [facility]. CM DISCUSSED AVAILABILITY OF HOME HEALTH, REHAB SERVICES AND MEDICAL EQUIPMENT. PT DENIES REHAB NEEDS OR ADDITIONAL NEEDS FOR DISCHARGE HOME. PT WANTS TO RETURN TO [facility], REPORTS [facility] WILL PICK HER UP FOR DISCHARGE HOME. CHOICE COMPLETED FOR [facility]. CM SPOKE TO LYNDON OF [facility] AT [employer] [facility] WHO VERIFIED PT IS ON HOLD FOR HOME HEALTH SERVICES. CM FAXED UPDATE TO [facility] AT [phone]. CM SPOKE TO DR. ESPINAL WHO INFORMED CM THAT PT IS WEAK AND NEEDS REHAB. CM MET WITH PT IN ROOM, DISCUSSED AVAILABILITY OF REHAB SERVICES, ADVISED THE DOCTOR RECOMMENDS REHAB AND CM ALSO RECOMMENDED REHAB TO PT. PT REFUSED AND STATES SHE IS GOING HOME AND [facility] CAN PROVIDE THERAPY SERVICES AT HER HOME, [facility]. FOR DISCHARGE, NOTIFY [facility], , , FAX DISCHARGE INFORMATION TO [facility] AT [phone]. NURSE REPORT TO BE CALLED TO [facility] AT [phone]. PT REPORTS [facility] TO PROVIDE TRANSPORTATION FOR DISCHARGE. Auditing Clerk: Kedar Carrero DCPIA - Discharge Planning Initial Assessment Updated by [email or web address]: Kedar Carrero on 11/23/18 2:15 pm * Is the patient Alert and Oriented? Yes * How many steps to enter\exit or inside your home? NONE * PCP DR. BARCLAY * Pharmacy [facility] * Preadmission Environment Assisted Living * Facility Name [facility] * ADLs Partial Dependent * Partial ADLs (Assistance needed) Medication Management * Equipment Cane Rolling Walker Wheelchair * Other Equipment [facility] PATIENT - MEDICAL EQUIPMENT PROVIDER PREFERENCE * List name and contact numbers for known caregivers / representatives who currently or will assist patient after discharge: ESVIN DOWNEY, CHANDRAKANT, JOHN DOWNEY SON/POA, * Verbal permission to speak to the caregivers and representatives has been obtained from the patient. N/A * Community resources currently utilized Home Health * Please name any agencies selected above. [facility], NURSING, SPEECH THERAPY * Additional services required to return to the preadmission environment? Yes * Can the patient safely return to the preadmission environment? Yes * Has this patient been hospitalized within the prior 30 days at any hospital? No External Providers External Provider: [facility] Next Contact Date: 11/23/2018 Service Request Date: Service Type: Resolution: Reviewer: Comments: Coverage Notice Reviewer: [email or web address] Carrero Notice Issued Date-Time: 11/23/2018 9:55 Notice Type: Patient Choice Letter Notice Delivered To: Patient Relationship to Patient: Mold Worker Name: Delivery Method: HAND - Hand Delivered Thania Days: Prior Verbal Notification: Recipient Understood Notice: Yes Recipient Signature: Yes Med Rec Note Co-signed by Attending: Coverage Notice Comment: [facility] Reviewer: [email or web address] Carrero Notice Issued Date-Time: 11/23/2018 14:00 Notice Type: IM Discharge Notice Notice Delivered To: Patient Relationship to Patient: Mold Worker Name: Delivery Method: HAND - Hand Delivered Thania Days: Prior Verbal Notification: Recipient Understood Notice: Yes Recipient Signature: Yes Med Rec Note Co-signed by Attending: Coverage Notice Comment: Last DP export: 11/23/18 1:35 pm Patient Name: SRAVAN DOWNEY Page 13374 at 1624 All edits/amendments must be made on the electronic document DICTATION DATE: 11/23/181623 COMMERCIAL KITCHEN SERVICE TECHNICIAN: HILDA 11/23/184 RPT#: [id number] DC DATE: STATUS: ADM IN [facility] [address] [place] [address] END OF REPORT
--- NOTE | 2018-11-23 16:32 | MORECARE ---
CASE MANAGEMENT DISCHARGE SUMMARY PATIENT: SRAVAN DOWNEY UNIT: [id number] ADM DATE: 11/20/18 AGE: 83 : 34 SEX: F ROOM/BED: D.2103 AUTHOR: KULWINDER,DOC PHYSICIAN: REFERRING PHYSICIAN: JOSE ESPINAL MD DATE OF SERVICE: 11/23/18 Discharge Plan Patient Name: SRAVAN DOWNEY Facility: [facility]:[place] : 1935 Planned Disposition: [facility] Facility Anticipated Discharge Date: 11/23/18 Discharge Date: Expected LOS: 3 Initial Reviewer: [id number] Initial Review Date: 11/23/2018 Generated: 11/23/18 5:32 pm Comments DCP- Discharge Planning Updated by [id number]: Kedar Carrero on 11/23/18 3:[address] Patient Name: SRAVAN DOWNEY Encounter No: [id number] : 1935 Primary Insurance: MEDICARE A & B Anticipated DC Date: 11-23-2018 Planned Disposition: [facility] Facility External Planned Provider: [facility], MEDICARE REHAB BED DCP follow-up note: PT CALLED TO CM FROM HER ROOM CM WALKED PAST. CM MET WITH PT IN ROOM. PT STATES SHE MAY CONSIDER GOING TO [place] FOR REHAB HER IS OUT THERE AND SHE WANTS CM TO SEND REFERRAL. CHOICE LISTING PROVIDED, PT S[facility]. CM CALLED [facility], , SPOKE TO HARPER WHO REPORTS SHE WILL SCREEN FOR REFERRAL BUT MAY NOT HAVE DETERMINATION UNTIL 11-26-18. CM FA[facility]ED REFERRAL TO [facility], . CM WAITING ON ADMISSION DETERMINATION FROM [facility]. CELI Wu DCP- Discharge Planning Updated by [id number]: Kedar Carrero on 11/23/18 1:[address] Patient Name: SRAVAN DOWNEY Admission Status: ER Accout number: [id number] Admission Date: 11-20-2018 : 1935 Admission Diagnosis:CHEST PAIN, UNSPECIFIED Attending: JOSE SALCIDO Current LOS: 3 Anticipated DC Date: 11-23-2018 Planned Disposition: Home with Home Health Primary Insurance: MEDICARE A & B PLANNED EXTERNAL PROVIDER: [facility] Discharge Planning Comments: CM MET WITH PT IN ROOM TO DISCUSS DISCHARGE PLANNING AND NEEDS. PT REPORTS LIVING AT [facility] WHERE SHE HAS HELP WITH MEDICATION MANAGEMENT, MEAL PREPARATION, TRANSPORTATION SERVICES AND AN EMERGENCY BUTTON TO CALL FOR HELP IF NEEDED. PT HAS CANE, ROLLING WALKER WITH SEAT AND BRAKES WELL WHEELCHAIR FROM [facility] PATIENT. PT HAS HOME HEALTH FOR NURSING AND SPEECH THERAPY FROM [facility]. CM DISCUSSED AVAILABILITY OF HOME HEALTH, REHAB SERVICES AND MEDICAL EQUIPMENT. PT DENIES REHAB NEEDS OR ADDITIONAL NEEDS FOR DISCHARGE HOME. PT WANTS TO RETURN TO [facility], REPORTS [facility] WILL PICK HER UP FOR DISCHARGE HOME. CHOICE COMPLETED FOR [facility]. CM SPOKE TO LYNDON OF [facility] AT [facility]ES [facility] WHO VERIFIED PT IS ON HOLD FOR HOME HEALTH SERVICES. CM FAXED UPDATE TO [facility] AT [phone]. CM SPOKE TO DR. ESPINAL WHO INFORMED CM THAT PT IS WEAK AND NEEDS REHAB. CM MET WITH PT IN ROOM, DISCUSSED AVAILABILITY OF REHAB SERVICES, ADVISED THE DOCTOR RECOMMENDS REHAB AND CM ALSO RECOMMENDED REHAB TO PT. PT REFUSED AND STATES SHE IS GOING HOME AND [facility] CAN PROVIDE THERAPY SERVICES AT HER HOME, [facility]. FOR DISCHARGE, NOTIFY [facility], , , FAX DISCHARGE INFORMATION TO [facility] AT [phone]. NURSE REPORT TO BE CALLED TO [facility] AT [phone]. PT REPORTS [facility] TO PROVIDE TRANSPORTATION FOR DISCHARGE. Community Fundraiser: Kedar Carrero DCPIA - Discharge Planning Initial Assessment Updated by [id number]: Kedar Carrero on 11/23/18 2:15 pm * Is the patient Alert and Oriented? Yes * How many steps to enter\exit or inside your home? NONE * PCP DR. BARCLAY * Pharmacy [facility] * Preadmission Environment Assisted Living * Facility Name [facility] * ADLs Partial Dependent * Partial ADLs (Assistance needed) Medication Management * Equipment Cane Rolling Walker Wheelchair * Other Equipment [facility] PATIENT - MEDICAL EQUIPMENT PROVIDER PREFERENCE * List name and contact numbers for known caregivers / representatives who currently or will assist patient after discharge: ESVIN DOWNEY, SON, JOHN DOWNEY SON/POA, * Verbal permission to speak to the caregivers and representatives has been obtained from the patient. N/A * Community resources currently utilized Home Health * Please name any agencies selected above. [facility], NURSING, SPEECH THERAPY * Additional services required to return to the preadmission environment? Yes * Can the patient safely return to the preadmission environment? Yes * Has this patient been hospitalized within the prior 30 days at any hospital? No Coverage Notice Reviewer: ABISAI Carrero Notice Issued Date-Time: 11/23/2018 9:55 Notice Type: Patient Choice Letter Notice Delivered To: Patient Relationship to Patient: Lock Setter Name: Delivery Method: HAND - Hand Delivered Thania Days: Prior Verbal Notification: Recipient Understood Notice: Yes Recipient Signature: Yes Med Rec Note Co-signed by Attending: Coverage Notice Comment: [facility] Reviewer: ABISAI Carrero Notice Issued Date-Time: 11/23/2018 14:00 Notice Type: IM Discharge Notice Notice Delivered To: Patient Relationship to Patient: Lock Setter Name: Delivery Method: HAND - Hand Delivered Thania Days: Prior Verbal Notification: Recipient Understood Notice: Yes Recipient Signature: Yes Med Rec Note Co-signed by Attending: Coverage Notice Comment: Reviewer: ABISAI Carrero Notice Issued Date-Time: 11/23/2018 16:30 Notice Type: Patient Choice Letter Notice Delivered To: Patient Relationship to Patient: Lock Setter Name: Delivery Method: HAND - Hand Delivered Thania Days: Prior Verbal Notification: Recipient Understood Notice: Yes Recipient Signature: Yes Med Rec Note Co-signed by Attending: Coverage Notice Comment: [facility] Last DP export: 11/23/18 3:24 pm Patient Name: SRAVAN DOWNEY Page [phone] at 1632 All edits/amendments must be made on the electronic document DICTATION DATE: 11/23/181631 AGED OR DISABLED CARE WORKER: HILDA 11/23/181631 RPT#: [id number] DC DATE: STATUS: ADM IN [facility] [address] [place] [address] END OF REPORT
--- NOTE | 2018-11-23 19:24 | NUR ---
RECEIVED REPORT, WILL ASSUME CARE OF PT, DENIES ANY NEEDS AT THIS TIME, BED IS LOW, SRX2, CALL LIGHT IN REACH, WILL CONTINUE PLAN OF CARE
[2018-11-23 20:00] VITALS: BP 152/80
[2018-11-24] VITALS: BP 148/76
[2018-11-24 03:00] VITALS: BP 164/80
--- NOTE | 2018-11-24 03:34 | NUR ---
I have reviewed this patient and I concur with the Shift Assessment completed by the Licensed Practical Nurse today this shift.
[2018-11-24 05:00] LABS: BASOPHILS 0.2 % (0-2); EOSINOPHILS 2.3 % (0-7); HEMATOCRIT 29.3 % (36.0-48.0); HEMOGLOBIN 9.1 g/dL (12-16); IMMATURE GRANULOCYTES 0.3 % (0-5); LYMPHOCYTES 18.2 % (15-50); MCH 28.1 pg (26.0-34.0); MCHC 31.1 g/dL (31.0-37.0); MCV 90.4 fL (80.0-100.0); MEAN PLATELET VOLUME 9.9 fL (7.4-10.4); MONOCYTES 10.1 % (2-11); NEUTROPHILS 68.9 % (40-80); PLATELET COUNT 204 10x3/uL (130-400); RBC 3.24 10x6/uL (4.00-5.40); RDW 15.8 % (11.5-14.5); WBC 6.4 10x3/uL (4.8-10.8)
[2018-11-24 05:12] LABS: ALBUMIN 2.1 g/dL (3.4-5.0); ANION GAP 11.3 mmol/L (8-16); BILIRUBIN - TOTAL 0.51 mg/dL (0.2-1.3); CALCIUM 9.5 mg/dL (8.5-10.1); CARBON DIOXIDE 27.6 mmol/L (21.0-32.0); CREATININE - SERUM 1.1 mg/dL (0.6-1.3); MAGNESIUM - SERUM 1.9 mg/dL (1.8-2.4); POTASSIUM - SERUM 3.9 mmol/L (3.5-5.1); PROTEIN - SERUM 5.7 g/dL (6.4-8.2)
--- NOTE | 2018-11-24 07:12 | NUR ---
REPORT RECEIVED. WILL CONTINUE WITH POC. PT CURRENTLY LYING SUPINE. CALL LIGHT W/I REACH. PT IS RESTING AT THE MOMENT. RR EVEN AND UNLABORED ON 2L 02. L.HAND PIV IS SALINE LOCKED. NO S/S OF DISTRESS NOTED. WILL CTM.
[2018-11-24 08:44] VITALS: BP 155/84
[2018-11-24 13:31] VITALS: BP 155/78
--- NOTE | 2018-11-24 15:07 | NUR ---
I have reviewed this patient and I concur with the Shift Assessment completed by the Licensed Practical Nurse today this shift.
[2018-11-24 17:28] VITALS: BP 167/85
--- NOTE | 2018-11-24 19:34 | NUR ---
RECEIVED REPORT, WILL ASSUME CARE OF PT, DENIES ANY NEEDS AT THIS TIME, BED IS LOW, SRX3, CALL LIGHT IN REACH, WILL CONTINUE PLAN OF CARE
[2018-11-24 19:35] VITALS: BP 145/65
[2018-11-25] VITALS: BP 159/80
--- NOTE | 2018-11-25 00:44 | NUR ---
SLEEPING, NO DISTRESS NOTICED AT THIS TIME, CALL LIGHT IN REACH
[2018-11-25 04:00] VITALS: BP 166/85
[2018-11-25 05:09] LABS: BASOPHILS 0.2 % (0-2); HEMATOCRIT 28.9 % (36.0-48.0); IMMATURE GRANULOCYTES 0.2 % (0-5); LYMPHOCYTES 18.9 % (15-50); MCH 28.1 pg (26.0-34.0); MCHC 31.1 g/dL (31.0-37.0); MCV 90.3 fL (80.0-100.0); MEAN PLATELET VOLUME 9.6 fL (7.4-10.4); MONOCYTES 8.1 % (2-11); NEUTROPHILS 69.6 % (40-80); PLATELET COUNT 201 10x3/uL (130-400); RDW 15.7 % (11.5-14.5); WBC 5.1 10x3/uL (4.8-10.8)
[2018-11-25 05:30] LABS: ALBUMIN 2.2 g/dL (3.4-5.0); ANION GAP 10.6 mmol/L (8-16); BILIRUBIN - TOTAL 0.4 mg/dL (0.2-1.3); CALCIUM 9.4 mg/dL (8.5-10.1); CARBON DIOXIDE 28.3 mmol/L (21.0-32.0); CREATININE - SERUM 1.2 mg/dL (0.6-1.3); MAGNESIUM - SERUM 1.9 mg/dL (1.8-2.4); POTASSIUM - SERUM 3.9 mmol/L (3.5-5.1); PROTEIN - SERUM 5.6 g/dL (6.4-8.2)
[2018-11-25 09:25] VITALS: BP 168/84
[2018-11-25 14:03] VITALS: BP 154/65
--- NOTE | 2018-11-25 19:25 | NUR ---
RECEIVED REPORT, WILL ASSUME CARE OF PT, PT IS A&O X4, STATES SHE IS GOOD, JUST WAITING TO GO TO [facility], PROVIDE FRESH ICE WATER, BED IS LOW, SRX2, CALL LIGHT IN REACH, WILL CONTINUE PLAN OF CARE
[2018-11-25 20:00] VITALS: BP 148/80
[2018-11-26] VITALS: BP 150/74
--- NOTE | 2018-11-26 03:54 | NUR ---
I have reviewed this patient and I concur with the Shift Assessment completed by the Licensed Practical Nurse today this shift.
[2018-11-26 04:00] VITALS: BP 161/80
[2018-11-26 05:39] LABS: BASOPHILS 0.2 % (0-2); EOSINOPHILS 3.5 % (0-7); HEMATOCRIT 28.7 % (36.0-48.0); HEMOGLOBIN 8.9 g/dL (12-16); IMMATURE GRANULOCYTES 0.2 % (0-5); LYMPHOCYTES 22.6 % (15-50); MCH 28.1 pg (26.0-34.0); MCV 90.5 fL (80.0-100.0); MEAN PLATELET VOLUME 9.7 fL (7.4-10.4); MONOCYTES 8.3 % (2-11); NEUTROPHILS 65.2 % (40-80); PLATELET COUNT 227 10x3/uL (130-400); RBC 3.17 10x6/uL (4.00-5.40); RDW 15.3 % (11.5-14.5); WBC 4.9 10x3/uL (4.8-10.8)
[2018-11-26 06:16] LABS: ALBUMIN 2.1 g/dL (3.4-5.0); ALKALINE PHOSPHATASE 45 U/L (46-116); BILIRUBIN - TOTAL 0.39 mg/dL (0.2-1.3); CALC OSMOLALITY 282 mosm/kg (275-300); CALCIUM 9.5 mg/dL (8.5-10.1); CHLORIDE - SERUM 104 mmol/L (98-107); CREATININE - SERUM 1.3 mg/dL (0.6-1.3); GLUCOSE 88 mg/dL (74-106); POTASSIUM - SERUM 3.8 mmol/L (3.5-5.1); PROTEIN - SERUM 5.7 g/dL (6.4-8.2); SODIUM 140 mmol/L (136-145); UREA NITROGEN 27 mg/dL (7-18); eGFR NON AFRICAN AMERICAN 41 mL/min (90-120)
[2018-11-26 06:22] LABS: ALT (SGPT) < 6 U/L (10-68)
[2018-11-26 08:55] VITALS: BP 152/72
--- NOTE | 2018-11-26 09:50 | MORECARE ---
CASE MANAGEMENT DISCHARGE SUMMARY PATIENT: SRAVAN DOWNEY UNIT: [id number] ADM DATE: 11/20/18 AGE: 83 : 34 SEX: F ROOM/BED: D.2103 AUTHOR: KULWINDERDOC PHYSICIAN: REFERRING PHYSICIAN: JOSE ESPINAL MD DATE OF SERVICE: 11/26/18 Discharge Plan Patient Name: SRAVAN DOWNEY Facility: [facility]:[place] : 1935 Planned Disposition: Half-Way Facility Anticipated Discharge Date: 11/23/18 Discharge Date: Expected LOS: 3 Initial Reviewer: [id number] Initial Review Date: 11/23/2018 Generated: 11/26/18 10:49 am Comments DCP- Discharge Planning Updated by [id number]: Kedar Carrero on 11/26/18 8:[address] Patient Name: SRAVAN DOWNEY Encounter No: [id number] : 1935 Primary Insurance: MEDICARE A & B Anticipated DC Date: 11-23-2018 Planned Disposition: Half-Way Facility External Planned Provider: [facility], MEDICARE REHAB BED DCP follow-up note: CM FAXED REFERRAL UPDATE TO [facility], . CM WAITING ON ADMISSION DETERMINATION FROM [facility]. CELI Wu DCP- Discharge Planning Updated by [id number]: Kedar Carrero on 11/23/18 3:[address] Patient Name: SRAVAN DOWNEY Encounter No: [id number] : 1935 Primary Insurance: MEDICARE A & B Anticipated DC Date: 11-23-2018 Planned Disposition: Half-Way Facility External Planned Provider: [facility], MEDICARE REHAB BED DCP follow-up note: PT CALLED TO CM FROM HER ROOM CM WALKED PAST. CM MET WITH PT IN ROOM. PT STATES SHE MAY CONSIDER GOING TO [place] FOR REHAB HER IS OUT THERE AND SHE WANTS CM TO SEND REFERRAL. CHOICE LISTING PROVIDED, PT [facility]. CM CALLED [facility], , SPOKE TO HARPER WHO REPORTS SHE WILL SCREEN FOR REFERRAL BUT MAY NOT HAVE DETERMINATION UNTIL 11-26-18. CM FAXED REFERRAL TO [facility], . CM WAITING ON ADMISSION DETERMINATION FROM [facility]. Kedar Carrero, CASE MANAGEMENT DCP- Discharge Planning Updated by [id number]: Kedar Carrero on 11/23/18 1:[address] Patient Name: SRAVAN DOWNEY Admission Status: ER Accout number: [id number] Admission Date: 11-20-2018 : 1935 Admission Diagnosis:CHEST PAIN, UNSPECIFIED Attending: JOSE SALCIDO Current LOS: 3 Anticipated DC Date: 11-23-2018 Planned Disposition: Home with Home Health Primary Insurance: MEDICARE A & B PLANNED EXTERNAL PROVIDER: [facility] Discharge Planning Comments: CM MET WITH PT IN ROOM TO DISCUSS DISCHARGE PLANNING AND NEEDS. PT REPORTS LIVING AT [facility] WHERE SHE HAS HELP WITH MEDICATION MANAGEMENT, MEAL PREPARATION, TRANSPORTATION SERVICES AND AN EMERGENCY BUTTON TO CALL FOR HELP IF NEEDED. PT HAS CANE, ROLLING WALKER WITH SEAT AND BRAKES WELL WHEELCHAIR FROM [facility] PATIENT. PT HAS HOME HEALTH FOR NURSING AND SPEECH THERAPY FROM [facility]. CM DISCUSSED AVAILABILITY OF HOME HEALTH, REHAB SERVICES AND MEDICAL EQUIPMENT. PT DENIES REHAB NEEDS OR ADDITIONAL NEEDS FOR DISCHARGE HOME. PT WANTS TO RETURN TO [facility], REPORTS [facility] WILL PICK HER UP FOR DISCHARGE HOME. CHOICE COMPLETED FOR [facility]. CM SPOKE TO LYNDON OF [facility] AT NURSES STATION WHO VERIFIED PT IS ON HOLD FOR HOME HEALTH SERVICES. CM FAXED UPDATE TO [facility] AT [phone]. CM SPOKE TO DR. ESPINAL WHO INFORMED CM THAT PT IS WEAK AND NEEDS REHAB. CM MET WITH PT IN ROOM, DISCUSSED AVAILABILITY OF REHAB SERVICES, ADVISED THE DOCTOR RECOMMENDS REHAB AND CM ALSO RECOMMENDED REHAB TO PT. PT REFUSED AND STATES SHE IS GOING HOME AND [facility] CAN PROVIDE THERAPY SERVICES AT HER HOME, [facility]. FOR DISCHARGE, NOTIFY [facility], , , FAX DISCHARGE INFORMATION TO [facility] AT [phone]. NURSE REPORT TO BE CALLED TO [facility] AT [phone]. PT REPORTS [facility] TO PROVIDE TRANSPORTATION FOR DISCHARGE. Six Pack Packer: Kedar Carrero DCPIA - Discharge Planning Initial Assessment Updated by [id number]: Kedar Carrero on 11/23/18 2:15 pm * Is the patient Alert and Oriented? Yes * How many steps to enter\exit or inside your home? NONE * PCP DR. BARCLAY * [facility]acy [facility] * Preadmission Environment Assisted Living * [facility] * ADLs Partial Dependent * Partial ADLs (Assistance needed) Medication Management * Equipment Cane Rolling Walker Wheelchair * Other Equipment [facility] PATIENT - MEDICAL EQUIPMENT PROVIDER PREFERENCE * List name and contact numbers for known caregivers / representatives who currently or will assist patient after discharge: ESVIN DOWNEY, SON, JOHN DOWNEY, SON/ELSA, * Verbal permission to speak to the caregivers and representatives has been obtained from the patient. N/A * Community resources currently utilized Home Health * Please name any agencies selected above. [facility], NURSING, SPEECH THERAPY * Additional services required to return to the preadmission environment? Yes * Can the patient safely return to the preadmission environment? Yes * Has this patient been hospitalized within the prior 30 days at any hospital? No Coverage Notice Reviewer: [id number] Alta Carrero Notice Issued Date-Time: 11/23/2018 9:55 Notice Type: Patient Choice Letter Notice Delivered To: Patient Relationship to Patient: Datastage Architect Name: Delivery Method: HAND - Hand Delivered Thania Days: Prior Verbal Notification: Recipient Understood Notice: Yes Recipient Signature: Yes Med Rec Note Co-signed by Attending: Coverage Notice Comment: [facility] Reviewer: [id number] Alta Carrero Notice Issued Date-Time: 11/23/2018 14:00 Notice Type: IM Discharge Notice Notice Delivered To: Patient Relationship to Patient: Datastage Architect Name: Delivery Method: HAND - Hand Delivered Thania Days: Prior Verbal Notification: Recipient Understood Notice: Yes Recipient Signature: Yes Med Rec Note Co-signed by Attending: Coverage Notice Comment: Reviewer: [id number] Carrero Notice Issued Date-Time: 11/23/2018 16:30 Notice Type: Patient Choice Letter Notice Delivered To: Patient Relationship to Patient: Datastage Architect Name: Delivery Method: HAND - Hand Delivered Thania Days: Prior Verbal Notification: Recipient Understood Notice: Yes Recipient Signature: Yes Med Rec Note Co-signed by Attending: Coverage Notice Comment: [facility] Last DP export: 11/23/18 3:32 pm Patient Name: SRAVAN DOWNEY Page [phone] at 0950 All edits/amendments must be made on the electronic document DICTATION DATE: 11/26/18948 SOLAR HOT WATER INSTALLER: HILDA 11/26/18948 RPT#: [id number] DC DATE: STATUS: ADM IN [facility] [address] [place] [address] END OF REPORT
[2018-11-26 12:36] VITALS: BP 136/65
[2018-11-26 16:43] VITALS: BP 147/71
--- NOTE | 2018-11-26 19:47 | NUR ---
REC'D LAYING IN BED AWAKE AND ALERT. RESP EVEN AND UNLABORED WITH NO DISTRESS NOTED. CAN EXPRESS NEEDS AND WANTS WITH NONE NOTE OR VOICED AT THIS TIME. ASSESSMENT COMPLETED. C/L IN REACH AT BEDSIDE.
[2018-11-26 20:00] VITALS: BP 153/74
[2018-11-27] VITALS: BP 138/82
--- NOTE | 2018-11-27 02:34 | NUR ---
I have reviewed this patient and I concur with the Shift Assessment completed by the Licensed Practical Nurse today this shift.
[2018-11-27 04:20] VITALS: BP 136/72
[2018-11-27 05:09] LABS: ANION GAP 10.9 mmol/L (8-16); CALCIUM 9.6 mg/dL (8.5-10.1); CREATININE - SERUM 1.4 mg/dL (0.6-1.3); POTASSIUM - SERUM 3.9 mmol/L (3.5-5.1)
[2018-11-27 07:31] LABS: HEMATOCRIT 29.3 % (36.0-48.0); MCH 27.9 pg (26.0-34.0); MCHC 30.7 g/dL (31.0-37.0); MCV 90.7 fL (80.0-100.0); MEAN PLATELET VOLUME 9.8 fL (7.4-10.4); PLATELET COUNT 258 10x3/uL (130-400); RBC 3.23 10x6/uL (4.00-5.40); RDW 15.5 % (11.5-14.5); WBC 5.1 10x3/uL (4.8-10.8)
[2018-11-27 09:16] VITALS: BP 146/77
[2018-11-27 09:32] LABS: EOSINOPHILS 5 % (0-7); LYMPHOCYTES 16 % (15-50); MONOCYTES 8 % (2-11); NEUTROPHILS 68 % (40-80); PLATELET ESTIMATE NORMAL
--- NOTE | 2018-11-27 09:32 | MORECARE ---
CASE MANAGEMENT DISCHARGE SUMMARY PATIENT: SRAVAN DOWNEY UNIT: [id number] ADM DATE: 11/20/18 AGE: 83 : 34 SEX: F ROOM/BED: D.2103 AUTHOR: KULWINDERDOC PHYSICIAN: REFERRING PHYSICIAN: JOSE ESPINAL MD DATE OF SERVICE: 11/27/18 Discharge Plan Patient Name: SRAVAN DOWNEY Facility: [facility] : 1935 Planned Disposition: [facility]ci Facility Anticipated Discharge Date: 11/27/18 Discharge Date: Expected LOS: 7 Initial Reviewer: [id number] Initial Review Date: 11/23/2018 Generated: 11/27/18 10:32 am Comments DCP- Discharge Planning Updated by [id number]: Kedar Carrero on 11/27/18 8:[address] Patient Name: SRAVAN DOWNEY Encounter No: [id number] : 1935 Primary Insurance: MEDICARE A & B Anticipated DC Date: 11-23-2018 Planned Disposition: [facility]ci Facility External Planned Provider: [facility], MEDICARE REHAB BED DCP follow-up note: CM FAXED UPDATE TO [place] AT [phone]. CM CALLED AND SPOKE TO HARPER OF [place], THEY WILL ACCEPT TODAY FOR REHAB. CM NOTIFIED PT WHO IS IN AGREEMENT WITH DISCHARGE TO REHAB TODAY. PT ASKED CM TO CALL HER SON ESVIN AND NOTIFY HIM. IMPORTANT MESSAGE FROM MEDICARE PROVIDED AND EXPLAINED. CM CALLED AND NOTIFIED ESVIN DOWNEY AT [phone]. CM NOTIFIED GIANCARLO YOON. FOR DISCHARGE, [facility] AT [phone]. NURSE REPORT TO BE [facility]ED TO [facility] AT [phone]. [place] TO [facility]ANGE VAN TRANSPORTATION. CELI Wu DCP- Discharge Planning Updated by [id number]: Kedar Carrero on 11/26/18 8:[address] Patient Name: SRAVAN DOWNEY Encounter No: [id number] : 1935 Primary Insurance: MEDICARE A & B Anticipated DC Date: 11-23-2018 Planned Disposition: [facility] Facility External Planned Provider: [facility], MEDICARE REHAB BED DCP follow-up note: CM FAXED REFERRAL UPDATE TO [facility], . CM WAITING ON ADMISSION DETERMINATION FROM [facility]. CELI Wu DCP- Discharge Planning Updated by [id number]: Kedar Carrero on 11/23/18 3:[address] Patient Name: SRAVAN DOWNEY Encounter No: [id number] : 1935 Primary Insurance: MEDICARE A & B Anticipated DC Date: 11-23-2018 Planned Disposition: [facility] Facility External Planned Provider: [facility], MEDICARE REHAB BED DCP follow-up note: PT CALLED TO CM FROM HER ROOM CM WALKED PAST. CM MET WITH PT IN ROOM. PT STATES SHE MAY CONSIDER GOING TO [place] FOR REHAB HER IS OUT THERE AND SHE WANTS CM TO SEND REFERRAL. CHOICE LISTING PROVIDED, PT S[facility]. CM CALLED [facility], , SPOKE TO HARPER WHO REPORTS SHE WILL SCREEN FOR REFERRAL BUT MAY NOT HAVE DETERMINATION UNTIL 11-26-18. CM FAXED REFERRAL TO [facility], . CM WAITING ON ADMISSION DETERMINATION FROM [facility]. CELI Wu DCP- Discharge Planning Updated by [id number]: Kedar Carrero on 11/23/18 1:[address] Patient Name: SRAVAN DOWNEY Admission Status: ER Accout number: [id number] Admission Date: 11-20-2018 : 1935 Admission Diagnosis:CHEST PAIN, UNSPECIFIED Attending: JOSE SALCIDO Current LOS: 3 Anticipated DC Date: 11-23-2018 Planned Disposition: Home with Home Health Primary Insurance: MEDICARE A & B PLANNED EXTERNAL PROVIDER: [facility] Discharge Planning Comments: CM MET WITH PT IN ROOM TO DISCUSS DISCHARGE PLANNING AND NEEDS. PT REPORTS LIVING AT [facility] WHERE SHE HAS HELP WITH MEDICATION MANAGEMENT, MEAL PREPARATION, TRANSPORTATION SERVICES AND AN EMERGENCY BUTTON TO CALL FOR HELP IF NEEDED. PT HAS CANE, ROLLING WALKER WITH SEAT AND BRAKES WELL WHEELCHAIR FROM [facility] PATIENT. PT HAS HOME HEALTH FOR NURSING AND SPEECH THERAPY FROM [facility]. CM DISCUSSED AVAILABILITY OF HOME HEALTH, REHAB SERVICES AND MEDICAL EQUIPMENT. PT DENIES REHAB NEEDS OR ADDITIONAL NEEDS FOR DISCHARGE HOME. PT WANTS TO RETURN TO [facility], REPORTS [facility] WILL P[facility] HER UP FOR DISCHARGE HOME. CHOICE COMPLETED FOR [facility]. CM SPOKE TO LYNDON OF [facility] AT NURSES STATION WHO VERIFIED PT IS ON HOLD FOR HOME HEALTH SERVICES. CM FAXED UPDATE TO [facility] AT [phone]. CM SPOKE TO DR. ESPINAL WHO INFORMED CM THAT PT IS WEAK AND NEEDS REHAB. CM MET WITH PT IN ROOM, DISCUSSED AVAILABILITY OF REHAB SERVICES, ADVISED THE DOCTOR RECOMMENDS REHAB AND CM ALSO RECOMMENDED REHAB TO PT. PT REFUSED AND STATES SHE IS GOING HOME AND [facility] CAN PROVIDE THERAPY SERVICES AT HER HOME, [facility]. FOR DISCHARGE, NOTIFY [facility], , , FAX DISCHARGE INFORMATION TO [facility] AT [phone]. NURSE REPORT TO BE CALLED TO [facility]IV[facility] AT [phone]. PT REPORTS [facility] TO PROVIDE TRANSPORTATION FOR DISCHARGE. Animal Technician: Kedar Carrero DCA - Discharge Planning Initial Assessment Updated by [id number]: Kedar Carrero on 11/23/18 2:15 pm * Is the patient Alert and Oriented? Yes * How many steps to enter\exit or inside your home? NONE * PCP DR. BARCLAY * Pharmacy [facility] * Preadmission Environment Assisted Living * Facility Name [facility] * ADLs Partial Dependent * Partial ADLs (Assistance needed) Medication Management * Equipment Cane Rolling Walker Wheelchair * Other Equipment [facility] PATIENT - MEDICAL EQUIPMENT PROVIDER PREFERENCE * List name and contact numbers for known caregivers / representatives who currently or will assist patient after discharge: ESVIN DOWNEY, SON, JOHN DOWNEY, SON/POA, * Verbal permission to speak to the caregivers and representatives has been obtained from the patient. N/A * Community resources currently utilized Home Health * Please name any agencies selected above. [facility] HOME HEALTH, NURSING, SPEECH THERAPY * Additional services required to return to the preadmission environment? Yes * Can the patient safely return to the preadmission environment? Yes * Has this patient been hospitalized within the prior 30 days at any hospital? No Coverage Notice Reviewer: ABISAI Carrero Notice Issued Date-Time: 11/23/2018 9:55 Notice Type: Patient Choice Letter Notice Delivered To: Patient Relationship to Patient: Tax Examining Technician Name: Delivery Method: HAND - Hand Delivered Thania Days: Prior Verbal Notification: Recipient Understood Notice: Yes Recipient Signature: Yes Med Rec Note Co-signed by Attending: Coverage Notice Comment: [facility] Reviewer: ABISAI aCrrero Notice Issued Date-Time: 11/23/2018 14:00 Notice Type: IM Discharge Notice Notice Delivered To: Patient Relationship to Patient: Tax Examining Technician Name: Delivery Method: HAND - Hand Delivered Thania Days: Prior Verbal Notification: Recipient Understood Notice: Yes Recipient Signature: Yes Med Rec Note Co-signed by Attending: Coverage Notice Comment: Reviewer: ABISAI Carrero Notice Issued Date-Time: 11/23/2018 16:30 Notice Type: Patient Choice Letter Notice Delivered To: Patient Relationship to Patient: Tax Examining Technician Name: Delivery Method: HAND - Hand Delivered Thania Days: Prior Verbal Notification: Recipient Understood Notice: Yes Recipient Signature: Yes Med Rec Note Co-signed by Attending: Coverage Notice Comment: [facility] Reviewer: [id number] Carrero Notice Issued Date-Time: 11/27/2018 9:10 Notice Type: IM Discharge Notice Notice Delivered To: Patient Relationship to Patient: Tax Examining Technician Name: Delivery Method: HAND - Hand Delivered Thania Days: Prior Verbal Notification: Recipient Understood Notice: Yes Recipient Signature: Yes Med Rec Note Co-signed by Attending: Coverage Notice Comment: Last DP export: 11/26/18 8:49 am Patient Name: SRAVAN DOWNEY Page 20208 at 0932 All edits/amendments must be made on the electronic document DICTATION DATE: 11/27/18931 OIL RIG ROUGHNECK: HILDA 11/27/18931 RPT#: [id number] DC DATE: STATUS: ADM IN [facility] [address] [place] [address] END OF REPORT
--- NOTE | 2018-11-27 09:39 | MORECARE ---
CASE MANAGEMENT DISCHARGE SUMMARY PATIENT: SRAVAN DOWNEY UNIT: [id number] ADM DATE: 11/20/18 AGE: 83 : 34 SEX: F ROOM/BED: D.2103 AUTHOR: KULWINDERDOC PHYSICIAN: REFERRING PHYSICIAN: JOSE ESPINAL MD DATE OF SERVICE: 11/27/18 Discharge Plan Patient Name: SRAVAN DOWNEY Facility: [facility] : 1935 Planned Disposition: [facility] Facility Anticipated Discharge Date: 11/27/18 Discharge Date: Expected LOS: 7 Initial Reviewer: [id number] Initial Review Date: 11/23/2018 Generated: 11/27/18 10:39 am Comments DCP- Discharge Planning Updated by [id number]: Kedar Carrero on 11/27/18 8:[address] Patient Name: SRAVAN DOWNEY Encounter No: [id number] : 1935 Primary Insurance: MEDICARE A & B Anticipated DC Date: 11-23-2018 Planned Disposition: [facility]fp Facility External Planned Provider: [facility], MEDICARE REHAB BED DCP follow-up note: CM FAXED UPDATE TO [place] AT [phone]. CM CALLED AND SPOKE TO HARPER OF [place], THEY WILL ACCEPT TODAY FOR REHAB. CM NOTIFIED PT WHO IS IN AGREEMENT WITH DISCHARGE TO REHAB TODAY. PT ASKED CM TO CALL HER SON ESVIN AND NOTIFY HIM. IMPORTANT MESSAGE FROM MEDICARE PROVIDED AND EXPLAINED. CM CALLED AND NOTIFIED ESVIN DOWNEY AT [phone]. CM NOTIFIED GIANCARLO YOON. FOR DISCHARGE, [facility]CHAR[facility] INFORMATION [facility] AT [phone]. NURSE REPORT TO BE CALLED TO [facility] AT [phone]. [place] TO ARRANGE VAN TRANSPORTATION. CELI Wu DCP- Discharge Planning Updated by [id number]: Kedar Carrero on 11/26/18 8:[address] Patient Name: SRAVAN DOWNEY Encounter No: [id number] : 1935 Primary Insurance: MEDICARE A & B Anticipated DC Date: 11-23-2018 Planned Disposition: Mcfp Facility External Planned Provider: [facility], MEDICARE REHAB BED DCP follow-up note: CM FAXED REFERRAL UPDATE TO [facility], . CM WAITING ON ADMISSION DETERMINATION FROM [facility]. CELI Wu DCP- Discharge Planning Updated by [id number]: Kedar Carrero on 11/23/18 3:[address] Patient Name: SRAVAN DOWNEY Encounter No: [id number] : 1935 Primary Insurance: MEDICARE A & B Anticipated DC Date: 11-23-2018 Planned Disposition: Mcfp Facility External Planned Provider: [facility], MEDICARE REHAB BED DCP follow-up note: PT CALLED TO CM FROM HER ROOM CM WALKED PAST. CM MET WITH PT IN ROOM. PT STATES SHE MAY CONSIDER GOING TO [place] FOR REHAB HER IS OUT THERE AND SHE WANTS CM TO SEND REFERRAL. CHOICE LISTING PROVIDED, PT SIGNED CHOICE FOR [facility]. CM CALLED [facility], , SPOKE TO HARPER WHO REPORTS SHE WILL SCREEN FOR REFERRAL BUT MAY NOT HAVE DETERMINATION UNTIL 11-26-18. CM FAXED REFERRAL TO [facility], . CM WAITING ON ADMISSION DETERMINATION FROM [facility]. CELI Wu DCP- Discharge Planning Updated by [id number]: Kedar Carrero on 11/23/18 1:[address] Patient Name: SRAVAN DOWNEY Admission Status: ER Accout number: [id number] Admission Date: 11-20-2018 : 1935 Admission Diagnosis:CHEST PAIN, UNSPECIFIED Attending: JOSE SALCIDO Current LOS: 3 Anticipated DC Date: 11-23-2018 Planned Disposition: Home with Home Health Primary Insurance: MEDICARE A & B PLANNED EXTERNAL PROVIDER: [facility] Discharge Planning Comments: CM MET WITH PT IN ROOM TO DISCUSS DISCHARGE PLANNING AND NEEDS. PT REPORTS LIVING AT [facility] WHERE SHE HAS HELP WITH MEDICATION MANAGEMENT, MEAL PREPARATION, TRANSPORTATION SERVICES AND AN EMERGENCY BUTTON TO CALL FOR HELP IF NEEDED. PT HAS CANE, ROLLING WALKER WITH SEAT AND BRAKES WELL WHEELCHAIR FROM [facility] PATIENT. PT HAS HOME HEALTH FOR NURSING AND SPEECH THERAPY FROM [facility]. CM DISCUSSED AVAILABILITY OF HOME HEALTH, REHAB SERVICES AND MEDICAL EQUIPMENT. PT DENIES REHAB NEEDS OR ADDITIONAL NEEDS FOR DISCHARGE HOME. PT WANTS TO RETURN TO [facility], REPORTS [facility] WILL PICK HER UP FOR DISCHARGE HOME. CHOICE COMPLETED FOR [facility]. CM SPOKE TO LYNDON OF [facility] AT [facility] WHO VERIFIED PT IS ON HOLD FOR HOME HEALTH SERVICES. CM FAXED UPDATE TO [facility] AT [phone]. CM SPOKE TO DR. ESPINAL WHO INFORMED CM THAT PT IS WEAK AND NEEDS REHAB. CM MET WITH PT IN ROOM, DISCUSSED AVAILABILITY OF REHAB SERVICES, ADVISED THE DOCTOR RECOMMENDS REHAB AND CM ALSO RECOMMENDED REHAB TO PT. PT REFUSED AND STATES SHE IS GOING HOME AND [facility] CAN PROVIDE THERAPY SERVICES AT HER HOME, [facility]. FOR DISCHARGE, NOTIFY [facility], , , FAX DISCHARGE INFORMATION TO [facility] AT [phone]. NURSE REPORT TO BE CALLED TO [facility]IV[facility] AT [phone]. PT REPORTS [facility] TO PROVIDE TRANSPORTATION FOR DISCHARGE. Field Marketing Team Leader: Kedar Carrero DCA - Discharge Planning Initial Assessment Updated by [id number]: Kedar Carrero on 11/23/18 2:15 pm * Is the patient Alert and Oriented? Yes * How many steps to enter\exit or inside your home? NONE * PCP DR. BARCLAY * Pharmacy [facility] * Preadmission Environment Assisted Living * Facility Name [facility] * ADLs Partial Dependent * Partial ADLs (Assistance needed) Medication Management * Equipment Cane Rolling Walker Wheelchair * Other Equipment [facility] PATIENT - MEDICAL EQUIPMENT PROVIDER PREFERENCE * List name and contact numbers for known caregivers / representatives who currently or will assist patient after discharge: ESVIN DOWNEY, SON, JOHN DOWNEY, SON/POA, * Verbal permission to speak to the caregivers and representatives has been obtained from the patient. N/A * Community resources currently utilized Home Health * Please name any agencies selected above. [facility] HOME HEALTH, NURSING, SPEECH THERAPY * Additional services required to return to the preadmission environment? Yes * Can the patient safely return to the preadmission environment? Yes * Has this patient been hospitalized within the prior 30 days at any hospital? No Coverage Notice Reviewer: ABISAI Carrero Notice Issued Date-Time: 11/23/2018 16:30 Notice Type: Patient Choice Letter Notice Delivered To: Patient Relationship to Patient: Chemical Maker Name: Delivery Method: HAND - Hand Delivered Thania Days: Prior Verbal Notification: Recipient Understood Notice: Yes Recipient Signature: Yes Med Rec Note Co-signed by Attending: Coverage Notice Comment: [facility] Reviewer: ABISAI Carrero Notice Issued Date-Time: 11/23/2018 9:55 Notice Type: Patient Choice Letter Notice Delivered To: Patient Relationship to Patient: Chemical Maker Name: Delivery Method: HAND - Hand Delivered Thania Days: Prior Verbal Notification: Recipient Understood Notice: Yes Recipient Signature: Yes Med Rec Note Co-signed by Attending: Coverage Notice Comment: [facility] Reviewer: ABISAI Carrero Notice Issued Date-Time: 11/27/2018 9:10 Notice Type: IM Discharge Notice Notice Delivered To: Patient Relationship to Patient: Chemical Maker Name: Delivery Method: HAND - Hand Delivered Thania Days: Prior Verbal Notification: Recipient Understood Notice: Yes Recipient Signature: Yes Med Rec Note Co-signed by Attending: Coverage Notice Comment: Reviewer: ABISAI Carrero Notice Issued Date-Time: 11/23/2018 14:00 Notice Type: IM Discharge Notice Notice Delivered To: Patient Relationship to Patient: Chemical Maker Name: Delivery Method: HAND - Hand Delivered Thania Days: Prior Verbal Notification: Recipient Understood Notice: Yes Recipient Signature: Yes Med Rec Note Co-signed by Attending: Coverage Notice Comment: Last DP export: 11/27/18 8:32 am Patient Name: SRAVAN DOWNEY Page [id number] at 0939 All edits/amendments must be made on the electronic document DICTATION DATE: 11/27/18937 DIE MECHANIC: HILDA 11/27/18937 RPT#: [id number] DC DATE: STATUS: ADM IN [facility] [address] [place] [address] END OF REPORT
[2018-11-27] MEDS ORDERED: NORVASC2.5 MG PO (12:08)
[2018-11-27 12:38] VITALS: BP 137/75
--- NOTE | 2018-11-27 13:36 | MORECARE ---
CASE MANAGEMENT DISCHARGE SUMMARY PATIENT: SRAVAN DOWNEY UNIT: [id number] ADM DATE: 11/20/18 AGE: 83 : 34 SEX: F ROOM/BED: D.2103 AUTHOR: KULWINDER,DOC PHYSICIAN: REFERRING PHYSICIAN: JOSE ESPINAL MD DATE OF SERVICE: 11/27/18 Discharge Plan Patient Name: SRAVAN DOWNEY Facility: [facility] : 1935 Planned Disposition: Jail Facility Anticipated Discharge Date: 11/27/18 Discharge Date: Expected LOS: 7 Initial Reviewer: [id number] Initial Review Date: 11/23/2018 Generated: 11/27/18 2:36 pm Comments DCP- Discharge Planning Updated by [id number]: Kedar Carrero on 11/27/18 12:[address] Patient Name: SRAVAN DOWNEY Encounter No: [id number] : 1935 Primary Insurance: MEDICARE A & B Anticipated DC Date: 11-23-2018 Planned Disposition: Jail Facility External Planned Provider: [facility], MEDICARE REHAB BED DCP follow-up note: CM FAXED UPDATE TO [place] AT [phone]. CM CALLED AND SPOKE TO HARPER OF [place], THEY WILL ACCEPT TODAY FOR REHAB. CM NOTIFIED PT WHO IS IN AGREEMENT WITH DISCHARGE TO REHAB TODAY. PT ASKED CM TO CALL HER SON ESVIN AND NOTIFY HIM. IMPORTANT MESSAGE FROM MEDICARE PROVIDED AND EXPLAINED. CM CALLED AND NOTIFIED ESVIN DOWNEY AT [phone]. CM NOTIFIED GIANCARLO YOON. FOR DISCHARGE, [facility]X DISCHAR[facility] INFORMATION TO [facility] AT [phone]. NURSE REPORT TO BE CALLED TO [facility] AT [phone]. [place] TO ARRANGE VAN TRANSPORTATION. Kedar Carrero, CASE MANAGEMENT Appended by Kedar Carrero on 11/27/2018 13:30 CDT: CM RECEIVED DISCHARGE ORDER, FAXED DISCHARGE INFORMATION TO [facility] AT [phone]; CM NOTIFIED HARPER AT [facility] WHO WILL SET UP VAN TRANSPORT. MORTGAGE LOAN PROCESSOR NURSE NOTIFIED. NURSE REPORT [facility] AT [phone]. [facility] TO ARRANGE VAN TRANSPORTATION. CELI Wu DCP- Discharge Planning Updated by [id number]: Kedar Carrero on 11/26/18 8:[address] Patient Name: SRAVAN DOWNEY Encounter No: [id number] : 1935 Primary Insurance: MEDICARE A & B Anticipated DC Date: 11-23-2018 Planned Disposition: Jail Facility External Planned Provider: [facility], MEDICARE REHAB BED DCP follow-up note: CM FAXED REFERRAL UPDATE TO [facility], . CM WAITING ON ADMISSION DETERMINATION FROM [facility]. CELI Wu DCP- Discharge Planning Updated by [id number]: Kedar Carrero on 11/23/18 3:[address] Patient Name: SRAVAN DOWNEY Encounter No: [id number] : 1935 Primary Insurance: MEDICARE A & B Anticipated DC Date: 11-23-2018 Planned Disposition: Jail Facility External Planned Provider: [facility], MEDICARE REHAB BED DCP follow-up note: PT CALLED TO CM FROM HER ROOM CM WALKED PAST. CM MET WITH PT IN ROOM. PT STATES SHE MAY CONSIDER GOING TO [place] FOR REHAB HER IS OUT THERE AND SHE WANTS CM TO SEND REFERRAL. CHOICE LISTING PROVIDED, PT SIGNED CHOICE FOR [facility]. CM CALLED [facility], , SPOKE TO HARPER WHO REPORTS SHE WILL SCREEN FOR REFERRAL BUT MAY NOT HAVE DETERMINATION UNTIL 11-26-18. CM FAXED REFERRAL TO [facility], . CM WAITING ON ADMISSION DETERMINATION FROM [facility]. CELI Wu DCP- Discharge Planning Updated by [id number]: Kedar Carrero on 11/23/18 1:[address] Patient Name: SRAVAN DOWNEY Admission Status: ER Accout number: [id number] Admission Date: 11-20-2018 : 1935 Admission Diagnosis:CHEST PAIN, UNSPECIFIED Attending: JOSE SALCIDO Current LOS: 3 Anticipated DC Date: 11-23-2018 Planned Disposition: Home with Home Health Primary Insurance: MEDICARE A & B PLANNED EXTERNAL PROVIDER: [facility] Discharge Planning Comments: CM MET WITH PT IN ROOM TO DISCUSS DISCHARGE PLANNING AND NEEDS. PT REPORTS LIVING AT [facility] WHERE SHE HAS HELP WITH MEDICATION MANAGEMENT, MEAL PREPARATION, TRANSPORTATION SERVICES AND AN EMERGENCY BUTTON TO CALL FOR HELP IF NEEDED. PT HAS CANE, ROLLING WALKER WITH SEAT AND BRAKES WELL WHEELCHAIR FROM [facility] PATIENT. PT HAS HOME HEALTH FOR NURSING AND SPEECH THERAPY FROM [facility]. CM DISCUSSED AVAILABILITY OF HOME HEALTH, REHAB SERVICES AND MEDICAL EQUIPMENT. PT DENIES REHAB NEEDS OR ADDITIONAL NEEDS FOR DISCHARGE HOME. PT WANTS TO RETURN TO [facility], REPORTS [facility] WILL PICK HER UP FOR DISCHARGE HOME. CHOICE COMPLETED FOR [facility]. CM SPOKE TO LYNDON OF [facility] AT [facility]ES [facility] WHO VERIFIED PT IS ON HOLD FOR HOME HEALTH SERVICES. CM FAXED UPDATE TO [facility] AT [phone]. CM SPOKE TO DR. ESPINAL WHO INFORMED CM THAT PT IS WEAK AND NEEDS REHAB. CM MET WITH PT IN ROOM, DISCUSSED AVAILABILITY OF REHAB SERVICES, ADVISED THE DOCTOR RECOMMENDS REHAB AND CM ALSO RECOMMENDED REHAB TO PT. PT REFUSED AND STATES SHE IS GOING HOME AND [facility] CAN PROVIDE THERAPY SERVICES AT HER HOME, [facility]. FOR DISCHARGE, NOTIFY [facility], , , FAX DISCHARGE INFORMATION TO [facility] AT [phone]. NURSE REPORT TO BE CALLED TO [facility] AT [phone]. PT REPORTS [facility] TO PROVIDE TRANSPORTATION FOR DISCHARGE. Trick Rodeo Rider: Kedar Carrero DCPIA - Discharge Planning Initial Assessment Updated by [id number]: Kedar Carrero on 11/23/18 2:15 pm * Is the patient Alert and Oriented? Yes * How many steps to enter\exit or inside your home? NONE * PCP DR. BARCLAY * Pharmacy [facility] * Preadmission Environment Assisted Living * Facility Name [facility] * ADLs Partial Dependent * Partial ADLs (Assistance needed) Medication Management * Equipment Cane Rolling Walker Wheelchair * Other Equipment [facility] PATIENT - MEDICAL EQUIPMENT PROVIDER PREFERENCE * List name and contact numbers for known caregivers / representatives who currently or will assist patient after discharge: CHANDRAKANT POTTS, CHANDRAKANT CLARK/POA, * Verbal permission to speak to the caregivers and representatives has been obtained from the patient. N/A * Community resources currently utilized Home Health * Please name any agencies selected above. [facility], NURSING, SPEECH THERAPY * Additional services required to return to the preadmission environment? Yes * Can the patient safely return to the preadmission environment? Yes * Has this patient been hospitalized within the prior 30 days at any hospital? No Coverage Notice Reviewer: ABISAI Carrero Notice Issued Date-Time: 11/23/2018 9:55 Notice Type: Patient Choice Letter Notice Delivered To: Patient Relationship to Patient: Unit Assistant Name: Delivery Method: HAND - Hand Delivered Thania Days: Prior Verbal Notification: Recipient Understood Notice: Yes Recipient Signature: Yes Med Rec Note Co-signed by Attending: Coverage Notice Comment: [facility] Reviewer: ABISAI Carrero Notice Issued Date-Time: 11/23/2018 14:00 Notice Type: IM Discharge Notice Notice Delivered To: Patient Relationship to Patient: Unit Assistant Name: Delivery Method: HAND - Hand Delivered Thania Days: Prior Verbal Notification: Recipient Understood Notice: Yes Recipient Signature: Yes Med Rec Note Co-signed by Attending: Coverage Notice Comment: Reviewer: ABISAI Carrero Notice Issued Date-Time: 11/23/2018 16:30 Notice Type: Patient Choice Letter Notice Delivered To: Patient Relationship to Patient: Unit Assistant Name: Delivery Method: HAND - Hand Delivered Thania Days: Prior Verbal Notification: Recipient Understood Notice: Yes Recipient Signature: Yes Med Rec Note Co-signed by Attending: Coverage Notice Comment: [facility] Reviewer: ABISAI Carrero Notice Issued Date-Time: 11/27/2018 9:10 Notice Type: IM Discharge Notice Notice Delivered To: Patient Relationship to Patient: Unit Assistant Name: Delivery Method: HAND - Hand Delivered Thania Days: Prior Verbal Notification: Recipient Understood Notice: Yes Recipient Signature: Yes Med Rec Note Co-signed by Attending: Coverage Notice Comment: Last DP export: 11/27/18 8:39 am Patient Name: SRAVAN DOWNEY Page 45724 at 1336 All edits/amendments must be made on the electronic document DICTATION DATE: 11/27/181335 RADIO FREQUENCY ENGINEER: HILDA 11/27/181335 RPT#: [id number] DC DATE: STATUS: ADM IN [facility] [address] [place] [address] END OF REPORT
--- NOTE | 2018-11-27 14:49 | NUR ---
ALERT AND ORIENTED X4. RESTING IN BED. DC LT HAND IV TIP INTACT. DISCHARGE INSTRUCTIONS GIVEN VERBALLY AND WRITTEN. DISCHARGE PAPERS SIGNED ON CHART. REPORT CALLED TO NURSE AT [facility]. ASSIST GETTING DRESSED. TRANSPORTATION VAN ARRIVES FOR TRANSPORT. ESCORT TO [facility] VIA WHEELCHAIR. REMAINS FREE FROM INJURY.
--- NOTE | 2018-11-28 07:40 | MORECARE ---
CASE MANAGEMENT DISCHARGE SUMMARY PATIENT: SRAVAN DOWNEY UNIT: [id number] ADM DATE: 11/20/18 AGE: 83 : [birth year] SEX: F ROOM/BED: D.2103 AUTHOR: TORREY MIRAMONTES PHYSICIAN: REFERRING PHYSICIAN: JOSE ESPINAL MD DATE OF SERVICE: 11/28/18 Discharge Plan Patient Name: SRAVAN DOWNEY Facility: [facility]:[place] : 1935 Planned Disposition: Long-Term Facility Anticipated Discharge Date: 11/27/18 Discharge Date: 11/27/2018 Expected LOS: 7 Initial Reviewer: [id number] Initial Review Date: 11/23/2018 Generated: 11/28/18 8:39 am Comments DCP- Discharge Planning Updated by ABISAI: Kedar Carrero on 11/27/18 12:[address] Patient Name: SRAVAN DOWNEY Encounter No: [id number] : 1935 Primary Insurance: MEDICARE A & B Anticipated DC Date: 11-23-2018 Planned Disposition: Long-Term Facility External Planned Provider: [facility], MEDICARE REHAB BED DCP follow-up note: CM FAXED UPDATE TO [facility] AT [phone]. CM CALLED AND SPOKE TO HARPER OF [facility], THEY WILL ACCEPT TODAY FOR REHAB. CM NOTIFIED PT WHO IS IN AGREEMENT WITH DISCHARGE TO REHAB TODAY. PT ASKED CM TO CALL HER SON ESVIN AND NOTIFY HIM. IMPORTANT MESSAGE FROM MEDICARE PROVIDED AND EXPLAINED. CM CALLED AND NOTIFIED ESVIN DOWNEY AT [phone]. CM NOTIFIED GIANCARLO YOON. FOR DISCHARGE, [facility]X [facility]CHAR[facility] INFORMATION TO [facility] AT [phone]. NURSE REPORT TO BE CALL[facility] AT [phone]. [facility] TO ARRANGE VAN TRANSPORTATION. Kedar Carrero, CASE MANAGEMENT Appended by Kedar Carrero on 11/27/2018 13:30 CDT: CM RECEIVED DISCHARGE ORDER, FAXED DISCHARGE INFORMATION TO [facility] AT [phone]; CM NOTIFIED HARPER AT [facility] WHO WILL SET UP VAN TRANSPORT. SECTION WEAVER NURSE NOTIFIED. NURSE REPORT TO BE CALLED TO [facility] AT [phone]. [facility] TO ARRANGE VAN TRANSPORTATION. CELI Wu DCP- Discharge Planning Updated by [id number]: Kedar Carrero on 11/26/18 8:[address] Patient Name: SRAVAN DOWNEY Encounter No: [id number] : 1935 Primary Insurance: MEDICARE A & B Anticipated DC Date: 11-23-2018 Planned Disposition: Long-Term Facility External Planned Provider: [facility], MEDICARE REHAB BED DCP follow-up note: CM FAXED REFERRAL UPDATE TO [facility], . CM WAITING ON ADMISSION DETERMINATION FROM [facility]. CELI Wu DCP- Discharge Planning Updated by [email or web address]: Kedar Carrero on 11/23/18 3:[address] Patient Name: SRAVAN DOWNEY Encounter No: [id number] : 1935 Primary Insurance: MEDICARE A & B Anticipated DC Date: 11-23-2018 Planned Disposition: Long-Term Facility External Planned Provider: [facility], MEDICARE REHAB BED DCP follow-up note: PT CALLED TO CM FROM HER ROOM CM WALKED PAST. CM MET WITH PT IN ROOM. PT STATES SHE MAY CONSIDER GOING TO [facility] FOR REHAB HER IS OUT THERE AND SHE WANTS CM TO SEND REFERRAL. CHOICE LISTING PROVIDED, PT SIGNED CHOICE FOR [facility]. CM CALLED [facility], , SPOKE TO HARPER WHO REPORTS SHE WILL SCREEN FOR REFERRAL BUT MAY NOT HAVE DETERMINATION UNTIL 11-26-18. CM FAXED REFERRAL TO [facility], . CM WAITING ON ADMISSION DETERMINATION FROM [facility]. CELI Wu DCP- Discharge Planning Updated by [id number]: Kedar Carrero on 11/23/18 1:[address] Patient Name: SRAVAN DOWNEY Admission Status: ER Accout number: [id number] Admission Date: 11-20-2018 : 1935 Admission Diagnosis:CHEST PAIN, UNSPECIFIED Attending: JOSE SALCIDO Current LOS: 3 Anticipated DC Date: 11-23-2018 Planned Disposition: Home with Home Health Primary Insurance: MEDICARE A & B PLANNED EXTERNAL PROVIDER: [facility] Discharge Planning Comments: CM MET WITH PT IN ROOM TO DISCUSS DISCHARGE PLANNING AND NEEDS. PT REPORTS LIVING AT [facility] WHERE SHE HAS HELP WITH MEDICATION MANAGEMENT, MEAL PREPARATION, TRANSPORTATION SERVICES AND AN EMERGENCY BUTTON TO CALL FOR HELP IF NEEDED. PT HAS CANE, ROLLING WALKER WITH SEAT AND BRAKES WELL WHEELCHAIR FROM [facility] PATIENT. PT HAS HOME HEALTH FOR NURSING AND SPEECH THERAPY FROM [facility]. CM DISCUSSED AVAILABILITY OF HOME HEALTH, REHAB SERVICES AND MEDICAL EQUIPMENT. PT DENIES REHAB NEEDS OR ADDITIONAL NEEDS FOR DISCHARGE HOME. PT WANTS TO RETURN TO [facility], REPORTS [facility] WILL PICK HER UP FOR DISCHARGE HOME. CHOICE COMPLETED FOR [facility]. CM SPOKE TO LYNDON OF [facility] AT [facility] WHO VERIFIED PT IS ON HOLD FOR HOME HEALTH SERVICES. CM FAXED UPDATE TO [facility] AT [phone]. CM SPOKE TO DR. ESPINAL WHO INFORMED CM THAT PT IS WEAK AND NEEDS REHAB. CM MET WITH PT IN ROOM, DISCUSSED AVAILABILITY OF REHAB SERVICES, ADVISED THE DOCTOR RECOMMENDS REHAB AND CM ALSO RECOMMENDED REHAB TO PT. PT REFUSED AND STATES SHE IS GOING HOME AND [facility] CAN PROVIDE THERAPY SERVICES AT HER HOME, [facility]. FOR DISCHARGE, NOTIFY [facility], , , FAX DISCHARGE INFORMATION TO [facility] AT [phone]. NURSE REPORT TO BE CALLED TO [facility] AT [phone]. PT REPORTS [facility] TO PROVIDE TRANSPORTATION FOR DISCHARGE. Conflict Resolution Professional: Kedar Carrero DCPIA - Discharge Planning Initial Assessment Updated by [email or web address]: Kedar Carrero on 11/23/18 2:15 pm * Is the patient Alert and Oriented? Yes * How many steps to enter\exit or inside your home? NONE * PCP DR. BARCLAY * Pharmacy [facility] * Preadmission Environment Assisted Living * Facility Name [facility] * ADLs Partial Dependent * Partial ADLs (Assistance needed) Medication Management * Equipment Cane Rolling Walker Wheelchair * Other Equipment [facility] PATIENT - MEDICAL EQUIPMENT PROVIDER PREFERENCE * List name and contact numbers for known caregivers / representatives who currently or will assist patient after discharge: CHANDRAKANT POTTS, CHANDRAKANT CLARK/POA, * Verbal permission to speak to the caregivers and representatives has been obtained from the patient. N/A * Community resources currently utilized Home Health * Please name any agencies selected above. [facility], NURSING, SPEECH THERAPY * Additional services required to return to the preadmission environment? Yes * Can the patient safely return to the preadmission environment? Yes * Has this patient been hospitalized within the prior 30 days at any hospital? No Coverage Notice Reviewer: ABISAI Carrero Notice Issued Date-Time: 11/23/2018 9:55 Notice Type: Patient Choice Letter Notice Delivered To: Patient Relationship to Patient: School Janitor Name: Delivery Method: HAND - Hand Delivered Thania Days: Prior Verbal Notification: Recipient Understood Notice: Yes Recipient Signature: Yes Med Rec Note Co-signed by Attending: Coverage Notice Comment: [facility] Reviewer: ABISAI Carrero Notice Issued Date-Time: 11/23/2018 14:00 Notice Type: IM Discharge Notice Notice Delivered To: Patient Relationship to Patient: School Janitor Name: Delivery Method: HAND - Hand Delivered Thania Days: Prior Verbal Notification: Recipient Understood Notice: Yes Recipient Signature: Yes Med Rec Note Co-signed by Attending: Coverage Notice Comment: Reviewer: ABISAI Carrero Notice Issued Date-Time: 11/23/2018 16:30 Notice Type: Patient Choice Letter Notice Delivered To: Patient Relationship to Patient: School Janitor Name: Delivery Method: HAND - Hand Delivered Thania Days: Prior Verbal Notification: Recipient Understood Notice: Yes Recipient Signature: Yes Med Rec Note Co-signed by Attending: Coverage Notice Comment: [facility] Reviewer: ABISAI Carrero Notice Issued Date-Time: 11/27/2018 9:10 Notice Type: IM Discharge Notice Notice Delivered To: Patient Relationship to Patient: School Janitor Name: Delivery Method: HAND - Hand Delivered Thania Days: Prior Verbal Notification: Recipient Understood Notice: Yes Recipient Signature: Yes Med Rec Note Co-signed by Attending: Coverage Notice Comment: Last DP export: 11/27/18 12:36 pm Patient Name: SRAVAN DOWNEY Page [phone] at 0740 All edits/amendments must be made on the electronic document DICTATION DATE: 11/28/1839 WIRE WEAVER CLOTH: HILDA 11/28/18 0739 RPT#: [id number] DC DATE:11/27/18 STATUS: DIS IN [facility] [address] [place] [address] END OF REPORT
--- NOTE | 2018-11-30 16:41 | EC ---
PATIENT:SRAVAN DOWNEY DATE OF SERVICE: 11/20/18 SEX: F MEDICAL RECORD: [id number] DATE OF : [birth year] LOCATION:D.M2 D.210 AGE OF PATIENT: 83 ADMISSION DATE: 11/20/18 REFERRING PHYSICIAN: INTERPRETING PHYSICIAN: NIC RIVERA MD ECHOCARDIOGRAM REPORT ECHO CHARGES 4 ECHO COMPLETE Date: 11/20/18 CLINICAL DIAGNOSIS: DYSPNEA HX OF CAD/STENTS/HTN ECHOCARDIOGRAPHIC MEASUREMENTS (adult normal given) AC root (d.<3.7cm) 2.9 cm LV Septum d (<1.2 cm> 1.1 cm Valve Excursion 1.3 cm LV Septum (systole) 1.3 cm Left Atria (s.<4.0cm> 4.3 cm LVPW d(<1.2cm) 1.3 cm RV (d.<2.3cm) 3.3 cm LVPW (sytole) 1.5 cm LV diastole(<5.6CM) 6.1 cm MV E-F(>70mm/sec) cm LV systole 5.0 cm LVOT Diameter 1.8 cm MV exc.(>10mm) 1.4 cm Est.ejection fraction (50-75%) % DOPPLER: LVIT cm/sec A 113 cm/sec E 103 cm/sec LA cm/sec RVSP 44 mmHg LVOT 138 cm/sec AOP1/2T m/s Asc. Ao 174 cm/sec RVOT 92 cm/sec RA cm/sec PA 133 cm/sec AV Gradient Peak 12.14mmHg AV Mean 7.14 mmHg AV Area 2.0 cm MV Gradient Peak 8.87 mmHg MV Mean 3.14 mmHg MV Area cm COMMENTS: Cylinder Press Operator Helper: Dagoberto HUTCHISON Flight Steward: 1 Dr. Rivera TAPE# PACS Pericardial Effusion N DATE OF SERVICE: 11/20/2018 PROCEDURE: Echocardiogram. FINDINGS: 1. Left ventricular chamber size is within normal limits. Left ventricular systolic function is normal. Overall ejection fraction estimated at 55%. 2. Left atrium, right atrium, and right ventricular chamber sizes are dilated. Left atrium measures 4.3 cm. 3. Valvular structures have normal structure and motion. ECHOCARDIOGRAM REPORT [id number] SRAVAN DOWNEY 4. Doppler interrogation reveals moderate mitral regurgitation, [id number] tricuspid regurgitation, no other valvular insufficiency or stenosis. Pulmonary systolic pressure is estimated at 44 mmHg. 5. No evidence of pericardial effusion or left ventricular thrombus. TRANSINT:[id number] Voice Confirmation ID: [id number] DOCUMENT ID: [id number] NIC RIVERA MD at 1641 CC: [id number] DICTATION DATE: 11/21/18 1123 TIRE LAYER: 11/21/18 1132 DIS IN 11/27/18 [facility] [address] [place] [address]
== END 2018-11-27 14:54 | DRG 291 ==
LOC: D.ER 04:04 → D.M2 06:08 → D.EDHOLD 06:08 → D.M2 13:30
PROVIDERS: Family Medicine; Internal Medicine Nephrology; ADMIT Family Medicine Adult Medicine; ATTEND Family Medicine Adult Medicine
DX: I13.0 Hypertensive heart and chronic kidney disease with heart failure and stage 1 through stage 4 chronic kidney disease, or unspecified chronic kidney disease (principal); I50.31 Acute diastolic (congestive) heart failure; J44.1 Chronic obstructive pulmonary disease with (acute) exacerbation; I50.9 Heart failure, unspecified; N18.3 Chronic kidney disease, stage 3 (moderate); I25.10 Atherosclerotic heart disease of native coronary artery without angina pectoris; E03.9 Hypothyroidism, unspecified; G20 Parkinson's disease; M10.9 Gout, unspecified

== ENCOUNTER 2018-12-05 23:43 | Inpatient (IN) | payer MEDICARE, BC ==
[~2018-12-05] VITALS: Ht 162.6 cm; Wt 73.9 kg
[~2018-12-05 23:43] MED LIST changes: +COLACE100 MG PO; +NORVASC2.5 MG PO; +PEPCID AC20 MG PO; +VITAMIN B-121000 MCG PO
[2018-12-05] MEDS ORDERED: FERROUS SULFAT325 MG PO (23:51)
[2018-12-05] MEDS ORDERED: ALDACTONE50 MG PO ×2 (23:53)
[2018-12-05] MEDS ORDERED: HYDRALAZINE HCL25 MG PO (23:53)
[2018-12-05] MEDS ORDERED: NITROSTAT0.4 MG SL (23:54)
[2018-12-06] VITALS (7 sets, daily range): BP systolic 125–161; BP diastolic 47–96; BMI 28.0; BMI 27.9
[2018-12-06 00:51] LABS: BASOPHILS 0.1 % (0-2); EOSINOPHILS 1.6 % (0-7); HEMATOCRIT 33.6 % (36.0-48.0); HEMOGLOBIN 10.2 g/dL (12-16); IMMATURE GRANULOCYTES 0.1 % (0-5); LYMPHOCYTES 13.8 % (15-50); MCH 27.4 pg (26.0-34.0); MCHC 30.4 g/dL (31.0-37.0); MCV 90.3 fL (80.0-100.0); MEAN PLATELET VOLUME 9.5 fL (7.4-10.4); MONOCYTES 5.6 % (2-11); NEUTROPHILS 78.8 % (40-80); PLATELET COUNT 283 10x3/uL (130-400); RBC 3.72 10x6/uL (4.00-5.40); RDW 16.5 % (11.5-14.5)
[2018-12-06 01:03] LABS: INR 1.14 (0.85-1.17); PROTIME 14.1 SECONDS (11.6-15.0)
[2018-12-06 01:15] LABS: ALBUMIN 2.8 g/dL (3.4-5.0); ALKALINE PHOSPHATASE 55 U/L (46-116); ALT (SGPT) 5 U/L (10-68); BILIRUBIN - TOTAL 0.29 mg/dL (0.2-1.3); CALC OSMOLALITY 284 mosm/kg (275-300); CALCIUM 9.8 mg/dL (8.5-10.1); CARBON DIOXIDE 28.3 mmol/L (21.0-32.0); CHLORIDE - SERUM 105 mmol/L (98-107); CREATININE - SERUM 1.4 mg/dL (0.6-1.3); GLUCOSE 127 mg/dL (74-106); POTASSIUM - SERUM 4.4 mmol/L (3.5-5.1); PROTEIN - SERUM 6.3 g/dL (6.4-8.2); SODIUM 141 mmol/L (136-145); UREA NITROGEN 19 mg/dL (7-18); eGFR NON AFRICAN AMERICAN 38 mL/min (90-120)
[2018-12-06 01:23] LABS: CKMB 1.6 U/L (0.0-3.6); CREATINE KINASE 116 UL (21-215); MAGNESIUM - SERUM 2.1 mg/dL (1.8-2.4); PRO BNP 11993 pg/mL (0-450); TROPONIN-I 0.057 ng/mL (0.000-0.060)
--- NOTE | 2018-12-06 02:49 | NUR ---
PT REPORT CALLED TO NURSE AAKASH. PT STABLE TRANSPORT.
--- NOTE | 2018-12-06 03:16 | NUR ---
REC'D TO ROOM 2216 FROM ER DEPT PER STRETCHER AN 83 Y/O W/FE PER SERVICES DR. DAHL WITH DX CHF/PULMONARY EDEMA. ALLERGY=MULTIPLE. SALINE LOCK PATENT TO LEFT HAND. PLACED ON KATARZYNA MAT FOR FALL RISKS. SCD'S PLACED ON PATIENT YELLOW GOWN SOCKS AND YELLOW BAND. ALARMS SET. SR UP X3 CALL LIGHT WITHIN REACH.PT ON 8 L/M VENTI MASK. HOB UP 60 DEGREES.
--- NOTE | 2018-12-06 04:56 | NUR ---
ASSESSMENT PER ADMIT PACKET. ALERT/ORIENTED. PLACED ON BEDPAN VOIDS WELL.
--- NOTE | 2018-12-06 07:32 | NUR ---
SLEEPING. VENTI MASK IN PLACE AT 8L. LUNGS WITH DIMINISHED BILATERAL LOWER LOBES. HEART SOUNDS S1 AND S2 HEARD IN ALL BENDER. TELEMETRY IN PLACE. SKIN INTACT WITHOUT REDNESS. IV TO LEFT HAND SL PATENT WITHOUT REDNESS. SCDS IN PLACE. BED LOW. CALL PARDO AND PERSONAL ITEMS IN REACH. WILL CONTINUE TO MONITOR.
--- NOTE | 2018-12-06 11:00 | NUR ---
ASSISTED TO BEDPAN. 700ML URINE NOTED.
--- NOTE | 2018-12-06 12:04 | NUR ---
RESTING IN BED. DENIES PAIN. DENIES NEEDS.
--- NOTE | 2018-12-06 13:37 | NUR ---
SITTING IN BED EATING LUNCH. WILL CONTINUE TO MONITOR.
--- NOTE | 2018-12-06 14:16 | NUR ---
PLACED PT ON HIGHFLOW NASAL CANNULA 6LPM, 02 SATURATION 96%
--- NOTE | 2018-12-06 14:48 | MORECARE ---
CASE MANAGEMENT DISCHARGE SUMMARY PATIENT: SRAVAN DOWNEY UNIT: [id number] ADM DATE: 12/06/18 AGE: 83 : 34 SEX: F ROOM/BED: D.2216 AUTHOR: TORREY MIRAMONTES PHYSICIAN: REFERRING PHYSICIAN: DELLA DAHL MD DATE OF SERVICE: 12/06/18 Discharge Plan Patient Name: SRAVAN DOWNEY [facility] [facility] 1935 Planned Disposition: Senior Care Facility Anticipated Discharge Date: Discharge Date: Expected LOS: Initial Reviewer: [email or web address] Initial Review Date: 12/06/2018 Generated: 12/06/18 3:48 pm DCPIA - Discharge Planning Initial Assessment Updated by [id number]: Naomie Marcus on 12/06/18 2:44 pm * Is the patient Alert and Oriented? Yes * How many steps to enter\exit or inside your home? * PCP Neal * Pharmacy [facility] * Preadmission Environment Home with Family * ADLs Partial Dependent * Partial ADLs (Assistance needed) Bathing Dressing Medication Management * Equipment Cane Walker Wheelchair * List name and contact numbers for known caregivers / representatives who currently or will assist patient after discharge: Phil (son) [phone] * Verbal permission to speak to the caregivers and representatives has been obtained from the patient. Yes * Community resources currently utilized Assisted Living * Please name any agencies selected above. [facility]isted living * Additional services required to return to the preadmission environment? Yes * Can the patient safely return to the preadmission environment? Yes * Has this patient been hospitalized within the prior 30 days at any hospital? Yes Patient Name: SRAVAN DOWNEY Page [phone] at 1448 All edits/amendments must be made on the electronic document DICTATION DATE: 12/06/181447 SMEARER: HILDA 12/06/181447 RPT#: [id number] DC DATE: STATUS: ADM IN [facility] [address] [place] [address] END OF REPORT
--- NOTE | 2018-12-06 14:56 | MORECARE ---
CASE MANAGEMENT DISCHARGE SUMMARY PATIENT: SRAVAN DOWNEY UNIT: [id number] ADM DATE: 12/06/18 AGE: 83 : 34 SEX: F ROOM/BED: D.2216 AUTHOR: TORREY MIRAMONTES PHYSICIAN: REFERRING PHYSICIAN: DELLA DAHL MD DATE OF SERVICE: 12/06/18 Discharge Plan Patient Name: SRAVAN DONWEY Facility: [facility]:[place] : 1935 Planned Disposition: Half-Way Facility Anticipated Discharge Date: Discharge Date: Expected LOS: Initial Reviewer: [email or web address] Initial Review Date: 12/06/2018 Generated: 12/06/18 3:56 pm Comments DCP- Discharge Planning Updated by [email or web address]: Naomie Marcus on 12/06/18 1:[address] Patient Name: SRAVAN DOWNEY Admission Status: ER Accout number: [id number] Admission Date: 12-06-2018 : 1935 Admission Diagnosis: Attending: HAKEEM DAHL Current LOS: 1 Anticipated DC Date: Planned Disposition: Half-Way Facility Primary Insurance: MEDICARE A & B Discharge Planning Comments: CM met with patient & her son Phil to complete initial dc planning assessment. CM educated patient on the CM role and verbal consent given by patient to complete assessment. Patient lives at [facility] with her . Patient was admitted from [facility] where she was getting skilled therapy. Her is also out there getting rehab. When she is discharged from the hospital she plans to return there to complete her rehab. Patient has a walker, cane and wheelchair at home. She is gets assistance from bathing, medications and dressing. She will need to be tested for home O2 and CPAP while she is in the hospital. I called and spoke with the LINOTYPE MACHINIST at length about this. Patient denied known discharge needs at this time. CM will continue to follow and will assist as needed with dc plans/needs. Correctional Probation Officer: Naomie Marcus DCPIA - Discharge Planning Initial Assessment Updated by [email or web address]: Naomie Marcus on 12/06/18 2:44 pm * Is the patient Alert and Oriented? Yes * How many steps to enter\exit or inside your home? * PCP Neal * Pharmacy [facility] * Preadmission Environment Home with Family * ADLs Partial Dependent * Partial ADLs (Assistance needed) Bathing Dressing Medication Management * Equipment Cane Walker Wheelchair * List name and contact numbers for known caregivers / representatives who currently or will assist patient after discharge: Phil (son) [phone] * Verbal permission to speak to the caregivers and representatives has been obtained from the patient. Yes * Community resources currently utilized Assisted Living * Please name any agencies selected above. [facility] Assisted living * Additional services required to return to the preadmission environment? Yes * Can the patient safely return to the preadmission environment? Yes * Has this patient been hospitalized within the prior 30 days at any hospital? Yes Last DP export: 12/06/18 1:48 p Patient Name: SRAVAN DOWNEY Page [phone] at 1455 All edits/amendments must be made on the electronic document DICTATION DATE: 12/06/181455 COMMUNICATIONS TECH: HILDA 12/06/181455 RPT#: [id number] DC DATE: STATUS: ADM IN [facility] [address] [place] [address] END OF REPORT
--- NOTE | 2018-12-06 15:39 | NUR ---
DECREASED 02 TO 4LPM, PT O2 SATURATION 99%
--- NOTE | 2018-12-06 16:45 | NUR ---
ASSISTED TO BEDPAN. 900ML URINE NOTED
--- NOTE | 2018-12-06 17:41 | NUR ---
SLEEPING. WILL CONTINUE TO MONITOR.
--- NOTE | 2018-12-06 20:03 | NUR ---
AWAKE,ALERT.NO COMPLAITNS VOICED. RESP EVEN AND UNLABORED. O2 @ 4L PER HIGHFLOW CANNULA. NO DISTRESS NOTED. SL TO LEFT HAND INTACT WITHOUT REDNESS OR EDEMA NOTED. FALL PRECAUTIONS IN PLACE. CL IN REACH
--- NOTE | 2018-12-06 23:53 | NUR ---
I have reviewed this patient and I concur with the Shift Assessment completed by the Licensed Practical Nurse today this shift.
[2018-12-07 02:08] VITALS: BP 147/80
[2018-12-07 04:49] VITALS: BP 140/70
[2018-12-07 05:46] LABS: BASOPHILS 0.4 % (0-2); EOSINOPHILS 1.7 % (0-7); HEMOGLOBIN 9.4 g/dL (12-16); IMMATURE GRANULOCYTES 0.4 % (0-5); LYMPHOCYTES 23.9 % (15-50); MCH 27.6 pg (26.0-34.0); MCHC 30.3 g/dL (31.0-37.0); MCV 91.2 fL (80.0-100.0); MEAN PLATELET VOLUME 9.8 fL (7.4-10.4); MONOCYTES 9.7 % (2-11); NEUTROPHILS 63.9 % (40-80); PLATELET COUNT 236 10x3/uL (130-400); RDW 16.6 % (11.5-14.5); WBC 5.3 10x3/uL (4.8-10.8)
[2018-12-07 06:11] LABS: CALCIUM 10.1 mg/dL (8.5-10.1); CREATININE - SERUM 1.4 mg/dL (0.6-1.3); MAGNESIUM - SERUM 1.9 mg/dL (1.8-2.4); PHOSPHOROUS 4.2 mg/dL (2.5-4.9)
[2018-12-07 06:26] LABS: TROPONIN-I 0.105 ng/mL (0.000-0.060)
--- NOTE | 2018-12-07 06:35 | NUR ---
TROPONIN RESULTS CALLED TO DR VALENTINE WITH NO NEW ORDERS RECEIVED.
--- NOTE | 2018-12-07 08:00 | NUR ---
ASSESSMENT PER FLOW SHEET. PT IS WITHOUT DISTRESS.FALL PREVENTION IN PLACE WITH KATARZYNA.DOOR OPEN.CALL LIGHT IN REACH
[2018-12-07 09:35] VITALS: Ht 162.6 cm; Wt 73.9 kg
[2018-12-07 09:39] VITALS: BP 138/62
[2018-12-07 13:38] VITALS: BP 142/72
--- NOTE | 2018-12-07 14:17 | NUR ---
REMAINS UP IN CHAIR. PT IS WITHOUT DISTRESS.
--- NOTE | 2018-12-07 15:36 | NUR ---
OT NOTE: PT COMPLETED CHAIR TO BED TRANSFER WITH MOD/MAX A. PT COMPLETED BED MOB WITH MOD A. PT COMPLETED SELF CLEANING TASK WITH MAX A. THANK YOU, MILTON DAMON
--- NOTE | 2018-12-07 16:09 | NUR ---
Rehab Prescreening Consult recieved and the chart has been reviewed. Per the CM notes, the patient and her son state she will return to [facility] to continue therapy because that is where her is. Elyssa Olivares RN Clinical Liaison, Rehab
--- NOTE | 2018-12-07 17:39 | NUR ---
REMAINS WITHOUT CHANGE FROM INITIAL SHIFT ASSESSMENT.CONT PLAN OF CARE
[2018-12-07 17:57] VITALS: BP 138/70
--- NOTE | 2018-12-07 19:00 | NUR ---
REPORT RECEIVED AND CARE OF PT ASSUMED. PT LYING IN HIGH GUZMAN'S POSITION WATCHING TV. O2 IN USE VIA HI FLOW NC AT 4L. IV IN LEFT HAND SALINE LOCKED. SCD'S IN PLACE ON BLE. WILL MONITOR FOR NEEDS.
[2018-12-07 20:00] VITALS: BP 125/51
--- NOTE | 2018-12-07 21:57 | NUR ---
HS MEDICATIONS GIVEN. WILL CONTINUE TO MONITOR FOR NEEDS.
--- NOTE | 2018-12-07 23:00 | NUR ---
BI PAP PLACED ON PT BY RT PER ORDERS.
[2018-12-08] VITALS: BP 121/59
[2018-12-08 03:00] VITALS: BP 119/56
[2018-12-08 05:58] LABS: BASOPHILS 0.2 % (0-2); EOSINOPHILS 4.1 % (0-7); HEMATOCRIT 29.6 % (36.0-48.0); HEMOGLOBIN 8.9 g/dL (12-16); IMMATURE GRANULOCYTES 0.2 % (0-5); LYMPHOCYTES 27.3 % (15-50); MCH 27.1 pg (26.0-34.0); MCHC 30.1 g/dL (31.0-37.0); MCV 90.2 fL (80.0-100.0); MONOCYTES 10.7 % (2-11); NEUTROPHILS 57.5 % (40-80); PLATELET COUNT 244 10x3/uL (130-400); RBC 3.28 10x6/uL (4.00-5.40); RDW 16.2 % (11.5-14.5); WBC 4.7 10x3/uL (4.8-10.8)
[2018-12-08 07:06] LABS: ALBUMIN 2.6 g/dL (3.4-5.0); ANION GAP 10.2 mmol/L (8-16); BILIRUBIN - TOTAL 0.37 mg/dL (0.2-1.3); CALCIUM 9.6 mg/dL (8.5-10.1); CREATININE - SERUM 1.3 mg/dL (0.6-1.3); MAGNESIUM - SERUM 1.8 mg/dL (1.8-2.4); POTASSIUM - SERUM 4.2 mmol/L (3.5-5.1); PROTEIN - SERUM 5.9 g/dL (6.4-8.2)
--- NOTE | 2018-12-08 08:08 | NUR ---
PT ALERT X 4. BRUISE TO LEFT SIDE OF MOUTH, PT REPORTED SHE BIT HER CHEEK. BREATH SOUNDS DIMINISHED TO LEFT LOWER LOBE, 4L O2 PER NC. TELEMETRY IN PLACE. IV TO LEFT FOREARM, PATENT, DRESSING CDI. PT REPORTING PAIN OF 3/10 TO LEFT HIP, STATING THIS IS CHRONIC. +1 EDEMA TO FEET. BED LOW, CALL LIGHT IN REACH. NO OTHER NEEDS AT THIS TIME.
[2018-12-08 08:49] VITALS: BP 121/62
[2018-12-08 13:39] VITALS: BP 145/83
[2018-12-08 17:09] VITALS: BP 136/65
--- NOTE | 2018-12-08 19:00 | NUR ---
REPORT RECEIVED AND CARE OF PT ASSUMED. PT LYING IN HIGH GUZMAN'S POSITION WITH EYES CLOSED. IV IN LEFT HAND SALINE LOCKED. WILL MONITOR FOR NEEDS.
[2018-12-08 20:18] VITALS: BP 137/69
--- NOTE | 2018-12-08 21:00 | NUR ---
ALL BEDDING ANG GOWN CHANGED DUE TO INCONTINENCE. POSITIONED FOR COMFORT.
--- NOTE | 2018-12-08 21:11 | NUR ---
HS MEDICATIONS GIVEN. WILL CONTINUE TO MONITOR FOR NEEDS.
[2018-12-09 02:08] VITALS: BP 135/63
[2018-12-09 05:34] VITALS: BP 121/74
[2018-12-09 06:18] LABS: BASOPHILS 0.2 % (0-2); EOSINOPHILS 2.7 % (0-7); HEMATOCRIT 31.1 % (36.0-48.0); HEMOGLOBIN 9.5 g/dL (12-16); IMMATURE GRANULOCYTES 0.4 % (0-5); LYMPHOCYTES 21.8 % (15-50); MCH 27.5 pg (26.0-34.0); MCHC 30.5 g/dL (31.0-37.0); MCV 90.1 fL (80.0-100.0); MEAN PLATELET VOLUME 10.2 fL (7.4-10.4); MONOCYTES 9.5 % (2-11); NEUTROPHILS 65.4 % (40-80); PLATELET COUNT 244 10x3/uL (130-400); RBC 3.45 10x6/uL (4.00-5.40); WBC 5.1 10x3/uL (4.8-10.8)
[2018-12-09 06:55] LABS: ALBUMIN 2.7 g/dL (3.4-5.0); ANION GAP 11.5 mmol/L (8-16); BILIRUBIN - TOTAL 0.5 mg/dL (0.2-1.3); CALCIUM 9.4 mg/dL (8.5-10.1); CARBON DIOXIDE 33.1 mmol/L (21.0-32.0); CREATININE - SERUM 1.4 mg/dL (0.6-1.3); POTASSIUM - SERUM 3.6 mmol/L (3.5-5.1)
[2018-12-09 08:57] VITALS: BP 125/63
--- NOTE | 2018-12-09 09:17 | NUR ---
PT ALERT X 4. BREATH SOUNDS DIMINISHED TO RLL, 2L O2 PER NC. TELEMETRY IN PLACE. REDDENED AREA TO BUTTOCKS, PT POSITIONED ON RIGHT SIDE. IV TO LEFT FOREARM, SALINE LOCKED. PT REPORTING NO PAIN AT THIS TIME. BED LOW, CALL LIGHT IN REACH. NO OTHER NEEDS AT THIS TIME.
[2018-12-09 12:26] VITALS: BP 136/70
[2018-12-09 17:49] VITALS: BP 118/77
[2018-12-09 20:00] VITALS: BP 167/89
--- NOTE | 2018-12-10 00:16 | NUR ---
PT REFUSES TO WEAR BIPAP
[2018-12-10 03:55] LABS: BASOPHILS 0.2 % (0-2); EOSINOPHILS 0.9 % (0-7); HEMATOCRIT 33.2 % (36.0-48.0); HEMOGLOBIN 10.2 g/dL (12-16); IMMATURE GRANULOCYTES 0.2 % (0-5); LYMPHOCYTES 25.2 % (15-50); MCH 27.6 pg (26.0-34.0); MCHC 30.7 g/dL (31.0-37.0); MCV 89.7 fL (80.0-100.0); MEAN PLATELET VOLUME 10.2 fL (7.4-10.4); MONOCYTES 7.4 % (2-11); NEUTROPHILS 66.1 % (40-80); PLATELET COUNT 256 10x3/uL (130-400); RDW 15.8 % (11.5-14.5); WBC 4.4 10x3/uL (4.8-10.8)
[2018-12-10 04:13] LABS: ANION GAP 6.3 mmol/L (8-16); BILIRUBIN - TOTAL 0.52 mg/dL (0.2-1.3); CALCIUM 10.2 mg/dL (8.5-10.1); CARBON DIOXIDE 39.2 mmol/L (21.0-32.0); CREATININE - SERUM 1.5 mg/dL (0.6-1.3); POTASSIUM - SERUM 3.5 mmol/L (3.5-5.1); PROTEIN - SERUM 6.4 g/dL (6.4-8.2)
[2018-12-10 04:30] VITALS: BP 132/78
[2018-12-10 07:56] VITALS: BP 106/55
--- NOTE | 2018-12-10 09:21 | NUR ---
PT ALERT X 4. SORE TO BRIDGE OF NOSE. BREATH SOUNDS DIMINISHED TO RLL, 2L O2 PER NC. IV TO LEFT FOREARM, SALINE LOCKED. TELEMETRY IN PLACE. PT WEAK. BED LOW, CALL LIGHT IN REACH. NO OTHER NEEDS AT THIS TIME.
--- NOTE | 2018-12-10 12:08 | NUR ---
Nutrition Follow up: Pt is on a mechanical soft diet with 25% average po intake Pt feeds self Pt is sleeping now. Spoke with nursing Will add Ensure RD following
[2018-12-10 12:37] VITALS: BP 124/70
--- NOTE | 2018-12-10 17:09 | NUR ---
OT NOTE: PT COMPLETED BED MOB WITH MIN A. PT COMPLETED ADL MOB WITH CGA WITH RW. PT COMPLETED BUE AROM AXS. PT COMPLETED GROOMING TASK AT EOB WITH SET UP. THANK YOU, MILTON DAMON
[2018-12-10 17:23] VITALS: BP 134/76
--- NOTE | 2018-12-10 20:30 | NUR ---
A&O, PAIN OF 7/10, ALL OVER. ABDOMEN DISTENDED, NO TENDERNESS REPORTED. 2L O2 IN USE. BREATH SOUNDS DIMINISHED IN LOWER LOBES, BILATERALLY. ENCOURAGED PT TO TAKE DEEP BREATHS. WILL CONTINUE TO MONITOR.
[2018-12-10 21:24] VITALS: BP 130/67
[2018-12-11 01:28] VITALS: BP 136/70
--- NOTE | 2018-12-11 03:14 | NUR ---
I have reviewed this patient and I concur with the Shift Assessment completed by the Licensed Practical Nurse today this shift.
[2018-12-11 05:34] VITALS: BP 112/61
[2018-12-11 06:36] LABS: BASOPHILS 0.2 % (0-2); EOSINOPHILS 2.2 % (0-7); HEMOGLOBIN 9.3 g/dL (12-16); IMMATURE GRANULOCYTES 0.2 % (0-5); LYMPHOCYTES 31.8 % (15-50); MCH 27.8 pg (26.0-34.0); MCV 89.6 fL (80.0-100.0); MEAN PLATELET VOLUME 10.2 fL (7.4-10.4); MONOCYTES 11.4 % (2-11); NEUTROPHILS 54.2 % (40-80); PLATELET COUNT 214 10x3/uL (130-400); RBC 3.35 10x6/uL (4.00-5.40)
[2018-12-11 06:53] LABS: ALBUMIN 2.9 g/dL (3.4-5.0); ANION GAP 5.7 mmol/L (8-16); BILIRUBIN - TOTAL 0.49 mg/dL (0.2-1.3); CALCIUM 9.7 mg/dL (8.5-10.1); CARBON DIOXIDE 37.9 mmol/L (21.0-32.0); CREATININE - SERUM 1.7 mg/dL (0.6-1.3); POTASSIUM - SERUM 3.6 mmol/L (3.5-5.1); PROTEIN - SERUM 5.7 g/dL (6.4-8.2)
--- NOTE | 2018-12-11 08:00 | NUR ---
PT RESTING IN BED WITH HOB ELEVATED. NO ACUTE DISTRESS NOTED. O2 @ 2L NC IN PLACE. SALINE LOC TO LEFT HAND. SITE WITHOUT REDNESS OR EDEMA. DENIES PAIN AT THIS TIME. DENIES FURTHER NEEDS. CL WITHIN REACH. ENCOURAGED TO CALL WITH NEEDS. CONTINUE POC
[2018-12-11 08:38] VITALS: BP 142/81
--- NOTE | 2018-12-11 12:31 | NUR ---
NUTRITION F/U PT REMAINS ON [facility] SOFT DIET. REQUESTING SHEEP KILLER SALAD FOR DINNER TONITE. STATES SHE EATS SHEEP KILLER SALAD IF IT IS CHOPPED. REVIEWED SPEECH THERAPY NOTES, DISCUSSED WITH SPEECH THERAPIST. OK WITH SHEEP KILLER SALAD IF FINELY CHOPPED. DISCUSSED WITH DIET OFFICE AND EMPHASIZED THE NEED FOR SALAD TO BE FINELY CHOPPED. RD FOLLOWING
[2018-12-11 13:07] VITALS: BP 144/85
[2018-12-11 16:40] VITALS: BP 137/79
[2018-12-11 20:00] VITALS: BP 155/68
--- NOTE | 2018-12-11 21:30 | NUR ---
WATCHING TV QUEILTY WITH NO DISTRESS NOTED. RESP UNLABORED. O2 @ 2L PER NC ON.SL TO LEFT HAND WITHOUT REDNESS OR EDEMA NOTED. CL IN REACH
[2018-12-12] VITALS: BP 136/79
[2018-12-12 04:30] VITALS: BP 143/87
--- NOTE | 2018-12-12 04:54 | NUR ---
I have reviewed this patient and I concur with the Shift Assessment completed by the Licensed Practical Nurse today this shift.
[2018-12-12 04:56] LABS: BASOPHILS 0.2 % (0-2); EOSINOPHILS 1.1 % (0-7); HEMATOCRIT 30.4 % (36.0-48.0); HEMOGLOBIN 9.5 g/dL (12-16); IMMATURE GRANULOCYTES 0.2 % (0-5); LYMPHOCYTES 28.3 % (15-50); MCH 27.6 pg (26.0-34.0); MCHC 31.3 g/dL (31.0-37.0); MCV 88.4 fL (80.0-100.0); MEAN PLATELET VOLUME 10.3 fL (7.4-10.4); MONOCYTES 10.7 % (2-11); NEUTROPHILS 59.5 % (40-80); PLATELET COUNT 217 10x3/uL (130-400); RBC 3.44 10x6/uL (4.00-5.40); RDW 15.7 % (11.5-14.5); WBC 4.6 10x3/uL (4.8-10.8)
[2018-12-12 05:17] LABS: ALBUMIN 2.8 g/dL (3.4-5.0); ANION GAP 3.3 mmol/L (8-16); BILIRUBIN - TOTAL 0.49 mg/dL (0.2-1.3); CALCIUM 9.9 mg/dL (8.5-10.1); CARBON DIOXIDE 38.2 mmol/L (21.0-32.0); CREATININE - SERUM 1.4 mg/dL (0.6-1.3); POTASSIUM - SERUM 3.5 mmol/L (3.5-5.1)
[2018-12-12 09:22] VITALS: BP 136/80
[2018-12-12 12:49] VITALS: BP 152/82
[2018-12-12 14:56] VITALS: BP 133/75
--- NOTE | 2018-12-12 17:18 | NUR ---
OT NOTE: PT COMPLETED BED MOB TASKS WITH MAX A. PT COMPLETED SIT TO STAND WITH MOD A. PT COMPLETED BUE AROM AXS. PT COMPLETED GROOMING TASK WITH SET UP. THANK YOU, MILTON DAMON
[2018-12-12 20:00] VITALS: BP 136/75
--- NOTE | 2018-12-12 20:25 | NUR ---
WATCHING TV QUIELTY. NO DISTRESS NOTED. RESP UNLABORED. SL TO LFA WITHOUT REDNESS OR EDEMA NOTED. CL IN REACH
[2018-12-13] VITALS: BP 144/83
--- NOTE | 2018-12-13 03:04 | NUR ---
I have reviewed this patient and I concur with the Shift Assessment completed by the Licensed Practical Nurse today this shift.
[2018-12-13 04:00] VITALS: BP 132/82
[2018-12-13 05:27] LABS: BASOPHILS 0.2 % (0-2); EOSINOPHILS 1.5 % (0-7); HEMATOCRIT 30.4 % (36.0-48.0); HEMOGLOBIN 9.6 g/dL (12-16); IMMATURE GRANULOCYTES 0.2 % (0-5); LYMPHOCYTES 24.5 % (15-50); MCH 27.9 pg (26.0-34.0); MCHC 31.6 g/dL (31.0-37.0); MCV 88.4 fL (80.0-100.0); MEAN PLATELET VOLUME 10.1 fL (7.4-10.4); MONOCYTES 9.4 % (2-11); NEUTROPHILS 64.2 % (40-80); PLATELET COUNT 193 10x3/uL (130-400); RBC 3.44 10x6/uL (4.00-5.40); RDW 15.9 % (11.5-14.5); WBC 5.4 10x3/uL (4.8-10.8)
[2018-12-13 05:38] LABS: ANION GAP 5.8 mmol/L (8-16); CALCIUM 10.1 mg/dL (8.5-10.1); CARBON DIOXIDE 37.8 mmol/L (21.0-32.0); CREATININE - SERUM 1.3 mg/dL (0.6-1.3); POTASSIUM - SERUM 3.6 mmol/L (3.5-5.1)
--- NOTE | 2018-12-13 07:45 | NUR ---
PT RESTING IN BED WITH EYES CLOSED. RESP EVEN AND UNLABORED. PT AWAKENS EASILY. DENIES PAIN AT THIS TIME. O2 @ 3L NC IN PLACE. SALINE LOC TO LEFT HAND. SITE WITHOUT REDNESS OR EDEMA. DENIES NEEDS AT THIS TIME. CL WITHIN REACH. ENCOURAGED TO CALL WITH NEEDS. CONTINUE POC
[2018-12-13 09:00] VITALS: BP 127/66
--- NOTE | 2018-12-13 12:18 | MORECARE ---
CASE MANAGEMENT DISCHARGE SUMMARY PATIENT: SRAVAN DOWNEY UNIT: [id number] ADM DATE: 12/06/18 AGE: 83 : 34 SEX: F ROOM/BED: D.2216 AUTHOR: TORREY MIRAMONTES PHYSICIAN: REFERRING PHYSICIAN: DELLA DAHL MD DATE OF SERVICE: 12/13/18 Discharge Plan Patient Name: SRAVAN DOWNEY Facility: [facility]:[place] : 1935 Planned Disposition: Shelter Facility Anticipated Discharge Date: Discharge Date: Expected LOS: Initial Reviewer: [email or web address] Initial Review Date: 12/06/2018 Generated: 12/13/18 1:18 pm Comments DCP- Discharge Planning Updated by [email or web address]: Naomie Marcus on 12/06/18 1:[address] Patient Name: SRAVAN DOWNEY Admission Status: ER Accout number: [id number] Admission Date: 12-06-2018 : 1935 Admission Diagnosis: Attending: HAKEEM DAHL Current LOS: 1 Anticipated DC Date: Planned Disposition: Shelter Facility Primary Insurance: MEDICARE A & B Discharge Planning Comments: CM met with patient & her son Phil to complete initial dc planning assessment. CM educated patient on the CM role and verbal consent given by patient to complete assessment. Patient lives at [facility] with her . Patient was admitted from [facility] where she was getting skilled therapy. Her is also out there getting rehab. When she is discharged from the hospital she plans to return there to complete her rehab. Patient has a walker, cane and wheelchair at home. She is gets assistance from bathing, medications and dressing. She will need to be tested for home O2 and CPAP while she is in the hospital. I called and spoke with the LAB ASSOCIATE at length about this. Patient denied known discharge needs at this time. CM will continue to follow and will assist as needed with dc plans/needs. Carbon Paper Coating Machine Setter: Naomie Marcus DCPIA - Discharge Planning Initial Assessment Updated by [id number]: Naomie Marcus on 12/06/18 2:44 pm * Is the patient Alert and Oriented? Yes * How many steps to enter\exit or inside your home? * PCP Neal * Pharmacy [facility] * Preadmission Environment Home with Family * ADLs Partial Dependent * Partial ADLs (Assistance needed) Bathing Dressing Medication Management * Equipment Cane Walker Wheelchair * List name and contact numbers for known caregivers / representatives who currently or will assist patient after discharge: Phil (son) [phone] * Verbal permission to speak to the caregivers and representatives has been obtained from the patient. Yes * Community resources currently utilized Assisted Living * Please name any agencies selected above. [facility] living * Additional services required to return to the preadmission environment? Yes * Can the patient safely return to the preadmission environment? Yes * Has this patient been hospitalized within the prior 30 days at any hospital? Yes External Providers External Provider: [facility] Next Contact Date: Service Request Date: Service Type: Resolution: Reviewer: Comments: Last DP export: 12/06/18 1:56 p Patient Name: SRAVAN DOWNEY Page [phone] at 1218 All edits/amendments must be made on the electronic document DICTATION DATE: 12/13/181216 FAMILY PRACTICE MEDICAL DOCTOR: HILDA 12/13/187 RPT#: [id number] DC DATE: STATUS: ADM IN [facility] [address] [place] [address] END OF REPORT
[2018-12-13 12:36] VITALS: BP 119/58
--- NOTE | 2018-12-13 16:08 | NUR ---
OT NOTE: PT PERFORMED WELL TODAY. BED MOB WITH MOD ASSIST. SIT TO STAND WITH MIN ASSIST AND USE OF WALKER. ABLE TO AMB TO BATHROOM WITH WALKER, O2, AND MIN ASSIST. MOD ASSIST WITH TOILET TRANSFER AND HYGIENE. RETURNED TO CHAIR. ABLE TO PERFORM UE BATHING WITH MIN ASSIST; MIN ASSIST WITH UPPER LEGS; MAX ASSIST WITH PERINEAL AREA, MAX ASSIST WITH FEET AND DONNING SOCKS. FEEDING WITH SET UP AND USE OF BUILT UP HANDLES WHICH WERE PLACED ON UTENSILS FOR BREAKFAST. EXT TIME AND SET UP OF TRAY REQUIRED. MARISA HAY, OTR/L
--- NOTE | 2018-12-13 16:14 | NUR ---
OT NOTE: PT COMPLETED BATHING TASKS IN CHAIR WITH MOD A. PT COMPLETED TOILETING WITH MOD A. PT COMPLETED GROOMING WITH MIN A. PT COMPLETED BED MOB TASKS WITH MAX A FOR SUPINE TO SIT. PT COMPLETED ADL MOB WITH MIN/CGA. THANK YOU, MILTON DAMNO
--- NOTE | 2018-12-13 16:30 | NUR ---
CONTACTED PHARMACY REGARDING PT MED SINEMET NOT BEING AVAILABLE IN [facility]. WAS INFORMED THAT THERE MAY BE A LOT OF MEDICATIONS UNAVAILABLE. 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 WAS INFORMED THAT IT WOULD BE WORKED ON
[2018-12-13 16:43] VITALS: BP 127/68
--- NOTE | 2018-12-13 17:00 | NUR ---
PT MEDICATION SINEMET REMAINS UNAVAILABLE AT THIS TIME. PHARMACY AWARE OF
--- NOTE | 2018-12-13 17:01 | MORECARE ---
CASE MANAGEMENT DISCHARGE SUMMARY PATIENT: SRAVAN DOWENY UNIT: [id number] ADM DATE: 12/06/18 AGE: 83 : 34 SEX: F ROOM/BED: D.2216 AUTHOR: TORREY MIRAMONTES PHYSICIAN: REFERRING PHYSICIAN: DELLA DAHL MD DATE OF SERVICE: 12/13/18 Discharge Plan Patient Name: SRAVAN DOWNEY Facility: [facility]:[place] : 1935 Planned Disposition: [facility]cf Facility Anticipated Discharge Date: Discharge Date: Expected LOS: Initial Reviewer: [email or web address] Initial Review Date: 12/06/2018 Generated: 12/13/18 6:00 pm Comments DCP- Discharge Planning Updated by [email or web address]: Naomie Marcus on 12/06/18 1:[address] Patient Name: SRAVAN DOWNEY Admission Status: ER Accout number: [id number] Admission Date: 12-06-2018 : 1935 Admission Diagnosis: Attending: HAKEEM DAHL Current LOS: 1 Anticipated DC Date: Planned Disposition: [facility]cf Facility Primary Insurance: MEDICARE A & B Discharge Planning Comments: CM met with patient & her son Phil to complete initial dc planning assessment. CM educated patient on the CM role and verbal consent given by patient to complete assessment. Patient lives at [facility] with her . Patient was admitted from [facility] where she was getting skilled therapy. Her is also out there getting rehab. When she is discharged from the hospital she plans to return there to complete her rehab. Patient has a walker, cane and wheelchair at home. She is gets assistance from bathing, medications and dressing. She will need to be tested for home O2 and CPAP while she is in the hospital. I called and spoke with the DRAWER MAKER at length about this. Patient denied known discharge needs at this time. CM will continue to follow and will assist as needed with dc plans/needs. Log Loader: Naomie Marcus DCPIA - Discharge Planning Initial Assessment Updated by [email or web address]: Naomie Marcus on 12/06/18 2:44 pm * Is the patient Alert and Oriented? Yes * How many steps to enter\exit or inside your home? * PCP Neal * Pharmacy [facility] * Preadmission Environment Home with Family * ADLs Partial Dependent * Partial ADLs (Assistance needed) Bathing Dressing Medication Management * Equipment Cane Walker Wheelchair * List name and contact numbers for known caregivers / representatives who currently or will assist patient after discharge: Phil (son) [phone] * Verbal permission to speak to the caregivers and representatives has been obtained from the patient. Yes * Community resources currently utilized Assisted Living * Please name any agencies selected above. [facility] Assisted living * Additional services required to return to the preadmission environment? Yes * Can the patient safely return to the preadmission environment? Yes * Has this patient been hospitalized within the prior 30 days at any hospital? Yes External Providers External Provider: [facility] Next Contact Date: Service Request Date: Service Type: Resolution: Reviewer: Comments: Last DP export: 12/13/18 11:18 a Patient Name: SRAVAN DOWNEY Page [phone] at 1701 All edits/amendments must be made on the electronic document DICTATION DATE: 12/13/181699 PACKING AND WRAPPING SUPERVISOR: HILDA 12/13/181699 RPT#: [id number] DC DATE: STATUS: ADM IN [facility] [address] [place] [address] END OF REPORT
--- NOTE | 2018-12-13 20:44 | NUR ---
RESTING QUIETLY WITH NO DISTRESS NOTED. O2 @ 3L PER NC ON. RESP EVEN AND UNALBORED. SL TO LEFT HAND WITHOUT REDNESS OR EDEMA NOTED. DENIES DISCOMFORT. CL IN REACH
[2018-12-14 00:07] VITALS: BP 128/74
--- NOTE | 2018-12-14 01:56 | NUR ---
I have reviewed this patient and I concur with the Shift Assessment completed by the Licensed Practical Nurse today this shift.
[2018-12-14 05:07] VITALS: BP 139/76
[2018-12-14 06:31] LABS: BASOPHILS 0.2 % (0-2); EOSINOPHILS 1.3 % (0-7); HEMATOCRIT 30.9 % (36.0-48.0); HEMOGLOBIN 9.5 g/dL (12-16); IMMATURE GRANULOCYTES 0.2 % (0-5); LYMPHOCYTES 23.9 % (15-50); MCH 27.5 pg (26.0-34.0); MCHC 30.7 g/dL (31.0-37.0); MCV 89.6 fL (80.0-100.0); MEAN PLATELET VOLUME 11.4 fL (7.4-10.4); MONOCYTES 8.4 % (2-11); PLATELET COUNT 209 10x3/uL (130-400); RBC 3.45 10x6/uL (4.00-5.40); RDW 15.8 % (11.5-14.5); WBC 6.4 10x3/uL (4.8-10.8)
[2018-12-14 06:37] LABS: ANION GAP 7.3 mmol/L (8-16); CALCIUM 10.4 mg/dL (8.5-10.1); CARBON DIOXIDE 37.2 mmol/L (21.0-32.0); CREATININE - SERUM 1.4 mg/dL (0.6-1.3); POTASSIUM - SERUM 3.5 mmol/L (3.5-5.1)
--- NOTE | 2018-12-14 08:00 | NUR ---
ASSESSMENT PER FLOW SHEET. PT IS WITHOUT DISTRESS.MONITOR
[2018-12-14 09:00] VITALS: BP 173/68
--- NOTE | 2018-12-14 13:17 | NUR ---
NUTRITION F/U PT TOLERATING AHA MECH SOFT DIET BUT PO INTAKE REMAINS POOR MOST MEALS. WILL CONTINUE TO ENCOURAGE PO INTAKE. RD FOLLOWING
[2018-12-14 13:23] VITALS: BP 147/92
--- NOTE | 2018-12-14 14:42 | MORECARE ---
CASE MANAGEMENT DISCHARGE SUMMARY PATIENT: SRAVAN DOWNEY UNIT: [id number] ADM DATE: 12/06/18 AGE: 83 : 34 SEX: F ROOM/BED: D.2216 AUTHOR: KULWINDERDOC PHYSICIAN: REFERRING PHYSICIAN: DELLA DAHL MD DATE OF SERVICE: 12/14/18 Discharge Plan Patient Name: SRAVAN DOWNEY Facility: [facility]:[place] : 1935 Planned Disposition: [facility] Facility Anticipated Discharge Date: Discharge Date: Expected LOS: Initial Reviewer: [email or web address] Initial Review Date: 12/06/2018 Generated: 12/14/18 3:42 pm Comments DCP- Discharge Planning Updated by [id number]: Naomie Marcus on 12/14/18 1:[address] Patient qualifies for Home O2 and portability when she is discharged. Salvadorean home patient here in room to explain to her how to use the portable. She can not get a CPAP until she has a diagnostic titration done & does not have the correct DX for a trilogy per Clark. CM to follow and assist as needed DCP- Discharge Planning Updated by [email or web address]: Naomie Marcus on 12/06/18 1:[address] Patient Name: SRAVAN DOWNEY Admission Status: ER Accout number: [id number] Admission Date: 12-06-2018 : 1935 Admission Diagnosis: Attending: HAKEEM DAHL Current LOS: 1 Anticipated DC Date: Planned Disposition: [facility] Facility Primary Insurance: MEDICARE A & B Discharge Planning Comments: CM met with patient & her son Phil to complete initial dc planning assessment. CM educated patient on the CM role and verbal consent given by patient to complete assessment. Patient lives at [facility] with her . Patient was admitted from [facility] where she was getting skilled therapy. Her is also out there getting rehab. When she is discharged from the hospital she plans to return there to complete her rehab. Patient has a walker, cane and wheelchair at home. She is gets assistance from bathing, medications and dressing. She will need to be tested for home O2 and CPAP while she is in the hospital. I called and spoke with the HOSE OPERATOR at length about this. Patient denied known discharge needs at this time. CM will continue to follow and will assist as needed with dc plans/needs. Wire Bender: Naomie Marcus DCPIA - Discharge Planning Initial Assessment Updated by [email or web address]: Naomie Marcus on 12/06/18 2:44 pm * Is the patient Alert and Oriented? Yes * How many steps to enter\exit or inside your home? * PCP Hull * Pharmacy [facility] * Preadmission Environment Home with Family * ADLs Partial Dependent * Partial ADLs (Assistance needed) Bathing Dressing Medication Management * Equipment Cane Walker Wheelchair * List name and contact numbers for known caregivers / representatives who currently or will assist patient after discharge: Phil (son) [phone] * Verbal permission to speak to the caregivers and representatives has been obtained from the patient. Yes * Community resources currently utilized Assisted Living * Please name any agencies selected above. [facility] Assisted living * Additional services required to return to the preadmission environment? Yes * Can the patient safely return to the preadmission environment? Yes * Has this patient been hospitalized within the prior 30 days at any hospital? Yes Last DP export: 12/13/18 4:00 p Patient Name: SRAVAN DOWNEY Page [phone] at 1442 All edits/amendments must be made on the electronic document DICTATION DATE: 12/14/181440 MANAGER AGENCY: HILDA 12/14/181440 RPT#: [id number] DC DATE: STATUS: ADM IN [facility] [address] [place] [address] END OF REPORT
[2018-12-14 17:22] VITALS: BP 158/83
--- NOTE | 2018-12-14 19:00 | NUR ---
REMAINS WITHOUT CHNAGE. CONT PLAN OF CARE
--- NOTE | 2018-12-14 20:00 | NUR ---
PT SITTING UP IN BED, NO SIGNS OF DISTRESS. ALERT AND ORIENTED. O2 2L/NC. IV LEFT HAND SL. HR [address] PER TELE. ASSISTED PT ON AND OFF BEDPAN TO VOID. CHANGED LINENS. KATARZYNA ON. SCDS ON. CL IN REACH, WILL CONT TO MONITOR
[2018-12-14 20:06] VITALS: BP 124/72
[2018-12-15 00:57] VITALS: BP 145/78
[2018-12-15 04:35] VITALS: BP 140/85
[2018-12-15 07:18] LABS: BASOPHILS 0.2 % (0-2); EOSINOPHILS 1.8 % (0-7); HEMATOCRIT 30.4 % (36.0-48.0); HEMOGLOBIN 9.4 g/dL (12-16); IMMATURE GRANULOCYTES 0.2 % (0-5); LYMPHOCYTES 26.5 % (15-50); MCH 27.5 pg (26.0-34.0); MCHC 30.9 g/dL (31.0-37.0); MCV 88.9 fL (80.0-100.0); MEAN PLATELET VOLUME 11.3 fL (7.4-10.4); MONOCYTES 9.1 % (2-11); NEUTROPHILS 62.2 % (40-80); PLATELET COUNT 197 10x3/uL (130-400); RBC 3.42 10x6/uL (4.00-5.40); RDW 15.9 % (11.5-14.5); WBC 5.6 10x3/uL (4.8-10.8)
[2018-12-15 07:37] LABS: CALCIUM 10.5 mg/dL (8.5-10.1); CARBON DIOXIDE 37.9 mmol/L (21.0-32.0); CREATININE - SERUM 1.4 mg/dL (0.6-1.3); POTASSIUM - SERUM 3.9 mmol/L (3.5-5.1)
--- NOTE | 2018-12-15 08:00 | NUR ---
PT RESTING NO NEEDS EXPRESSED AT THIS TIME, NO SIGNS OF DISTRESS NOTED, CL IN REACH
[2018-12-15 08:35] VITALS: BP 151/67
[2018-12-15 12:48] VITALS: BP 135/74
--- NOTE | 2018-12-15 14:52 | NUR ---
I have reviewed this patient and I concur with the Shift Assessment completed by the Licensed Practical Nurse today this shift.
[2018-12-15 16:47] VITALS: BP 129/75
--- NOTE | 2018-12-15 19:30 | NUR ---
PT SITTING UP IN BED EATING DINNER, DENIES NEEDS. CL IN REACH, KATARZYNA ON. WILL CTM
[2018-12-15 20:00] VITALS: BP 134/76
--- NOTE | 2018-12-15 20:00 | NUR ---
PLACED PT ON AND OFF BEDPAN. PT DID NOT VOID AT THIS TIME.
--- NOTE | 2018-12-15 23:00 | NUR ---
PT CALLED AND REQUESTED TO BRUSH HER TEETH. ASSISTED PT WITH ORAL CARE SET UP. PT BRUSHED HER TEETH INDEPENDENTLY. OFFERED PT BED BATH, PT AGREED. ASSISTED PT UP WITH SECOND NURSE TO BEDSIDE COMMODE, PT VOIDED. CHANGED PT LINENS AND GAVE BATH. ASSISTED PT BACK TO BED. KATARZYNA ON. PT APPLIED LOTION ON HERSELF AND COMBED HER HAIR. STATES "I FEEL HUMAN AGAIN." PT ID, ALLERGY AND YELLOW BAND FALLING OFF AROUND WRIST, REMOVED AND PLACED NEW BANDS. DENIES OTHER NEEDS. RESPIRATORY TO BEDSIDE TO PLACE PT ON BIPAP. CL IN REACH, WILL CTM
[2018-12-16] VITALS: BP 157/83
[2018-12-16 04:00] VITALS: BP 166/87
[2018-12-16 07:14] LABS: BASOPHILS 0.2 % (0-2); EOSINOPHILS 2.7 % (0-7); IMMATURE GRANULOCYTES 0.4 % (0-5); LYMPHOCYTES 27.8 % (15-50); MCH 27.6 pg (26.0-34.0); MCHC 31.3 g/dL (31.0-37.0); MCV 88.4 fL (80.0-100.0); MEAN PLATELET VOLUME 11.7 fL (7.4-10.4); MONOCYTES 7.5 % (2-11); NEUTROPHILS 61.4 % (40-80); PLATELET COUNT 214 10x3/uL (130-400); RBC 3.62 10x6/uL (4.00-5.40); RDW 15.9 % (11.5-14.5); WBC 5.2 10x3/uL (4.8-10.8)
[2018-12-16 07:32] LABS: ANION GAP 7.4 mmol/L (8-16); CALCIUM 10.6 mg/dL (8.5-10.1); CARBON DIOXIDE 37.3 mmol/L (21.0-32.0); CREATININE - SERUM 1.2 mg/dL (0.6-1.3); POTASSIUM - SERUM 3.7 mmol/L (3.5-5.1)
--- NOTE | 2018-12-16 08:00 | NUR ---
PT RESTING EYES CLOSED NO SISGNS OF DISTRESS NOTED EASY RISE AND FALL OF CHEST WILL CONTINUE TO MONTIOR CL IN REACH
[2018-12-16 09:05] VITALS: BP 142/78
[2018-12-16 13:10] VITALS: BP 145/81
--- NOTE | 2018-12-16 15:28 | NUR ---
I have reviewed this patient and I concur with the Shift Assessment completed by the Licensed Practical Nurse today this shift.
--- NOTE | 2018-12-16 15:33 | NUR ---
I have reviewed this patient and I concur with the Shift Assessment completed by the Licensed Practical Nurse today this shift.
[2018-12-16 16:34] VITALS: BP 135/72
--- NOTE | 2018-12-16 19:35 | NUR ---
PT SITTING UP IN BED WITHOUT DISTRESS. ALERT AND ORIENTED. DENIES NEEDS OR PAIN. O2 2L/NC. IV LEFT HAND SL, FLUSHES EASILY. SCDS ON. FEET PROPPED ON PILLOW D/T SLIGHT SWELLING IN BILAT ANKLES AND FEET. LUNGS CTA. HR 90 SR PER TELE. KATARZYNA ON, CL IN REACH. WILL CTM
[2018-12-16 20:32] VITALS: BP 112/63
--- NOTE | 2018-12-16 22:00 | NUR ---
PT ASSISTED WITH ORAL CARE SET UP. BRUSHED TEETH WITHOUT DIFFICULTY. DENIES OTHER NEEDS. CL IN REACH, KATARZYNA ON
[2018-12-17 01:25] VITALS: BP 134/61
[2018-12-17 04:00] VITALS: BP 124/63
[2018-12-17 05:47] LABS: BASOPHILS 0.2 % (0-2); EOSINOPHILS 2.4 % (0-7); HEMATOCRIT 28.4 % (36.0-48.0); HEMOGLOBIN 8.8 g/dL (12-16); IMMATURE GRANULOCYTES 0.2 % (0-5); LYMPHOCYTES 25.2 % (15-50); MCH 27.2 pg (26.0-34.0); MCV 87.7 fL (80.0-100.0); MEAN PLATELET VOLUME 10.7 fL (7.4-10.4); MONOCYTES 8.3 % (2-11); NEUTROPHILS 63.7 % (40-80); PLATELET COUNT 188 10x3/uL (130-400); RBC 3.24 10x6/uL (4.00-5.40); RDW 15.9 % (11.5-14.5); WBC 4.2 10x3/uL (4.8-10.8)
[2018-12-17 05:58] LABS: ANION GAP 8.6 mmol/L (8-16); CALCIUM 10.1 mg/dL (8.5-10.1); CARBON DIOXIDE 35.1 mmol/L (21.0-32.0); CREATININE - SERUM 1.2 mg/dL (0.6-1.3); POTASSIUM - SERUM 3.7 mmol/L (3.5-5.1)
--- NOTE | 2018-12-17 08:00 | NUR ---
PATIENT IN BED WITH EYES CLOSED RESTING QUIETLY AT THIS TIME. CALL LIGHT WITHIN REACH.
--- NOTE | 2018-12-17 08:36 | NUR ---
DECREASED MOBITLIY: -TURN PATIENT EVERY 2 HOURS -FLOAT HEELS -PROTECT BONY PROMINENCES -USE CALMOSEPTINE CREAM FOR REDNESS RELATED TO INCONTINENCE
[2018-12-17 09:02] VITALS: BP 143/64
[2018-12-17 13:57] VITALS: BP 143/72
[2018-12-17 17:52] VITALS: BP 124/61
--- NOTE | 2018-12-17 18:50 | NUR ---
PATIENT IN BED WITH IV INTACT NO COMPLAINTS OR SIGNS OF DISTRESS. CALL LIGHT WITHIN REACH.
--- NOTE | 2018-12-17 20:00 | NUR ---
ASSESSMENT PER LFOWSHEET. IV PATENT RT HAND SALINE LOCKED. O2 ON 2L/M PER NC. KATARZYNA MAT ON ALARMS SET. TELM. SHOWS SR. SCD'S ON.
[2018-12-17 20:41] VITALS: BP 135/72
--- NOTE | 2018-12-17 21:15 | NUR ---
MEDS GIVEN PER MAR.
--- NOTE | 2018-12-18 | NUR ---
RESTING QUIETLY BIPAP ON.
[2018-12-18 00:38] VITALS: BP 129/64
--- NOTE | 2018-12-18 01:23 | NUR ---
PLACED ON BEDPAN VOIDS WELL.
--- NOTE | 2018-12-18 03:08 | NUR ---
RESTING QUIETLY DENIES NEEDS
[2018-12-18 05:22] VITALS: BP 122/76
[2018-12-18 06:45] LABS: BASOPHILS 0.3 % (0-2); EOSINOPHILS 2.6 % (0-7); HEMATOCRIT 27.9 % (36.0-48.0); HEMOGLOBIN 8.7 g/dL (12-16); IMMATURE GRANULOCYTES 0.3 % (0-5); LYMPHOCYTES 36.9 % (15-50); MCH 27.3 pg (26.0-34.0); MCHC 31.2 g/dL (31.0-37.0); MCV 87.5 fL (80.0-100.0); MONOCYTES 8.1 % (2-11); NEUTROPHILS 51.8 % (40-80); PLATELET COUNT 198 10x3/uL (130-400); RBC 3.19 10x6/uL (4.00-5.40); WBC 3.8 10x3/uL (4.8-10.8)
[2018-12-18 06:51] LABS: ALBUMIN 2.6 g/dL (3.4-5.0); ANION GAP 6.9 mmol/L (8-16); BILIRUBIN - TOTAL 0.41 mg/dL (0.2-1.3); CALCIUM 10.3 mg/dL (8.5-10.1); CARBON DIOXIDE 35.6 mmol/L (21.0-32.0); CREATININE - SERUM 1.3 mg/dL (0.6-1.3); POTASSIUM - SERUM 3.5 mmol/L (3.5-5.1); PROTEIN - SERUM 5.7 g/dL (6.4-8.2)
--- NOTE | 2018-12-18 08:00 | NUR ---
ASSESSMENT PER FLOW SHEET. PT IS WITHOUT DISTRESS.FALL PREVENTION IN PLACE.DOOR OPEN
[2018-12-18 09:28] VITALS: BP 126/63
--- NOTE | 2018-12-18 12:00 | NUR ---
OT NOTE: PT WITH CONTINUOUS COMPALINTS OF FREQ URINATION AND NOSE RUNNING. BED MOB WITH MIN ASSIST; AMB TO BATHROOM WITH WALKER AND MIN ASSIST; MOD ASSIST WITH TOILET HYGIENE AND TRANSFERS. SINK HYGIENE WITH SET UP AND EXT TIME; IN ROOM AMBULATION WITH MIN ASSIST AND USE OF 02 AT 3L. STRENGTHENING/ENDURANCE ACTIVITIES. MARISA HAY, OTR/L
--- NOTE | 2018-12-18 13:01 | MORECARE ---
CASE MANAGEMENT DISCHARGE SUMMARY PATIENT: SRAVAN DOWNEY UNIT: [id number] ADM DATE: 12/06/18 AGE: 83 : 34 SEX: F ROOM/BED: D.2216 AUTHOR: TORREY MIRAMONTES PHYSICIAN: REFERRING PHYSICIAN: DELLA DAHL MD DATE OF SERVICE: 12/18/18 Discharge Plan Patient Name: SRAVAN DOWNEY Facility: [facility]:[place] : 1935 Planned Disposition: Prison Facility Anticipated Discharge Date: Discharge Date: Expected LOS: Initial Reviewer: [email or web address] Initial Review Date: 12/06/2018 Generated: 12/18/18 2:01 pm Comments DCP- Discharge Planning Updated by [email or web address]: Naomie Marcus on 12/18/18 11:[address] UPDATED CLINICALS SENT TO [place] I SPOKE WITH HARPER ABOUT DC PLAN. CM TO FOLLOW AND ASSIST NEEDED DCP- Discharge Planning Updated by [email or web address]: Naomie Marcus on 12/14/18 1:[address] Patient qualifies for Home O2 and portability when she is discharged. Bhutanese home patient here in room to explain to her how to use the portable. She can not get a CPAP until she has a diagnostic titration done & does not have the correct DX for a trilogy per Clark. CM to follow and assist as needed DCP- Discharge Planning Updated by [email or web address]: Naomie Marcus on 12/06/18 1:[address] Patient Name: SRAVAN DOWNEY Admission Status: ER Accout number: [id number] Admission Date: 12-06-2018 : 1935 Admission Diagnosis: Attending: HAKEEM DAHL Current LOS: 1 Anticipated DC Date: Planned Disposition: Prison Facility Primary Insurance: MEDICARE A & B Discharge Planning Comments: CM met with patient & her son Phil to complete initial dc planning assessment. CM educated patient on the CM role and verbal consent given by patient to complete assessment. Patient lives at [facility] with her . Patient was admitted from [facility] where she was getting skilled therapy. Her is also out there getting rehab. When she is discharged from the hospital she plans to return there to complete her rehab. Patient has a walker, cane and wheelchair at home. She is gets assistance from bathing, medications and dressing. She will need to be tested for home O2 and CPAP while she is in the hospital. I called and spoke with the TRANSPLANT WORKER at length about this. Patient denied known discharge needs at this time. CM will continue to follow and will assist as needed with dc plans/needs. Oncology Coordinator: Naomie Marcus DCPIA - Discharge Planning Initial Assessment Updated by [email or web address]: Naomie Marcus on 12/06/18 2:44 pm * Is the patient Alert and Oriented? Yes * How many steps to enter\exit or inside your home? * PCP Neal * [facility] * Preadmission Environment Home with Family * ADLs Partial Dependent * Partial ADLs (Assistance needed) Bathing Dressing Medication Management * Equipment Cane Walker Wheelchair * List name and contact numbers for known caregivers / representatives who currently or will assist patient after discharge: Phil (son) [phone] * Verbal permission to speak to the caregivers and representatives has been obtained from the patient. Yes * Community resources currently utilized Assisted Living * Please name any agencies selected above. [facility] Assisted living * Additional services required to return to the preadmission environment? Yes * Can the patient safely return to the preadmission environment? Yes * Has this patient been hospitalized within the prior 30 days at any hospital? Yes Last DP export: 12/14/18 1:42 p Patient Name: SRAVAN DOWNEY Page [phone] at 1301 All edits/amendments must be made on the electronic document DICTATION DATE: 12/18/18 1300 ASSEMBLER INSULATOR: HILDA 12/18/18 1300 RPT#: [id number] DC DATE: STATUS: ADM IN [facility] [address] [place] [address] END OF REPORT
[2018-12-18 13:43] VITALS: BP 130/72
--- NOTE | 2018-12-18 15:36 | NUR ---
OT NOTE: PT COMPLETED SIT TO STAND WITH MIN A. PT COMPLETED ADL MOB WITH CGA. PT COMPLETED SELF FEEDING WITH SET UP AND AE. PT COMPLETED HYGIENE TASK WITH MIN A. THANK YOU,MILTON DAMON
[2018-12-18 17:29] VITALS: BP 140/86
--- NOTE | 2018-12-18 18:28 | NUR ---
DENIES NEEDS,WITHOUT CHNAGE.CONT PLAN OF CARE
--- NOTE | 2018-12-18 20:00 | NUR ---
ASSESSMENT PER FLOWSHEET. IV PATENT LEFT HAND SALINE LOCKED. O2 ON 2L/M PER NC. KATARZYNA MAT ON BED FOR FALL PREVENTION. TELM. SHOWS SR WITH HR 95.
[2018-12-18 21:00] VITALS: BP 119/68
--- NOTE | 2018-12-18 21:30 | NUR ---
MEDS GIVEN PER MAR.
--- NOTE | 2018-12-19 | NUR ---
BIPAP MACHINE ON PER RT TECH.
[2018-12-19 00:43] VITALS: BP 135/67
--- NOTE | 2018-12-19 01:35 | NUR ---
EYES CLOSED RESPIRATIONS WITH EASE AND UNLABORED.
[2018-12-19 05:33] VITALS: BP 119/63
[2018-12-19 05:39] LABS: BASOPHILS 0.3 % (0-2); EOSINOPHILS 1.7 % (0-7); HEMATOCRIT 28.1 % (36.0-48.0); IMMATURE GRANULOCYTES 0.3 % (0-5); LYMPHOCYTES 36.4 % (15-50); MCV 87.5 fL (80.0-100.0); MEAN PLATELET VOLUME 10.9 fL (7.4-10.4); NEUTROPHILS 50.3 % (40-80); PLATELET COUNT 201 10x3/uL (130-400); RBC 3.21 10x6/uL (4.00-5.40); RDW 16.2 % (11.5-14.5); WBC 3.6 10x3/uL (4.8-10.8)
[2018-12-19 06:14] LABS: ALBUMIN 2.7 g/dL (3.4-5.0); ANION GAP 5.3 mmol/L (8-16); BILIRUBIN - TOTAL 0.43 mg/dL (0.2-1.3); CALCIUM 10.1 mg/dL (8.5-10.1); CARBON DIOXIDE 34.5 mmol/L (21.0-32.0); CREATININE - SERUM 1.3 mg/dL (0.6-1.3); POTASSIUM - SERUM 3.8 mmol/L (3.5-5.1); PROTEIN - SERUM 5.9 g/dL (6.4-8.2)
[2018-12-19 10:35] VITALS: BP 139/86
--- NOTE | 2018-12-19 12:23 | NUR ---
NUTRITION F/U PT CONTINUES ON AHA [facility] SOFT DIET. PO INTAKE REMAINS POOR BUT PT IS TAKING ENSURE WITH MEALS. WILL CONTINUE TO ENCOURAGE PO INTAKE, PROVIDE ENSURE. RD FOLLOWING
--- NOTE | 2018-12-19 12:56 | NUR ---
OT NOTE; PERFORMED TOILETING WITH MOD ASSIST FOR HYGIENE; MAX ASSIST TO JONG SOCKS; MIN ASSIST TO JONG GOWN; ABLE TO WASH FACE, HANDS, AND UPPER BODY WITH WASH CLOTH AND SET UP. HAD PT AMBULATE TO SINK WITH WALKER; SHE WAS ABLE TO STAND AT SINK TO PERFORM HAND WASHING AND ORAL CARE.. REQUIRED APPROX 8 MIN TO PERFORM BUT TOLERATED STANDING WELL. ABLE TO AMB INTO HALLWAY WITH WALKER AND ASSIST TO IMPROVE STRENGTH AND ENDURANCE. MARISA HAY, OTR/L
[2018-12-19 13:45] VITALS: BP 110/60
--- NOTE | 2018-12-19 15:38 | NUR ---
OT NOTE: PT COMPLETED BED MOB SIDE ROLLING WITH MIN A. PT COMPLETED BUE AROM EXS FOR INCREASED AX TOLERANCE. PT COMPLETED FACE WASHING WITH SET UP. THANK YOU, MILTON DAMON
--- NOTE | 2018-12-19 18:50 | NUR ---
REMAINS WITHOUT CHANGE.CONT PLAN OF CARE
[2018-12-19 21:23] VITALS: BP 145/80
[2018-12-20 01:57] VITALS: BP 132/63
[2018-12-20 04:41] LABS: BASOPHILS 0.3 % (0-2); EOSINOPHILS 2.1 % (0-7); HEMATOCRIT 29.4 % (36.0-48.0); HEMOGLOBIN 9.2 g/dL (12-16); LYMPHOCYTES 34.4 % (15-50); MCH 27.4 pg (26.0-34.0); MCHC 31.3 g/dL (31.0-37.0); MCV 87.5 fL (80.0-100.0); MEAN PLATELET VOLUME 11.1 fL (7.4-10.4); MONOCYTES 11.4 % (2-11); NEUTROPHILS 51.8 % (40-80); PLATELET COUNT 219 10x3/uL (130-400); RBC 3.36 10x6/uL (4.00-5.40); RDW 16.1 % (11.5-14.5); WBC 3.9 10x3/uL (4.8-10.8)
[2018-12-20 05:07] LABS: ALBUMIN 2.8 g/dL (3.4-5.0); ANION GAP 4.1 mmol/L (8-16); BILIRUBIN - TOTAL 0.37 mg/dL (0.2-1.3); CALCIUM 10.7 mg/dL (8.5-10.1); CARBON DIOXIDE 37.4 mmol/L (21.0-32.0); CREATININE - SERUM 1.3 mg/dL (0.6-1.3); POTASSIUM - SERUM 3.5 mmol/L (3.5-5.1); PROTEIN - SERUM 6.1 g/dL (6.4-8.2)
[2018-12-20 05:41] VITALS: BP 130/75
--- NOTE | 2018-12-20 06:48 | NUR ---
MEDS GIVEN PER SEP. RESTING QUIETLY.
--- NOTE | 2018-12-20 07:40 | NUR ---
PT IS WITHOUT DISTRESS.AWAKENS INT.FALL PRVENTION IN PLACE.
--- NOTE | 2018-12-20 08:00 | NUR ---
ASSESSMENT PER FLOW SHEET. PT IS WITHOUT DISTRESS.FALL PREVENTION IN PLACE WITH KATARZYNA
[2018-12-20] MEDS ORDERED: PULMICORT0.5 MG/21 UPD (09:17)
[2018-12-20] MEDS ORDERED: TESSALON PERLE100 MG PO (09:17)
[2018-12-20] MEDS ORDERED: CHRONULAC30 ML PO (09:17)
[2018-12-20] MEDS ORDERED: LASIX40 MG PO (09:18)
[2018-12-20] MEDS ORDERED: RANEXA500 MG PO (09:19)
--- NOTE | 2018-12-20 09:27 | MORECARE ---
CASE MANAGEMENT DISCHARGE SUMMARY PATIENT: SRAVAN DOWNEY UNIT: [id number] ADM DATE: 12/06/18 AGE: 83 : 34 SEX: F ROOM/BED: D.2216 AUTHOR: TORREY MIRAMONTES PHYSICIAN: REFERRING PHYSICIAN: DELLA DAHL MD DATE OF SERVICE: 12/20/18 Discharge Plan Patient Name: SRAVAN DOWNEY Facility: [facility]:[place] : 1935 Planned Disposition: Retirement Facility Anticipated Discharge Date: Discharge Date: Expected LOS: Initial Reviewer: [id number] Initial Review Date: 12/06/2018 Generated: 12/20/18 10:27 am Comments DCP- Discharge Planning Updated by [email or web address]: Naomie Marcus on 12/20/18 8:[address] Patient will be discharged to [facility] to a skilled bed. They will transport her and pick her up at 11:00. IMM served and explained. I asked if I could call any family and she stated no, that her is there. CM will continue to follow and assist as needed DCP- Discharge Planning Updated by [email or web address]: Naomie Marcus on 12/18/18 11:[address] UPDATED CLINICALS SENT TO [place] I SPOKE WITH HARPER ABOUT DC PLAN. CM TO FOLLOW AND ASSIST NEEDED DCP- Discharge Planning Updated by [email or web address]: Naomie Marcus on 12/14/18 1:[address] Patient qualifies for Home O2 and portability when she is discharged. [place] home patient here in room to explain to her how to use the portable. She can not get a CPAP until she has a diagnostic titration done & does not have the correct DX for a trilogy per Clark. CM to follow and assist as needed DCP- Discharge Planning Updated by [email or web address]: Naomie Marcus on 12/06/18 1:[address] Patient Name: SRAVAN DOWNEY Admission Status: ER Accout number: [id number] Admission Date: 12-06-2018 : 1935 Admission Diagnosis: Attending: HAKEEM DAHL Current LOS: 1 Anticipated DC Date: Planned Disposition: Retirement Facility Primary Insurance: MEDICARE A & B Discharge Planning Comments: CM met with patient & her son Phil to complete initial dc planning assessment. CM educated patient on the CM role and verbal consent given by patient to complete assessment. Patient lives at [facility] with her . Patient was admitted from [facility] where she was getting skilled therapy. Her is also out there getting rehab. When she is discharged from the hospital she plans to return there to complete her rehab. Patient has a walker, cane and wheelchair at home. She is gets assistance from bathing, medications and dressing. She will need to be tested for home O2 and CPAP while she is in the hospital. I called and spoke with the BIN WORKER at length about this. Patient denied known discharge needs at this time. CM will continue to follow and will assist as needed with dc plans/needs. Golf Ball Trimmer: Naomie Marcus DCPIA - Discharge Planning Initial Assessment Updated by [email or web address]: Naomie Marcus on 12/06/18 2:44 pm * Is the patient Alert and Oriented? Yes * How many steps to enter\exit or inside your home? * PCP Ellery * Pharmacy [facility] * Preadmission Environment Home with Family * ADLs Partial Dependent * Partial ADLs (Assistance needed) Bathing Dressing Medication Management * Equipment Cane Walker Wheelchair * List name and contact numbers for known caregivers / representatives who currently or will assist patient after discharge: Phil (son) [phone] * Verbal permission to speak to the caregivers and representatives has been obtained from the patient. Yes * Community resources currently utilized Assisted Living * Please name any agencies selected above. [facility] * Additional services required to return to the preadmission environment? Yes * Can the patient safely return to the preadmission environment? Yes * Has this patient been hospitalized within the prior 30 days at any hospital? Yes Coverage Notice Reviewer: [id number] - Naomie Marcus Notice Issued Date-Time: 12/20/2018 8:55 Notice Type: IM Discharge Notice Notice Delivered To: Patient Relationship to Patient: Wharf Labourer Name: Delivery Method: HAND - Hand Delivered Thania Days: Prior Verbal Notification: Recipient Understood Notice: Yes Recipient Signature: Yes Med Rec Note Co-signed by Attending: Coverage Notice Comment: Last DP export: 12/18/18 12:01 p Patient Name: SRAVAN DOWNEY Page [phone] at 0927 All edits/amendments must be made on the electronic document DICTATION DATE: 12/20/18926 SET UP WORKER: HILDA 12/20/18926 RPT#: [id number] DC DATE: STATUS: ADM IN [facility] [address] [place] [address] END OF REPORT
[2018-12-20 09:42] VITALS: BP 135/57
--- NOTE | 2018-12-20 10:06 | NUR ---
DISCHARGE INSTRUCTIONS,STATES UNDERSTANDING.
--- NOTE | 2018-12-20 10:08 | NUR ---
REPORT TO [facility],SPOKE HARPER HAAS LPN
--- NOTE | 2018-12-20 10:30 | NUR ---
IV DCD WITH CATH TI[P INTACT. PT DRESSED AND WAITING ON RIDE TO [facility]
--- NOTE | 2018-12-20 11:28 | NUR ---
LEFT UNIT VIA WHEELCHAIR FOR TRANSPORT TO [facility].
--- NOTE | 2018-12-20 16:38 | MORECARE ---
CASE MANAGEMENT DISCHARGE SUMMARY PATIENT: SRAVAN DOWNEY UNIT: [id number] ADM DATE: 12/06/18 AGE: 83 : 34 SEX: F ROOM/BED: D.2216 AUTHOR: TORREY MIRAMONTES PHYSICIAN: REFERRING PHYSICIAN: DELLA DAHL MD DATE OF SERVICE: 12/20/18 Discharge Plan Patient Name: SRAVAN DOWNEY Facility: [facility]:[place] : 1935 Planned Disposition: [facility] Facility Anticipated Discharge Date: Discharge Date: 12/20/2018 Expected LOS: 0 Initial Reviewer: [email or web address] Initial Review Date: 12/06/2018 Generated: 12/20/18 5:37 pm Comments DCP- Discharge Planning Updated by [email or web address]: Naomie Marcus on 12/20/18 8:[address] Patient will be discharged to [facility] rehab to a skilled bed. They will transport her and pick her up at 11:00. IMM served and explained. I asked if I could call any family and she stated no, that her is there. CM will continue to follow and assist as needed DCP- Discharge Planning Updated by [email or web address]: Naomie Marcus on 12/18/18 11:[address] UPDATED CLINICALS SENT TO [place]., I SPOKE WITH HARPER ABOUT DC PLAN. CM TO FOLLOW AND ASSIST NEEDED DCP- Discharge Planning Updated by [email or web address]: Naomie Marcus on 12/14/18 1:[address] Patient qualifies for Home O2 and portability when she is discharged. Gabonese home patient here in room to explain to her how to use the portable. She can not get a CPAP until she has a diagnostic titration done & does not have the correct DX for a trilogy per Clark. CM to follow and assist as needed DCP- Discharge Planning Updated by [email or web address]: Naomie Marcus on 12/06/18 1:[address] Patient Name: SRAVAN DOWNEY Admission Status: ER Accout number: [id number] Admission Date: 12-06-2018 : 1935 Admission Diagnosis: Attending: HAKEEM DAHL Current LOS: 1 Anticipated DC Date: Planned Disposition: [facility] Facility Primary Insurance: MEDICARE A & B Discharge Planning Comments: CM met with patient & her son Phil to complete initial dc planning assessment. CM educated patient on the CM role and verbal consent given by patient to complete assessment. Patient lives at [facility] with her . Patient was admitted from [facility] where she was getting skilled therapy. Her is also out there getting rehab. When she is discharged from the hospital she plans to return there to complete her rehab. Patient has a walker, cane and wheelchair at home. She is gets assistance from bathing, medications and dressing. She will need to be tested for home O2 and CPAP while she is in the hospital. I called and spoke with the PAPERHANGER ASSISTANT at length about this. Patient denied known discharge needs at this time. CM will continue to follow and will assist as needed with dc plans/needs. Spring Coiler Hand: Naomie Marcus DCPIA - Discharge Planning Initial Assessment Updated by [email or web address]: Naomie Marcus on 12/06/18 2:44 pm * Is the patient Alert and Oriented? Yes * How many steps to enter\exit or inside your home? * PCP Blanchard * Pharmacy [facility] * Preadmission Environment Home with Family * ADLs Partial Dependent * Partial ADLs (Assistance needed) Bathing Dressing Medication Management * Equipment Cane Walker Wheelchair * List name and contact numbers for known caregivers / representatives who currently or will assist patient after discharge: Phil (son) [phone] * Verbal permission to speak to the caregivers and representatives has been obtained from the patient. Yes * Community resources currently utilized Assisted Living * Please name any agencies selected above. [facility] living * Additional services required to return to the preadmission environment? Yes * Can the patient safely return to the preadmission environment? Yes * Has this patient been hospitalized within the prior 30 days at any hospital? Yes Coverage Notice Reviewer: [id number] - Naomie Marcus Notice Issued Date-Time: 12/20/2018 8:55 Notice Type: IM Discharge Notice Notice Delivered To: Patient Relationship to Patient: Quality Control Representative Name: Delivery Method: HAND - Hand Delivered Thania Days: Prior Verbal Notification: Recipient Understood Notice: Yes Recipient Signature: Yes Med Rec Note Co-signed by Attending: Coverage Notice Comment: Last DP export: 12/20/18 8:27 a Patient Name: SRAVAN DOWNEY Page [phone] at 1638 All edits/amendments must be made on the electronic document DICTATION DATE: 12/20/181636 BELT MEASURER: HILDA 12/20/181636 RPT#: [id number] DC DATE:12/20/18 STATUS: DIS IN [facility] [address] [place] [address] END OF REPORT
== END 2018-12-20 11:32 | DRG 291 ==
LOC: D.ER 23:43 → D.MS 12-06 01:43
PROVIDERS: Family Medicine; Internal Medicine Nephrology; Internal Medicine Pulmonary Disease; ADMIT Emergency Medicine; ATTEND Emergency Medicine
DX: I13.0 Hypertensive heart and chronic kidney disease with heart failure and stage 1 through stage 4 chronic kidney disease, or unspecified chronic kidney disease (principal); I50.33 Acute on chronic diastolic (congestive) heart failure; J96.01 Acute respiratory failure with hypoxia; E43 Unspecified severe protein-calorie malnutrition; J44.1 Chronic obstructive pulmonary disease with (acute) exacerbation; G20 Parkinson's disease; F02.80 Dementia in other diseases classified elsewhere, unspecified severity, without behavioral disturbance, psychotic disturbance, mood disturbance, and anxiety; I25.10 Atherosclerotic heart disease of native coronary artery without angina pectoris; K21.9 Gastro-esophageal reflux disease without esophagitis; G30.9 Alzheimer's disease, unspecified; N18.9 Chronic kidney disease, unspecified

== ENCOUNTER → 2019-01-03 12:52 | Outpatient (CLI) | payer MEDICARE, BC ==
[2018-12-07 09:35] VITALS: BMI 27.9
[~2019-01-03 12:52] MED LIST changes: +ALDACTONE50 MG PO; +CHRONULAC30 ML PO; +FERROUS SULFAT325 MG PO; +LASIX40 MG PO; +PULMICORT0.5 MG/21 UPD; +RANEXA500 MG PO; +TESSALON PERLE100 MG PO
== END | disposition home or self-care (01) ==
LOC: D.RAD 12:52
PROVIDERS: ATTEND Family Medicine
DX: R13.14 Dysphagia, pharyngoesophageal phase (principal)

== ENCOUNTER 2019-02-14 06:21 | Inpatient (IN) | payer MEDICARE, BC ==
[~2019-02-14] VITALS: Ht 162.6 cm; Wt 59.0 kg
--- NOTE | ~2019-02-14 | EC ---
PATIENT:SRAVAN DOWNEY DATE OF SERVICE: 02/14/19 SEX: F MEDICAL RECORD: [id number] DATE OF : [birth year] LOCATION:D.M2 D.212 AGE OF PATIENT: 84 ADMISSION DATE: 02/14/19 REFERRING PHYSICIAN: INTERPRETING PHYSICIAN: JOANIE LYLE MD ECHOCARDIOGRAM REPORT ECHO CHARGES 5 ECHO LIMITED Date: 02/16/19 CLINICAL DIAGNOSIS: ACS ECHOCARDIOGRAPHIC MEASUREMENTS (adult normal given) AC root (d.<3.7cm) 0 cm LV Septum d (<1.2 cm> 0 cm Valve Excursion 0 cm LV Septum (systole) 0 cm Left Atria (s.<4.0cm> 0 cm LVPW d(<1.2cm) 0 cm RV (d.<2.3cm) 0 cm LVPW (sytole) 0 cm LV diastole(<5.6CM) 0 cm MV E-F(>70mm/sec) 0 cm LV systole 0 cm LVOT Diameter 0 cm MV exc.(>10mm) 0 cm Est.ejection fraction (50-75%) % DOPPLER: LVIT cm/sec A 0 cm/sec E 0 cm/sec LA 0 cm/sec RVSP 0 mmHg LVOT 0 cm/sec AOP1/2T 0 m/s Asc. Ao 0 cm/sec RVOT 0 cm/sec RA 0 cm/sec PA 0 cm/sec AV Gradient Peak 0 mmHg AV Mean 0 mmHg AV Area cm MV Gradient Peak 0 mmHg MV Mean 0 mmHg MV Area 0 cm COMMENTS: Artist Suspect: Jalen JELANI VENANCIO Answering Service Operator: 3 Dr. Aleman TAPE# PACS Pericardial Effusion N DATE OF SERVICE: This is adequate 2D, color flow imaging. LVH is present. LV is globally hypokinetic with reduced EF, estimated EF 25% to 30%. Aortic valve has good valve excursion by 2D. Left atrium grossly appears dilated. Mitral valve shows no prolapse. Uhpj-rh-chleaepm MR. Right-sided chambers are grossly normal. Mild TR. TRANSINT:[id number] Voice Confirmation ID: [id number] DOCUMENT ID: [id number] ECHOCARDIOGRAM REPORT [id number] SRAVAN DOWNEY JOANIE LYLE MD CC: [id number] DICTATION DATE: 02/16/19 1538 JET WORKER: 02/17/19 0120 ADM IN [facility] [address] [place] [address]
--- NOTE | ~2019-02-14 | CN ---
PATIENT NAME:SRAVAN DOWNEY MEDICAL RECORD: [id number] : [birth year] LOCATION:D. D.2122 ADMIT DATE: 02/14/19 ACCOUNT: [id number] CONSULTING PHYSICIAN: JOANIE LYLE MD REFERRING PHYSICIAN: CHRIS MORIN MD DATE OF CONSULTATION: 02/15/2019 HISTORY OF PRESENT ILLNESS: An 84-year-old female with a history of coronary artery disease. He has a history of Parkinson's dementia, admitted with chest pain, somewhat a poor historian. This is chronic constant historically worse with inspiration, worse with movement, enzymes negative at this point. ECG without acute change and was noted to be intravascularly volume depleted with hyperkalemia and marked elevated BUN. These numbers improved with hydration. We are asked to see him concerning his cardiovascular status. PAST MEDICAL HISTORY: Includes, 1. History of hypertension. 2. Hyperlipidemia. 3. Parkinson disease. 4. Anemia. 5. Hypothyroidism on replacement. ALLERGIES: INCLUDE JULIEN INHIBITOR, BETA BLOCKADE, TRICOR, SULFA, ASPIRIN, ADHESIVE TAPE, CRESTOR, DILTIAZEM, FENTANYL, HYDROCODONE, PENICILLIN, AND NUTS. MEDICATIONS: Include amlodipine 5 mg p.o. daily, Ranexa 500 b.i.d., Lasix 40 every day, Pulmicort b.i.d., and lactulose 30 b.i.d. SOCIAL HISTORY: Nonsmoker, nondrinker, does need assistance with ADLs. PHYSICAL EXAMINATION: GENERAL: Elderly-appearing female in no acute distress. VITAL SIGNS: 109/59, pulse 89 and regular. HEENT: Normocephalic, atraumatic. NECK: No bruits noted. HEART: Regular, II/ systolic function. LUNGS: Good air excursion. ABDOMEN: Soft, nontender. EXTREMITIES: Pulses 1+. There is no edema. IMPRESSION: Certainly pleuritic component of the pain, doubt ischemic symptomatology. Given protracted pain, negative cardiac enzymes, negative ECG changes. We will check echocardiograph study give one dose of steroids for anti-inflammatory effect. Further recommendations based on above. TRANSINT:[id number] Voice Confirmation ID: [id number] DOCUMENT ID: [id number] CONSULT REPORT [id number] SRAVAN DOWNEY JOANIE LYLE MD CC: [id number] DICTATION DATE: 02/16/19 1029 CYBER SECURITY ENGINEER: 02/16/192030 ADM IN [facility] [address] [place] [id number]
[2019-02-14 06:50] LABS: APTT 28.1 SECONDS (22.8-39.4); INR 1.1 (0.85-1.17); PROTIME 13.7 SECONDS (11.6-15.0)
[2019-02-14 06:55] LABS: ALKALINE PHOSPHATASE 42 U/L (46-116); ALT (SGPT) 7 U/L (10-68); BILIRUBIN - TOTAL 0.45 mg/dL (0.2-1.3); CALC OSMOLALITY 297 mosm/kg (275-300); CALCIUM 11.1 mg/dL (8.5-10.1); CARBON DIOXIDE 23.2 mmol/L (21.0-32.0); CHLORIDE - SERUM 100 mmol/L (98-107); CREATININE - SERUM 1.9 mg/dL (0.6-1.3); GLUCOSE 104 mg/dL (74-106); POTASSIUM - SERUM 5.8 mmol/L (3.5-5.1); PROTEIN - SERUM 7.6 g/dL (6.4-8.2); SODIUM 133 mmol/L (136-145); UREA NITROGEN 103 mg/dL (7-18); eGFR NON AFRICAN AMERICAN 27 mL/min (90-120)
[2019-02-14 07:04] LABS: CREATINE KINASE 25 UL (21-215); MAGNESIUM - SERUM 2.7 mg/dL (1.8-2.4); TROPONIN-I 0.019 ng/mL (0.000-0.060)
[2019-02-14 07:21] LABS: BASOPHILS 0.1 % (0-2); EOSINOPHILS 0.4 % (0-7); HEMATOCRIT 38.9 % (36.0-48.0); HEMOGLOBIN 13.1 g/dL (12-16); IMMATURE GRANULOCYTES 0.2 % (0-5); LYMPHOCYTES 16.3 % (15-50); MCH 29.6 pg (26.0-34.0); MCHC 33.7 g/dL (31.0-37.0); MCV 87.8 fL (80.0-100.0); MEAN PLATELET VOLUME 10.8 fL (7.4-10.4); MONOCYTES 5.7 % (2-11); NEUTROPHILS 77.3 % (40-80); PLATELET COUNT 250 10x3/uL (130-400); RBC 4.43 10x6/uL (4.00-5.40); WBC 9.1 10x3/uL (4.8-10.8)
[2019-02-14 08:20] VITALS: BP 148/70
[2019-02-14 09:46] VITALS: BP 118/63; BMI 22.3
[2019-02-14 11:40] VITALS: BP 105/56
[2019-02-14 15:24] VITALS: BP 114/66
--- NOTE | 2019-02-14 17:05 | MORECARE ---
CASE MANAGEMENT DISCHARGE SUMMARY PATIENT: SRAVAN DOWNEY UNIT: [id number] ADM DATE: 02/14/19 AGE: 84 : 34 SEX: F ROOM/BED: D.4419 AUTHOR: TORREY MIRAMONTES PHYSICIAN: REFERRING PHYSICIAN: CHRIS MORIN MD DATE OF SERVICE: 02/14/19 Discharge Plan Patient Name: SRAVAN DOWNEY Facility: [facility]:[place] : 1935 Planned Disposition: Anticipated Discharge Date: Discharge Date: Expected LOS: Initial Reviewer: [email or web address] Initial Review Date: 02/14/2019 Generated: 02/14/19 6:04 pm Comments DCP- Discharge Planning Updated by [email or web address]: Kedar Carrero on 02/14/19 3:[address] Patient Name: SRAVAN DOWNEY Admission Status: ER Accout number: [id number] Admission Date: 02-14-2019 : 1935 Admission Diagnosis: Attending: CHRIS CHOPRA Current LOS: 1 Anticipated DC Date: Planned Disposition: HOME HEALTH Primary Insurance: MEDICARE A & B PLANNED EXTERNAL PROVIDER: [facility] Discharge Planning Comments: CM SPOKE TO LYNDON OF [facility] WHO ADVISED THATPT IS THEIR HOME HEALTHCARE PT AND HAS BEEN ADMITTED. CM TO FOLLOW UP WITH PT IN ROOM TO ASSESS FOR NEEDS AND DETERMINE IF PT PLANS TO RETURN HOME WITH RESUMPTION OF [facility]. Welder Journeyman: Kedar Carrero Patient Name: SRAVAN DOWNEY Page [phone] at 1705 All edits/amendments must be made on the electronic document DICTATION DATE: 02/14/191703 HOUSE WIRER HELPER: HILDA 02/14/191703 RPT#: [id number] DC DATE: STATUS: ADM IN [facility] [address] [place] [address] END OF REPORT
[2019-02-14 17:49] LABS: ANION GAP 11.8 mmol/L (8-16); CALCIUM 10.7 mg/dL (8.5-10.1); CARBON DIOXIDE 23.9 mmol/L (21.0-32.0); CREATININE - SERUM 1.8 mg/dL (0.6-1.3)
[2019-02-14 17:50] LABS: POTASSIUM - SERUM 4.7 mmol/L (3.5-5.1)
[2019-02-14 20:00] VITALS: BP 108/59
[2019-02-15] VITALS: BP 126/70
[2019-02-15 04:00] VITALS: BP 135/71
[2019-02-15 05:37] LABS: BASOPHILS 0.1 % (0-2); EOSINOPHILS 0.3 % (0-7); HEMATOCRIT 34.9 % (36.0-48.0); HEMOGLOBIN 11.4 g/dL (12-16); IMMATURE GRANULOCYTES 0.4 % (0-5); LYMPHOCYTES 14.9 % (15-50); MCH 29.3 pg (26.0-34.0); MCHC 32.7 g/dL (31.0-37.0); MCV 89.7 fL (80.0-100.0); MEAN PLATELET VOLUME 10.7 fL (7.4-10.4); MONOCYTES 10.5 % (2-11); NEUTROPHILS 73.8 % (40-80); RBC 3.89 10x6/uL (4.00-5.40); RDW 18.2 % (11.5-14.5); WBC 7.3 10x3/uL (4.8-10.8)
[2019-02-15 05:40] LABS: PLATELET COUNT 186 10x3/uL (130-400)
[2019-02-15 05:49] LABS: ANION GAP 13.7 mmol/L (8-16); CALCIUM 10.5 mg/dL (8.5-10.1); CARBON DIOXIDE 23.1 mmol/L (21.0-32.0); CREATININE - SERUM 1.5 mg/dL (0.6-1.3); POTASSIUM - SERUM 4.8 mmol/L (3.5-5.1)
[2019-02-15 08:37] VITALS: BP 128/68
[2019-02-15 12:30] VITALS: BP 112/57
[2019-02-15 13:53] LABS: APPEARANCE CLOUDY (CLEAR); BACTERIA MANY /hpf (NONE SEEN); BILIRUBIN NEGATIVE (NEGATIVE); COLOR STRAW (YELLOW); EPITHELIAL CELLS 0-5 /hpf (0-5); GLUCOSE NEGATIVE (NEGATIVE); KETONE NEGATIVE (NEGATIVE); MUCUS <1+ /lpf (NONE SEEN); NITRITE POSITIVE (NEGATIVE); PROTEIN TRACE mg/dL (NEGATIVE); RED CELLS - URINE 0-5 /hpf (0-5); SPECIFIC GRAVITY 1.015 (1.005-1.020); UROBILINOGEN NORMAL (NORMAL); WHITE CELLS - URINE >50 /hpf (0-5)
[2019-02-15 16:38] VITALS: BP 124/59
[2019-02-15 18:03] LABS: ANION GAP 11.7 mmol/L (8-16); CALCIUM 10.2 mg/dL (8.5-10.1); CARBON DIOXIDE 23.2 mmol/L (21.0-32.0); CREATININE - SERUM 1.5 mg/dL (0.6-1.3); POTASSIUM - SERUM 4.9 mmol/L (3.5-5.1)
[2019-02-15 20:00] VITALS: BP 112/61
[2019-02-16] VITALS (7 sets, daily range): BP systolic 108–141; BP diastolic 59–96
[2019-02-16 05:51] LABS: BASOPHILS 0.1 % (0-2); EOSINOPHILS 0.8 % (0-7); HEMATOCRIT 34.4 % (36.0-48.0); IMMATURE GRANULOCYTES 0.2 % (0-5); LYMPHOCYTES 11.2 % (15-50); MCH 29.2 pg (26.0-34.0); MCV 91.2 fL (80.0-100.0); MEAN PLATELET VOLUME 10.1 fL (7.4-10.4); MONOCYTES 8.9 % (2-11); NEUTROPHILS 78.8 % (40-80); PLATELET COUNT 151 10x3/uL (130-400); RBC 3.77 10x6/uL (4.00-5.40); WBC 8.9 10x3/uL (4.8-10.8)
[2019-02-16 06:21] LABS: CALC OSMOLALITY 280 mosm/kg (275-300); CALCIUM 10.1 mg/dL (8.5-10.1); CARBON DIOXIDE 21.1 mmol/L (21.0-32.0); CHLORIDE - SERUM 103 mmol/L (98-107); CKMB 0.6 U/L (0.0-3.6); CREATINE KINASE 19 UL (21-215); CREATININE - SERUM 1.4 mg/dL (0.6-1.3); GLUCOSE 103 mg/dL (74-106); POTASSIUM - SERUM 5.2 mmol/L (3.5-5.1); SODIUM 133 mmol/L (136-145); UREA NITROGEN 55 mg/dL (7-18); eGFR NON AFRICAN AMERICAN 38 mL/min (90-120)
[2019-02-16 06:28] LABS: TROPONIN-I < 0.017 ng/mL (0.000-0.060)
[2019-02-16 17:40] LABS: ANION GAP 16.2 mmol/L (8-16); CALCIUM 10.5 mg/dL (8.5-10.1); CARBON DIOXIDE 20.3 mmol/L (21.0-32.0); CREATININE - SERUM 1.4 mg/dL (0.6-1.3); POTASSIUM - SERUM 5.5 mmol/L (3.5-5.1)
[2019-02-17] VITALS: BP 120/77; BP 121/68
[2019-02-17 04:00] VITALS: BP 126/74; BP 130/70
[2019-02-17 05:00] LABS: BASOPHILS 0 % (0-2); EOSINOPHILS 0 % (0-7); HEMATOCRIT 32.5 % (36.0-48.0); HEMOGLOBIN 10.7 g/dL (12-16); IMMATURE GRANULOCYTES 0.2 % (0-5); LYMPHOCYTES 7.2 % (15-50); MCH 28.8 pg (26.0-34.0); MCHC 32.9 g/dL (31.0-37.0); MEAN PLATELET VOLUME 10.5 fL (7.4-10.4); MONOCYTES 4.2 % (2-11); NEUTROPHILS 88.4 % (40-80); RBC 3.71 10x6/uL (4.00-5.40); RDW 17.8 % (11.5-14.5)
[2019-02-17 05:01] LABS: MCV 87.6 fL (80.0-100.0); PLATELET COUNT 191 10x3/uL (130-400); WBC 6.2 10x3/uL (4.8-10.8)
[2019-02-17 05:11] LABS: ANION GAP 15.9 mmol/L (8-16); CALCIUM 11.1 mg/dL (8.5-10.1); CARBON DIOXIDE 19.4 mmol/L (21.0-32.0); CREATININE - SERUM 1.4 mg/dL (0.6-1.3); POTASSIUM - SERUM 5.3 mmol/L (3.5-5.1)
[2019-02-17 09:37] VITALS: BP 122/72
[2019-02-17 12:44] VITALS: BP 130/71
[2019-02-17 17:16] LABS: ANION GAP 14.2 mmol/L (8-16); CALCIUM 10.4 mg/dL (8.5-10.1); CARBON DIOXIDE 19.9 mmol/L (21.0-32.0); CREATININE - SERUM 1.3 mg/dL (0.6-1.3); POTASSIUM - SERUM 5.1 mmol/L (3.5-5.1)
[2019-02-17 18:49] VITALS: BP 121/65
[2019-02-17 20:00] VITALS: BP 119/64
[2019-02-18 00:18] VITALS: BP 105/62
[2019-02-18 04:00] VITALS: BP 124/65
[2019-02-18 05:25] LABS: BASOPHILS 0 % (0-2); EOSINOPHILS 0.7 % (0-7); HEMATOCRIT 29.8 % (36.0-48.0); HEMOGLOBIN 9.8 g/dL (12-16); IMMATURE GRANULOCYTES 0.3 % (0-5); LYMPHOCYTES 21.8 % (15-50); MCH 28.8 pg (26.0-34.0); MCHC 32.9 g/dL (31.0-37.0); MCV 87.6 fL (80.0-100.0); MEAN PLATELET VOLUME 9.9 fL (7.4-10.4); MONOCYTES 6.5 % (2-11); NEUTROPHILS 70.7 % (40-80); PLATELET COUNT 205 10x3/uL (130-400)
[2019-02-18 06:06] LABS: ANION GAP 10.3 mmol/L (8-16); CALCIUM 10.4 mg/dL (8.5-10.1); CARBON DIOXIDE 24.3 mmol/L (21.0-32.0); CREATININE - SERUM 1.3 mg/dL (0.6-1.3); MAGNESIUM - SERUM 1.8 mg/dL (1.8-2.4); PHOSPHOROUS 2.3 mg/dL (2.5-4.9); POTASSIUM - SERUM 4.6 mmol/L (3.5-5.1)
[2019-02-18 08:28] VITALS: BP 126/66
[2019-02-18 12:58] VITALS: BP 108/56
--- NOTE | 2019-02-18 13:32 | MORECARE ---
CASE MANAGEMENT DISCHARGE SUMMARY PATIENT: SRAVAN DOWNEY UNIT: [id number] ADM DATE: 02/14/19 AGE: 84 : 34 SEX: F ROOM/BED: D.1262 AUTHOR: TORREY MIRAMONTES PHYSICIAN: REFERRING PHYSICIAN: CHRIS MORIN MD DATE OF SERVICE: 02/18/19 Discharge Plan Patient Name: SRAVAN DOWNEY Facility: [facility]:[place] : 1935 Planned Disposition: Assisted Living Anticipated Discharge Date: Discharge Date: Expected LOS: Initial Reviewer: [email or web address] Initial Review Date: 02/14/2019 Generated: 02/18/19 2:31 pm Comments DCP- Discharge Planning Updated by [email or web address]: Kedar Carrero on 02/14/19 3:[address] Patient Name: SRAVAN DOWNEY Admission Status: ER Accout number: [id number] Admission Date: 02-14-2019 : 1935 Admission Diagnosis: Attending: CHRIS CHOPRA Current LOS: 1 Anticipated DC Date: Planned Disposition: HOME HEALTH Primary Insurance: MEDICARE A & B PLANNED EXTERNAL PROVIDER: [facility] Discharge Planning Comments: CM SPOKE TO LYNDON OF [facility] WHO ADVISED THATPT IS THEIR HOME HEALTHCARE PT AND HAS BEEN ADMITTED. CM TO FOLLOW UP WITH PT IN ROOM TO ASSESS FOR NEEDS AND DETERMINE IF PT PLANS TO RETURN HOME WITH RESUMPTION OF [facility]. Assistant Teacher: Kedar Carrero Last DP export: 02/14/19 4:05 p Patient Name: SRAVAN DOWNEY Page [id number] at 1332 All edits/amendments must be made on the electronic document DICTATION DATE: 02/18/19 1331 CAMERA TUNING ENGINEER: HILDA 02/18/19 1331 RPT#: [id number] DC DATE: STATUS: ADM IN [facility] [address] [place] [address] END OF REPORT
[2019-02-18 13:33] VITALS: Ht 162.6 cm; Wt 59.0 kg
--- NOTE | 2019-02-18 13:45 | MORECARE ---
CASE MANAGEMENT DISCHARGE SUMMARY PATIENT: SRAVAN DOWNEY UNIT: [id number] ADM DATE: 02/14/19 AGE: 84 : 34 SEX: F ROOM/BED: D.3063 AUTHOR: KULWINDER,DOC PHYSICIAN: REFERRING PHYSICIAN: CHRIS MORIN MD DATE OF SERVICE: 02/18/19 Discharge Plan Patient Name: SRAVAN DOWNEY Facility: [facility]:[place] : 1935 Planned Disposition: Assisted Living Anticipated Discharge Date: Discharge Date: Expected LOS: Initial Reviewer: [email or web address] Initial Review Date: 02/14/2019 Generated: 02/18/19 2:44 pm Comments DCP- Discharge Planning Updated by [email or web address]: Kedar Carrero on 02/14/19 3:[address] Patient Name: SRAVAN DOWNEY Admission Status: ER Accout number: [id number] Admission Date: 02-14-2019 : 1935 Admission Diagnosis: Attending: CHRIS CHOPRA Current LOS: 1 Anticipated DC Date: Planned Disposition: HOME HEALTH Primary Insurance: MEDICARE A & B PLANNED EXTERNAL PROVIDER: [facility] Discharge Planning Comments: CM SPOKE TO LYNDON OF [facility] WHO ADVISED THATPT IS THEIR HOME HEALTHCARE PT AND HAS BEEN ADMITTED. CM TO FOLLOW UP WITH PT IN ROOM TO ASSESS FOR NEEDS AND DETERMINE IF PT PLANS TO RETURN HOME WITH RESUMPTION OF [facility]. Ediscovery Project Manager: Kedar Carrero DCPIA - Discharge Planning Initial Assessment Updated by [email or web address]: Kedar Carrero on 02/18/19 1:43 pm * Is the patient Alert and Oriented? Yes * How many steps to enter\exit or inside your home? NONE * PCP DR. BARCLAY * Pharmacy UNKNOWN TO PATIENT, REPORTS THE [facility] OBTAINS ALL MEDICATION FOR HER * Preadmission Environment Assisted Living * Facility Name [facility] * ADLs Partial Dependent * Partial ADLs (Assistance needed) Bathing Dressing Medication Management * Equipment Cane Walker Wheelchair * Other Equipment NO MEDICAL EQUIPMENT PROVIDER PREFERNCE * List name and contact numbers for known caregivers / representatives who currently or will assist patient after discharge: JOHN DOWNEY, SON/POA, * Verbal permission to speak to the caregivers and representatives has been obtained from the patient. N/A * Community resources currently utilized Home Health * Please name any agencies selected above. [facility] * Additional services required to return to the preadmission environment? No * Can the patient safely return to the preadmission environment? Yes * Has this patient been hospitalized within the prior 30 days at any hospital? No Last DP export: 02/18/19 12:32 p Patient Name: SRAVAN DOWNEY Page [phone] at 1345 All edits/amendments must be made on the electronic document DICTATION DATE: 02/18/19 134 OPERATIONS ACCOUNTANT: HILDA 02/18/19 1344 RPT#: [id number] DC DATE: STATUS: ADM IN [facility] [address] [place] [address] END OF REPORT
--- NOTE | 2019-02-18 13:53 | MORECARE ---
CASE MANAGEMENT DISCHARGE SUMMARY PATIENT: SRAVAN DOWNEY UNIT: [id number] ADM DATE: 02/14/19 AGE: 84 : 34 SEX: F ROOM/BED: D.9392 AUTHOR: TORREY MIRAMONTES PHYSICIAN: REFERRING PHYSICIAN: CHRIS MORIN MD DATE OF SERVICE: 02/18/19 Discharge Plan Patient Name: SRAVAN DOWNEY Facility: [facility]:[place] : 1935 Planned Disposition: Assisted Living Anticipated Discharge Date: Discharge Date: Expected LOS: Initial Reviewer: [id number] Initial Review Date: 02/14/2019 Generated: 02/18/19 2:53 pm Comments DCP- Discharge Planning Updated by [id number]: Kedar Carrero on 02/18/19 12:[address] Patient Name: SRAVAN DOWNEY Admission Status: ER Accout number: [id number] Admission Date: 02-14-2019 : 1935 Admission Diagnosis:CHEST PAIN, UNSPECIFIED Attending: CHRIS CHOPRA Current LOS: 4 Anticipated DC Date: Planned Disposition: Assisted Living Primary Insurance: MEDICARE A & B PLANNED EXTERNAL PROVIDER: [facility] Discharge Planning Comments: CM RECEIVED ORDER FOR INPATIENT REHAB PRESCREENING. SELENE SPOKE TO ISRAEL OF INPATIENT REHAB, SHE HAS MET WITH PT WHO INFORMED [place] THAT PT IS GOING TO THE [facility] AND HAS [facility] AND CAN GET THERAPY AT HOME. CM MET WITH PT IN ROOM TO DISCUSS DISCHARGE PLANNING AND NEEDS. PT REPORTS LIVING AT HOME DEPENDENTLY ON STAFF AT THE [facility] FOR ASSISTANCE WITH BATHING, DRESSING AND MEDICATION MANAGEMENT. PT LIVES WITH HER SPOUSE IN ASSISTED LIVING AND IS NOT GOING TO GO ANYWHERE ELSE EXCEPT HOME. PT HAS CANE, WALKER AND WHEELCHAIR WITH NO MEDICAL EQUIPMENT PROVIDER PREFERENCE. PT HAS HOME HEALTH WITH [facility]. CM DISCUSSED AVAILABILITY OF HOME HEALTH, REHAB SERVICES AND MEDICAL EQUIPMENT. PT WANTS TO GO HOME TO THE [facility] WITH HER SPOUSE. PT WANTS [facility] RES[facility], REPORTS [facility]GE HOME. IMPORTANT MESSAGE FROM MEDICARE PROVIDED AND EXPLAINED. CHOICE FOR [facility] SIGNED. SELENE SPOKE TO LYNDON OF [facility] AT [facility], VERIFIED PT HAS ACTIVE WITH [facility], PROVIDED HOSPITAL UPDATE TO [facility] VIA LYNDON. CM CALLED AND ATTEMPTED TO SPEAK TO [facility], , CM WAS NOT ABLE TO LEAVE A MESSAGE OR SPEAK TO A LIVE PERSON. [facility], [facility] OF [facility] AT [phone]; [facility] WILL HAVE TO [facility] AT HOSPITAL BEFORE ALLOWING PT TO RETURN TO ASSISTED LIVING. TO RESUME HOME HEALTH, NOTIFY [facility] OF DISCHARGE AT [phone], FAX DISCHARGE INFORMATION TO [facility] AT [phone]. FAX DISCHARGE INFORMATION TO [facility] AT [phone]. Pricing Associate: Kedar Carrero DCP- Discharge Planning Updated by [id number]: Kedar Carrero on 02/14/19 3:[address] Patient Name: SRAVAN DOWNEY Admission Status: ER Accout number: [id number] Admission Date: 02-14-2019 : 1935 Admission Diagnosis: Attending: CHRIS CHOPRA Current LOS: 1 Anticipated DC Date: Planned Disposition: HOME HEALTH Primary Insurance: MEDICARE A & B PLANNED EXTERNAL PROVIDER: [facility] Discharge Planning Comments: CM SPOKE TO LYNDON OF [facility] WHO ADVISED THATPT IS THEIR HOME HEALTHCARE PT AND HAS BEEN ADMITTED. CM TO FOLLOW UP WITH PT IN ROOM TO ASSESS FOR NEEDS AND DETERMINE IF PT PLANS TO RETURN HOME WITH RESUMPTION OF [facility]. Pricing Associate: Kedar Carrero DCPIA - Discharge Planning Initial Assessment Updated by [id number]: Kedar Carrero on 02/18/19 1:43 pm * Is the patient Alert and Oriented? Yes * How many steps to enter\exit or inside your home? NONE * PCP DR. BARCLAY * Pharmacy UNKNOWN TO PATIENT, REPORTS [facility]ICATION FOR HER * Preadmission Environment Assisted Living * Facility Name THE [facility] * ADLs Partial Dependent * Partial ADLs (Assistance needed) Bathing Dressing Medication Management * Equipment Cane Walker Wheelchair * Other Equipment NO MEDICAL EQUIPMENT PROVIDER PREFERNCE * List name and contact numbers for known caregivers / representatives who currently or will assist patient after discharge: JOHN DOWNEY, SON/POA, * Verbal permission to speak to the caregivers and representatives has been obtained from the patient. N/A * Community resources currently utilized Home Health * Please name any agencies selected above. [facility] * Additional services required to return to the preadmission environment? No * Can the patient safely return to the preadmission environment? Yes * Has this patient been hospitalized within the prior 30 days at any hospital? No External Providers External Provider: Adriano Card at [facility] Next Contact Date: 02/18/2019 Service Request Date: Service Type: Resolution: Reviewer: Comments: External Provider: [facility] Next Contact Date: 02/18/2019 Service Request Date: Service Type: Resolution: Reviewer: Comments: Last DP export: 02/18/19 12:45 p Patient Name: SRAVAN DOWNEY Page [id number] at 1353 All edits/amendments must be made on the electronic document DICTATION DATE: 02/18/19 1352 ACCOUNTS PAYABLE SUPERVISOR: HILDA 02/18/19 1352 RPT#: [id number] DC DATE: STATUS: ADM IN [facility] [address] [place] [address] END OF REPORT
[2019-02-18 17:12] LABS: ANION GAP 11.6 mmol/L (8-16); CALCIUM 9.6 mg/dL (8.5-10.1); CARBON DIOXIDE 24.7 mmol/L (21.0-32.0); CREATININE - SERUM 1.3 mg/dL (0.6-1.3)
[2019-02-18 17:18] LABS: POTASSIUM - SERUM 5.3 mmol/L (3.5-5.1)
[2019-02-18 17:28] VITALS: BP 112/59
[2019-02-18 20:43] VITALS: BP 122/62
[2019-02-19 00:04] VITALS: BP 115/59
[2019-02-19 00:44] LABS: CREATININE - URINE 13.8 mg/dL (30-125)
[2019-02-19 04:12] VITALS: BP 108/58
[2019-02-19 06:08] LABS: BASOPHILS 0 % (0-2); EOSINOPHILS 1.8 % (0-7); HEMATOCRIT 31.6 % (36.0-48.0); HEMOGLOBIN 10.4 g/dL (12-16); IMMATURE GRANULOCYTES 0.5 % (0-5); LYMPHOCYTES 24.1 % (15-50); MCH 29.1 pg (26.0-34.0); MCHC 32.9 g/dL (31.0-37.0); MCV 88.3 fL (80.0-100.0); MEAN PLATELET VOLUME 9.8 fL (7.4-10.4); MONOCYTES 8.2 % (2-11); NEUTROPHILS 65.4 % (40-80); PLATELET COUNT 216 10x3/uL (130-400); RBC 3.58 10x6/uL (4.00-5.40); RDW 18.1 % (11.5-14.5)
[2019-02-19 06:40] LABS: WBC 4.4 10x3/uL (4.8-10.8)
[2019-02-19 06:45] LABS: ANION GAP 12.9 mmol/L (8-16); CARBON DIOXIDE 26.9 mmol/L (21.0-32.0); CREATININE - SERUM 1.3 mg/dL (0.6-1.3); MAGNESIUM - SERUM 1.8 mg/dL (1.8-2.4); PHOSPHOROUS 2.4 mg/dL (2.5-4.9); POTASSIUM - SERUM 4.8 mmol/L (3.5-5.1)
[2019-02-19 08:42] VITALS: BP 127/61
--- NOTE | 2019-02-19 09:02 | MORECARE ---
CASE MANAGEMENT DISCHARGE SUMMARY PATIENT: SRAVAN DOWNEY UNIT: [id number] ADM DATE: 02/14/19 AGE: 84 : 34 SEX: F ROOM/BED: D.7735 AUTHOR: KULWINDERDOC PHYSICIAN: REFERRING PHYSICIAN: CHRIS MORIN MD DATE OF SERVICE: 02/19/19 Discharge Plan Patient Name: SRAVAN DOWNEY Facility: [facility]:[place] : 1935 Planned Disposition: Assisted Living Anticipated Discharge Date: Discharge Date: Expected LOS: Initial Reviewer: [id number] Initial Review Date: 02/14/2019 Generated: 02/19/19 10:02 am Comments DCP- Discharge Planning Updated by [id number]: Kedar Carrero on 02/19/19 7:[address] Patient Name: SRAVAN DOWNEY Encounter No: [id number] : 1935 Primary Insurance: MEDICARE A & B Anticipated DC Date: Planned Disposition: Assisted Living External [facility] Discharge Planning Comments: CM CALLED [facility] [phone], SPOKE TO BURTON WHO REFERRED CM TO [facility]. CM LEFT MESSAGE FOR DEE OF POSSIBLE HOSPITAL DISCHARGE TODAY AND REQUESTED ASSESSMENT FOR RETURN. CM FAXED UPDATE TO [facility] AT [phone]. FOR [facility], [facility] OF [facility]GE AT [phone]; [facility] WILL HAVE TO RE[facility] AT HOSPITAL BEFORE ALLOWING PT TO RETURN TO ASSISTED LIVING. TO RESUME HOME HEALTH, NOTIFY [facility] OF DISCHARGE AT [phone], FAX DISCHARGE INFORMATION TO [facility] AT [phone]. FAX DISCHARGE INFORMATION TO [facility] AT [phone]. Business Development Engineer: Kedar Carrero DCP- Discharge Planning Updated by [email or web address]: Kedar Carrero on 02/18/19 12:[address] Patient Name: SRAVAN DOWNEY Admission Status: ER Accout number: [id number] Admission Date: 02-14-2019 : 1935 Admission Diagnosis:CHEST PAIN, UNSPECIFIED Attending: CHRIS CHOPRA Current LOS: 4 Anticipated DC Date: Planned Disposition: Assisted Living Primary Insurance: MEDICARE A & B PLANNED EXTERNAL PROVIDER: [facility] Discharge Planning Comments: CM RECEIVED ORDER FOR INPATIENT REHAB PRESCREENING. CM SPOKE TO [place]RAEL OF INPATIENT REHAB, SHE HAS MET WITH PT WHO INFORMED [place] THAT PT IS GOING TO [facility] AND HAS [facility] AND CAN GET THERAPY AT HOME. CM MET WITH PT IN ROOM TO DISCUSS DISCHARGE PLANNING AND NEEDS. PT REPORTS LIVING AT HOME DEPENDENTLY ON STAFF AT [facility] FOR [facility]ISTANCE WITH BATHING, DRESSING AND MEDICATION MANAGEMENT. PT LIVES WITH HER SPOUSE IN ASSISTED LIVING AND IS NOT GOING TO GO ANYWHERE ELSE EXCEPT HOME. PT HAS CANE, WALKER AND WHEELCHAIR WITH NO MEDICAL EQUIPMENT PROVIDER PREFERENCE. PT HAS HOME HEALTH WITH [facility]. CM DISCUSSED AVAILABILITY OF HOME HEALTH, REHAB SERVICES AND MEDICAL EQUIPMENT. PT WANTS TO GO HOME TO THE [facility] WITH HER SPOUSE. PT WANTS [facility] RES[facility], REPORTS [facility] FOR [facility]GE HOME. IMPORTANT MESSAGE FROM MEDICARE PROVIDED AND EXPLAINED. CHOICE FOR [facility] SIGNED. CM SPOKE TO LYNDON OF [facility] AT [facility], VERIFIED PT HAS ACTIVE WITH [facility], PROVIDED HOSPITAL UPDATE TO [facility] VIA LYNDON. CM CALLED AND ATTEMPTED TO SPEAK TO [facility], , CM WAS NOT ABLE TO LEAVE A MESSAGE OR SPEAK TO A LIVE PERSON. FOR [facility]URN TO [facility], [facility] OF [facility]CHARGE AT [phone]; [facility] WILL HAVE TO RE[facility] PT AT HOSPITAL BEFORE ALLOWING PT TO RETURN TO ASSISTED LIVING. TO RESUME HOME HEALTH, NOTIFY [facility] OF DISCHARGE AT [phone], FAX DISCHARGE INFORMATION TO [facility] AT [phone]. FAX DISCHARGE INFORMATION TO [facility] AT [phone]. Business Development Engineer: Kedar Carrero DCP- Discharge Planning Updated by [id number]: Kedar Carrero on 02/14/19 3:[address] Patient Name: SRAVAN DOWNEY Admission Status: ER Accout number: [id number] Admission Date: 02-14-2019 : 1935 Admission Diagnosis: Attending: CHRIS CHOPRA Current LOS: 1 Anticipated DC Date: Planned Disposition: HOME HEALTH Primary Insurance: MEDICARE A & B PLANNED EXTERNAL PROVIDER: [facility] Discharge Planning Comments: CM SPOKE TO LYNDON OF [facility] WHO ADVISED THATPT IS THEIR HOME HEALTHCARE PT AND HAS BEEN ADMITTED. CM TO FOLLOW UP WITH PT IN ROOM TO ASSESS FOR NEEDS AND DETERMINE IF PT PLANS TO RETURN HOME WITH RESUMPTION OF [facility]. Business Development Engineer: Kedar Carrero DCPIA - Discharge Planning Initial Assessment Updated by [id number]: Kedar Carrero on 02/18/19 1:43 pm * Is the patient Alert and Oriented? Yes * How many steps to enter\exit or inside your home? NONE * PCP DR. BARCLAY * Pharmacy UNKNOWN TO PATIENT, REPORTS [facility] FOR HER * Preadmission Environment Assisted Living * [facility] * ADLs Partial Dependent * Partial ADLs (Assistance needed) Bathing Dressing Medication Management * Equipment Cane Walker Wheelchair * Other Equipment NO MEDICAL EQUIPMENT PROVIDER PREFERNCE * List name and contact numbers for known caregivers / representatives who currently or will assist patient after discharge: JOHN DOWNEY, SON/POA, * Verbal permission to speak to the caregivers and representatives has been obtained from the patient. N/A * Community resources currently utilized Home Health * Please name any agencies selected above. [facility] * Additional services required to return to the preadmission environment? No * Can the patient safely return to the preadmission environment? Yes * Has this patient been hospitalized within the prior 30 days at any hospital? No Coverage Notice Reviewer: [id number] Alta Carrero Notice Issued Date-Time: 02/18/2019 13:20 Notice Type: Patient Choice Letter Notice Delivered To: Patient Relationship to Patient: Fur Sorter Name: Delivery Method: HAND - Hand Delivered Thania Days: Prior Verbal Notification: Recipient Understood Notice: Yes Recipient Signature: Yes Med Rec Note Co-signed by Attending: Coverage Notice Comment: [facility] Reviewer: [id number] Alta Carrero Notice Issued Date-Time: 02/18/2019 13:20 Notice Type: IM Discharge Notice Notice Delivered To: Patient Relationship to Patient: Fur Sorter Name: Delivery Method: HAND - Hand Delivered Thania Days: Prior Verbal Notification: Recipient Understood Notice: Yes Recipient Signature: Yes Med Rec Note Co-signed by Attending: Coverage Notice Comment: Last DP export: 02/18/19 12:53 p Patient Name: SRAVAN DOWNEY Page [id number] at 0902 All edits/amendments must be made on the electronic document DICTATION DATE: 02/19/19901 ANGLE DOZER OPERATOR: HILDA 02/19/19901 RPT#: [id number] DC DATE: STATUS: ADM IN [facility] [address] [place] [address] END OF REPORT
[2019-02-19] MEDS ORDERED: LEVOFLOXACIN500 MG PO (10:47)
[2019-02-19 12:13] VITALS: BP 115/69
[2019-02-19 13:10] LABS: SPE - A/G RATIO 0.9 (0.7-1.7); SPE - ALBUMIN 2.6 g/dL (2.9-4.4); SPE - ALPHA-1 GLOBULIN 0.5 g/dL (0.0-0.4); SPE - ALPHA-2 GLOBULIN 1.1 g/dL (0.4-1.0); SPE - BETA GLOBULIN 0.9 g/dL (0.7-1.3); SPE - GAMMA GLOBULIN 0.5 g/dL (0.4-1.8); SPE - M-SPIKE Not Observed g/dL (Not Observed); SPE - TOTAL PROTEIN 5.5 g/dL (6.0-8.5)
--- NOTE | 2019-02-19 14:37 | MORECARE ---
CASE MANAGEMENT DISCHARGE SUMMARY PATIENT: SRAVAN DOWNEY UNIT: [id number] ADM DATE: 02/14/19 AGE: 84 : 34 SEX: F ROOM/BED: D.8869 AUTHOR: KULWINDERDOC PHYSICIAN: REFERRING PHYSICIAN: CHRIS MORIN MD DATE OF SERVICE: 02/19/19 Discharge Plan Patient Name: SRAVAN DOWNEY Facility: [facility]:[place] : 1935 Planned Disposition: Assisted Living Anticipated Discharge Date: 02/19/19 Discharge Date: Expected LOS: 5 Initial Reviewer: [id number] Initial Review Date: 02/14/2019 Generated: 02/19/19 3:36 pm DCP- Discharge Planning Updated by [id number]: Kedar Carrero on 02/19/19 7:[address] Patient Name: SRAVAN DOWNEY Encounter No: [id number] : 1935 Primary Insurance: MEDICARE A & B Anticipated DC Date: Planned Disposition: Assisted Living External [facility] Discharge Planning Comments: CM CALLED [facility] [phone], SPOKE TO VENICE WHO REFERRED CM TO [facility]EE. CM LEFT MESSAGE FOR DEE OF POSSIBLE HOSPITAL DISCHARGE TODAY AND REQUESTED ASSESSMENT FOR RETURN. CM FAXED UPDATE TO [facility] AT [phone]. FOR [facility], [facility] OF [facility]CHARGE AT [phone]; [facility] WILL HAVE TO REASSESS PT AT HOSPITAL BEFORE ALLOWING PT TO RETURN TO ASSISTED LIVING. TO RESUME HOME HEALTH, NOTIFY [facility] OF DISCHARGE AT [phone], FAX DISCHARGE INFORMATION TO [facility] AT [phone]. FAX DISCHARGE INFORMATION TO [facility] AT [phone]. Construction Ironworker: Kedar Carrero DCP- Discharge Planning Updated by [id number]: Kedar Carrero on 02/18/19 12:[address] Patient Name: SRAVAN DOWNEY Admission Status: ER Accout number: [id number] Admission Date: 02-14-2019 : 1935 Admission Diagnosis:CHEST PAIN, UNSPECIFIED Attending: CHRIS CHOPRA Current LOS: 4 Anticipated DC Date: Planned Disposition: Assisted Living Primary Insurance: MEDICARE A & B PLANNED EXTERNAL PROVIDER: [facility] Discharge Planning Comments: CM RECEIVED ORDER FOR INPATIENT REHAB PRESCREENING. CM SPOKE TO ISRAEL OF INPATIENT REHAB, SHE HAS MET WITH PT WHO INFORMED [place]RA[place] THAT PT IS GOING TO THE [facility]IST[facility]IVING AND HAS [facility] AND CAN GET THERAPY AT HOME. CM MET WITH PT IN ROOM TO DISCUSS DISCHARGE PLANNING AND NEEDS. PT REPORTS LIVING AT HOME DEPENDENTLY ON STAFF AT THE [facility] FOR ASSISTANCE WITH BATHING, DRESSING AND MEDICATION MANAGEMENT. PT LIVES WITH HER SPOUSE IN ASSISTED LIVING AND IS NOT GOING TO GO ANYWHERE ELSE EXCEPT HOME. PT HAS CANE, WALKER AND WHEELCHAIR WITH NO MEDICAL EQUIPMENT PROVIDER PREFERENCE. PT HAS HOME HEALTH WITH [facility]. CM DISCUSSED AVAILABILITY OF HOME HEALTH, REHAB SERVICES AND MEDICAL EQUIPMENT. PT WANTS TO GO HOME TO THE [facility] WITH HER SPOUSE. PT WANTS [facility], REPORTS [facility] WILL [facility] FOR DISCHARGE HOME. IMPORTANT MESSAGE FROM MEDICARE PROVIDED AND EXPLAINED. CHOICE FOR [facility] SIGNED. CM SPOKE TO LYNDON OF [facility] AT [facility], VERIFIED PT HAS ACTIVE WITH [facility], PROVIDED HOSPITAL UPDATE TO [facility] VIA LYNDON. CM CALLED AND ATTEMPTED TO SPEAK TO [facility], , CM WAS NOT ABLE TO LEAVE A MESSAGE OR SPEAK TO A LIVE PERSON. FOR RETURN TO [facility], NOT[facility] OF DISCHARGE AT [phone]; [facility] WILL HAVE TO REASSESS PT AT HOSPITAL BEFORE ALLOWING PT TO RETURN TO ASSISTED LIVING. TO RESUME HOME HEALTH, NOTIFY [facility] OF DISCHARGE AT [phone], FAX DISCHARGE INFORMATION TO [facility] AT [phone]. FAX DISCHARGE INFORMATION TO [facility] AT [phone]. Construction Ironworker: Kedar Carrero DCP- Discharge Planning Updated by [id number]: Kedar Carrero on 02/14/19 3:[address] Patient Name: SRAVAN DOWNEY Admission Status: ER Accout number: [id number] Admission Date: 02-14-2019 : 1935 Admission Diagnosis: Attending: CHRIS CHOPRA Current LOS: 1 Anticipated DC Date: Planned Disposition: HOME HEALTH Primary Insurance: MEDICARE A & B PLANNED EXTERNAL PROVIDER: [facility] Discharge Planning Comments: CM SPOKE TO LYNDON OF [facility] WHO ADVISED THATPT IS THEIR HOME HEALTHCARE PT AND HAS BEEN ADMITTED. CM TO FOLLOW UP WITH PT IN ROOM TO ASSESS FOR NEEDS AND DETERMINE IF PT PLANS TO RETURN HOME WITH RESUMPTION OF [facility]. Construction Ironworker: Kedar Carrero DCPIA - Discharge Planning Initial Assessment Updated by [email or web address]: Kedar Carrero on 02/18/19 1:43 pm * Is the patient Alert and Oriented? Yes * How many steps to enter\exit or inside your home? NONE * PCP DR. BARCLAY * Pharmacy UNKNOWN TO PATIENT, REPORTS [facility] FOR HER * Preadmission Environment Assisted Living * [facility] * ADLs Partial Dependent * Partial ADLs (Assistance needed) Bathing Dressing Medication Management * Equipment Cane Walker Wheelchair * Other Equipment NO MEDICAL EQUIPMENT PROVIDER PREFERNCE * List name and contact numbers for known caregivers / representatives who currently or will assist patient after discharge: JOHN DOWNEY, SON/POA, * Verbal permission to speak to the caregivers and representatives has been obtained from the patient. N/A * Community resources currently utilized Home Health * Please name any agencies selected above. [facility] * Additional services required to return to the preadmission environment? No * Can the patient safely return to the preadmission environment? Yes * Has this patient been hospitalized within the prior 30 days at any hospital? No Coverage Notice Reviewer: [id number] Alta Carrero Notice Issued Date-Time: 02/18/2019 13:20 Notice Type: Patient Choice Letter Notice Delivered To: Patient Relationship to Patient: Machine Preservative Filler Name: Delivery Method: HAND - Hand Delivered Thania Days: Prior Verbal Notification: Recipient Understood Notice: Yes Recipient Signature: Yes Med Rec Note Co-signed by Attending: Coverage Notice Comment: [facility] Reviewer: [id number] Alta Carrero Notice Issued Date-Time: 02/18/2019 13:20 Notice Type: IM Discharge Notice Notice Delivered To: Patient Relationship to Patient: Machine Preservative Filler Name: Delivery Method: HAND - Hand Delivered Thania Days: Prior Verbal Notification: Recipient Understood Notice: Yes Recipient Signature: Yes Med Rec Note Co-signed by Attending: Coverage Notice Comment: Last DP export: 02/19/19 8:02 a Patient Name: SRAVAN DOWNEY Page [id number] at 1437 All edits/amendments must be made on the electronic document DICTATION DATE: 02/19/191435 CREDIT RISK MANAGEMENT DIRECTOR: HILDA 02/19/191435 RPT#: [id number] DC DATE: STATUS: ADM IN [facility] [address] [place] [address] END OF REPORT
--- NOTE | 2019-02-19 14:52 | MORECARE ---
CASE MANAGEMENT DISCHARGE SUMMARY PATIENT: SRAVAN DOWNEY UNIT: [id number] ADM DATE: 02/14/19 AGE: 84 : 34 SEX: F ROOM/BED: D.9418 AUTHOR: KULWINDER,DOC PHYSICIAN: REFERRING PHYSICIAN: CHRIS MORIN MD DATE OF SERVICE: 02/19/19 Discharge Plan Patient Name: SRAVAN DOWNEY Facility: [facility]:[place] : 1935 Planned Disposition: Assisted Living Anticipated Discharge Date: 02/19/19 Discharge Date: Expected LOS: 5 Initial Reviewer: [id number] Initial Review Date: 02/14/2019 Generated: 02/19/19 3:52 pm Comments DCP- Discharge Planning Updated by [email or web address]: Kedar Carrero on 02/19/19 1:[address] Patient Name: SRAVAN DOWNEY Encounter No: [id number] : 1935 Primary Insurance: MEDICARE A & B Anticipated DC Date: 02-19-2019 Planned Disposition: Assisted Living External Planned Provider: [facility] Discharge Planning Comments: CM CALLED [facility] [phone], SPOKE TO DEE WHO ADVISED PT WILL RETURN TO ASSISTED LIVING TODAY, SHE ASSESSED HER EARLIER AND NOTIFIED NURSE SHRUTHI. CM FAXED DISCHARGE INFORMATION TO [facility] AT [phone]. CM NOTIFIED LYND[facility] OF [facility] OF DISCHARGE, FAXED DISCHARGE INFORMATION TO [facility] AT [phone]. Laborer Electroplating: Kedar Carrero DCP- Discharge Planning Updated by [email or web address]: Kedar Carrero on 02/19/19 7:[address] Patient Name: SRAVAN DOWNEY Encounter No: [id number] : 1935 Primary Insurance: MEDICARE A & B Anticipated DC Date: Planned Disposition: Assisted Living External Planned Provider: [facility] Discharge Planning Comments: SELENE CALLED [facility] [phone], SPOKE TO CAROL WHO REFERRED CM TO DEE. CM LEFT MESSAGE FOR DEE OF POSSIBLE HOSPITAL DISCHARGE TODAY AND REQUESTED ASSESSMENT FOR RETURN. CM FAXED UPDATE TO [facility] AT [phone]. FOR RETURN TO [facility], NOTIFY [facility] OF DISCHARGE AT [phone]; [facility] WILL HAVE TO REASSESS PT AT HOSPITAL BEFORE ALLOWING PT TO RETURN TO ASSISTED LIVING. TO RESUME HOME HEALTH, NOTIFY [facility] OF DISCHARGE AT [phone], FAX DISCHARGE INFORMATION TO [facility] AT [phone]. FAX DISCHARGE INFORMATION TO [facility] AT [phone]. Laborer Electroplating: Kedar Carrero DCP- Discharge Planning Updated by [id number]: Kedar Carrero on 02/18/19 12:[address] Patient Name: SRAVAN DOWNEY Admission Status: ER Accout number: [id number] Admission Date: 02-14-2019 : 1935 Admission Diagnosis:CHEST PAIN, UNSPECIFIED Attending: CHRIS CHOPRA Current LOS: 4 Anticipated DC Date: Planned Disposition: Assisted Living Primary Insurance: MEDICARE A & B PLANNED EXTERNAL PROVIDER: [facility] Discharge Planning Comments: CM RECEIVED ORDER FOR INPATIENT REHAB PRESCREENING. SELENE SPOKE TO ISRAEL OF INPATIENT REHAB, SHE HAS MET WITH PT WHO INFORMED ISRAEL THAT PT IS GOING TO THE [facility]IVING AND HAS [facility] AND CAN GET THERAPY AT HOME. CM MET WITH PT IN ROOM TO DISCUSS DISCHARGE PLANNING AND NEEDS. PT REPORTS LIVING AT HOME DEPENDENTLY ON STAFF AT THE [facility] FOR ASSISTANCE WITH BATHING, DRESSING AND MEDICATION MANAGEMENT. PT LIVES WITH HER SPOUSE IN ASSISTED LIVING AND IS NOT GOING TO GO ANYWHERE ELSE EXCEPT HOME. PT HAS CANE, WALKER AND WHEELCHAIR WITH NO MEDICAL EQUIPMENT PROVIDER PREFERENCE. PT HAS HOME HEALTH WITH [facility]. CM DISCUSSED AVAILABILITY OF HOME HEALTH, REHAB SERVICES AND MEDICAL EQUIPMENT. PT WANTS TO GO HOME TO THE [facility] WITH HER SPOUSE. PT WANTS [facility] RESUMED, REPORTS [facility] WILL PICK HER UP FOR DISCHARGE HOME. IMPORTANT MESSAGE FROM MEDICARE PROVIDED AND EXPLAINED. CHOICE FOR [facility] SIGNED. CM SPOKE TO LYNDON OF [facility] AT NURSES STATION, VERIFIED PT HAS ACTIVE WITH [facility], PROVIDED HOSPITAL UPDATE TO [facility] VIA LYNDON. CM CALLED AND ATTEMPTED TO SPEAK TO THE [facility], , CM WAS NOT ABLE TO LEAVE A MESSAGE OR SPEAK TO A LIVE PERSON. FOR RETURN TO [facility], NOTIFY [facility] OF DISCHARGE AT [phone]; [facility] WILL HAVE TO REASSESS PT AT HOSPITAL BEFORE ALLOWING PT TO RETURN TO ASSISTED LIVING. TO RESUME HOME HEALTH, NOTIFY [facility] OF DISCHARGE AT [phone], FAX DISCHARGE INFORMATION TO [facility] AT [phone]. FAX DISCHARGE INFORMATION TO THE [facility] AT [phone]. Laborer Electroplating: Kedar Carrero DCP- Discharge Planning Updated by [email or web address]: Kedar Carrero on 02/14/19 3:[address] Patient Name: SRAVAN DOWNEY Admission Status: ER Accout number: [id number] Admission Date: 02-14-2019 : 1935 Admission Diagnosis: Attending: CHRIS CHOPRA Current LOS: 1 Anticipated DC Date: Planned Disposition: HOME HEALTH Primary Insurance: MEDICARE A & B PLANNED EXTERNAL PROVIDER: [facility] Discharge Planning Comments: CM SPOKE TO LYNDON OF [facility] WHO ADVISED THATPT IS THEIR HOME HEALTHCARE PT AND HAS BEEN ADMITTED. CM TO FOLLOW UP WITH PT IN ROOM TO ASSESS FOR NEEDS AND DETERMINE IF PT PLANS TO RETURN HOME WITH RESUMPTION OF [facility]. Laborer Electroplating: Kedar Carrero DCPIA - Discharge Planning Initial Assessment Updated by [id number]: Kedar Carrero on 02/18/19 1:43 pm * Is the patient Alert and Oriented? Yes * How many steps to enter\exit or inside your home? NONE * PCP DR. BARCLAY * Pharmacy UNKNOWN TO PATIENT, REPORTS [facility]TA[facility] ALL MEDICATION FOR HER * Preadmission Environment Assisted Living * Facility Name [facility] * ADLs Partial Dependent * Partial ADLs (Assistance needed) Bathing Dressing Medication Management * Equipment Cane Walker Wheelchair * Other Equipment NO MEDICAL EQUIPMENT PROVIDER PREFERNCE * List name and contact numbers for known caregivers / representatives who currently or will assist patient after discharge: JOHN DOWNEY, SON/POA, * Verbal permission to speak to the caregivers and representatives has been obtained from the patient. N/A * Community resources currently utilized Home Health * Please name any agencies selected above. [facility] * Additional services required to return to the preadmission environment? No * Can the patient safely return to the preadmission environment? Yes * Has this patient been hospitalized within the prior 30 days at any hospital? No Coverage Notice Reviewer: [id number] - Kedar Carrero Notice Issued Date-Time: 02/18/2019 13:20 Notice Type: Patient Choice Letter Notice Delivered To: Patient Relationship to Patient: Dedicated Local Truck Driver Name: Delivery Method: HAND - Hand Delivered Thania Days: Prior Verbal Notification: Recipient Understood Notice: Yes Recipient Signature: Yes Med Rec Note Co-signed by Attending: Coverage Notice Comment: [facility] Reviewer: [email or web address] Alta Carrero Notice Issued Date-Time: 02/18/2019 13:20 Notice Type: IM Discharge Notice Notice Delivered To: Patient Relationship to Patient: Dedicated Local Truck Driver Name: Delivery Method: HAND - Hand Delivered Thania Days: Prior Verbal Notification: Recipient Understood Notice: Yes Recipient Signature: Yes Med Rec Note Co-signed by Attending: Coverage Notice Comment: Last DP export: 02/19/19 1:37 p Patient Name: SRAVAN DOWNEY Page [phone] at 1452 All edits/amendments must be made on the electronic document DICTATION DATE: 02/19/191450 CNC MAINTENANCE MECHANIC: HILDA 02/19/19 145 RPT#: [id number] DC DATE: STATUS: ADM IN [facility] [address] [place] [address] END OF REPORT
== END 2019-02-19 14:59 | disposition home or self-care (01) | DRG 313 ==
LOC: D.ER 06:21 → D.M2 08:05
PROVIDERS: Emergency Medicine; Internal Medicine Nephrology; ADMIT Family Medicine; ATTEND Family Medicine
DX: R07.9 Chest pain, unspecified (principal); N17.0 Acute kidney failure with tubular necrosis; I13.0 Hypertensive heart and chronic kidney disease with heart failure and stage 1 through stage 4 chronic kidney disease, or unspecified chronic kidney disease; E87.1 Hypo-osmolality and hyponatremia; I50.9 Heart failure, unspecified; N18.9 Chronic kidney disease, unspecified; I25.10 Atherosclerotic heart disease of native coronary artery without angina pectoris; M81.0 Age-related osteoporosis without current pathological fracture; E87.5 Hyperkalemia; E86.0 Dehydration; K59.00 Constipation, unspecified

== ENCOUNTER 2019-03-19 19:32 | Emergency (ER) | payer MEDICARE, BC ==
[~2019-03-19] VITALS: Ht 162.6 cm; Wt 51.8 kg
[~2019-03-19 19:32] MED LIST changes: +LEVOFLOXACIN500 MG PO
[2019-03-19 19:34] VITALS: Ht 162.6 cm; Wt 51.8 kg
[2019-03-19 22:25] VITALS: BP 158/86
== END 2019-03-19 22:25 ==
LOC: D.ER 19:32
DX: M25.552 Pain in left hip (principal)

== ENCOUNTER 2019-04-17 12:08 | Inpatient (IN) | payer MEDICARE, BC ==
[~2019-04-17] VITALS: Ht 162.6 cm; Wt 48.6 kg
[2019-04-17 12:43] LABS: BASOPHILS 0.1 % (0-2); EOSINOPHILS 0.9 % (0-7); HEMATOCRIT 32.5 % (36.0-48.0); HEMOGLOBIN 10.8 g/dL (12-16); IMMATURE GRANULOCYTES 0.6 % (0-5); LYMPHOCYTES 24.3 % (15-50); MCHC 33.2 g/dL (31.0-37.0); MCV 90.3 fL (80.0-100.0); MEAN PLATELET VOLUME 9.6 fL (7.4-10.4); MONOCYTES 6.6 % (2-11); NEUTROPHILS 67.5 % (40-80); PLATELET COUNT 222 10x3/uL (130-400)
[2019-04-17 13:00] LABS: ALBUMIN 3.1 g/dL (3.4-5.0); ALKALINE PHOSPHATASE 49 U/L (46-116); ALT (SGPT) < 6 U/L (10-68); BILIRUBIN - TOTAL 0.36 mg/dL (0.2-1.3); CALC OSMOLALITY 285 mosm/kg (275-300); CALCIUM 9.9 mg/dL (8.5-10.1); CARBON DIOXIDE 21.7 mmol/L (21.0-32.0); CHLORIDE - SERUM 97 mmol/L (98-107); CREATININE - SERUM 1.9 mg/dL (0.6-1.3); GLUCOSE 101 mg/dL (74-106); POTASSIUM - SERUM 4.1 mmol/L (3.5-5.1); PROTEIN - SERUM 6.2 g/dL (6.4-8.2); SODIUM 131 mmol/L (136-145); UREA NITROGEN 77 mg/dL (7-18); eGFR NON AFRICAN AMERICAN 27 mL/min (90-120)
[2019-04-17 13:25] LABS: APPEARANCE CLEAR (CLEAR); BILIRUBIN NEGATIVE (NEGATIVE); COLOR YELLOW (YELLOW); GLUCOSE NEGATIVE (NEGATIVE); KETONE NEGATIVE (NEGATIVE); NITRITE POSITIVE (NEGATIVE); PROTEIN NEGATIVE (NEGATIVE); SPECIFIC GRAVITY 1.015 (1.005-1.020); UROBILINOGEN NORMAL (NORMAL)
[2019-04-17 13:26] LABS: AMORPHOUS SEDIMENT <1+ /lpf (NONE SEEN); BACTERIA MANY /hpf (NEGATIVE); EPITHELIAL CELLS RARE /hpf (0-5); RED CELLS - URINE NONE SEEN /hpf (0-5); WHITE CELLS - URINE OCC /hpf (NEGATIVE)
[2019-04-17 13:30] VITALS: BP 125/62
[2019-04-17] MEDS ORDERED: TIROSINT75 MCG PO (13:50)
[2019-04-17] MEDS ORDERED: LASIX40 MG PO (13:51)
[2019-04-17] MEDS ORDERED: SENNA LAXATIVE8.6 MG PO (13:51)
[2019-04-17] MEDS ORDERED: ACETAMINOPHEN500 M1 PO ×2 (13:52→16:26)
[2019-04-17] MEDS ORDERED: AZELASTINE HCL6 ML EACH EYE (13:52)
[2019-04-17] MEDS ORDERED: TYLENOL W/CODEI1 TAB PO (13:53)
[2019-04-17 14:08] VITALS: BP 118/64
[2019-04-17 15:20] VITALS: BP 112/69
--- NOTE | 2019-04-17 15:20 | NUR ---
REPORT CALLED TO HORTENSIA RAMOS BY SBAR FORMAT
--- NOTE | 2019-04-17 15:30 | NUR ---
TRANSPORTED TO ROOM #2127 VIA STRETCHER CONDITION STABLE
--- NOTE | 2019-04-17 15:45 | NUR ---
TRANSFER FROM ER BY STRETCHER. CALL LIGHT IN REACH. WILL CONT. PLAN OF CARE.
[2019-04-17] MEDS ORDERED: SYNTHROID75 MCG PO (16:16)
[2019-04-17] MEDS ORDERED: BUSPAR5 MG PO (16:17)
[2019-04-17] MEDS ORDERED: CYANOCOBAL1000 MCG/4 IM (16:24)
--- NOTE | 2019-04-17 16:26 | MORECARE ---
CASE MANAGEMENT DISCHARGE SUMMARY PATIENT: SRAVAN DOWNEY UNIT: [id number] ADM DATE: 04/17/19 AGE: 84 : 34 SEX: F ROOM/BED: D.2737 AUTHOR: TORREY MIRAMONTES PHYSICIAN: REFERRING PHYSICIAN: MARY MAGALLON MD DATE OF SERVICE: 04/17/19 Discharge Plan Patient Name: SRAVAN DOWNEY Facility: [facility]:[place] : 1935 Planned Disposition: Anticipated Discharge Date: Discharge Date: Expected LOS: Initial Reviewer: [email or web address] Initial Review Date: 04/17/2019 Generated: 04/17/19 5:26 pm Patient Name: SRAVAN DOWNEY Page 12605 at 1626 All edits/amendments must be made on the electronic document DICTATION DATE: 04/17/191625 MOLD STACKER: HILDA 04/17/191625 RPT#: [id number] CO DATE: STATUS: ADM IN [facility] [address] [place] [address] END OF REPORT
[2019-04-17] MEDS ORDERED: AZELASTINE137 MCG/0. NASAL (16:31)
[2019-04-17] MEDS ORDERED: DULCOLAX5 MG PO (16:35)
[2019-04-17 16:40] VITALS: BP 112/69; Ht 162.6 cm; Wt 48.6 kg
--- NOTE | 2019-04-17 16:43 | NUR ---
SPOKE WITH DR. LANG THAT PT IS WANTING HER HOME MEDS RESTARTED AND HE STATES HE WILL LOOK AT THEM.
[2019-04-17 17:30] VITALS: BP 117/56
--- NOTE | 2019-04-17 19:00 | NUR ---
REPORT RECEIVED, WILL CONTINUE POC. PATIENT IS A/OX3, BEDFAST. NO S/S OF DISTRESS NOTED, RR EVEN AND UNLABORED ON ROOM AIR. IV TO RT AC SL, PATENT, DRSG C/D/I. PATIENT HAS AN ABDOMINAL HERNIA. PATIENT REQUESTED BEDPAN AND URINATED. NOEMY CARE PERFOMED, REPOSITIONED AND MOVED UP IN THE BED. PATIENT DENIES FURTHER NEEDS AT THIS TIME. CL IN REACH, BED LOCKED AND LOWERED, KATARZYNA ALARM ON. WILL CTM.
[2019-04-17 20:00] VITALS: BP 102/52
[2019-04-18] VITALS: BP 111/57
--- NOTE | 2019-04-18 01:44 | NUR ---
I have reviewed this patient and I concur with the Shift Assessment completed by the Licensed Practical Nurse today this shift.
--- NOTE | 2019-04-18 02:50 | NUR ---
PATIENT C/O HIP AND BACK PAIN. PATIENT REPOSITIONED AND GIVEN TYLENOL. WILL CTM.
[2019-04-18 04:39] LABS: BASOPHILS 0 % (0-2); EOSINOPHILS 1.3 % (0-7); HEMATOCRIT 28.9 % (36.0-48.0); HEMOGLOBIN 9.4 g/dL (12-16); IMMATURE GRANULOCYTES 0.6 % (0-5); LYMPHOCYTES 21.7 % (15-50); MCH 29.3 pg (26.0-34.0); MCHC 32.5 g/dL (31.0-37.0); MEAN PLATELET VOLUME 10.2 fL (7.4-10.4); MONOCYTES 5.4 % (2-11); PLATELET COUNT 233 10x3/uL (130-400); RBC 3.21 10x6/uL (4.00-5.40); RDW 16.9 % (11.5-14.5); WBC 6.4 10x3/uL (4.8-10.8)
[2019-04-18 04:54] LABS: APTT 30.4 SECONDS (22.8-39.4); INR 1.05 (0.85-1.17); PROTIME 13.2 SECONDS (11.6-15.0)
[2019-04-18 05:03] LABS: ALBUMIN 2.6 g/dL (3.4-5.0); ANION GAP 12.6 mmol/L (8-16); BILIRUBIN - TOTAL 0.47 mg/dL (0.2-1.3); CALCIUM 9.1 mg/dL (8.5-10.1); CARBON DIOXIDE 22.9 mmol/L (21.0-32.0); CREATININE - SERUM 1.8 mg/dL (0.6-1.3); MAGNESIUM - SERUM 1.7 mg/dL (1.8-2.4); PHOSPHOROUS 3.7 mg/dL (2.5-4.9); POTASSIUM - SERUM 3.5 mmol/L (3.5-5.1); PROTEIN - SERUM 5.5 g/dL (6.4-8.2); THYROID STIMULATING HORMONE 1.43 uIU/mL (0.36-3.74)
--- NOTE | 2019-04-18 07:15 | NUR ---
REPORT RECEIVED. WILL CONTINUE WITH POC. PT CURRENTLY LYING ON RIGHT SIDE RESTING. CALL LIGHT W/I REACH. RR EVEN AND UNLABORED ON RA. NS INFUSING @50ML/HR VIA R.AC PIV. NO S/S OF DISTRESS NOTED. PT DENIES ANY NEEDS AT THIS TIME. WILL CTM.
[2019-04-18 09:28] VITALS: BP 101/54
[2019-04-18 12:53] VITALS: BP 107/50
[2019-04-18 17:00] VITALS: BP 94/48
--- NOTE | 2019-04-18 17:38 | NUR ---
I have reviewed this patient and I concur with the Shift Assessment completed by the Licensed Practical Nurse today this shift.
--- NOTE | 2019-04-18 17:39 | NUR ---
I have reviewed this patient and I concur with the Shift Assessment completed by the Licensed Practical Nurse today this shift.
[2019-04-18 20:00] VITALS: BP 108/83
[2019-04-19] VITALS: BP 104/59
--- NOTE | 2019-04-19 02:57 | NUR ---
RESTING WITH EYES CLOSED, RESPERTIONS EVEN, NO S/S DISTRESS NOTED.
[2019-04-19 04:00] VITALS: BP 100/52
[2019-04-19 06:02] LABS: BASOPHILS 0 % (0-2); HEMATOCRIT 28.8 % (36.0-48.0); HEMOGLOBIN 9.2 g/dL (12-16); IMMATURE GRANULOCYTES 0.6 % (0-5); MCH 29.9 pg (26.0-34.0); MCHC 31.9 g/dL (31.0-37.0); MEAN PLATELET VOLUME 10.1 fL (7.4-10.4); MONOCYTES 5.3 % (2-11); NEUTROPHILS 64.1 % (40-80); PLATELET COUNT 235 10x3/uL (130-400); RBC 3.08 10x6/uL (4.00-5.40); RDW 16.9 % (11.5-14.5); WBC 6.8 10x3/uL (4.8-10.8)
[2019-04-19 06:20] LABS: ANION GAP 12.9 mmol/L (8-16); CALCIUM 9.2 mg/dL (8.5-10.1); CARBON DIOXIDE 21.6 mmol/L (21.0-32.0); CREATININE - SERUM 1.7 mg/dL (0.6-1.3); MAGNESIUM - SERUM 1.7 mg/dL (1.8-2.4); PHOSPHOROUS 3.1 mg/dL (2.5-4.9); POTASSIUM - SERUM 3.5 mmol/L (3.5-5.1)
[2019-04-19 06:24] LABS: MCV 93.5 fL (80.0-100.0)
--- NOTE | 2019-04-19 06:50 | NUR ---
I have reviewed this patient and I concur with the Shift Assessment completed by the Licensed Practical Nurse today this shift.
--- NOTE | 2019-04-19 07:19 | NUR ---
REPORT RECEIVED. WILL CONTINUE WITH POC. PT CURRENTLY LYING ON RIGHT SIDE RESTING. CALL LIGHT W/I REACH. RR EVEN AND UNLABORED ON RA. R.AC PIV IS SALINE LOCKED. NO S/S OF DISTRESS NOTED. PT DENIES ANY NEEDS. WILL CTM.
[2019-04-19 09:01] VITALS: BP 108/52
[2019-04-19 12:57] LABS: % SATURATION 39 % (15-55); IRON 69 ug/dl (35-150); TOTAL IRON BIND CAPACITY 173 ug/dl (260-445); UNSAT IRON BIND CAPACITY 104 ug/dl (150-375)
[2019-04-19 13:19] VITALS: BP 108/61
--- NOTE | 2019-04-19 17:10 | MORECARE ---
CASE MANAGEMENT DISCHARGE SUMMARY PATIENT: SRAVAN DOWNEY UNIT: [id number] ADM DATE: 04/17/19 AGE: 84 : 34 SEX: F ROOM/BED: D.7248 AUTHOR: TORREY MIRAMONTES PHYSICIAN: REFERRING PHYSICIAN: MARY MAGALLON MD DATE OF SERVICE: 04/19/19 Discharge Plan Patient Name: SRAVAN DOWNEY Facility: [facility]:[place] : 1935 Planned Disposition: Inpatient Rehab Anticipated Discharge Date: Discharge Date: Expected LOS: Initial Reviewer: [email or web address] Initial Review Date: 04/19/2019 Generated: 04/19/19 6:09 pm Comments DCP- Discharge Planning Updated by [id number]: Dottie Lion on 04/19/19 4:[address] Patient Name: SRAVAN DOWNEY Admission Status: ER Accout number: [id number] Admission Date: 04-17-2019 : 1935 Admission Diagnosis: Attending: MARY MAGALLON Current LOS: 2 Anticipated DC Date: Planned Disposition: Inpatient Rehab Primary Insurance: MEDICARE A & B Discharge Planning Comments: CM MET WITH PATIENT AND HER SISTER ABOUT DC PLANNING. WOULD LIKE TO GO TO [facility] THEN TO HOME AT THE [facility] HH. CM TO FOLLOW AND ASSES. Medical Service Representative: Dottie Lion DCPIA - Discharge Planning Initial Assessment Updated by [email or web address]: Dottie Lion on 04/19/19 5:03 pm * Is the patient Alert and Oriented? Yes * PCP PARROT * Pharmacy [facility] [address] * Preadmission Environment Assisted Living * Facility Name [facility] * Community resources currently utilized Home Health * Please name any agencies selected above. [facility] * Additional services required to return to the preadmission environment? Yes * Can the patient safely return to the preadmission environment? Yes * Has this patient been hospitalized within the prior 30 days at any hospital? No Last DP export: 04/17/19 3:26 p Patient Name: SRAVAN DOWNEY Page 40210 at 1710 All edits/amendments must be made on the electronic document DICTATION DATE: 04/19/191708 COOK DINNER: HILDA 04/19/191708 RPT#: [id number] DC DATE: STATUS: ADM IN [facility] [address] [place] [address] END OF REPORT
--- NOTE | 2019-04-19 17:22 | NUR ---
Rehab Note- Acute Inpatient REhab prescreen order received. THe patient is a good inpatietn rehab candidate. Have vistied with the patient & she is in agreeance. Spoke with Marissa & SELENE Sinclair. Will accept to [facility] Acute Inpatient Rehab when medically stable and ready for discharge from the acute hosptial. THank you for this referral! Lucie Mora RN Clinical Liaison, [facility] Rehab
[2019-04-19 17:58] VITALS: BP 114/56
--- NOTE | 2019-04-19 19:34 | NUR ---
REPORT RECIEVED AND ROUNDING COMPLETE. PATIENT LAYING IN BED IN LOW FOWLERS. PATIENT COMPLAINS OF BEING COLD. ASSISTED PATIENT BY GETTING HER A BLANKET OUT OF THE WARMER. PATIENT ASKED THAT I WAKE HER AT 2100 SO SHE DOSENT MISS HER FAVORITE SHOW. PATIENT HAS A RIGHT AC PIV THAT IS SALINE LOCKED. PIV IS DISPLAYING NO S/SX OF INFILTRATION OR INFECTION AT THIS TIME. PATIENT HAS LEFT HIP PAIN BUT STATES ITS NOT THAT BAD NOW 2 OUT 10. PATIENT IS ROOM AIR. LUNGS CLEAR BUT DIMINISHED BILATERALLY. BOWEL SOUNDS X4. PATIENT STATES SHE HAS NO NEEDS AT THIS TIME. CALL LIGHT WITHIN REACH AND BED IN LOWEST LOCKED POSITION.
[2019-04-19 20:10] VITALS: BP 157/55
[2019-04-20 00:05] VITALS: BP 110/59
--- NOTE | 2019-04-20 01:59 | NUR ---
I have reviewed this patient and I concur with the Shift Assessment completed by the Licensed Practical Nurse today this shift.
--- NOTE | 2019-04-20 03:37 | NUR ---
PATIENT LAYING IN LOW FOWLERS, EYES CLOSED BREATHING SHALOOW BUT EVEN, NO DISTRESS AT THIS TIME. CALL LIGHT WITHNIN REACH, BED IN LOWEST LOCKED POSITION.
[2019-04-20 04:10] VITALS: BP 109/52
[2019-04-20 05:09] LABS: BASOPHILS 0.1 % (0-2); EOSINOPHILS 0.8 % (0-7); HEMATOCRIT 28.4 % (36.0-48.0); HEMOGLOBIN 9.1 g/dL (12-16); IMMATURE GRANULOCYTES 0.4 % (0-5); LYMPHOCYTES 16.3 % (15-50); MCH 29.6 pg (26.0-34.0); MCV 92.5 fL (80.0-100.0); MEAN PLATELET VOLUME 9.7 fL (7.4-10.4); MONOCYTES 4.8 % (2-11); NEUTROPHILS 77.6 % (40-80); PLATELET COUNT 240 10x3/uL (130-400); RBC 3.07 10x6/uL (4.00-5.40); WBC 7.5 10x3/uL (4.8-10.8)
[2019-04-20 05:28] LABS: ANION GAP 14.2 mmol/L (8-16); CALCIUM 9.4 mg/dL (8.5-10.1); CARBON DIOXIDE 23.4 mmol/L (21.0-32.0); CREATININE - SERUM 1.6 mg/dL (0.6-1.3); MAGNESIUM - SERUM 1.6 mg/dL (1.8-2.4); PHOSPHOROUS 3.3 mg/dL (2.5-4.9); POTASSIUM - SERUM 3.6 mmol/L (3.5-5.1)
--- NOTE | 2019-04-20 07:42 | NUR ---
PT AWAKE AND ORIENTED, ASSISTED ONTO BEDPAN, STATES SHE WANTS TO LYE ON HER BACK FOR A WHIILE DURING BREAKFAST. NO COMPLAINTS/CONCERNS, ALL QUESTIONS ANSWERED. CL IN REACH, SRX2
[2019-04-20 08:13] VITALS: BP 128/64
[2019-04-20] MEDS ORDERED: LEVOFLOXACIN500 MG PO (10:34)
[2019-04-20] MEDS ORDERED: LASIX40 MG PO (10:36)
[2019-04-20 12:49] VITALS: BP 120/59
--- NOTE | 2019-04-20 16:45 | NUR ---
PT ESCORTED DOWNSTAIRS VIA WHEELCHAIR,
--- NOTE | 2019-04-20 19:02 | MORECARE ---
CASE MANAGEMENT DISCHARGE SUMMARY PATIENT: SRAVAN DOWNEY UNIT: [id number] ADM DATE: 04/17/19 AGE: 84 : 34 SEX: F ROOM/BED: D.5870 AUTHOR: KULWINDER,DOC PHYSICIAN: REFERRING PHYSICIAN: MARY MAGALLON MD DATE OF SERVICE: 04/20/19 Discharge Plan Patient Name: SRAVAN DOWNEY Facility: [facility]:[place] : 1935 Planned Disposition: Inpatient Rehab Anticipated Discharge Date: Discharge Date: 04/20/2019 Expected LOS: Initial Reviewer: [id number] Initial Review Date: 04/19/2019 Generated: 04/20/19 8:01 pm Comments DCP- Discharge Planning Updated by [id number]: Nadia Littlejohn on 04/20/19 5:[address] LATE ENTRY [id number] CM TO VISIT WITH PATIENT REGARDING DISCHARGE TO [facility] INPATIENT REHAB THIS PM. THE PATIENT HAD NOT EATEN LUNCH. SHE WAS AWAITING HER BATH. HER PRIMARY NURSE WAS DISCHARGE 2 OTHER PATIENT'S . CM SPOKE W/ 2 OTHER STAFF NURSES. CM SPOKE WITH NURSING DECKHAND FISHING VESSEL, LISA, TO OBTAIN ASSISTANT QUALITY MANAGER HELP.. PLAN TO RETURN FOR DISCHARGE IMM TO ALLOW THE PATIENT TO EAT AND BATH. DCP- Discharge Planning Updated by [email or web address]: Dottie Lion on 04/19/19 4:[address] Patient Name: SRAVAN DOWNEY Admission Status: ER Accout number: [id number] Admission Date: 04-17-2019 : 1935 Admission Diagnosis: Attending: MARY MAGALLON Current LOS: 2 Anticipated DC Date: Planned Disposition: Inpatient Rehab Primary Insurance: MEDICARE A & B Discharge Planning Comments: CM MET WITH PATIENT AND HER SISTER ABOUT DC PLANNING. WOULD LIKE TO GO TO [facility] THEN TO HOME AT THE [facility] AND [facility] 4 HH. CM TO FOLLOW AND ASSES. Oil Field Laborer: Dottie Lion DCPIA - Discharge Planning Initial Assessment Updated by [id number]: Dottie Lion on 04/19/19 5:03 pm * Is the patient Alert and Oriented? Yes * PCP PARROT * Pharmacy [facility] [address] * Preadmission Environment Assisted Living * Facility Name [facility] * Community resources currently utilized Home Health * Please name any agencies selected above. [facility] * Additional services required to return to the preadmission environment? Yes * Can the patient safely return to the preadmission environment? Yes * Has this patient been hospitalized within the prior 30 days at any hospital? No Last DP export: 04/19/19 4:10 p Patient Name: SRAVAN DOWNEY Page 02380 at 1902 All edits/amendments must be made on the electronic document DICTATION DATE: 04/20/191900 BACTERIOLOGY TEACHER: HILDA 04/20/191900 RPT#: [id number] DC DATE:04/20/19 STATUS: DIS IN [facility] [address] [place] [address] END OF REPORT
--- NOTE | 2019-04-22 09:24 | MORECARE ---
CASE MANAGEMENT DISCHARGE SUMMARY PATIENT: SRAVAN DOWNEY UNIT: [id number] ADM DATE: 04/17/19 AGE: 84 : 34 SEX: F ROOM/BED: D.2918 AUTHOR: TORREY MIRAMONTES PHYSICIAN: REFERRING PHYSICIAN: MARY MAGALLON MD DATE OF SERVICE: 04/22/19 Discharge Plan Patient Name: SRAVAN DOWNEY Facility: [facility]:[place] : 1935 Planned Disposition: Inpatient Rehab Anticipated Discharge Date: 04/20/19 Discharge Date: 04/20/2019 Expected LOS: 3 Initial Reviewer: [email or web address] Initial Review Date: 04/19/2019 Generated: 04/22/19 10:24 am Comments DCP- Discharge Planning Updated by [id number]: Nadia Littlejohn on 04/20/19 5:[address] LATE ENTRY 76065 CM TO VISIT WITH PATIENT REGARDING DISCHARGE TO [facility] INPATIENT REHAB THIS PM. THE PATIENT HAD NOT EATEN LUNCH. SHE WAS AWAITING HER BATH. HER PRIMARY NURSE WAS DISCHARGE 2 OTHER PATIENT'S . CM SPOKE W/ 2 OTHER STAFF NURSES. CM SPOKE WITH NURSING SOFTWARE TESTING SPECIALIST, LISA, TO OBTAIN OPERATIONS RESEARCH GROUP MANAGER HELP.. PLAN TO RETURN FOR DISCHARGE IMM TO ALLOW THE PATIENT TO EAT AND BATH. DCP- Discharge Planning Updated by [id number]: Dottie Lion on 04/19/19 4:[address] Patient Name: SRAVAN DOWNEY Admission Status: ER Accout number: [id number] Admission Date: 04-17-2019 : 1935 Admission Diagnosis: Attending: MARY MAGALLON Current LOS: 2 Anticipated DC Date: Planned Disposition: Inpatient Rehab Primary Insurance: MEDICARE A & B Discharge Planning Comments: CM MET WITH PATIENT AND HER SISTER ABOUT DC PLANNING. W[facility] TO GO [facility] THEN TO HOME AT THE [facility]. CM TO FOLLOW AND ASSES. International Organizer: Dottie Lion DCPIA - Discharge Planning Initial Assessment Updated by [id number]: Dottie Lion on 04/19/19 5:03 pm * Is the patient Alert and Oriented? Yes * PCP PARROT * Pharmacy [facility] [address] * Preadmission Environment Assisted Living * Facility Name [facility] * Community resources currently utilized Home Health * Please name any agencies selected above. [facility] * Additional services required to return to the preadmission environment? Yes * Can the patient safely return to the preadmission environment? Yes * Has this patient been hospitalized within the prior 30 days at any hospital? No Last DP export: 04/20/19 6:02 p Patient Name: SRAVAN DOWNEY Page [phone] at 0924 All edits/amendments must be made on the electronic document DICTATION DATE: 04/22/19923 CENTER MEDICAL AND LAB DIRECTOR: HILDA 04/22/19923 RPT#: [id number] DC DATE:04/20/19 STATUS: DIS IN [facility] [address] [place] [address] END OF REPORT
== END 2019-04-20 16:45 | DRG 682 ==
LOC: D.ER 12:08 → D.M2 14:41
PROVIDERS: Family Medicine; ADMIT Internal Medicine Nephrology; ATTEND Internal Medicine Nephrology
DX: N17.9 Acute kidney failure, unspecified (principal); G93.41 Metabolic encephalopathy; I13.0 Hypertensive heart and chronic kidney disease with heart failure and stage 1 through stage 4 chronic kidney disease, or unspecified chronic kidney disease; I50.20 Unspecified systolic (congestive) heart failure; N39.0 Urinary tract infection, site not specified; E87.1 Hypo-osmolality and hyponatremia; N18.9 Chronic kidney disease, unspecified; D63.1 Anemia in chronic kidney disease; K59.00 Constipation, unspecified; I25.10 Atherosclerotic heart disease of native coronary artery without angina pectoris; G20 Parkinson's disease

== ENCOUNTER 2019-04-20 17:08 | Inpatient (IN) | payer MEDICARE, BC ==
[~2019-04-20] VITALS: Ht 162.6 cm; Wt 56.7 kg
[~2019-04-20 17:08] MED LIST changes: +ACETAMINOPHEN500 M1 PO; +AZELASTINE HCL6 ML EACH EYE; +AZELASTINE137 MCG/0. NASAL; +BUSPAR5 MG PO; +CYANOCOBAL1000 MCG/4 IM; +DULCOLAX5 MG PO; +SENNA LAXATIVE8.6 MG PO; +SYNTHROID75 MCG PO; +TIROSINT75 MCG PO; +TYLENOL W/CODEI1 TAB PO
[2019-04-20 18:07] VITALS: BP 93/47; BMI 21.5
--- NOTE | 2019-04-20 19:40 | NUR ---
PT LYING IN BED. CL IN REACH. DENIES NEEDS AT THIS TIME. BED IN LOW SIDE RAILS X2. A/O X4. LUNGS CLEAR. BOWEL ACTIVE X4. RESP EVEN AND UNLABORED. WCTM
--- NOTE | 2019-04-20 20:30 | NUR ---
CALLED DIGITAL OPERATIONS ANALYST ABOUT OVERRIDING PT MEDS IN P[place] DUE TO PHARMACY NOT BEING HERE.
--- NOTE | 2019-04-21 00:11 | NUR ---
MEDS GIVEN AND ASSISTED ON BEDPAN. CLEANED PT. DENIES FUTHER NEEDS. CL IN REACH. WCTM
--- NOTE | 2019-04-21 00:30 | NUR ---
I have reviewed this patient and I concur with the Shift Assessment completed by the Licensed Practical Nurse today this shift.
--- NOTE | 2019-04-21 05:09 | NUR ---
ASSISTED ON AND OFF BEDPAN. LOOSE BM NOTED AND URINE. DENIES FURTHER NEEDS. CL IN REACH. WCTM
--- NOTE | 2019-04-21 11:02 | NUR ---
RESTING QUIETLY IN BED. IS ALERT AND ORIENTED X4. CAN MOVE ALL EXTREMITIES UPON REQUEST. BOTH FEET HAVE RED PLACES ON THEM. NO OPEN SKIN NOTED. BOTH HEELS BRIDGED. WANTS STAFF TO DO MOST TASKS FOR HER (EX: MOVE COVER, HAND HER WATER CUP, REPOSITION LEGS ON PILLOW.) ENCOURAGED HER TO DO MORE FOR HERSELF. CALL LIGHT IN REACH
--- NOTE | 2019-04-21 19:16 | NUR ---
ASSISTED ON BEDPAN. HAD INCONT ACCIDENT ALREADY. CLEANED PT AND REPLACED PADS. DENIES FURTHER NEEDS. CL IN REACH. A/O X4. WCTM
[2019-04-21 20:48] VITALS: BP 115/59
--- NOTE | 2019-04-21 21:44 | NUR ---
I have reviewed this patient and I concur with the Shift Assessment completed by the Licensed Practical Nurse today this shift.
--- NOTE | 2019-04-22 00:36 | NUR ---
ASSISTED ON BEDPAN. DENIES FURTHER NEEDS. TYLENOL GIVEN PAIN RATE 5 OUT OF 10 FOR JOINT PAIN. WCTM CL IN REACH
--- NOTE | 2019-04-22 04:15 | NUR ---
PT RESTING QUIETLY IN BED WITH EYES CLOSED. RESPS ARE EVEN AND UNLABORED. NO ACUTE DISTRESS NOTED.
[2019-04-22 07:46] LABS: BASOPHILS 0.2 % (0-2); EOSINOPHILS 0.5 % (0-7); HEMATOCRIT 29.5 % (36.0-48.0); HEMOGLOBIN 9.4 g/dL (12-16); IMMATURE GRANULOCYTES 0.5 % (0-5); MCH 29.7 pg (26.0-34.0); MCHC 31.9 g/dL (31.0-37.0); MCV 93.1 fL (80.0-100.0); NEUTROPHILS 67.8 % (40-80); PLATELET COUNT 271 10x3/uL (130-400); RBC 3.17 10x6/uL (4.00-5.40); RDW 16.7 % (11.5-14.5); WBC 6.2 10x3/uL (4.8-10.8)
[2019-04-22 08:00] VITALS: BP 121/55
[2019-04-22 08:00] LABS: ANION GAP 13.1 mmol/L (8-16); CALCIUM 10.1 mg/dL (8.5-10.1); CARBON DIOXIDE 24.2 mmol/L (21.0-32.0); CREATININE - SERUM 1.5 mg/dL (0.6-1.3); POTASSIUM - SERUM 3.3 mmol/L (3.5-5.1)
--- NOTE | 2019-04-22 08:23 | NUR ---
SITTING UP IN BED FOR BREAKSAFT. MOVEMENTS ARE SLOW. INCONT OF STOOL THIS AM. CALL LIGHT IN REACH
--- NOTE | 2019-04-22 14:30 | NUR ---
PATIENT ADMITTED TO REHAB FROM ACUTE FLOOR. DR. BARCLAY IS HER PCP AND SHE IS CLIENT OF [address] SHE RESIDES AT THE [facility] AND WILL DISCHARGE BACK TO HER APARTMENT. WILL CONTINUE TO FOLLOW WITH PATIENT.
[2019-04-22 15:40] VITALS: Ht 162.6 cm; Wt 56.7 kg
--- NOTE | 2019-04-22 19:27 | NUR ---
GREETED PATIENT AND INTRODUCED MYSELF HER NURSE. PATIENT IS SITTING IN WHEELCHAIR AT THIS TIME. ASSISTED PATIENT TO BED AND REPOSITIONED FOR COMFORT. DENIES ANY FURTHER NEEDS AT THIS TIME. CALL LIGHT IN REACH.
[2019-04-22 20:37] VITALS: BP 98/54
--- NOTE | 2019-04-23 00:38 | NUR ---
PATIENT AWAKE WATCHING TV. RESPIRATIONS EVEN. NO S/S OF DISTRESS. SR UP X 2. BED IN LOWEST POSITION. CALL LIGHT IN REACH.
[2019-04-23 08:00] VITALS: BP 98/51
--- NOTE | 2019-04-23 10:11 | NUR ---
SITTING UP IN BED COMPLAINING ABOUT THE FLOOD, WEIGHT OF THE COVERS, WEIGHT OF THE CALL LIGHT, FLATNESS OF THE PILLOW, COLDNESS OF THE COFFEE, SIZE OF HER MEDS, AND HER BOTTOM BEING SORE. TRIED TO GET HER TO LAY ON HER SIDE BUT SHE INSISTED SHE WAS TOO TIRED TO ROLL OVER. CALL LIGHT IN REACH, BED IN LOWEST POSITION, SIDE RAILS UP X2.
--- NOTE | 2019-04-23 11:59 | NUR ---
IN THERAPY GYM IN WC
--- NOTE | 2019-04-23 16:30 | NUR ---
NO CHANGE IN ASSESSMENT. ASSESTED TO BED FROM WC. MAX ASSIST.
--- NOTE | 2019-04-23 19:31 | NUR ---
GREETED PATIENT AND INTRODUCED MYSELF HER NURSE. PATIENT IS LAYING IN BED RESTING AT THIS TIME. RESPIRATIONS EVEN. NO S/S OF DISTRESS. CALL LIGHT IN REACH.
[2019-04-23 20:56] VITALS: BP 124/65
--- NOTE | 2019-04-24 02:12 | NUR ---
PT. RESTING QUIETLY WITH EYES CLOSED. RESPIRATIONS EVEN. NO S/S OF DISTRESS. SR UP X 2. BED IN LOWEST POSITION. CALL LIGHT IN REACH.
[2019-04-24 07:01] LABS: BASOPHILS 0.2 % (0-2); EOSINOPHILS 0.4 % (0-7); HEMATOCRIT 28.9 % (36.0-48.0); HEMOGLOBIN 9.2 g/dL (12-16); IMMATURE GRANULOCYTES 0.4 % (0-5); LYMPHOCYTES 33.4 % (15-50); MCH 29.5 pg (26.0-34.0); MCHC 31.8 g/dL (31.0-37.0); MCV 92.6 fL (80.0-100.0); MEAN PLATELET VOLUME 9.9 fL (7.4-10.4); MONOCYTES 9.3 % (2-11); NEUTROPHILS 56.3 % (40-80); PLATELET COUNT 274 10x3/uL (130-400); RBC 3.12 10x6/uL (4.00-5.40); RDW 16.5 % (11.5-14.5); WBC 5.2 10x3/uL (4.8-10.8)
[2019-04-24 07:16] LABS: ANION GAP 13.7 mmol/L (8-16); CALCIUM 10.2 mg/dL (8.5-10.1); CARBON DIOXIDE 23.6 mmol/L (21.0-32.0); CREATININE - SERUM 1.6 mg/dL (0.6-1.3); POTASSIUM - SERUM 3.3 mmol/L (3.5-5.1)
[2019-04-24 08:00] VITALS: BP 100/52
--- NOTE | 2019-04-24 14:10 | NUR ---
Nutrition Follow-up: Diet: Cardiac Mechanical Soft. Allergy to nuts, beef, and seafood PO intake: none recorded since IP rehab admit; however, I have been in pt's room at meal time and observed pt with very little PO intake. Pt with multiple food allergies and kitchen is limited on what the can send her. She is understably getting tired on chicken and turkey being sent on meal trays. Took list of food perferences today and will enter them into diet order. Hopefully kitchen will be able to send her something more desirable to her. Pt states that she did NOT like the Suplena that I ordered for her. States that she drinks Premier Protein drinks at home. GFR of 32 noted but as pt is not eating much of anything at this time, I think that she would benefit from Ensure with meals. Labs and skin assessment reviewed. Meds noted: Sennokot, colace, lasix, macrobid. Last BM = 04/22/19. Wt: 125# (04/22/19) [facility] precaution diet. Will update food preferences, will order Ensure BID with meals. May consider appetite stimulant if PO intake does not improve. RD Following
--- NOTE | 2019-04-24 19:04 | NUR ---
GREETED PATIENT AND INTRODUCED MYSELF HER NURSE. PATIENT IS LAYING IN BED WATCHING TV. STATES THAT PAIN IS 4/10 IN LEFT HIP. RESPIRATIONS EVEN. NO S/S OF DISTRESS. CALL LIGHT IN REACH.
[2019-04-24 20:45] VITALS: BP 105/61
--- NOTE | 2019-04-25 01:09 | NUR ---
PT RESTING WITH EYES CLOSED. RESPIRAITONS EVEN. NO S/S OF DISTRESS. CALL LIGHT IN REACH.
[2019-04-25 07:32] VITALS: BP 115/57
--- NOTE | 2019-04-25 08:00 | NUR ---
PATIENT SITTING UP IN WHEELCHAIR TO EAT BREAKFAST. ALERT/ORIENT TO SELF AND PLACE, NOT TIME OR SITUATION. CHAIR ALARM ON. CALL LIGHT WITHIN REACH. VOICES NO NEEDS AT THIS TIME. WILL CONTINUE WITH PLAN OF CARE
--- NOTE | 2019-04-25 10:10 | NUR ---
PATIENT IN REHAB ROOM. WORKING WITH PHYSICAL THERAPIST. DENIES ANY PAIN/DISC AT THIS TIME. PATIENT HAS SCHEDULED PAIN MEDICATION
--- NOTE | 2019-04-25 11:34 | NUR ---
CARE TEAM MEETING: PATIENT DOING WELL IN THERAPY WILL CONTINUE TO FOLLOW WITH PATIENT AND WILL ASSIST WITH HER NEEDS. TENATIVE DISCHARGE DATE IS PENDING.
--- NOTE | 2019-04-25 14:14 | NUR ---
OCCUPATIONAL THERAPIST IN PATIENT ROOM. HELPING PATIENT WITH A SHOWER
--- NOTE | 2019-04-25 19:27 | NUR ---
GREETED PATIENT AND INTRODUCED MYSELF. PATIENT IS SITTING IN CHAIR WITH FAMILY MEMBERS VISITING. DENIES ANY NEEDS AT THIS TIME. CALL LIGHT IN REACH.
[2019-04-25 21:11] VITALS: BP 102/50
--- NOTE | 2019-04-26 00:44 | NUR ---
PT. RESTING WITH EYES CLOSED. RESPIRAITONS EVEN. NO S/S OF DISTRESS. SR UP X 2. BED IN LOWEST POSITION. CALL LIGHT IN REACH.
--- NOTE | 2019-04-26 03:50 | NUR ---
WHEN ASKED PT. TO DESCRIBE THE PAIN IN HER CHEST, PT. STATED THAT THE PAIN WAS BONE PAIN IN HER CHEST, SHOULDERS AND HER RIBS. PT. 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
--- NOTE | 2019-04-26 04:02 | NUR ---
PT. AWAKE AND STATES THAT SHE IS HAVING A HARD TIME BREATHING AND THAT SHE IS HAVING CHEST PAIN. RESPIRATORY CONTACTED FOR ASSESSMENT. PTS. O2 SATURATION AT 97%. PUT IN ORDER FOR EKG.
--- NOTE | 2019-04-26 04:49 | NUR ---
RESPIRATORY ON UNIT AND COMPLETED EKG. EKG. RESULTS SINUS TACHYCARDIA WITH PREMATURE ATRIAL COMPLEXES. OTHERWISE NORMAL ECG. WCTM.
[2019-04-26 08:48] LABS: BASOPHILS 0.1 % (0-2); EOSINOPHILS 0.8 % (0-7); HEMATOCRIT 29.5 % (36.0-48.0); HEMOGLOBIN 9.4 g/dL (12-16); IMMATURE GRANULOCYTES 0.3 % (0-5); LYMPHOCYTES 23.3 % (15-50); MCH 29.6 pg (26.0-34.0); MCHC 31.9 g/dL (31.0-37.0); MCV 92.8 fL (80.0-100.0); MEAN PLATELET VOLUME 10.6 fL (7.4-10.4); MONOCYTES 10.5 % (2-11); PLATELET COUNT 280 10x3/uL (130-400); RBC 3.18 10x6/uL (4.00-5.40); RDW 16.2 % (11.5-14.5)
[2019-04-26 08:55] VITALS: BP 107/48
[2019-04-26 08:55] LABS: WBC 7.2 10x3/uL (4.8-10.8)
[2019-04-26 08:59] LABS: ANION GAP 10.4 mmol/L (8-16); CALCIUM 9.8 mg/dL (8.5-10.1); CARBON DIOXIDE 28.3 mmol/L (21.0-32.0); CREATININE - SERUM 1.3 mg/dL (0.6-1.3); POTASSIUM - SERUM 3.7 mmol/L (3.5-5.1)
--- NOTE | 2019-04-26 10:21 | NUR ---
RESTING QUIETLY IN BED. EYES CLOSED. NO S/S DISTRESS. CALL LIGHT IN REACH.
--- NOTE | 2019-04-26 17:41 | NUR ---
SITTING UP IN WC IN ROOM EATING SUPPER. CALL LIGHT IN REACH
--- NOTE | 2019-04-26 20:00 | NUR ---
PTS DAUGHTER APPROACHED THE NURSES STATION COMPLAINING ABOUT ANTS IN THE ROOM. UPON INSPECTION, I NOTED HUNDREDS OF ANTS ON BOTH BEDS, AND IN BATHROOM. PT TRANSFERRED TO ROOM 1114B. ENGINEERING NOTIFIED. THEY CALLED HOUSEKEEPING.
[2019-04-26 22:00] VITALS: BP 103/54
--- NOTE | 2019-04-26 22:23 | NUR ---
PT IS RESTING QUIETLY IN BED WITH EYES CLOSED. NO ACUTE DISTRESS NOTED.
--- NOTE | 2019-04-27 02:58 | NUR ---
I have reviewed this patient and I concur with the Shift Assessment completed by the Licensed Practical Nurse today this shift.
--- NOTE | 2019-04-27 04:38 | NUR ---
RESTING IN BED WITH EYES CLOSED.
--- NOTE | 2019-04-27 13:03 | NUR ---
PT RESTING IN BED WITH EYES OPEN CALL LIGHT IN REACH WILL MONITER
--- NOTE | 2019-04-27 19:35 | NUR ---
PT SITTING UP IN WHEELCHAIR. CL IN REACH. DENIES NEEDS AT THIS TIME. A/O X4. RESP EVEN AND UNLABORED. LUNGS CLEAR. BOWEL ACTIVE X4. WILL CONTINUE TO MONITOR.
[2019-04-27 21:03] VITALS: BP 101/47
--- NOTE | 2019-04-27 23:28 | NUR ---
QUIET HOURS. PT LYING IN BED SUPINE HOB 25 DEGREES EYES CLOSED RESTING QUIETLY. RR EVEN AND UNLABORED. WILL CONTINUE TO MONITOR
--- NOTE | 2019-04-28 01:51 | NUR ---
ASSISTED ON BEDPAN. PT URINATED. DENIES FURTHER NEEDS. CL IN REACH. WCTM
--- NOTE | 2019-04-28 02:50 | NUR ---
I have reviewed this patient and I concur with the Shift Assessment completed by the Licensed Practical Nurse today this shift.
--- NOTE | 2019-04-28 05:35 | NUR ---
PT RESTING QUIETLY. CL IN REACH. NO DISTRESS NOTED. WCTM
--- NOTE | 2019-04-28 07:51 | NUR ---
PT RESTING IN BED WITH EYES OPEN CALL LIGHT IN REACH WILL MONITER
--- NOTE | 2019-04-28 18:40 | NUR ---
PT RESTING IN BED WITH EYES OPEN CALL LIGHT IN REACH NO PROBLEMS WILL MONITER
--- NOTE | 2019-04-28 19:35 | NUR ---
ASSISTED ON BEDPAN. PT URINATED. NOEMY CARE PERFORMED. DENIES FURTHER NEEDS. CL IN REACH. BED IN LOW SIDE RAILS X2. A/O X4. RESP EVEN AND UNLABORED. WCTM
[2019-04-28 19:49] VITALS: BP 116/57
--- NOTE | 2019-04-28 23:43 | NUR ---
QUIET HOURS. PT LYING IN BED ON LEFT SIDE EYES CLOSED RESTING QUIETLY. NO SIGNS OF DISTRESS NOTED.
--- NOTE | 2019-04-29 01:25 | NUR ---
I have reviewed this patient and I concur with the Shift Assessment completed by the Licensed Practical Nurse today this shift.
--- NOTE | 2019-04-29 05:32 | NUR ---
changed pt due to urine incontinence. cl in reach. denies further needs. cpoc
[2019-04-29 06:56] LABS: BASOPHILS 0.2 % (0-2); EOSINOPHILS 3.1 % (0-7); HEMATOCRIT 29.5 % (36.0-48.0); HEMOGLOBIN 9.3 g/dL (12-16); IMMATURE GRANULOCYTES 1.9 % (0-5); LYMPHOCYTES 28.9 % (15-50); MCH 29.3 pg (26.0-34.0); MCHC 31.5 g/dL (31.0-37.0); MCV 93.1 fL (80.0-100.0); MEAN PLATELET VOLUME 10.8 fL (7.4-10.4); MONOCYTES 6.7 % (2-11); NEUTROPHILS 59.2 % (40-80); PLATELET COUNT 290 10x3/uL (130-400); RBC 3.17 10x6/uL (4.00-5.40); RDW 16.5 % (11.5-14.5); WBC 5.4 10x3/uL (4.8-10.8)
[2019-04-29 07:10] LABS: ANION GAP 10.3 mmol/L (8-16); CALCIUM 9.2 mg/dL (8.5-10.1); CARBON DIOXIDE 29.9 mmol/L (21.0-32.0); CREATININE - SERUM 1.3 mg/dL (0.6-1.3); POTASSIUM - SERUM 3.2 mmol/L (3.5-5.1)
[2019-04-29 08:00] VITALS: BP 116/55
--- NOTE | 2019-04-29 09:09 | NUR ---
PT IN PHYSICAL THERAPY GYM.
--- NOTE | 2019-04-29 10:30 | NUR ---
PT LYING IN BED. EYES CLOSED. CHEST RISING AND FALLING. BED LOW. CL IN REACH.
--- NOTE | 2019-04-29 13:55 | NUR ---
PT IN ROOM SITTING IN WC. SPEAKING ON THE TELEPHONE. CL IN REACH.
--- NOTE | 2019-04-29 14:15 | NUR ---
Nutrition Follow-up: Diet: Cardiac [facility] soft PO intake: 38% average x 6 meals. Reports that food is "horrible." She is tired of chicken but has limited diet due to restrictions and allergies. Took new food preferences to be entered into diet order. States that she has been drinking Ensure but does not like the taste, wants to try Boost. States that she has new teeth and her mouth is just now adjusting to them. Meds reviewed. Labs noted, noted GFR with some improvement. Noted "reddened area to bilateral heels" on skin assessment. Last BM 04/29/19. Wt: 125# (04/22/19), no new wt. Continue current diet. Updated food preferences. Boost TID. Will continue to monitor and honor food preferences. Encouraged PO intake. RD Following
--- NOTE | 2019-04-29 17:40 | NUR ---
PT C/O OF ROOM BEING COLD. WORK ORDER PLACED. MAINTENCE CAME AND STATES THE VALVE IS BROKE AND IT CAN'T BE FIXED UNTIL TOMORROW.
--- NOTE | 2019-04-29 20:00 | NUR ---
PATIENT RECEIVED SITTING UP IN WHEELCHAIR IN FRONT OF BEDSIDE TABLE. PATIENT FINISHING HER MEAL. VITAL SIGNS & ASSESSMENT DONE AFTER SHE WAS THROUGH EATING. NO C/O PAIN OR DISTRESS. CALL LIGHT WITHIN REACH. WILL CONTINUE TO MONITOR.
[2019-04-29 20:44] VITALS: BP 96/50
[2019-04-29 21:53] VITALS: BP 130/56
--- NOTE | 2019-04-30 01:12 | NUR ---
I have reviewed this patient and I concur with the Shift Assessment completed by the Licensed Practical Nurse today this shift.
--- NOTE | 2019-04-30 03:30 | NUR ---
PATIENT EYES CLOSED. RESPIRATIONS 18 & EVEN. BED LOW. CALL LIGHT WITHIN REACH. WILL CONTINUEM TO MONITOR.
[2019-04-30 08:00] VITALS: BP 108/55
--- NOTE | 2019-04-30 18:14 | NUR ---
PT RESTING IN BED WITH EYES OPEN CALL LIGHT IN REACH NO PROBLEMS WILL MONITER
--- NOTE | 2019-04-30 18:37 | NUR ---
I have reviewed this patient and I concur with the Shift Assessment completed by the Licensed Practical Nurse today this shift.
--- NOTE | 2019-04-30 19:45 | NUR ---
PT SITTING UP IN WHEELCHAIR. CL IN REACH. DENIES NEEDS AT THIS TIME. LUNGS CLEAR. A/O X4. BOWEL ACTIVE X4. RESP EVEN AND UNLABORED. WCTM
[2019-04-30 22:15] VITALS: BP 80/40
--- NOTE | 2019-04-30 22:20 | NUR ---
ASSISTED TO AND FROM BATHROOM. PT ASSISTED INTO BED. CL IN REACH. BED IN LOW SIDE RAILS X2. WCTM
--- NOTE | 2019-05-01 01:12 | NUR ---
I have reviewed this patient and I concur with the Shift Assessment completed by the Licensed Practical Nurse today this shift.
--- NOTE | 2019-05-01 03:35 | NUR ---
PT RESTING QUIETLY. CL IN REACH. NO DISRESS NOTED. WCTM
--- NOTE | 2019-05-01 06:39 | NUR ---
PT WATCHING TV. CL IN REACH. DENIES NEEDS. WCTM
[2019-05-01 07:30] LABS: BASOPHILS 0.2 % (0-2); EOSINOPHILS 2.3 % (0-7); HEMATOCRIT 28.7 % (36.0-48.0); IMMATURE GRANULOCYTES 1.4 % (0-5); LYMPHOCYTES 35.3 % (15-50); MCH 29.8 pg (26.0-34.0); MCHC 31.4 g/dL (31.0-37.0); MEAN PLATELET VOLUME 10.2 fL (7.4-10.4); MONOCYTES 8.6 % (2-11); NEUTROPHILS 52.2 % (40-80); PLATELET COUNT 253 10x3/uL (130-400); RBC 3.02 10x6/uL (4.00-5.40); RDW 17.1 % (11.5-14.5); WBC 4.4 10x3/uL (4.8-10.8)
[2019-05-01 08:00] LABS: ANION GAP 9.1 mmol/L (8-16); CALCIUM 9.4 mg/dL (8.5-10.1); CARBON DIOXIDE 30.6 mmol/L (21.0-32.0); CREATININE - SERUM 1.4 mg/dL (0.6-1.3); POTASSIUM - SERUM 3.7 mmol/L (3.5-5.1)
[2019-05-01 08:04] VITALS: BP 125/60
--- NOTE | 2019-05-01 18:06 | NUR ---
PT RESTING IN BED WITH EYES OPEN CALL LIGHT IN REACH WILL MONITER
--- NOTE | 2019-05-01 19:30 | NUR ---
PT RESTING QUIETLY. CL IN REACH. NO DISTRESS NOTED. A/O X4. LUNGS CLEAR. BOWEL ACTIVE X4. BED IN LOW SIDE RAILS X2. RESP EVEN AND UNLABORED. WCTM
--- NOTE | 2019-05-01 21:45 | NUR ---
ASSISTED TO AND FROM BATHROOM. PT THEN ASSISTED TO BED. CL IN REACH. DENIES FURTHER NEEDS.
[2019-05-01 22:00] VITALS: BP 112/55
--- NOTE | 2019-05-02 00:17 | NUR ---
I have reviewed this patient and I concur with the Shift Assessment completed by the Licensed Practical Nurse today this shift.
--- NOTE | 2019-05-02 03:00 | NUR ---
PT RESTING QUIETLY.CL IN REACH. NO DISTRESS NOTED. WCTM
--- NOTE | 2019-05-02 05:58 | NUR ---
PT RESTING QUIETLY. CL IN REACH. NO DISTRESS NOTED. WOKE LONG ENOUGH TO TAKE AM MEDS THEN CLOSED EYES DENIED NEEDS. WCTM
--- NOTE | 2019-05-02 07:02 | NUR ---
ASSISTED TO AND FROM BATHROOM. MOD ASSIST WITH WHEELCHAIR. PT BACK IN BED. CL IN REACH. DENIES FURTHER NEEDS. BM NOTED, FORMED. WCTM
[2019-05-02 08:00] VITALS: BP 121/60
--- NOTE | 2019-05-02 08:00 | NUR ---
PT UP IN WHEELCHAIR AT BEDSIDE CALL LIGHT IN REACH NO PROBLEMS WILL MONITER
--- NOTE | 2019-05-02 11:00 | NUR ---
I have reviewed this patient and I concur with the Shift Assessment completed by the Licensed Practical Nurse today this shift.
--- NOTE | 2019-05-02 13:43 | RHP ---
PATIENT: SRAVAN DOWNEY MEDICAL RECORD: [id number] ACCOUNT: [id number] LOCATION:[facility]14 : 33 ADMISSION DATE: 04/20/19 REHABILITATION HISTORY AND PHYSICAL EXAMINATION POST ADMISSION PHYSICIAN EXAMINATION DATE OF ADMISSION: 04/20/2019. ADMITTING DIAGNOSIS: Acute metabolic encephalopathy complicated by Parkinson's. HISTORY OF PRESENT ILLNESS: The patient is an 84-year-old female patient who is followed by Dr. Nj here in [facility]. She has got hypertension, CHF, coronary artery disease, has had chronic kidney disease, has a history of Parkinson's, osteoarthritis, osteoporosis, and constipation She is a resident of [facility]. She presented to the ED with complaints of weakness and hypotension. She additionally had been having problems with constipation, not had a bowel movement for several days. It was reported that she was confused on the ED. She denied any recent fall or trauma. She has been to the medical floor for further evaluation, monitoring, and treatment. Barriers to discharge back to the [facility] at this time are weakness, self-care deficits, and high fall risk. She has inability to perform ADLs prior to this admission. She was living with her in the assisted living facility. She was independent with ADLs and using a wheelchair for any type of distance ambulation. Currently, she is max assist with ambulation and ADLs. She requires intensive therapy in order to return back to her prior level of functioning. COMORBIDITIES: Include constipation, gout, systolic congestive heart failure, Parkinson's, urinary tract infection, normocytic anemia, hyponatremia, acute kidney injury superimposed on chronic kidney disease, and history of coronary artery disease. PAST MEDICAL HISTORY: Significant for a history of CHF, ND, hypertension, arthritis, and osteoporosis. PAST SURGICAL HISTORY: Includes hysterectomy. She has had hemorrhoidectomy. She has had coronary stents placed. She has had salpingo-oophorectomy. She has had a cyst removed from her abdomen and bladder repair, left knee replacement, right knee replacement. She has had a cataract removal. 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 ALLERGIES: ALLERGIC TO MORPHINE AND PHENERGAN IF USED TOGETHER. SHE IS ALLERGIC TO HORSE SERUM, BEEF CONTAINING PRODUCTS, JULIEN INHIBITORS, BETA BLOCKERS, KEFLEX, FENOFIBRATE, SULFA DRUGS. ADHESIVE TAPE, ASPIRIN, BAYCOL, CHOLESTYRAMINE, DILTIAZEM, DULOXETINE, ESTROGEN, FENTANYL, HEPARIN, HYDROCODONE, MEPERIDINE, PENICILLIN, ANY TYPE OF HMG-COA REDUCTASE OR STATINS AND DIAZEPAM. CURRENT MEDICATIONS: Include Senna 2 tabs daily, furosemide 40 mg daily, ferrous sulfate 325 mg daily, Colchicine 0.6 mg daily. She is on Plavix 75 mg daily, Astelin nasal spray daily, amlodipine 2.5 mg daily, Synthroid 75 mcg daily, omeprazole 40 mg b.i.d., Singulair 10 mg at bedtime, hydralazine 25 mg b.i.d., Neurontin 100 mg b.i.d., Colace 100 mg b.i.d., Sinemet 25/100 two tabs q.i.d. She is on BuSpar 5 mg b.i.d., nitroglycerin as needed, Levaquin 500 mg HISTORY AND PHYSICAL [id number] STILLINGS,SRAVAN A every 48 hours, Clonidine 0.1 mg q.6 hours p.r.n. elevated blood pressure, Dulcolax 5 mg b.i.d. p.r.n. constipation, Tylenol #3 one tab q.8 hours p.r.n., and Tylenol as needed. HABITS: No current alcohol or tobacco use. FAMILY HISTORY: Noncontributory. SOCIAL HISTORY: The patient hopes to return back out to the [facility]. REVIEW OF SYSTEMS: GENERAL: Does complain of weakness. She denies cold, cough, or congestion. CARDIOVASCULAR: Denies any chest pain. PHYSICAL EXAMINATION: VITAL SIGNS: Stable, afebrile. GENERAL: An elderly female, in no acute distress. HEENT: Normocephalic and atraumatic. Mucosa moist. NECK: Supple. No lymphadenopathy. LUNGS: Clear at this time. HEART: Regular rate and rhythm. ABDOMEN: Benign. EXTREMITIES: No clubbing, cyanosis, or edema. NEUROLOGIC: She is very slow to mentate. She does have noted proximal and distal muscle weakness. ASSESSMENT: This is an 84-year-old female patient who presents secondary to metabolic encephalopathy. The patient has potential to make improvement. We instituted the following multidisciplinary therapies include, but not limited to physical, occupational, respiratory, speech, nutritional services, prosthetics and orthotics. Given her complex medical condition and risks for more complications, rehabilitation services cannot be provided at a low level of care such as skilled nurse facility. PLAN: 1. Admit to [facility] for intensive inpatient therapy to include the following disciplines: A. Physical therapy to improve gait, all transfer skills and bed mobility to a modified independent level. B. Occupational therapy to a modified independent level. C. Case management to assist with discharge planning and placement options. D. Nutrition to assist with nutritional needs. E. Rehabilitation nursing to assist in monitoring the patient's underlying medical conditions and to assist with any type of bowel or bladder management. 2. The patient's current medication and medical care will be continued. 3. She will be placed on standard fall precautions. 4. As soon as we get her well on the floor, can get [facility] the [facility] with her . TRANSINT:[id number] Voice Confirmation ID: [id number] DOCUMENT ID: [id number] AYSE notes whether there has been none or any medical/functional change since admission: - No change since preadmission screen. HISTORY AND PHYSICAL [id number] SRAVAN DOWNEY attests patient continues to be appropriate for IRF: - Continues to be appropriate. DELLA DAHL MD at 1343 CC: [id number] DICTATION DATE: 04/20/19 185 EVENT EXECUTIVE: 04/20/19 4294 ADM IN [facility] [address] [place] [address]
--- NOTE | 2019-05-02 19:57 | NUR ---
AWAKE AND ALERT SITTING IN WHEELCHAIR IN ROOM. RESPIRATIONS UNLABORED. EATING HER SUPPER MEAL. NO ACUTE DISTRESS NOTED.
[2019-05-02 21:16] VITALS: BP 76/43
--- NOTE | 2019-05-03 05:40 | NUR ---
QUIET HOURS. NO ACUTE CHANGES IN CONDITIONT THIS SHIFT. RESTING IN BED WITH RESPIRATIONS UNLABORED. NO DISTRESS NOTED. CALL LIGHT IN REACH.
[2019-05-03 06:06] LABS: BASOPHILS 0 % (0-2); EOSINOPHILS 1.1 % (0-7); HEMATOCRIT 27.9 % (36.0-48.0); HEMOGLOBIN 8.9 g/dL (12-16); IMMATURE GRANULOCYTES 0.7 % (0-5); LYMPHOCYTES 23.7 % (15-50); MCH 30.6 pg (26.0-34.0); MCHC 31.9 g/dL (31.0-37.0); MCV 95.9 fL (80.0-100.0); MEAN PLATELET VOLUME 10.1 fL (7.4-10.4); MONOCYTES 6.1 % (2-11); NEUTROPHILS 68.4 % (40-80); PLATELET COUNT 238 10x3/uL (130-400); RBC 2.91 10x6/uL (4.00-5.40); RDW 18.1 % (11.5-14.5)
[2019-05-03 06:22] LABS: WBC 7.3 10x3/uL (4.8-10.8)
[2019-05-03 06:33] LABS: ANION GAP 11.9 mmol/L (8-16); CALCIUM 9.1 mg/dL (8.5-10.1); CREATININE - SERUM 1.4 mg/dL (0.6-1.3); POTASSIUM - SERUM 3.9 mmol/L (3.5-5.1)
[2019-05-03 08:00] VITALS: BP 120/57
--- NOTE | 2019-05-03 08:14 | NUR ---
PT SITTING UP IN WHEELCHAIR EATING BREAKFAST, DENIES NEEDS. WCTM.
--- NOTE | 2019-05-03 09:43 | NUR ---
NUTRITION F/U CHART REVIEWED, PT VISIT. C/O NOT GETTING FOODS SHE ORDERS. CHECKED PT TRAY ALL ORDERED ITEMS ACCOUNTED FOR. PT ALSO ASKING IF ALL MEATS HAVE TO BE CHOPPED. INFORMED PT SPEECH THERAPY WOULD HAVE TO MAKE THAT DECISION. RD FOLLOWING
--- NOTE | 2019-05-03 09:56 | NUR ---
PT AM MEDS ADMINISTERED. PT DENIES NEEDS. WCTM.
--- NOTE | 2019-05-03 17:26 | NUR ---
PT STATES SHE MAY HAVE BEEF EVERY ONCE IN A WHILE AND REQUESTS CHOPPED STEAK WITH GRAVY. ORDER PLACED.
--- NOTE | 2019-05-03 17:35 | NUR ---
ASSISTED PT TO FILL OUT MENUS FOR TOMORROW.
--- NOTE | 2019-05-03 19:46 | NUR ---
PT IS RESTING IN BED WITH EYES OPEN. ALERT AND ORIENTED X 3. PT IS VERY TALKATIVE. ELZBIETA HEELS ARE ELEVATED UP OFF BED WITH A PILLOW TO PREVENT BREAKDOWN. NO NEEDS VOICED AT THIS TIME. VSS. SR'S ARE UP X 3 IN BED. CALL LIGHT AND BEDSIDE TABLE ARE WITHIN EASY REACH.
[2019-05-03 19:48] VITALS: BP 101/55
--- NOTE | 2019-05-03 21:53 | NUR ---
PT RESTING IN BED WITH EYES OPEN. VOICED COMPLAINT OF BEING COLD. WARM BLANKET PROVIDED.
--- NOTE | 2019-05-04 | NUR ---
I have reviewed this patient and I concur with the Shift Assessment completed by the Licensed Practical Nurse today this shift.
--- NOTE | 2019-05-04 03:30 | NUR ---
PT LYING IN BED EYES CLOSED RESTING QUIETLY.
--- NOTE | 2019-05-04 06:04 | NUR ---
PT RESTING IN BED WITH EYES OPEN. ASSISTED TO THE BATHROOM WITH MAX ASSIST. VOIDED WITHOUT DIFFICULTY. PT ASSISTED BACK TO BED. TOLERATED AM MEDS WITHOUT DIFFICULTY.
[2019-05-04 08:18] VITALS: BP 125/62
--- NOTE | 2019-05-04 09:32 | NUR ---
PT AM MEDS ADMINISTERED. PT DENIES NEEDS. WCTM.
--- NOTE | 2019-05-04 17:43 | NUR ---
PT EATING DINNER, DENIES NEEDS. WCTM.
[2019-05-04 19:08] VITALS: BP 101/50
--- NOTE | 2019-05-04 19:08 | NUR ---
GREETED PATIENT AND INTRODUCED MYSELF HER NURSE. PATIENT IS SITTING IN CHAIR AT THIS TIME. VITAL SIGNS OBTAINED. RESPIRATIONS EVEN. NO S/S OF DISTRESS. ASSISTED PATIENT INTO BED AND REPOSITIONED FOR COMFORT. CALL LIGHT IN REACH.
--- NOTE | 2019-05-05 00:28 | NUR ---
PT. RESTING QUIETLY WITH EYES CLOSED. RESPIRATIONS EVEN. NO S/S OF DISTRESS. SR UP X 2. BED IN LOWEST POSITION. CALL LIGHT IN REACH.
--- NOTE | 2019-05-05 04:44 | NUR ---
ASSISTED PATIENT TO BATHROOM USING WALKER. PATIENT BACK TO BED AND REPOSITIONED FOR COMFORT. CALL LIGHT IN REACH.
[2019-05-05 07:54] VITALS: BP 127/64
--- NOTE | 2019-05-05 07:58 | NUR ---
AWAKE, ALERT AND ORIENTED. BREAKFAST SERVED. NO C/O PAIN. CL IN REACH.
--- NOTE | 2019-05-05 14:03 | NUR ---
SITTING IN WC. NO DISTRESS NOTED.CL IN REACH.
--- NOTE | 2019-05-05 16:08 | NUR ---
NO CHANGE IN ASSESSMENT. SITTING IN CHAIR. NO C/O PAIN. CL IN REACH.
--- NOTE | 2019-05-05 18:54 | NUR ---
GREETED PATIENT AND INTRODUCED MYSELF HER NURSE. ASSISTED PATIENT TO BATHROOM AND BACK TO BED. REPOSITIONED FOR COMFORT. RESPIRATIONS EVEN. NO S/S OF DISTRESS. CALL LIGHT IN REACH.
[2019-05-05 19:15] VITALS: BP 100/67
--- NOTE | 2019-05-06 05:58 | NUR ---
PT. AWAKE AND LAYING IN BED IN SUPINE POSITION. RESPIRATIONS EVEN. NO S/S OF DISTRESS. DENIES ANY NEEDS AT THIS TIME. CALL LIGHT IN REACH.
[2019-05-06 06:29] LABS: BASOPHILS 0.4 % (0-2); EOSINOPHILS 1.3 % (0-7); HEMOGLOBIN 8.5 g/dL (12-16); IMMATURE GRANULOCYTES 0.7 % (0-5); LYMPHOCYTES 31.6 % (15-50); MCH 29.8 pg (26.0-34.0); MCHC 30.4 g/dL (31.0-37.0); MCV 98.2 fL (80.0-100.0); MEAN PLATELET VOLUME 9.8 fL (7.4-10.4); MONOCYTES 6.6 % (2-11); NEUTROPHILS 59.4 % (40-80); PLATELET COUNT 214 10x3/uL (130-400); RBC 2.85 10x6/uL (4.00-5.40); RDW 18.4 % (11.5-14.5); WBC 4.6 10x3/uL (4.8-10.8)
[2019-05-06 06:50] LABS: ANION GAP 12.5 mmol/L (8-16); CALCIUM 9.4 mg/dL (8.5-10.1); CARBON DIOXIDE 27.7 mmol/L (21.0-32.0); CREATININE - SERUM 1.1 mg/dL (0.6-1.3); POTASSIUM - SERUM 4.2 mmol/L (3.5-5.1)
[2019-05-06 07:47] VITALS: BP 132/69
[2019-05-06] MEDS ORDERED: HYDRALAZINE HCL10 MG PO (08:27)
--- NOTE | 2019-05-06 13:19 | NUR ---
FOLLOW UP TO CONSULT FOR DR GRIJALVA (KNOCKOUT WORKER). CALLED OFFICE AND THEY CONFIRMED PT WAS WAS BY DR GRIJALVA 05/03/19 AND/OR 05/04/19. NO FOLLOW UP NEEDED..... NO NOTE WAS PUT INTO SYSTEM BY DR SRIVASTAVA.
--- NOTE | 2019-05-06 14:49 | NUR ---
SITTING UP IN WC IN ROOM. DENIES NEEDS OR C/O. CALL LIGHT IN REACH.
--- NOTE | 2019-05-06 19:52 | NUR ---
PATIENT RECEIVED SITTING UP IN WHEELCHAIR. PATIENT REQUEST TO RETURN TO BED. PATIENT MINIMAL ASSIST INTO BED. PATIENT MADE COMFORTABLE. ASSESSMENT & VITAL SIGNS DONE. NO C/O PAIN OR DISTRESS. BED LOW. ALARM ON. WILL GIULIA UE TO MONITOR.
[2019-05-06 20:47] VITALS: BP 89/49
--- NOTE | 2019-05-07 02:36 | NUR ---
PATIENT EYES CLOSED. RESPIRATIONS 18 & EVEN. BED LOW. CALL LIGHT WITHIN REACH. WILL CONTINUE TO MONITOR.
--- NOTE | 2019-05-07 03:32 | NUR ---
I have reviewed this patient and I concur with the Shift Assessment completed by the Licensed Practical Nurse today this shift.
[2019-05-07 08:00] VITALS: BP 140/50
--- NOTE | 2019-05-07 08:00 | NUR ---
SHIFT ASSMT COMPLETED.PLAN TO DISCHARGE TO HOME AT THE [facility].CL IN REACH.SITTING UP IN CHAIR,BREAKFAST GIVEN.
--- NOTE | 2019-05-07 09:51 | NUR ---
[facility] care 4 will resume home health. no new dme needed at this time. dr. fernández 05/14/19 @ 1:30. patient choice form and imfm forms signed, copy given to patient and filed in chart. discharge instructions faxed to pcp, home health and reviewed with patient by nurse.
[2019-05-07] MEDS ORDERED: TYLENOL W/CODEI1 TAB PO (11:16)
--- NOTE | 2019-05-07 12:00 | NUR ---
DRESSED AND REMAINS UP IN CHAIR.LUNCH GIVEN.
--- NOTE | 2019-05-07 14:45 | NUR ---
DISCHARGED TO THE [facility] WITH NURSERY TECHNICIAN.MEDS CALLED TO [facility].RX GIVEN.
== END 2019-05-07 14:50 | disposition home health service (06) | DRG 56 ==
LOC: D.REHAB 17:08
PROVIDERS: ADMIT Emergency Medicine; ATTEND Emergency Medicine
DX: G20 Parkinson's disease (principal); G93.41 Metabolic encephalopathy; I13.0 Hypertensive heart and chronic kidney disease with heart failure and stage 1 through stage 4 chronic kidney disease, or unspecified chronic kidney disease; I50.20 Unspecified systolic (congestive) heart failure; N39.0 Urinary tract infection, site not specified; E87.1 Hypo-osmolality and hyponatremia; N17.9 Acute kidney failure, unspecified; E78.1 Pure hyperglyceridemia; N18.9 Chronic kidney disease, unspecified; D63.1 Anemia in chronic kidney disease; K59.00 Constipation, unspecified

== ENCOUNTER 2019-07-17 15:40 | Emergency (ER) | payer MEDICARE, BC ==
[~2019-07-17] VITALS: Ht 162.6 cm; Wt 54.5 kg
[~2019-07-17 15:40] MED LIST changes: +HYDRALAZINE HCL10 MG PO
[2019-07-17 15:44] VITALS: Ht 162.6 cm; Wt 54.5 kg
[2019-07-17 19:30] VITALS: BP 152/70
[2019-07-17] MEDS ORDERED: ZYRTEC10 MG PO (21:38)
[2019-07-17] MEDS ORDERED: LASIX20 MG PO (21:57)
[2019-07-17] MEDS ORDERED: IPRATROPIUM BRO30 M1 NASAL (22:14)
== END 2019-07-17 17:47 ==
LOC: D.ER 15:40
DX: S09.90XA Unspecified injury of head, initial encounter (principal); W19.XXXA Unspecified fall, initial encounter; Y93.9 Activity, unspecified; Y92.129 Unspecified place in nursing home as the place of occurrence of the external cause; S00.83XA Contusion of other part of head, initial encounter; G20 Parkinson's disease; E07.9 Disorder of thyroid, unspecified; I10 Essential (primary) hypertension; I50.9 Heart failure, unspecified; D64.9 Anemia, unspecified; J44.9 Chronic obstructive pulmonary disease, unspecified

== ENCOUNTER 2019-07-30 14:40 | Inpatient (IN) | payer MEDICARE, BC ==
[~2019-07-30] VITALS: Ht 162.6 cm; Wt 47.6 kg
[~2019-07-30 14:40] MED LIST changes: +IPRATROPIUM BRO30 M1 NASAL; +LASIX20 MG PO; +ZYRTEC10 MG PO
[2019-07-30 15:30] LABS: BASOPHILS 0.1 % (0-2); EOSINOPHILS 0.2 % (0-7); HEMATOCRIT 41.9 % (36.0-48.0); HEMOGLOBIN 13.3 g/dL (12-16); IMMATURE GRANULOCYTES 0.1 % (0-5); MCH 31.4 pg (26.0-34.0); MCHC 31.7 g/dL (31.0-37.0); MCV 99.1 fL (80.0-100.0); MEAN PLATELET VOLUME 10.9 fL (7.4-10.4); MONOCYTES 3.4 % (2-11); NEUTROPHILS 84.2 % (40-80); PLATELET COUNT 237 10x3/uL (130-400); RBC 4.23 10x6/uL (4.00-5.40); RDW 14.2 % (11.5-14.5); WBC 8.3 10x3/uL (4.8-10.8)
[2019-07-30 15:49] LABS: ALBUMIN 3.2 g/dL (3.4-5.0); ANION GAP 15.2 mmol/L (8-16); BILIRUBIN - TOTAL 0.6 mg/dL (0.2-1.3); CALCIUM 9.2 mg/dL (8.5-10.1); CARBON DIOXIDE 24.5 mmol/L (21.0-32.0); CREATININE - SERUM 1.7 mg/dL (0.6-1.3); PROTEIN - SERUM 6.5 g/dL (6.4-8.2)
[2019-07-30 15:58] LABS: POTASSIUM - SERUM 2.7 mmol/L (3.5-5.1)
[2019-07-30 19:02] LABS: APPEARANCE CLEAR (CLEAR); BILIRUBIN NEGATIVE (NEGATIVE); COLOR YELLOW (YELLOW); GLUCOSE NEGATIVE (NEGATIVE); KETONE NEGATIVE (NEGATIVE); NITRITE POSITIVE (NEGATIVE); PROTEIN TRACE mg/dL (NEGATIVE); UROBILINOGEN NORMAL (NORMAL)
[2019-07-30 19:03] LABS: BACTERIA MANY /hpf (NEGATIVE); EPITHELIAL CELLS 0-5 /hpf (0-5); RED CELLS - URINE OCC /hpf (0-5); WHITE CELLS - URINE 0-5 /hpf (NEGATIVE)
[2019-07-30 19:30] VITALS: BP 119/52
--- NOTE | 2019-07-30 20:08 | NUR ---
PT USES BED MANSFIELD X 1 ASSIST, VOIDED DARK YELLOW URINE NOTED. NOEMY CARE PROVIDED TO PT. PT REPOSITIONED TO LEFT LATERAL SIDE. HEELS BRIDGED. ICE WATER PROVIDED PER REQUEST. PT DENIES FURTHER NEEDS AT THIS TIME. WILL CONTINUE TO MONITOR.
[2019-07-30 20:10] VITALS: BP 128/61
--- NOTE | 2019-07-30 21:33 | NUR ---
STOP TIME LEVAQUIN AT THIS TIME
--- NOTE | 2019-07-30 22:18 | NUR ---
PATIENT TO THE FLOOR, PATIENT HAS A LOOSE BOWEL MOVEMENT ON THE WAY TO THE FLOOR. SECRETARY OF STATE AND ER NURSE CHANGED. WHEN THE I AND SECRETARY OF STATE WALKED IN TO ROOM TO INTORDUCE OURSELFS AND GET VITAL PATIETN HAS ANOTHER BOWEL MOVEMENT. VERY LOOSE BOWEL MOVEMENT. PATIENT HAS A LARGE BLANCHABLE RED SPOT ON BOTTOM. PATIENT ABLE TO ROLL WITH ASSISTANCE. SECRETARY OF STATE AND I GAVE PATIENT A COMPLETE BED BATH AND SECRETARY OF STATE HELPED WITH ORAL CARE. PATIENT'S FACE IS COMPLETELY BRUISED SHE STATES FROM FALLING OUT OF WHEELCHAIR. PATIENT HAS A LARGE KNOT ON HER FORHEAD. PATIENT STATES SHE JUST WANTS TO GET SOME REST. CALL LIGHT WITHIN REACH AND BED IN LOWEST LOCKED POSITON. FALL PRECAUTIONS IN PLACE.
[2019-07-31] VITALS (8 sets, daily range): BP systolic 119–138; BP diastolic 56–87; BMI 17.2; BMI 17.1
--- NOTE | 2019-07-31 07:21 | NUR ---
REPORT RECIEVED. PT SITTING SEMI FOWLERS IN BED. SHE HAS A R FA PIV INFUSING NS @50. RR EVEN AND UNLABORED. BED LOCKED AND IN LOWEST POSITION, CALL LIGHT WITHIN REACH. WILL CTM
[2019-07-31 08:56] LABS: APTT 25.4 SECONDS (22.8-39.4); INR 0.99 (0.85-1.17)
[2019-07-31 09:05] LABS: ALBUMIN 2.8 g/dL (3.4-5.0); ANION GAP 18.3 mmol/L (8-16); BILIRUBIN - TOTAL 0.51 mg/dL (0.2-1.3); CALCIUM 9.2 mg/dL (8.5-10.1); CARBON DIOXIDE 21.5 mmol/L (21.0-32.0); CREATININE - SERUM 1.7 mg/dL (0.6-1.3); MAGNESIUM - SERUM 1.2 mg/dL (1.8-2.4); PHOSPHOROUS 3.6 mg/dL (2.5-4.9); PRE-ALBUMIN 22.4 mg/dL (18.0-35.7); PROTEIN - SERUM 5.5 g/dL (6.4-8.2); THYROID STIMULATING HORMONE 1.28 uIU/mL (0.36-3.74)
[2019-07-31 09:06] LABS: POTASSIUM - SERUM 3.8 mmol/L (3.5-5.1)
[2019-07-31 09:08] LABS: BASOPHILS 0.1 % (0-2); EOSINOPHILS 0 % (0-7); HEMATOCRIT 37.5 % (36.0-48.0); HEMOGLOBIN 11.6 g/dL (12-16); IMMATURE GRANULOCYTES 0.2 % (0-5); LYMPHOCYTES 11.5 % (15-50); MCH 30.6 pg (26.0-34.0); MCHC 30.9 g/dL (31.0-37.0); MCV 98.9 fL (80.0-100.0); MEAN PLATELET VOLUME 11.5 fL (7.4-10.4); MONOCYTES 3.8 % (2-11); NEUTROPHILS 84.4 % (40-80); PLATELET COUNT 253 10x3/uL (130-400); RBC 3.79 10x6/uL (4.00-5.40); RDW 14.4 % (11.5-14.5); WBC 9.3 10x3/uL (4.8-10.8)
--- NOTE | 2019-07-31 15:06 | NUR ---
I AGREE WITH THE ASSESSMENT OF THE PATIENT COMPLETED BY THE PATIENT ACCOUNT REPRESENTATIVE ON STAFF
--- NOTE | 2019-07-31 19:36 | NUR ---
1`EVENING ROUNDS COMPLETED. VSS, AAOX3, PT APPEARS LETHARGIC. MULTIPLE BRUISES NOTED ON FACE, AND KNOT NOTED ON LEFTSIDE OF FOERHEAD. FAMILY AT BEDSIDE. PT C/O PAIN IN HER LOWER BACK. TYLENOL WILL BE GIVEN ALONGSIDE NIGHT MEDS. PT DENIES ANY FURTHER NEEDS AT THIS TIME. WILL CPOC. CL WITHIN REACH, BED IN LOW, SR UP X2.
[2019-08-01 04:00] VITALS: BP 118/54
[2019-08-01 06:23] LABS: BASOPHILS 0.2 % (0-2); EOSINOPHILS 0.6 % (0-7); HEMOGLOBIN 10.2 g/dL (12-16); IMMATURE GRANULOCYTES 0.3 % (0-5); LYMPHOCYTES 28.1 % (15-50); MCH 30.4 pg (26.0-34.0); MCHC 31.9 g/dL (31.0-37.0); MEAN PLATELET VOLUME 11.6 fL (7.4-10.4); MONOCYTES 5.8 % (2-11); PLATELET COUNT 235 10x3/uL (130-400); RBC 3.35 10x6/uL (4.00-5.40); RDW 14.2 % (11.5-14.5)
[2019-08-01 06:36] LABS: MCV 95.5 fL (80.0-100.0); WBC 6.2 10x3/uL (4.8-10.8)
[2019-08-01 06:38] LABS: ANION GAP 14.2 mmol/L (8-16); CALCIUM 9.8 mg/dL (8.5-10.1); CREATININE - SERUM 1.6 mg/dL (0.6-1.3); MAGNESIUM - SERUM 2.4 mg/dL (1.8-2.4); PHOSPHOROUS 1.9 mg/dL (2.5-4.9); POTASSIUM - SERUM 3.2 mmol/L (3.5-5.1)
--- NOTE | 2019-08-01 07:44 | NUR ---
PT RESTING. RR EVEN AND UNLABORED ON ROOM AIR. BRUISING NOTED TO GENERAL FACIAL AREA. HEMATOMA NOTED TO FOREHEAD. IV NOTED TO LEFT FOREARM WITH DRESSING OVER, CDI. DENIES FURTHER NEEDS OR PAIN AT THIS TIME. BED IN LOWEST POSITION. CALL LIGHT WITHIN REACH. WILL CONTINUE TO MONITOR.
[2019-08-01 08:27] VITALS: BP 127/59
--- NOTE | 2019-08-01 10:30 | NUR ---
GAVIN NEAL APN PAGED TO SEE ABOUT HEART MONITOR TO BE D/C.
--- NOTE | 2019-08-01 10:38 | NUR ---
GAVIN NEAL APN TO CALL BACK WITH DC MONITOR ORDER.
--- NOTE | 2019-08-01 10:52 | NUR ---
PT SITTING UP IN CHAIR. RR EVEN AND UNLABORED. CALL LIGHT WITHIN REACH. BED ALARM IN PLACE.
--- NOTE | 2019-08-01 10:53 | NUR ---
PT SITTING UP IN CHAIR. RR EVEN AND UNLABORED. CALL LIGHT WITHIN REACH. CHAIR ALARM IN PLACE.
[2019-08-01 11:11] VITALS: BP 125/61
--- NOTE | 2019-08-01 14:00 | NUR ---
BM X1, DIARRHEA. PT CLEANED, LINENS CHANGED. REPOSITIONED TO COMFORT. BED IN LOWEST POSITION. CALL LIGHT WITHIN REACH. WILL CONTINUE TO MONITOR.
--- NOTE | 2019-08-01 14:14 | NUR ---
I have reviewed this patient and I concur with the Shift Assessment completed by the Licensed Practical Nurse today this shift.
[2019-08-01 15:06] VITALS: BP 126/69
--- NOTE | 2019-08-01 15:30 | NUR ---
PT PLACED ON BEDPAN, BM X1, DIARRHEA. PT CLEANED, LINENS CHANGED. REPOSITIONED TO COMFORT. BED IN LOWEST POSITION. CALL LIGHT WITHIN REACH. WILL CONTINUE TO MONITOR.
--- NOTE | 2019-08-01 16:13 | MORECARE ---
CASE MANAGEMENT DISCHARGE SUMMARY PATIENT: SRAVAN DOWNEY UNIT: [id number] ADM DATE: 07/30/19 AGE: 84 : 34 SEX: F ROOM/BED: D.[facility] AUTHOR: TORREY MIRAMONTES PHYSICIAN: REFERRING PHYSICIAN: MARLO COTTO MD DATE OF SERVICE: 08/01/19 Discharge Plan Patient Name: SRAVAN DOWNEY Facility: [facility]:[place] : 1935 Planned Disposition: Inpatient Rehab Anticipated Discharge Date: Discharge Date: Expected LOS: Initial Reviewer: [email or web address] Initial Review Date: 08/01/2019 Generated: 08/01/19 5:12 pm Coverage Notice Reviewer: [email or web address] Carrero Notice Issued Date-Time: 08/01/2019 12:40 Notice Type: IM Discharge Notice Notice Delivered To: Patient Relationship to Patient: Mirror Maker Name: Delivery Method: HAND - Hand Delivered Thania Days: Prior Verbal Notification: Recipient Understood Notice: Yes Recipient Signature: Yes Med Rec Note Co-signed by Attending: Coverage Notice Comment: Reviewer: [email or web address] Carrero Notice Issued Date-Time: 08/01/2019 12:40 Notice Type: Patient Choice Letter Notice Delivered To: Patient Relationship to Patient: Mirror Maker Name: Delivery Method: HAND - Hand Delivered Thania Days: Prior Verbal Notification: Recipient Understood Notice: Yes Recipient Signature: Yes Med Rec Note Co-signed by Attending: Coverage Notice Comment: [facility] INPATIENT [facility] Patient Name: SRAVAN DOWNEY Page [id number] at 1613 All edits/amendments must be made on the electronic document DICTATION DATE: 08/01/19 161 EXPANDED DUTY DENTAL ASSISTANT: HILDA 08/01/19 161 RPT#: [id number] [place] DATE: STATUS: ADM IN [place] [address] [place] [address] END OF REPORT
--- NOTE | 2019-08-01 16:21 | MORECARE ---
CASE MANAGEMENT DISCHARGE SUMMARY PATIENT: SRAVAN DOWNEY UNIT: [id number] ADM DATE: 07/30/19 AGE: 84 : 34 SEX: F ROOM/BED: D.9531 AUTHOR: KULWINDER,DOC PHYSICIAN: REFERRING PHYSICIAN: MARLO COTTO MD DATE OF SERVICE: 08/01/19 Discharge Plan Patient Name: SRAVAN DOWNEY Facility: [facility]:[place] : 1935 Planned Disposition: Inpatient Rehab Anticipated Discharge Date: Discharge Date: Expected LOS: Initial Reviewer: [id number] Initial Review Date: 08/01/2019 Generated: 08/01/19 5:21 pm Comments DCP- Discharge Planning Updated by [id number]: Kedar Carrero on 08/01/19 3:[address] Patient Name: SRAVAN DOWNEY Admission Status: ER Accout number: [id number] Admission Date: 07-30-2019 : 1935 Admission Diagnosis: Attending: PAOLA Current LOS: 2 Anticipated DC Date: Planned Disposition: Inpatient Rehab Primary Insurance: MEDICARE A & B PLANNED EXTERNAL PROVIDER: [facility] INPATIENT REHAB Discharge Planning Comments: CM MET WITH PT IN ROOM TO DISCUSS DISCHARGE PLANNING AND NEEDS. PT REPORTS LIVING AT THE [facility] IN ASSISTED LIVING. PT REPORTS HELP WITH BATHING, MEDICATION MANAGEMENT AND DRESSING. PT HAS CANE, WALKER AND WHEELCHAIR WITH NO MEDICAL EQUIPMENT PROVIDER PREFERENCE. PT HAS HOME HEALTH WITH [facility]. PT REPORTS SHE HAS BEEN INCREASINGLY WEAK AND NAUSEATED. PT WANTS REHAB. CM DISCUSSED AVAILABILITY OF HOME HEALTH, REHAB SERVICES AND MEDICAL EQUIPMENT. PT REPORTS SHE WOULD LIKE REHAB AT [place] AND HAS BEEN THERE IN THE PAST. HER GOAL IS TO RETURN TO ASSISTED LIVING AFTER REHAB. CHOICE SIGNED. IMPORTANT MESSAGE FROM MEDICARE PROVIDED AND EXPLAINED. ORDER FOR INPATIENT REHAB PRESCREENING OBTAINED. CM WAITING MEDICAL STABILITY WELL INPATIENT REHAB PRESCREENING FROM [facility] INPATIENT REHAB. Senior Java Web Application Developer: Kedar Carrero DCPIA - Discharge Planning Initial Assessment Updated by [email or web address]: Kedar Carrero on 08/01/19 4:13 pm * Is the patient Alert and Oriented? Yes * How many steps to enter\exit or inside your home? NONE * PCP DR. GALAN * Pharmacy [facility] * Preadmission Environment Assisted Living * Facility Name [facility] * ADLs Partial Dependent * Partial ADLs (Assistance needed) Bathing Medication Management * Equipment Cane Walker Wheelchair * Other Equipment NO MEDICAL EQUIPMENT PROVIDER PREFERENCE * List name and contact numbers for known caregivers / representatives who currently or will assist patient after discharge: JOHN DOWNEY, SON, * Verbal permission to speak to the caregivers and representatives has been obtained from the patient. N/A * Community resources currently utilized Home Health * Please name any agencies selected above. [facility] * Additional services required to return to the preadmission environment? Yes * Can the patient safely return to the preadmission environment? Yes * Has this patient been hospitalized within the prior 30 days at any hospital? No Coverage Notice Reviewer: [id number] Carrero Notice Issued Date-Time: 08/01/2019 12:40 Notice Type: IM Discharge Notice Notice Delivered To: Patient Relationship to Patient: Shirt Trimmer Name: Delivery Method: HAND - Hand Delivered Thania Days: Prior Verbal Notification: Recipient Understood Notice: Yes Recipient Signature: Yes Med Rec Note Co-signed by Attending: Coverage Notice Comment: Reviewer: [id number] Carrero Notice Issued Date-Time: 08/01/2019 12:40 Notice Type: Patient Choice Letter Notice Delivered To: Patient Relationship to Patient: Shirt Trimmer Name: Delivery Method: HAND - Hand Delivered Thania Days: Prior Verbal Notification: Recipient Understood Notice: Yes Recipient Signature: Yes Med Rec Note Co-signed by Attending: Coverage Notice Comment: [facility] INPATIENT REHAB Last DP export: 08/01/19 3:13 pm Patient Name: SRAVAN DOWNEY Page [phone] at 1621 All edits/amendments must be made on the electronic document DICTATION DATE: 08/01/19 162 GRAVITY PROSPECTING OPERATOR HELPER: HILDA 08/01/19 162 RPT#: [id number] [place] DATE: STATUS: ADM IN [facility] [address] [place] [address] END OF REPORT
--- NOTE | 2019-08-01 19:30 | NUR ---
REPORT RECEIVED, WILL CONTINUE POC. PATIENT IS AAOX4, IN SEMI-FOWLERS POSITION. PATIENT ANSWER ALL QUESTIONS APPROPRIATELY BUT INSISTS THERES A CAT ON HER BED. DAUGHTER AT BEDSIDE. NO S/S OF DISTRESS OBSERVED, RR EVEN AND UNLABORED ON ROOM AIR. PIV TO RT FA WITH NS INFUSING @50ML/HR, PATENT, DRSG C/D/I. PATIENT DENIES NEEDS AT THIS TIME. CL IN REACH, BED LOCKED AND LOWERED. WILL CTM.
--- NOTE | 2019-08-01 19:30 | NUR ---
REPORT RECEIVED WILL CONTINUE POC. PATIENT IS AAOX4, LYING IN SUPINE POSITION. NO S/S OF DISTRESS OBSERVED, RR EVEN AND UNLABORED ON ROOM AIR. PIV TO LT WRIST, PATENT, SL, DRSG C/D/I. PATIENT DENIES NEEDS AT THIS TIME. CL IN REACH, BED LOCKED AND LOWERED. SITTER PRESENT. WILL CTM.
[2019-08-01 20:00] VITALS: BP 143/68
--- NOTE | 2019-08-01 22:25 | NUR ---
ADMINISTERED HS MEDS. PATIENT REFUSED TO SWALLOW MEDS ONCE SHE PUT THEM IN HER MOUTH, KEPT TELLING ME TO BE QUIET AND NOT YELL AT HER. EXPLAINED TO PATIENT THAT SHE NEEDS TO SWALLOW OR WE NEED TO REMOVED MEDS FROM HER MOUTH. TOOK PATIENT ALMOST 15MIN TO SWALLOW MEDS. SHE THEN SAID TO LEAVE HER ALONE AND LET HER SLEEP. PATIENT DENIES FURTHER NEEDS AT THIS TIME. CL IN REACH, BED LOCKED AND LOWERED. WILL CTM.
[2019-08-01 23:00] VITALS: BP 131/52
[2019-08-02 04:00] VITALS: BP 137/62
[2019-08-02 04:34] LABS: BASOPHILS 0.1 % (0-2); EOSINOPHILS 1.9 % (0-7); HEMATOCRIT 31.8 % (36.0-48.0); IMMATURE GRANULOCYTES 0.3 % (0-5); LYMPHOCYTES 27.2 % (15-50); MCH 30.2 pg (26.0-34.0); MCHC 31.4 g/dL (31.0-37.0); MCV 96.1 fL (80.0-100.0); MEAN PLATELET VOLUME 11.2 fL (7.4-10.4); MONOCYTES 4.8 % (2-11); NEUTROPHILS 65.7 % (40-80); PLATELET COUNT 218 10x3/uL (130-400); RBC 3.31 10x6/uL (4.00-5.40); RDW 14.4 % (11.5-14.5); WBC 6.9 10x3/uL (4.8-10.8)
[2019-08-02 04:43] LABS: ANION GAP 11.7 mmol/L (8-16); CALCIUM 9.7 mg/dL (8.5-10.1); CARBON DIOXIDE 23.3 mmol/L (21.0-32.0); CREATININE - SERUM 1.2 mg/dL (0.6-1.3); MAGNESIUM - SERUM 2.3 mg/dL (1.8-2.4); PHOSPHOROUS 1.8 mg/dL (2.5-4.9)
--- NOTE | 2019-08-02 06:26 | NUR ---
ADMINISTERED AM MEDS THIS MORNING BY CRUSHING AND MIXING WITH PUDDING. PATIENT TOLERATED MUCH BETTER THAN TAKING THEM WHOLE. METALLURGICAL SPECIALIST GAVE BED BATH, COMPLETE LINEN CHANGE, GOWN CHANGED, MEPILEX APPLIED TO BUTTOCKS FOR REDDENED AREA TO THE LT OF COCCYX.
--- NOTE | 2019-08-02 07:23 | NUR ---
PT RSTING. RR EVEN AND UNLABORED ON ROOM AIR. GENERALIZED BRUISING NOTED TO FACE. PT RECIEVED TISSUES UPON REQUEST. DENIES NEEDS OR PAIN AT THIS TIME. BED IN LOWEST POSITION. CALL LIGHT WITHIN REACH. WILL CONTINUE TO MONITOR.
[2019-08-02 08:48] VITALS: BP 155/60
--- NOTE | 2019-08-02 11:57 | NUR ---
I have reviewed this patient and I concur with the Shift Assessment completed by the Licensed Practical Nurse today this shift.
--- NOTE | 2019-08-02 12:45 | NUR ---
NUTRITION F/U CHART REVIEWED, PT VISIT X2. PT SLEEPING BOTH TIMES, NO APPARENT PO INTAKE BREAKFAST OR LUNCH. PT MAY BENEFIT FROM PEG PLACEMENT WT APPEARS TO BE STEADILY DECLINING. RD FOLLOWING
[2019-08-02 13:18] VITALS: BP 129/59
--- NOTE | 2019-08-02 14:20 | NUR ---
VOID X1. PT CLEANED AND POSITIONED ONTO LEFT SIDE. LINENS CHANGED. UPON CHANGING GOWN REMARKABLE DISTENSION NOTED TO ABDOMEN. NONTENDER TO PALPATION. BOWEL SOUNDS ACTIVE X4. GAVIN NEAL AND DR SANDERS MADE AWARE. KUB ORDERED
--- NOTE | 2019-08-02 15:30 | NUR ---
RECTAL TUBE PLACED PER DR SANDERS VERBAL ORDER
[2019-08-02 17:14] VITALS: BP 108/45
[2019-08-02 19:05] LABS: BASOPHILS 0.1 % (0-2); EOSINOPHILS 1.2 % (0-7); HEMATOCRIT 32.7 % (36.0-48.0); HEMOGLOBIN 10.2 g/dL (12-16); IMMATURE GRANULOCYTES 0.1 % (0-5); LYMPHOCYTES 18.9 % (15-50); MCH 30.4 pg (26.0-34.0); MCHC 31.2 g/dL (31.0-37.0); MCV 97.3 fL (80.0-100.0); MONOCYTES 4.8 % (2-11); NEUTROPHILS 74.9 % (40-80); PLATELET COUNT 197 10x3/uL (130-400); RBC 3.36 10x6/uL (4.00-5.40); RDW 14.4 % (11.5-14.5); WBC 7.5 10x3/uL (4.8-10.8)
[2019-08-02 19:09] VITALS: BP 134/58
[2019-08-02 19:27] LABS: CALC OSMOLALITY 299 mosm/kg (275-300); CARBON DIOXIDE 25.1 mmol/L (21.0-32.0); CHLORIDE - SERUM 112 mmol/L (98-107); CKMB 0.8 U/L (0.0-3.6); CREATINE KINASE 74 UL (21-215); CREATININE - SERUM 1.2 mg/dL (0.6-1.3); GLUCOSE 140 mg/dL (74-106); POTASSIUM - SERUM 3.4 mmol/L (3.5-5.1); SODIUM 145 mmol/L (136-145); TROPONIN-I 0.053 ng/mL (0.000-0.060); UREA NITROGEN 39 mg/dL (7-18); eGFR NON AFRICAN AMERICAN 45 mL/min (90-120)
--- NOTE | 2019-08-02 19:31 | NUR ---
REPORT RECEIVED, WILL CONTINUE POC. PATIENT IS RESTING WITH EYES CLOSED, RR EVEN AND UNLABORED ON ROOM AIR, NO S/S OF DISTRESS OBSERVED. RECTAL TUBE NOTED TO RT SIDE OF BED. PIV TO RT WRIST, PATENT, INFUSING NS@50ML/HR. WILL CTM.
[2019-08-02 20:00] VITALS: BP 122/52
[2019-08-03] VITALS (7 sets, daily range): BP systolic 104–132; BP diastolic 40–65; Ht 162.6 cm; Wt 47.6 kg
--- NOTE | 2019-08-03 05:11 | NUR ---
I have reviewed this patient and I concur with the Shift Assessment completed by the Licensed Practical Nurse today this shift.
--- NOTE | 2019-08-03 06:43 | NUR ---
PATIENT TOLERATED AM MEDS VERY WELL. SHE WAS AAOX4, NO CONFUSION THIS AM. VERY TALKATIVE AND THIRSTY. SHE ASKED FOR APPLESAUCE AND WATER, GIVEN. PATIENT ALSO REQUESTED BEDPAN TO URINATE. JUNIOR PROGRAMMER ASSISTED. PATIENT SAYS THE RECTAL TUBE IS VERY UNCOMFORTABLE BUT SHE FEELS LESS BLOATED. SHE'S LESS DISTENDED THAN YESTERDAY. NO BM IN RECTAL TUBE.
--- NOTE | 2019-08-03 07:36 | NUR ---
REPORT RECIEVED. PT RESTING QUIETLY WITH EYES CLOSED, RISE AND FALL OF CHEST NOTED. SHE HAS A R WRIST PIV THAT IS SL. PT HAS A RECTAL TUBE COLLECTION BAG IS EMPTY. BED LOCKED AND IN LOWEST POSITION, CALL LIGHT WITHIN REACH. WILL CTM
[2019-08-03 08:29] LABS: BASOPHILS 0.2 % (0-2); HEMATOCRIT 33.3 % (36.0-48.0); HEMOGLOBIN 10.4 g/dL (12-16); IMMATURE GRANULOCYTES 0.2 % (0-5); LYMPHOCYTES 23.7 % (15-50); MCH 30.2 pg (26.0-34.0); MCHC 31.2 g/dL (31.0-37.0); MCV 96.8 fL (80.0-100.0); MEAN PLATELET VOLUME 11.3 fL (7.4-10.4); MONOCYTES 6.3 % (2-11); NEUTROPHILS 67.6 % (40-80); PLATELET COUNT 204 10x3/uL (130-400); RBC 3.44 10x6/uL (4.00-5.40); RDW 14.6 % (11.5-14.5); WBC 6.4 10x3/uL (4.8-10.8)
[2019-08-03 09:02] LABS: CALC OSMOLALITY 294 mosm/kg (275-300); CALCIUM 10.2 mg/dL (8.5-10.1); CHLORIDE - SERUM 112 mmol/L (98-107); CKMB 0.5 U/L (0.0-3.6); CREATINE KINASE 52 UL (21-215); CREATININE - SERUM 1.1 mg/dL (0.6-1.3); MAGNESIUM - SERUM 1.9 mg/dL (1.8-2.4); PHOSPHOROUS 1.9 mg/dL (2.5-4.9); POTASSIUM - SERUM 3.6 mmol/L (3.5-5.1); SODIUM 145 mmol/L (136-145); TROPONIN-I 0.032 ng/mL (0.000-0.060); UREA NITROGEN 33 mg/dL (7-18); eGFR NON AFRICAN AMERICAN 50 mL/min (90-120)
[2019-08-03 09:03] LABS: GLUCOSE 89 mg/dL (74-106)
[2019-08-04 04:36] VITALS: BP 133/51
[2019-08-04 06:59] LABS: BASOPHILS 0.1 % (0-2); EOSINOPHILS 1.9 % (0-7); HEMATOCRIT 33.4 % (36.0-48.0); HEMOGLOBIN 10.6 g/dL (12-16); IMMATURE GRANULOCYTES 0.4 % (0-5); LYMPHOCYTES 26.9 % (15-50); MCH 30.7 pg (26.0-34.0); MCHC 31.7 g/dL (31.0-37.0); MCV 96.8 fL (80.0-100.0); MEAN PLATELET VOLUME 11.2 fL (7.4-10.4); MONOCYTES 4.9 % (2-11); NEUTROPHILS 65.8 % (40-80); PLATELET COUNT 194 10x3/uL (130-400); RBC 3.45 10x6/uL (4.00-5.40); RDW 14.4 % (11.5-14.5); WBC 6.7 10x3/uL (4.8-10.8)
[2019-08-04 07:29] LABS: ANION GAP 9.1 mmol/L (8-16); CALCIUM 9.7 mg/dL (8.5-10.1); CARBON DIOXIDE 26.6 mmol/L (21.0-32.0); MAGNESIUM - SERUM 1.6 mg/dL (1.8-2.4); POTASSIUM - SERUM 3.7 mmol/L (3.5-5.1)
[2019-08-04 07:31] LABS: PHOSPHOROUS 2.5 mg/dL (2.5-4.9)
[2019-08-04 08:00] VITALS: BP 146/78
--- NOTE | 2019-08-04 08:09 | NUR ---
REPORT RECIEVED. PT RESTING SEMI FOWLERS IN BED WITH EYES CLOSED. RISE AND FALL OF CHEST NOTED. SHE HAS A R WRIST PIV INFUSING NS @ 50. SHE HAS A RECTAL TUBE WITH NO OUTPUT SINCE 08-02-19. BED LOCKED AND IN LOWEST POSITION, CALL LIGHT WITHIN REACH. WILL CTM
[2019-08-04 12:00] VITALS: BP 101/55
--- NOTE | 2019-08-04 12:45 | NUR ---
UPON ENTERING THE ROOM PT SITTING IN BEDSIDE CHAIR. SHE ASK ME WHO WAS SITTING IN THE CONER AND NO ONE WAS THERE. SHE IS VERY CONFUSED FROM EARLIER THIS MORING. WILL CTM
--- NOTE | 2019-08-04 15:15 | NUR ---
RECTAL TUBE TAKEN OUT WITHOUT PROBLEM. PT HAD SMALL BM THAT WAS LIGHT BROWN THICK LIQUID LIKE SUBSTANCE. WILL CTM
[2019-08-04 16:00] VITALS: BP 113/57
[2019-08-04 20:30] VITALS: BP 146/74
[2019-08-05 00:20] VITALS: BP 120/57
[2019-08-05 04:30] VITALS: BP 147/71
[2019-08-05 06:00] LABS: ANION GAP 9.5 mmol/L (8-16); BILIRUBIN - TOTAL 0.23 mg/dL (0.2-1.3); CALCIUM 8.5 mg/dL (8.5-10.1); CARBON DIOXIDE 28.3 mmol/L (21.0-32.0); CREATININE - SERUM 0.8 mg/dL (0.6-1.3); PROTEIN - SERUM 6.5 g/dL (6.4-8.2)
[2019-08-05 06:08] LABS: MAGNESIUM - SERUM 2.1 mg/dL (1.8-2.4); PHOSPHOROUS 4.6 mg/dL (2.5-4.9); POTASSIUM - SERUM 4.8 mmol/L (3.5-5.1)
[2019-08-05 07:50] LABS: BASOPHILS 0 % (0-2); EOSINOPHILS 2.5 % (0-7); HEMOGLOBIN 9.7 g/dL (12-16); IMMATURE GRANULOCYTES 0.8 % (0-5); LYMPHOCYTES 26.7 % (15-50); MCH 29.9 pg (26.0-34.0); MCHC 31.3 g/dL (31.0-37.0); MCV 95.7 fL (80.0-100.0); MEAN PLATELET VOLUME 11.1 fL (7.4-10.4); MONOCYTES 5.5 % (2-11); NEUTROPHILS 64.5 % (40-80); PLATELET COUNT 196 10x3/uL (130-400); RBC 3.24 10x6/uL (4.00-5.40); RDW 14.3 % (11.5-14.5); WBC 6.3 10x3/uL (4.8-10.8)
[2019-08-05 08:09] VITALS: BP 147/65
--- NOTE | 2019-08-05 11:27 | NUR ---
PT SITTING UP IN CHAIR WITH ASSIST FROM THERAPY. IN ROOM NOW, HE IS WHEELCHAIR AND RIDE COMING BACK AROUND NOON TO PICK HIM UP.
[2019-08-05 11:32] VITALS: BP 112/51
--- NOTE | 2019-08-05 14:25 | NUR ---
Blanchable redness noted on coccyx. Recommended: -turn/reposition q 2 hours Continue to monitor
[2019-08-05 15:22] VITALS: BP 120/54
--- NOTE | 2019-08-05 16:34 | NUR ---
OT NOTE: PT COMPLETED TOILETING AND HYGIENE TASKS WITH MAX/TOTAL A. PT COMPLETED TRANSFER WITH MAX/TOTAL A. PT HAD BM. THANK YOU, MILTON DAMON
[2019-08-05 20:00] VITALS: BP 106/52
--- NOTE | 2019-08-05 20:21 | NUR ---
REPORT RECIEVED AND ROUNDING COMPLETE. PATIENT LAYING IN BED IN LOW FOWLERS, ASSISTED IN PLACING PATINET ON BED MANSFIELD. PATIENT WAS ABLE TO URINATE, PAITENT STATES SHE HAS NO OTHER NEEDS AT THIS TIME. PATIENT HAS A RIGHT WRIST PIV THAT IS PATENT AND RUNNING FLUIDS AT THIS TIME, PIV SHOW NO S/SX OF INFILTRATION AT THIS TIME. PATIENT HAS BRUISING TO THE FACE FROM A FALL AT [facility]. BED ALARM IS ON. CALL LIGHT WITHIN REACH AND BED IN LOWEST LOCKED POSITION.
[2019-08-06] VITALS: BP 112/50
--- NOTE | 2019-08-06 02:21 | NUR ---
I have reviewed this patient and I concur with the Shift Assessment completed by the Licensed Practical Nurse today this shift.
[2019-08-06 04:00] VITALS: BP 130/52
[2019-08-06 05:10] LABS: BASOPHILS 0.1 % (0-2); EOSINOPHILS 1.8 % (0-7); HEMATOCRIT 31.5 % (36.0-48.0); IMMATURE GRANULOCYTES 0.6 % (0-5); LYMPHOCYTES 29.7 % (15-50); MCH 30.6 pg (26.0-34.0); MCHC 31.7 g/dL (31.0-37.0); MCV 96.3 fL (80.0-100.0); MEAN PLATELET VOLUME 11.3 fL (7.4-10.4); MONOCYTES 6.6 % (2-11); NEUTROPHILS 61.2 % (40-80); PLATELET COUNT 195 10x3/uL (130-400); RBC 3.27 10x6/uL (4.00-5.40); RDW 14.5 % (11.5-14.5); WBC 7.1 10x3/uL (4.8-10.8)
[2019-08-06 05:47] LABS: BILIRUBIN - TOTAL 0.2 mg/dL (0.2-1.3); CALCIUM 9.1 mg/dL (8.5-10.1); CARBON DIOXIDE 25.4 mmol/L (21.0-32.0); CREATININE - SERUM 0.9 mg/dL (0.6-1.3)
[2019-08-06 05:49] LABS: ALBUMIN 2.1 g/dL (3.4-5.0); ANION GAP 9.5 mmol/L (8-16); POTASSIUM - SERUM 3.9 mmol/L (3.5-5.1); PROTEIN - SERUM 4.5 g/dL (6.4-8.2)
[2019-08-06 07:58] VITALS: BP 129/51
--- NOTE | 2019-08-06 09:13 | MORECARE ---
CASE MANAGEMENT DISCHARGE SUMMARY PATIENT: SRAVAN DOWNEY UNIT: [id number] ADM DATE: 07/30/19 AGE: 84 : 34 SEX: F ROOM/BED: D.5338 AUTHOR: KULWINDERDOC PHYSICIAN: REFERRING PHYSICIAN: MARLO COTTO MD DATE OF SERVICE: 08/06/19 Discharge Plan Patient Name: SRAVAN DOWNEY Facility: [facility]:[place] : 1935 Planned Disposition: Inpatient Rehab Anticipated Discharge Date: Discharge Date: Expected LOS: Initial Reviewer: [email or web address] Initial Review Date: 08/01/2019 Generated: 08/06/19 10:12 am Comments DCP- Discharge Planning Updated by [id number]: Kedar Carrero on 08/06/19 8:[address] Patient Name: SRAVAN DOWNEY Encounter No: [id number] : 1935 Primary Insurance: MEDICARE A & B Anticipated DC Date: Planned Disposition: Inpatient Rehab External Planned Provider: [facility] INPATIENT REH[facility] DCP follow-up note: PT PLANS TO DISCHARGE TO INPATIENT REHAB AT [place]. INPATIENT REHAB AT [place] PLANS TO ACCEPT; NOTIFY REHAB WHEN DISCHARGE ORDER IS RECEIVED FOR FUTHER INSTRUCTIONS FOR ADMISSION TO INPATIENT REHAB. Fabrication Mig Welder: Kedar Carrero DCP- Discharge Planning Updated by [id number]: Kedar Carrero on 08/01/19 3:[address] Patient Name: SRAVAN DOWNEY Admission Status: ER Accout number: [id number] Admission Date: 07-30-2019 : 1935 Admission Diagnosis: Attending: PAOLA Current LOS: 2 Anticipated DC Date: Planned Disposition: Inpatient Rehab Primary Insurance: MEDICARE A & B PLANNED EXTERNAL PROVIDER: [facility] INPATIENT REHAB Discharge Planning Comments: CM MET WITH PT IN ROOM TO DISCUSS DISCHARGE PLANNING AND NEEDS. PT REPORTS LIVING AT THE [facility] IN ASS[facility]ED LIVING. PT REPORTS HELP WITH BATHING, MEDICATION MANAGEMENT AND DRESSING. PT HAS CANE, WALKER AND WHEELCHAIR WITH NO MEDICAL EQUIPMENT PROVIDER PREFERENCE. PT HAS HOME HEALTH WITH [facility]. PT REPORTS SHE HAS BEEN INCREASINGLY WEAK AND NAUSEATED. PT WANTS REHAB. CM DISCUSSED AVAILABILITY OF HOME HEALTH, REHAB SERVICES AND MEDICAL EQUIPMENT. PT REPORTS SHE WOULD LIKE REHAB AT [place] AND HAS BEEN THERE IN THE PAST. HER GOAL IS TO RETURN TO ASSISTED LIVING AFTER REHAB. CHOICE SIGNED. IMPORTANT MESSAGE FROM MEDICARE PROVIDED AND EXPLAINED. ORDER FOR INPATIENT REHAB PRESCREENING OBTAINED. CM WAITING MEDICAL STABILITY WELL INPATIENT REHAB PRESCREENING FROM [facility] INPATIENT REHAB. Fabrication Mig Welder: Kedar Carrero DCPIA - Discharge Planning Initial Assessment Updated by [email or web address]: Kedar Carrero on 08/01/19 4:13 pm * Is the patient Alert and Oriented? Yes * How many steps to enter\exit or inside your home? NONE * PCP DR. GALAN * Pharmacy [facility] * Preadmission Environment Assisted Living * Facility Name [facility] * ADLs Partial Dependent * Partial ADLs (Assistance needed) Bathing Medication Management * Equipment Cane Walker Wheelchair * Other Equipment NO MEDICAL EQUIPMENT PROVIDER PREFERENCE * List name and contact numbers for known caregivers / representatives who currently or will assist patient after discharge: JOHN DOWNEY, SON, * Verbal permission to speak to the caregivers and representatives has been obtained from the patient. N/A * Community resources currently utilized Home Health * Please name any agencies selected above. [facility] * Additional services required to return to the preadmission environment? Yes * Can the patient safely return to the preadmission environment? Yes * Has this patient been hospitalized within the prior 30 days at any hospital? No Coverage Notice Reviewer: [id number] Alta Carrero Notice Issued Date-Time: 08/01/2019 12:40 Notice Type: IM Discharge Notice Notice Delivered To: Patient Relationship to Patient: Instructional Facilitator Name: Delivery Method: HAND - Hand Delivered Thania Days: Prior Verbal Notification: Recipient Understood Notice: Yes Recipient Signature: Yes Med Rec Note Co-signed by Attending: Coverage Notice Comment: Reviewer: [id number] Alta Carrero Notice Issued Date-Time: 08/01/2019 12:40 Notice Type: Patient Choice Letter Notice Delivered To: Patient Relationship to Patient: Instructional Facilitator Name: Delivery Method: HAND - Hand Delivered Thania Days: Prior Verbal Notification: Recipient Understood Notice: Yes Recipient Signature: Yes Med Rec Note Co-signed by Attending: Coverage Notice Comment: [facility] INPATIENT REHAB Last DP export: 08/01/19 3:21 pm Patient Name: SRAVAN DOWNEY Page [id number] at 0913 All edits/amendments must be made on the electronic document DICTATION DATE: 08/06/19911 DIRECTOR OF THE BIOPHYSICS FACILITY: HILDA 08/06/19911 RPT#: [id number] DC DATE: STATUS: ADM IN [facility] [address] [place] [address] END OF REPORT
--- NOTE | 2019-08-06 11:00 | NUR ---
PATIENT SITTING IN CHAIR. NO NEEDS AT THIS TIME. CL IN REACH. CHAIR ALARM ON. WCTM
[2019-08-06 11:37] VITALS: BP 119/61
--- NOTE | 2019-08-06 14:12 | NUR ---
PATIENT ROLLED ON LEFT SIDE. FALL PRECAUTIONS IN PLACE. CL IN REACH. WCTM
[2019-08-06] MEDS ORDERED: MERREM 1 GM/NS 11 G1 IVPB (14:22)
--- NOTE | 2019-08-06 16:11 | MORECARE ---
CASE MANAGEMENT DISCHARGE SUMMARY PATIENT: SRAVAN DOWNEY UNIT: [id number] ADM DATE: 07/30/19 AGE: 84 : 34 SEX: F ROOM/BED: D.[facility] AUTHOR: KULWINDERDOC PHYSICIAN: REFERRING PHYSICIAN: MARLO COTTO MD DATE OF SERVICE: 08/06/19 Discharge Plan Patient Name: SRAVAN DOWNEY Facility: [facility]:[place] : 1935 Planned Disposition: Inpatient Rehab Anticipated Discharge Date: 08/06/19 Discharge Date: Expected LOS: 7 Initial Reviewer: [id number] Initial Review Date: 08/01/2019 Generated: 08/06/19 5:11 pm Comments DCP- Discharge Planning Updated by [id number]: Kedar Carrero on 08/06/19 3:[address] Patient Name: SRAVAN DOWNEY Encounter No: [id number] : 1935 Primary Insurance: MEDICARE A & B Anticipated DC Date: Planned Disposition: Inpatient Rehab External Planned Provider: [facility] INPATIENT REHAB DCP follow-up note: PT PLANS TO DISCHARGE TO INPATIENT REHAB AT [place]. INPATIENT REHAB AT [place] PLANS TO ACCEPT; NOTIFY REHAB WHEN DISCHARGE ORDER IS RECEIVED FOR FUTHER INSTRUCTIONS FOR ADMISSION TO INPATIENT REHAB. Construction Recruiter: Kedar Carrero Appended by Kedar Carrero on 08/06/2019 16:09 INSPECTOR PENETRANT: CM SPOKE TO [facility]PATIENT [facility], THEY PLAN TO ACCEPT PT TODAY FOR REHAB. ROOM 1119-A; PT NOTIFIED, IN AGREEMENT WITH DISCHARGE TO INPATIENT REHAB. IMPORTANT MESSAGE FROM MEDICARE PROVIDED AND EXPLAINED. HOSE WRAPPER NURSE NOTIFIED. CELI JO DCP- Discharge Planning Updated by [id number]: Kedar Carrero on 08/01/19 3:[address] Patient Name: SRAVAN DOWNEY Admission Status: ER Accout number: [id number] Admission Date: 07-30-2019 : 1935 Admission Diagnosis: Attending: PAOLA Current LOS: 2 Anticipated DC Date: Planned Disposition: Inpatient Rehab Primary Insurance: MEDICARE A & B PLANNED EXTERNAL PROVIDER: [facility] INPATIENT REHAB Discharge Planning Comments: CM MET WITH PT IN ROOM TO DISCUSS DISCHARGE PLANNING AND NEEDS. PT REPORTS LIVING AT [facility] IN [facility]ED [facility]. PT REPORTS HELP WITH BATHING, MEDICATION MANAGEMENT AND DRESSING. PT HAS CANE, WALKER AND WHEELCHAIR WITH NO MEDICAL EQUIPMENT PROVIDER PREFERENCE. PT HAS HOME HEALTH WITH [facility]. PT REPORTS SHE HAS BEEN INCREASINGLY WEAK AND NAUSEATED. PT WANTS REHAB. CM DISCUSSED AVAILABILITY OF HOME HEALTH, REHAB SERVICES AND MEDICAL EQUIPMENT. PT REPORTS SHE WOULD LIKE REHAB AT [place] AND HAS BEEN THERE IN THE PAST. HER GOAL IS TO RETURN TO ASSISTED LIVING AFTER REHAB. CHOICE SIGNED. IMPORTANT MESSAGE FROM MEDICARE PROVIDED AND EXPLAINED. ORDER FOR INPATIENT REHAB PRESCREENING OBTAINED. CM WAITING MEDICAL STABILITY WELL INPATIENT REHAB PRESCREENING FROM [facility] INPATIENT REHAB. Construction Recruiter: Kedar Carrero DCPIA - Discharge Planning Initial Assessment Updated by [email or web address]: Kedar Carrero on 08/01/19 4:13 pm * Is the patient Alert and Oriented? Yes * How many steps to enter\exit or inside your home? NONE * PCP DR. GALAN * Pharmacy [facility] * Preadmission Environment Assisted Living * Facility Name [facility] * ADLs Partial Dependent * Partial ADLs (Assistance needed) Bathing Medication Management * Equipment Cane Walker Wheelchair * Other Equipment NO MEDICAL EQUIPMENT PROVIDER PREFERENCE * List name and contact numbers for known caregivers / representatives who currently or will assist patient after discharge: JOHN DOWNEY, SON, * Verbal permission to speak to the caregivers and representatives has been obtained from the patient. N/A * Community resources currently utilized Home Health * Please name any agencies selected above. [facility] * Additional services required to return to the preadmission environment? Yes * Can the patient safely return to the preadmission environment? Yes * Has this patient been hospitalized within the prior 30 days at any hospital? No Coverage Notice Reviewer: [id number] Carrero Notice Issued Date-Time: 08/01/2019 12:40 Notice Type: IM Discharge Notice Notice Delivered To: Patient Relationship to Patient: Gang Miner Name: Delivery Method: HAND - Hand Delivered Thania Days: Prior Verbal Notification: Recipient Understood Notice: Yes Recipient Signature: Yes Med Rec Note Co-signed by Attending: Coverage Notice Comment: Reviewer: [id number] Carrero Notice Issued Date-Time: 08/01/2019 12:40 Notice Type: Patient Choice Letter Notice Delivered To: Patient Relationship to Patient: Gang Miner Name: Delivery Method: HAND - Hand Delivered Thania Days: Prior Verbal Notification: Recipient Understood Notice: Yes Recipient Signature: Yes Med Rec Note Co-signed by Attending: Coverage Notice Comment: [facility] INPATIENT REHAB Last DP export: 08/06/19 8:13 a Patient Name: SRAVAN DOWNEY Page [phone] at 1611 All edits/amendments must be made on the electronic document DICTATION DATE: 08/06/191610 CHOCOLATE COATER: HILDA 08/06/19 161 RPT#: [id number] DC DATE: STATUS: ADM IN [facility] [address] [place] [address] END OF REPORT
--- NOTE | 2019-08-06 17:34 | NUR ---
OT NOTE: PT COMPLETED ORAL HYGIENE WITH MOD A. PT COMPLETED FACE WASH WITH MOD A. PT COMPLETED UE AROM AXS. 1-142 THANK YOU, MILTON DAMON
== END 2019-08-06 17:00 | DRG 689 ==
LOC: D.ER 14:40 → D.M2 20:15
PROVIDERS: Family Medicine; ADMIT Family Medicine; ATTEND Family Medicine
DX: N39.0 Urinary tract infection, site not specified (principal); E43 Unspecified severe protein-calorie malnutrition; N17.9 Acute kidney failure, unspecified; I13.0 Hypertensive heart and chronic kidney disease with heart failure and stage 1 through stage 4 chronic kidney disease, or unspecified chronic kidney disease; Z68.1 Body mass index [BMI] 19.9 or less, adult; K56.7 Ileus, unspecified; R78.81 Bacteremia; N18.9 Chronic kidney disease, unspecified; I50.9 Heart failure, unspecified; E03.9 Hypothyroidism, unspecified; G20 Parkinson's disease; F02.80 Dementia in other diseases classified elsewhere, unspecified severity, without behavioral disturbance, psychotic disturbance, mood disturbance, and anxiety; G89.29 Other chronic pain; M54.9 Dorsalgia, unspecified; I25.10 Atherosclerotic heart disease of native coronary artery without angina pectoris; J44.9 Chronic obstructive pulmonary disease, unspecified; R62.7 Adult failure to thrive; E87.6 Hypokalemia; B96.20 Unspecified Escherichia coli [E. coli] as the cause of diseases classified elsewhere; B96.1 Klebsiella pneumoniae [K. pneumoniae] as the cause of diseases classified elsewhere; B95.7 Other staphylococcus as the cause of diseases classified elsewhere

== ENCOUNTER 2019-08-06 16:06 | Inpatient (IN) | payer MEDICARE, BC ==
[~2019-08-06] VITALS: Ht 162.6 cm; Wt 53.1 kg
[~2019-08-06 16:06] MED LIST changes: +MERREM 1 GM/NS 11 G1 IVPB
[2019-08-06 17:45] VITALS: BP 157/73; BMI 20.1
--- NOTE | 2019-08-06 20:00 | NUR ---
PATIENT RECEIVED SITTING UP IN BED WATCHING TV. ASSESSMENT & VITAL SIGNS DONE. NO C/O PAIN OR DISTRESS. BED LOW. ALARM ON. CALL LIGHT WITHIN REACH. WILL CONTINUE TO MONITOR.
[2019-08-06 20:11] VITALS: BP 116/51
[2019-08-06 21:59] VITALS: BP 141/59
--- NOTE | 2019-08-06 23:30 | NUR ---
PATIENT HAS HAD NO ADVERSE REACTION TO IV ANTIBIOTICS. PATIENT HAD VOID IN BED MANSFIELD. BED LOW. ALARM ON. CALL LIGHT WITHIN REACH. WILL CONTINUE TO MONITOR.
--- NOTE | 2019-08-07 00:30 | NUR ---
PATIENT USED CALL LIGHT FOR ASSIST ONTO BED MANSFIELD. PATIENT HAD VOID ONLY. BED LOW. CALL LIGHT WITHIN REACH. ALARM ON. WILL CONTINUE TO MONITOR.
--- NOTE | 2019-08-07 03:02 | NUR ---
I have reviewed this patient and I concur with the Shift Assessment completed by the Licensed Practical Nurse today this shift.
--- NOTE | 2019-08-07 03:49 | NUR ---
PATIENT TAKEN OFF BEDPAN. VOID ONLY. PATIENT GIVEN DRINK OF WATER. COVERED UP WITH BLANKET. CALL LIGHT WITHIN REACH. BED LOW. ALARM ON. WILL CONTINUE TO MONITOR.
[2019-08-07 08:00] VITALS: BP 117/51
--- NOTE | 2019-08-07 08:00 | NUR ---
SHIFT ASSMT COMPLETED.
[2019-08-07 08:01] LABS: ANION GAP 9.4 mmol/L (8-16); CALCIUM 9.3 mg/dL (8.5-10.1); CARBON DIOXIDE 25.5 mmol/L (21.0-32.0); CREATININE - SERUM 0.8 mg/dL (0.6-1.3); POTASSIUM - SERUM 3.9 mmol/L (3.5-5.1)
[2019-08-07 08:20] LABS: BASOPHILS 0.2 % (0-2); EOSINOPHILS 2.5 % (0-7); HEMATOCRIT 29.1 % (36.0-48.0); HEMOGLOBIN 9.3 g/dL (12-16); IMMATURE GRANULOCYTES 0.6 % (0-5); LYMPHOCYTES 29.4 % (15-50); MCH 30.8 pg (26.0-34.0); MCV 96.4 fL (80.0-100.0); MEAN PLATELET VOLUME 10.7 fL (7.4-10.4); MONOCYTES 8.6 % (2-11); NEUTROPHILS 58.7 % (40-80); PLATELET COUNT 182 10x3/uL (130-400); RBC 3.02 10x6/uL (4.00-5.40); RDW 14.9 % (11.5-14.5); WBC 6.4 10x3/uL (4.8-10.8)
[2019-08-07 15:59] VITALS: Ht 162.6 cm; Wt 53.1 kg
[2019-08-07 20:02] VITALS: BP 120/53
--- NOTE | 2019-08-08 00:40 | NUR ---
LYING IN BED RESTING WITH EYES CLOSED. EASILY AWAKEN WITH VERBAL STIMULATION. CONTINENT OF BOWELL AND BLADDER. USES BEDPAN VOIDED x2. BOWELL SOUND ACTIVE x4 ABDOMEN IS EXTENDED BUT IS SOFT TO PALPATION. NO COMPLAINTS OF PAINAT THIS TIME. PT STATES THAT LAST BOWELL MOVEMENT WAS 08/06/19. ALERT AND ORIENTED x4. NO SIGNS OR SYMPTOMS OF DISTRESS NOTED. RESPIRATIONS EVEN AND UNLABORED. PT IS ON ROOM AIR. PT PRSENTS WITH SOME LOWER AND UPPER EXTRIMITY WEAKNESS. PT HAS LEFT WRIST IV SALINE LOCKED. SOME PITTING EDEMA NOTED TO FEET BILATTERLLY. BLACK AND BLUE BRUSING TO WHOLE FACE NOTED. PT HAS REDDENED AREA TO BUTTOCKS BUTT PASTE IS BEING APPLIED AND REPOSITIONING Q2HRS OR NEEDED. PT COMPLAINS OF BEING COLD. EXTRA BLANKET GIVEN AND HEAT IS READJUSTED. GRASP IS PRESENT BUT WEAK. PT IS ADVISED TO CALL FOR HELP WHEN NEEDED. BED IS IN LOWEST POSITION AND CALL LIGHT IS WITHIN REACH. WILL CONTINUE TO MONITOR.
--- NOTE | 2019-08-08 03:46 | NUR ---
PT COMPLAINED OF HEAL HURTING BILATERLLY.. UP ON ASSESEMENT HEALS ARE BOTH RED. AND TENDER. PILLOWS APPLIED SO THAT HEALS CAN HANG. NO FURTHER COMPLAINTS AT THIS TIME WILL CONTINUE TO OBSERVE.
--- NOTE | 2019-08-08 05:37 | NUR ---
PT REQUEST BEDPAN VOID x1. BUTT PASTE APPLIED TO RED AREA ON BUTTOCKS. NO COMPLAINTS OF PAIN AT THIS TIME. ALERT AND ORIENTED X4. REPOSITIONED FOR COMFORT. PILLOWS PLACED UNDER FEET HEALS BILATERLLY. HEALS ARE DANGLING OF PILLOWS. NO FURTHER COMPLAINTS AT THIS TIME. WILL CONTINUE TO MONITOR.
[2019-08-08 08:09] VITALS: BP 135/56
--- NOTE | 2019-08-08 20:00 | NUR ---
PATIENT RECEIVED SITTING UP IN BED. ASSESSMENT & CALL LIGHT WITHIN REACH. NO C/O PAIN OR DISTRESS. BED LOW. ALARM ON. CALL LIGHT WITHIN REACH. WILL CONTINUE TO MONITOR.
[2019-08-08 20:12] VITALS: BP 131/47
--- NOTE | 2019-08-08 22:15 | NUR ---
PATIENT IV INFUSION DONE. IV SITE FLUSHED WITH 100 CC OF NS. NO ADVERSE REACTION TO ANTIBIOTICS. BED LOW. ALARM ON. CALL LIGHT WITHIN REACH. WILL CONTINUE TO MONITOR.
--- NOTE | 2019-08-08 22:20 | NUR ---
PATIENT TOILETED USING BED MANSFIELD. VOID ONLY. BED LOW. ALARM ON. CALL LIGHT WITHIN REACH. WILL CONTINUE TO MONITOR.
--- NOTE | 2019-08-08 23:40 | NUR ---
PATIENT RECEIVED SITTING UP IN BED. ASSESSMENT & VITAL SIGNS DONE. NO C/O PAIN OR DISTRESS. BED LOW. ALARM ON. CALL LIGHT WITHIN REACH. WILL CONTINUE TO MONITOR.
--- NOTE | 2019-08-09 00:16 | NUR ---
PATIENT USED CALL LIGHT FOR ASSIST. PATIENT PLACED ON BED MANSFIELD. PATIENT HAD VOID ONLY. BED LOW. ALARM ON. CALL LIGHT WITHIN REACH. WILL CONTINE TO MONITOR.
--- NOTE | 2019-08-09 02:34 | NUR ---
PATIENT EYES CLOSED. RESPIRATIONS 18 & EVEN. BED LOW. ALARM ON. CALL LGITH WITHIN REACH. [facility].
--- NOTE | 2019-08-09 03:36 | NUR ---
I have reviewed this patient and I concur with the Shift Assessment completed by the Licensed Practical Nurse today this shift.
--- NOTE | 2019-08-09 04:47 | NUR ---
THIS NURSE ON ROUNDS. PATIENT ASKED FOR BED MANSFIELD. PATIENT HAD VOID ONLY. PATIENT CLEANED. BUTT PASTE APPLIED. BED LOW. ALARM ON. CALL LIGHT WITHIN REACH. WILL CONTINUE TO MONITOR.
[2019-08-09 08:01] LABS: BASOPHILS 0.2 % (0-2); EOSINOPHILS 1.3 % (0-7); HEMATOCRIT 30.7 % (36.0-48.0); HEMOGLOBIN 9.6 g/dL (12-16); IMMATURE GRANULOCYTES 0.4 % (0-5); LYMPHOCYTES 28.6 % (15-50); MCH 30.2 pg (26.0-34.0); MCHC 31.3 g/dL (31.0-37.0); MCV 96.5 fL (80.0-100.0); MEAN PLATELET VOLUME 10.3 fL (7.4-10.4); MONOCYTES 8.2 % (2-11); NEUTROPHILS 61.3 % (40-80); PLATELET COUNT 193 10x3/uL (130-400); RBC 3.18 10x6/uL (4.00-5.40); RDW 15.1 % (11.5-14.5); WBC 5.5 10x3/uL (4.8-10.8)
[2019-08-09 08:13] LABS: ANION GAP 7.5 mmol/L (8-16); CALCIUM 9.2 mg/dL (8.5-10.1); CARBON DIOXIDE 28.3 mmol/L (21.0-32.0); CREATININE - SERUM 0.8 mg/dL (0.6-1.3); POTASSIUM - SERUM 3.8 mmol/L (3.5-5.1)
[2019-08-09 08:21] VITALS: BP 129/72
--- NOTE | 2019-08-09 12:40 | NUR ---
PATIENT ADMITTED TO REHAB FROM ACUTE FLOOR. DR. BARCLAY IS HER PCP. DME AT HOME IS A CANE, WALKER AND A WHEELCHAIR. SHE IS A CLIENT OF [address] DISCHARGE PLANS ARE FOR PATIENT TO RETURN HOME TO THE [facility]. WILL CONTINUE TO FOLLOW WITH PATIENT.
[2019-08-09 20:00] VITALS: BP 132/56
--- NOTE | 2019-08-09 21:12 | NUR ---
PATIENT MEDICATIONS GIVEN. IV ANTIBIOTIC STARTED. RIGHT WRIST IV SITE PATENT. BED LOW. ALARM ON. CALL LIGHT WITHIN REACH. WILL CONTINUE TO MONITOR.
--- NOTE | 2019-08-09 22:30 | NUR ---
PATIENT IV FINISHED. 10 CC NS FLUSH TO RIGHT WRIST. NO ADVERSE REACTION TO ANTIBIOTIC AT THIS TIME. PATIENT ON BEDPAN. VOID ONLY. BED LOW. ALARM ON. CALL LIGHT WITHIN REACH. WILL CONTINUE TO MONITOR.
--- NOTE | 2019-08-10 01:44 | NUR ---
I have reviewed this patient and I concur with the Shift Assessment completed by the Licensed Practical Nurse today this shift.
--- NOTE | 2019-08-10 02:10 | NUR ---
WHILE DOING MY ROUNDS PATIENT REQUEST FOR BED [place]. PATIENT HAD VOID. CLEANED & BUTT PASTE APPLIED. PATIENT TURNED TO RIGHT SIDE. BED LOW. ALARM ON. CALL LIGHT WITHIN REACH. WILL CONTINUE TO MONITOR.
--- NOTE | 2019-08-10 05:54 | NUR ---
PATIENT AWAKE DRINKING WATER. TOOK HER THYROID PILL. PATIENT USED BED [place]. MINIMAL VOID. PATIENT HOLDING HER GLASS & DRINKING OUT OF IT. DAUGHTER MARY NOTIFIED MOM IS AWAKE. TALKING DRING WATER, TOOK HER MEDICATIONS. BED LOW. ALARM ON. CALL LIGHT WITHIN REACH.
[2019-08-10 08:23] VITALS: BP 141/57
--- NOTE | 2019-08-10 19:20 | NUR ---
PT LYING IN BED WATCHING TV. CL IN REACH. DENIES NEEDS OR PAIN AT THIS TIME. BED IN LOW SIDE RAILS X2. LUNGS CLEAR. BOWEL ACTIVE X4. RIGHT WRIST IV SL AT THIS TIME. RESP EVEN AND UNLABORED. PT A/O X4. VERY SOFT SPOKEN AND [place]. WILL CONTINUE TO MONITOR.
[2019-08-10 20:53] VITALS: BP 152/69
--- NOTE | 2019-08-11 00:15 | NUR ---
I have reviewed this patient and I concur with the Shift Assessment completed by the Licensed Practical Nurse today this shift.
[2019-08-11 07:38] VITALS: BP 142/56
--- NOTE | 2019-08-11 12:43 | NUR ---
RT WRIST IV LEAKING. IV RESITED TO RT AC.
--- NOTE | 2019-08-11 16:54 | NUR ---
ON BEDPAN IN BED. IS CONT OF BOWEL AND BLADDER. DENIES PAIN OR NEEDS. VOICE IS SOFT AND MOVEMENTS ARE SLOW. CALL LIGHT IN REACH
--- NOTE | 2019-08-11 19:24 | NUR ---
PT LYING IN BED WATCHING TV. CL IN REACH. BED IN LOW SIDE RAILS X2. A/O X4. PT DENIES NEEDS OR PAIN AT THIS TIME. RESP EVEN AND UNLABORED. LUNGS CLEAR. BOWEL ACTIVE X4. WILL CONTINUE TO MONITOR.
[2019-08-11 20:04] VITALS: BP 138/61
--- NOTE | 2019-08-11 22:39 | NUR ---
ASSISTED PT ON BEDPAN. CLEANED AND PLACED ON RIGHT SIDE. CL IN REACH. WCTM
--- NOTE | 2019-08-12 01:24 | NUR ---
I have reviewed this patient and I concur with the Shift Assessment completed by the Licensed Practical Nurse today this shift.
--- NOTE | 2019-08-12 03:53 | NUR ---
assisted on bedpan. cleaned pt and adjusted in bed. denies further needs. cl in reach. wctm
[2019-08-12 05:58] LABS: BASOPHILS 0.4 % (0-2); EOSINOPHILS 1.5 % (0-7); HEMATOCRIT 30.3 % (36.0-48.0); HEMOGLOBIN 9.6 g/dL (12-16); IMMATURE GRANULOCYTES 0.2 % (0-5); MCH 30.9 pg (26.0-34.0); MCHC 31.7 g/dL (31.0-37.0); MCV 97.4 fL (80.0-100.0); MEAN PLATELET VOLUME 10.4 fL (7.4-10.4); MONOCYTES 7.7 % (2-11); NEUTROPHILS 46.2 % (40-80); PLATELET COUNT 224 10x3/uL (130-400); RBC 3.11 10x6/uL (4.00-5.40); RDW 15.4 % (11.5-14.5); WBC 5.2 10x3/uL (4.8-10.8)
[2019-08-12 06:10] LABS: ANION GAP 7.9 mmol/L (8-16); CALCIUM 9.3 mg/dL (8.5-10.1); CARBON DIOXIDE 28.4 mmol/L (21.0-32.0); CREATININE - SERUM 0.9 mg/dL (0.6-1.3); POTASSIUM - SERUM 3.3 mmol/L (3.5-5.1)
[2019-08-12 07:58] VITALS: BP 128/55
--- NOTE | 2019-08-12 11:01 | NUR ---
REFUSED TO ROLL OVER OR SIT UP FOR BREAKFAST THIS AM TILL 10:00 THEN C/O HER BREAKFAST WAS COLD. USES BEDPAN.
--- NOTE | 2019-08-12 13:21 | RHP ---
PATIENT: SRAVAN DOWNEY MEDICAL RECORD: [id number] ACCOUNT: [id number] LOCATION:[id number] : 34 ADMISSION DATE: 08/06/19 REHABILITATION HISTORY AND PHYSICAL EXAMINATION POST ADMISSION PHYSICIAN EXAMINATION ADMITTING DIAGNOSIS: Debility. HISTORY OF PRESENT ILLNESS: The patient is an 84-year-old female patient who has debility related to urinary tract infection. She has got E. coli. She is a resident of the [facility], was admitted to the Emergency Room on 07/30/2019 after generalized weakness for 2 days. She had a recent fall, has a bruising to her forehead and face. She also had just finished an antibiotic for UTI and became weaker after this. She was admitted to the hospital for UTI treatment placement and acute rehab. Previously, she lived at the [facility], she was independent with ADLs and mobility while utilizing a wheelchair. Currently, she is mod to max assist for sit to stand and bed to chair, max assist for balance and safety while ambulating. Barriers to return home include deconditioning, debility, weakness, impaired mobility, gait disturbance, high fall risk, and self-care deficits. These are all barriers to her discharge home at this time. She would like to return back to the [facility] at her prior level of functioning. COMORBIDITIES: Include hypertension, CHF, COPD, hypokalemia, osteoporosis, dementia, chronic back pain, Parkinson's, hypothyroidism and UTI. PAST MEDICAL HISTORY: Significant for Parkinson's, anemia, she has got a history of COPD, got a history of anemia, CHF, hypothyroidism, osteoporosis, gastroesophageal reflux disease. PAST SURGICAL HISTORY: Includes thyroidectomy, coronary artery disease, she has had history of cholecystectomy, appendectomy, bilateral tubal ligation, knee surgery, shoulder surgery, back surgery, cataracts, and tonsillectomy. ALLERGIES: Are on the front of the chart and they are quite extensive. CURRENT MEDICATIONS: Include B12 1000 mcg daily, she is on senna 2 tablets daily, furosemide 20 mg daily, ferrous sulfate 325 daily, colchicine 0.6 mg daily, Plavix 75 mg daily, she is on Jennifer 60 mg b.i.d., Astelin nasal spray daily, she is on amlodipine 2.5 mg daily, Synthroid 75 mcg daily, she is on Merrem 500 mg every 12 hours for her UTI, Protonix 40 mg b.i.d., Singulair 10 mg at bedtime, Apresoline 10 mg b.i.d., Neurontin 100 mg b.i.d., Colace 100 mg b.i.d., Sinemet 25/100 two tabs q.i.d., BuSpar 5 mg b.i.d., Allopurinol 300 mg at bedtime, Tylenol 500 mg as needed, Nitrostat p.r.n., clonidine 0.1 mg for elevated systolic blood pressure greater than 160 and Tylenol #3 as needed for pain one every 8 hours. HABITS: No alcohol or tobacco use. FAMILY HISTORY: Noncontributory. SOCIAL HISTORY: The patient hopes to return back to the [facility] and get back to her prior level of functioning. REVIEW OF SYSTEMS: GENERAL: Does complain of some weakness and fatigue. HISTORY AND PHYSICAL [id number] SRAVAN DOWNEY HEENT: Denies cold, cough, or congestion. CARDIOVASCULAR: Denies any chest pain. PHYSICAL EXAMINATION: VITAL SIGNS: Stable, afebrile. GENERAL: Elderly female, in no acute distress upon exam. HEENT: Normocephalic and atraumatic. Mucosa moist. NECK: Supple without adenopathy. LUNGS: Clear at this time with no wheezing, rhonchi or rales. HEART: Regular rate and rhythm. She does have a holosystolic murmur. ABDOMEN: Soft, benign and nondistended. Positive bowel sounds times 4. EXTREMITIES: No clubbing, cyanosis or edema. NEUROLOGIC: She is a little slow to mentate. She does have noted weakness in her upper and lower extremities. LABORATORY DATA: Her white count is 6.4, H&H of 9.3 and 29.1 and platelet count is 182. Sodium 140, potassium 3.9, BUN and creatinine of 16 and 0.8 and blood sugar is noted to be 72. ASSESSMENT: This is an 84-year-old female patient admitted to rehab with a working diagnosis of debility, probably secondary to her urinary tract infection. The patient has potential to make improvement. We instituted the following multidisciplinary therapies including, but not limited to physical, occupational, respiratory, speech, nutritional services, prosthetics and orthotics. Given her complex medical conditions and risks for more complications, rehabilitation services cannot be provided at a low level of care such as skilled nurse facility. PLAN: 1. Admit to [facility] for intensive inpatient therapy to include the following disciplines; A. Physical therapy to improve gait, all transfer skills and bed mobility to a modified independent level. B. Occupational therapy to a modified independent level. C. Case management to assist with discharge planning and placement options. D. Nutrition to assist with nutritional needs. E. Rehabilitation nursing to assist in monitoring the patient's underlying medical conditions and to assist with any type of bowel or bladder management. 2. The patient's current medication and medical care will be continued. 3. The patient will be placed on standard fall precautions. 4. The patient's estimated length of stay is approximately 7-10 days. 5. We will discuss the patient during care team staff meeting this week. TRANSINT:[id number] Voice Confirmation ID: [id number] DOCUMENT ID: [id number] AYSE notes whether there has been none or any medical/functional change since admission: - No change since pre-admission screen. AYSE attests patient continues to be appropriate for IRF: - Continues to be appropriate. HISTORY AND PHYSICAL [id number] SRAVAN DOWNEY,DELLA PALACIO MD at 1321 CC: [id number] DICTATION DATE: 08/07/1919 WAREHOUSE SELECTOR: 08/07/19 1059 ADM IN [place] [id number] [place] [address]
--- NOTE | 2019-08-12 13:56 | NUR ---
SITTING UP IN WC IN ROOM C/O SITTING UP IN WC. SPECH IS SOFT AND SHE MUMBLES. SHE IS A TOTAL ASST PT. MOVEMENTS ARE VERY SLOW. SHE IS DROOLING A LITTLE AND PREFERS TO LEAN TO THE RIGHT ALL THE TIME. PT, OT AND ST HAVE WORKED WITH HER ON HER POSTURE.
--- NOTE | 2019-08-12 15:15 | NUR ---
Nutrition Follow-up: Diet: Regular [facility] Soft (beef, shellfish, and nuts allergies) + Premier Protein PO intake: ~25% average x last 6 meals; Reports that her appetite is "about the same." She has several special food request. States that she was getting Premier Protein on her meal trays but that she did not get any today. Kitchen states that they were purchased for patient over the weekend but that they are currently out of stock, kitchen will see about getting more. Kitchen is trying to accomodate patient's special food request as much as possible. Last BM: 08/11/19 x 2. WT: 117# (08/07/19) Meds noted: lasix. Labs reviewed. Skin: stage I PU to L buttocks Continue current diet. Will continue to accomodate special diet request as much as possible. Encourage PO intake. Will have kitchen send Premier Protein when available. RD following.
--- NOTE | 2019-08-12 19:40 | NUR ---
BEDSIDE REPORT COMPLETE. PT RECEIVED SITTING UP IN BED GETTING A MANICURE FROM [facility]. DENIES ANY NEEDS OR PAIN. NO SIGNS OF ACUTE DISTRESS NOTED. CL IN REACH. FALL PRECAUTIONS IN PLACE. WILL CONTINUE TO MONITOR
[2019-08-12 19:54] VITALS: BP 152/68
--- NOTE | 2019-08-13 02:11 | NUR ---
PT LYING IN BED ON RIGHT SIDE EYES CLOSED RESTING COMFORTABLY. RR EVEN AND UNLABORED. CL IN REACH
--- NOTE | 2019-08-13 04:25 | NUR ---
PT LYING IN BED EYES CLOSED RESTING. CL IN REACH
[2019-08-13 08:43] VITALS: BP 123/50
--- NOTE | 2019-08-13 19:18 | NUR ---
PT LYING IN BED WATCHING TV. CL IN REACH. DENIES NEEDS OR PAIN AT THIS TIME. BED IN LOW SIDE RAILS X2. RESP EVEN AND UNLABORED. A/O X4. LUNGS CLEAR BOWEL ACTIVE X4. INCONT AT TIMES BUT USES BEDPAN. WILL CONTINUE TO MONITOR.
[2019-08-13 21:15] VITALS: BP 159/72
--- NOTE | 2019-08-14 01:02 | NUR ---
I have reviewed this patient and I concur with the Shift Assessment completed by the Licensed Practical Nurse today this shift.
--- NOTE | 2019-08-14 02:00 | NUR ---
PT RESTING QUEITLY. CL IN REACH. NO DISTRESS NOTED. EYES CLOSED. WCTM
--- NOTE | 2019-08-14 06:41 | NUR ---
CHECKED PT AND PT WAS DRY NO INCONT. CL IN REACH. WCTM
[2019-08-14 08:00] VITALS: BP 139/62
[2019-08-14 08:37] LABS: BASOPHILS 0.6 % (0-2); EOSINOPHILS 2.8 % (0-7); HEMATOCRIT 30.3 % (36.0-48.0); HEMOGLOBIN 9.4 g/dL (12-16); IMMATURE GRANULOCYTES 0.2 % (0-5); LYMPHOCYTES 44.4 % (15-50); MCH 30.2 pg (26.0-34.0); MCV 97.4 fL (80.0-100.0); MEAN PLATELET VOLUME 10.2 fL (7.4-10.4); MONOCYTES 7.9 % (2-11); NEUTROPHILS 44.1 % (40-80); PLATELET COUNT 218 10x3/uL (130-400); RBC 3.11 10x6/uL (4.00-5.40); RDW 15.5 % (11.5-14.5)
[2019-08-14 08:48] LABS: ANION GAP 7.8 mmol/L (8-16); CALCIUM 9.4 mg/dL (8.5-10.1); CARBON DIOXIDE 27.2 mmol/L (21.0-32.0); CREATININE - SERUM 0.8 mg/dL (0.6-1.3)
--- NOTE | 2019-08-14 14:01 | NUR ---
CARE TEAM MEETING: PATIENT TENTIVE DISCHARGE DATE IS 08/21/2019. WILL CONTINUE TO FOLLOW WITH PATIENT .
--- NOTE | 2019-08-14 14:57 | NUR ---
Nutrition Follow-up: Discussed at care team meeting with [employer]. Plans to add Pineapple roselia to meal trays to attempt to help decrease drooling. Diet: Regular [facility] Soft + Protein drink once daily PO intake: ~24% average x last 9 meals. She reports that she has not been happy with the food lately. She feels that someone is "messing with" her menu. States that she is only getting Premier Protein drink once per day. Last BM: 08/11/19. WT: 117# (08/07/19)-- no new wt Meds noted: ken cabrera. Labs reviewed. Continue current diet. Will continue to accomodate special meal/food request as much as possible. Encouraged PO intake. RD following.
--- NOTE | 2019-08-14 16:00 | NUR ---
WILL CONT TO MONITOR
--- NOTE | 2019-08-14 19:18 | NUR ---
PT LYING IN BED WATCHING TV. CL IN REACH. DENIES NEEDS OR PAIN AT THIS TIME. BED IN LOW SIDE RAILS X2. BED ALARM ON. LUNGS CLEAR. BOWEL ACTIVE X4. A/O X4. RESP EVEN AND UNLABORED. WILL CONTINUE TO MONITOR.
[2019-08-14 20:54] VITALS: BP 153/65
--- NOTE | 2019-08-14 22:47 | NUR ---
I have reviewed this patient and I concur with the Shift Assessment completed by the Licensed Practical Nurse today this shift.
--- NOTE | 2019-08-15 02:30 | NUR ---
PUT PT ON BEDPAN. PT URINATED. CLEANED PT. DENIES FURTHER NEEDS. CL IN REACH. WCTM
--- NOTE | 2019-08-15 06:17 | NUR ---
PT RESTING QUIETLY. CL IN REACH. PT DRY NO NEEDS FOR CHANGING. WCTM
[2019-08-15 08:00] VITALS: BP 135/59
--- NOTE | 2019-08-15 11:08 | NUR ---
MAX ASST TO TRANSFER FROM TO TOILET AND BACK. CONTINENT OF B/B.
[2019-08-15 18:27] LABS: APPEARANCE CLEAR (CLEAR); BILIRUBIN NEGATIVE (NEGATIVE); COLOR YELLOW (YELLOW); GLUCOSE NEGATIVE (NEGATIVE); KETONE NEGATIVE (NEGATIVE); NITRITE NEGATIVE (NEGATIVE); PROTEIN NEGATIVE (NEGATIVE); SPECIFIC GRAVITY 1.015 (1.005-1.020); UROBILINOGEN NORMAL (NORMAL)
--- NOTE | 2019-08-15 19:19 | NUR ---
PT LYING IN BED. CL IN REACH. BED IN LOW SIDE RAILS X2. LUNGS CLEAR. BOWEL ACTIVE X4. PT DENIES NEEDS OR PAIN AT THIS TIME. RESP EVEN AND UNLABORED. A/O X4. WILL CONTINUE TO MONITOR BED ALARM ON.
[2019-08-15 19:45] VITALS: BP 162/70
--- NOTE | 2019-08-16 00:48 | NUR ---
ASSISTED ON AND OFF BEDPAN. DENIES FURTHER NEEDS. CL IN REACH. WCTM
--- NOTE | 2019-08-16 01:01 | NUR ---
I have reviewed this patient and I concur with the Shift Assessment completed by the Licensed Practical Nurse today this shift.
[2019-08-16 07:30] VITALS: BP 151/72
[2019-08-16 08:00] VITALS: BP 140/57
[2019-08-16 08:18] LABS: BASOPHILS 0.4 % (0-2); HEMATOCRIT 28.1 % (36.0-48.0); HEMOGLOBIN 8.8 g/dL (12-16); IMMATURE GRANULOCYTES 0.2 % (0-5); LYMPHOCYTES 29.6 % (15-50); MCH 30.7 pg (26.0-34.0); MCHC 31.3 g/dL (31.0-37.0); MCV 97.9 fL (80.0-100.0); MEAN PLATELET VOLUME 10.1 fL (7.4-10.4); MONOCYTES 8.1 % (2-11); NEUTROPHILS 59.7 % (40-80); PLATELET COUNT 215 10x3/uL (130-400); RBC 2.87 10x6/uL (4.00-5.40); RDW 15.5 % (11.5-14.5); WBC 4.6 10x3/uL (4.8-10.8)
[2019-08-16 08:39] LABS: CALCIUM 9.2 mg/dL (8.5-10.1); CARBON DIOXIDE 27.2 mmol/L (21.0-32.0); CREATININE - SERUM 0.8 mg/dL (0.6-1.3); POTASSIUM - SERUM 4.2 mmol/L (3.5-5.1)
--- NOTE | 2019-08-16 12:31 | NUR ---
SITTING UP FOR LUNCH IN ROOM. IS NEEDS AND TRIES TO DO VERY LITTLE FOR HERSELF. FEEDS SELF BUT MAKES A MESS. IS CONT OF BOWEL AND BLADDER MOST OF THE TIME.
--- NOTE | 2019-08-16 14:12 | NUR ---
LAYING DOWN IN BED. HAD VISITORS FOR A WHILE THEN WAS TIRED AND WANTED TO REST. IS LAYING ON SIDE. CALL LIGHT IN REACH.
[2019-08-16 19:30] VITALS: BP 157/72
--- NOTE | 2019-08-16 21:16 | NUR ---
PT IS RESTING IN BED WATCHING TV. ALERT AND ORIENTED X 3. DENIES ACUTE DISCOMFORT AT THIS TIME. NO NEEDS VOICED. PT ASSISTED TO FILL OUT MENU. VSS. TURNED AND REPOSITION Q2 HRS AND PRN. ASSISTED WITH BEDPAN PRN. SR'S ARE UP X 3 IN BED. CALL LIGHT AND BEDSIDE TABLE ARE WITHIN EASY REACH.
--- NOTE | 2019-08-16 23:12 | NUR ---
PT RESTING IN BED WITH EYES OPEN. ASSISTED TO USE BEDPAIN WITH MAX ASSIST.
--- NOTE | 2019-08-17 00:52 | NUR ---
I have reviewed this patient and I concur with the Shift Assessment completed by the Licensed Practical Nurse today this shift.
--- NOTE | 2019-08-17 04:24 | NUR ---
PT RESTING QUIETLY IN BED WITH EYES CLOSED.
[2019-08-17 08:00] VITALS: BP 159/73
--- NOTE | 2019-08-17 20:15 | NUR ---
PT IS SITTING IN A WC IN HER ROOM. SHE IS SLUMPED OVER WITH HER FACE LOOKING AT THE FLOOR. WHEN ASKED TO SIT UP STRAIGHT SHE WOULD REPLY. "I AM" PT WOULD NOT ATTEMPT TO SIT UP STRAIGHT. I PULLED HER UP TO A SITTING POSITION NUMEROUS TIMES, AND SHE WOULD SLUMP RIGHT BACK OVER. I PROPELLED HER TO THE BATHROOM WITH ONE HAND , HOLDING HER UPRIGHT WITH THE OTHER. TOTAL ASSIST REQUIRED TO TRANSFER PT TO TO THE TOILET. PT VOIDED WITHOUT DIFFICULTY. MAX ASSIST WITH HYGIENE CARE. ASSISTED BACK TO BED. TOTAL ASSIST WITH TRANSFER BACK TO BED.
--- NOTE | 2019-08-17 22:48 | NUR ---
PT RESTING QUIETLY IN BED WITH EYES CLOSED. RESPS ARE EVEN AND UNLABORED. NO ACUTE DISTRESS NOTED.
--- NOTE | 2019-08-18 00:46 | NUR ---
I have reviewed this patient and I concur with the Shift Assessment completed by the Licensed Practical Nurse today this shift.
--- NOTE | 2019-08-18 04:17 | NUR ---
RESTING IN BED WITH EYES CLOSED.
--- NOTE | 2019-08-18 08:00 | NUR ---
SHIFT ASSMT COMPLETED.REMAINS ON SIDE.CL IN REACH.
[2019-08-18 08:15] VITALS: BP 128/49
--- NOTE | 2019-08-18 10:00 | NUR ---
DRESSED AND OOB.BREAKFAST GIVEN.MEAL REHEATED.
--- NOTE | 2019-08-18 14:30 | NUR ---
RETURNED TO BED.POSITIONED ON SIDE
--- NOTE | 2019-08-18 19:58 | NUR ---
PT SITTING IN WC IN HER ROOM. VOICED NEED TO VOID. ASSISTED TO THE BATHROOM WITH MAX ASSIST IN WC. X LARGE FORMED BM NOTED. HS ADL CARE DONE. PT ASSISTED BACK TO BED WITH MAX ASSIST. POSITIONED TO HER COMFORT. BUTT PASTE APPLIED TO RED COCCYX. SR'S ARE UP X 2 IN BED. CALL LIGHT AND BEDSIDE TABLE ARE WITHIN EASY REACH.
[2019-08-18 21:33] VITALS: BP 141/73
--- NOTE | 2019-08-18 22:42 | NUR ---
PT SITTING IN BED DRINKING A CUP OF TEA. NO ACUTE DISTRESS NOTED.
--- NOTE | 2019-08-19 00:02 | NUR ---
I have reviewed this patient and I concur with the Shift Assessment completed by the Licensed Practical Nurse today this shift.
--- NOTE | 2019-08-19 04:59 | NUR ---
PT RESTING IN BED WITH EYES CLOSED. NO DISTRESS NOTED.
[2019-08-19 06:47] LABS: BASOPHILS 0.5 % (0-2); EOSINOPHILS 4.7 % (0-7); HEMATOCRIT 28.7 % (36.0-48.0); HEMOGLOBIN 9.1 g/dL (12-16); LYMPHOCYTES 49.6 % (15-50); MCH 30.8 pg (26.0-34.0); MCHC 31.7 g/dL (31.0-37.0); MCV 97.3 fL (80.0-100.0); MEAN PLATELET VOLUME 10.4 fL (7.4-10.4); MONOCYTES 8.5 % (2-11); NEUTROPHILS 36.7 % (40-80); PLATELET COUNT 214 10x3/uL (130-400); RBC 2.95 10x6/uL (4.00-5.40); RDW 15.6 % (11.5-14.5)
[2019-08-19 06:51] LABS: ANION GAP 9.6 mmol/L (8-16); CALCIUM 9.4 mg/dL (8.5-10.1); CARBON DIOXIDE 28.7 mmol/L (21.0-32.0); CREATININE - SERUM 0.8 mg/dL (0.6-1.3); POTASSIUM - SERUM 4.3 mmol/L (3.5-5.1)
[2019-08-19 08:00] VITALS: BP 135/72
--- NOTE | 2019-08-19 12:56 | NUR ---
SITTING UP IN WC IN ROOM EATING LUNCH. FEEDS SELF. MOVEMENTS ARE SLOW. CONT OF BOWEL AND BLADDER MOST OF TIME. 4+ EDEMA NOTED TO BLE. MAX ASST WITH MOST TASKS. CALL LIGHT IN REACH.
--- NOTE | 2019-08-19 19:18 | NUR ---
PT SITTING UP IN WHEELCHAIR. ASSISTED TO AND FROM BATHROOM. PT PLACED BACK IN BED. BED ALARM ON. CL IN REACH. BED IN LOW SIDE RAILS X2. RESP EVEN AND UNLABORED. LUNGS CLEAR. BOWEL ACTIVE X4. A/O X4. DENIES FURTHER NEEDS OR PAIN. WILL CONTINUE TO MONITOR.
[2019-08-19 21:10] VITALS: BP 173/75
--- NOTE | 2019-08-20 00:45 | NUR ---
ASSISTED ON BEDPAN. DENIES FURTHER NEEDS. CL IN REACH. WCTM
--- NOTE | 2019-08-20 01:36 | NUR ---
I have reviewed this patient and I concur with the Shift Assessment completed by the Licensed Practical Nurse today this shift.
--- NOTE | 2019-08-20 05:00 | NUR ---
ASSISTED ON BEDPAN. PT URINATED. CLEANED PT AND PT DENIED FURTHER NEEDS. CL IN REACH. WCTM
[2019-08-20 08:00] VITALS: BP 146/73
--- NOTE | 2019-08-20 12:35 | NUR ---
SPOKE WITH PATIENT AND SHE WANTS A REFERRAL TO [facility] FOR POSSIBLE ADMISSION ON 08/21/2019. WILL CONTINUE TO FOLLOW WITH PATIENT.
--- NOTE | 2019-08-20 13:11 | NUR ---
Nutrition Follow-up: Diet: Regular [facility] Soft PO intake: ~45% average x last 6 meals; patient is upset about her menu. She feels that nursing staff is altering her menu. She also complains that she is not getting her oral nutrition supplement. She request that if she can't get Premier Protein that she would like to get Ensure. States that she is drinking pineapple juice and that it is helping with drooling but that it is giving her diarrhea. Last BM: 08/20/19. WT: 117# (08/07/19), no new wt Meds noted: senokot, colace, lasix. Labs noted: glu 70 Skin: stage I PU to L buttocks Recommend continue current diet. Will add Ensure to meal trays. Will update diet preferences. Recommend getting new WT. RD following.
--- NOTE | 2019-08-20 14:47 | NUR ---
LAYING IN BED, LAYING ON SIDE. SIDE RAILS UP X2. BED IN LOWEST POSITION. CALL LIGHT IN REACH
--- NOTE | 2019-08-20 19:22 | NUR ---
PT SITTING UP IN WHEELCHAIR. CL IN REACH. A/O X4. LUNGS CLEAR. BOWEL ACTIVE X4. PT SEEMS TO BE MORE CONFUSED THEN DURING DAY. ASSISTED TO THE BED. RESP EVEN AND UNLABORED. [place]. WILL CONTINUE TO MONITOR. DENIES FURTHER NEEDS OR PAIN AT THIS TIME.
[2019-08-20 20:42] VITALS: BP 144/64
--- NOTE | 2019-08-21 01:00 | NUR ---
HAD BM ACCIDENT IN BED. LINEN CHANGED. CL IN REACH. DENIES NEEDS. WCTM
--- NOTE | 2019-08-21 02:16 | NUR ---
I have reviewed this patient and I concur with the Shift Assessment completed by the Licensed Practical Nurse today this shift.
--- NOTE | 2019-08-21 04:00 | NUR ---
ASSISTED ON BEDPAN. DENIES FURTHER NEEDS. CL IN REACH. WCTM
[2019-08-21 08:00] VITALS: BP 134/68
--- NOTE | 2019-08-21 10:39 | NUR ---
PATIENT DISCHARGING TO [facility] VIA FACILITY VAN. NO HOME HEALTH OR DME NEEDED AT THIS TIME. AN APPOINTMENT WITH DR. BARCLAY WILL BE MADE AT TIME OF DISCHARGE FROM FACILITY.PATIENT CHOICE FORM FOR SNF AND [facility] FORM SIGNED, ONE GIVEN TO PATIENT AND ONE FILED IN CHART. NO COMPARE DATA REVIEWED PATIENT HAS BEEN AT [facility] BEFORE. DISCHARGE INSTRUCTIONS FAXED TO PCP, SNF AND REVIEWED WITH PATIENT. FAMILY HAS BEEN NOTIFIED OF ACCEPTANCE PER RUTH SILVA AT [facility].
== END 2019-08-21 14:40 | DRG 947 ==
LOC: D.REHAB 16:06
PROVIDERS: ADMIT Emergency Medicine; ATTEND Emergency Medicine
DX: R53.81 Other malaise (principal); I50.31 Acute diastolic (congestive) heart failure; N39.0 Urinary tract infection, site not specified; I11.0 Hypertensive heart disease with heart failure; J44.9 Chronic obstructive pulmonary disease, unspecified; E87.6 Hypokalemia; M81.0 Age-related osteoporosis without current pathological fracture; F03.90 Unspecified dementia, unspecified severity, without behavioral disturbance, psychotic disturbance, mood disturbance, and anxiety; G20 Parkinson's disease; E03.9 Hypothyroidism, unspecified; B96.20 Unspecified Escherichia coli [E. coli] as the cause of diseases classified elsewhere; G89.29 Other chronic pain

== ENCOUNTER 2019-09-16 15:26 | Emergency (ER) | payer MEDICARE, BC ==
[~2019-09-16] VITALS: Ht 162.6 cm; Wt 58.2 kg
[2019-09-16 15:29] VITALS: Ht 162.6 cm; Wt 58.2 kg
[2019-09-16 16:22] LABS: BASOPHILS 0.1 % (0-2); EOSINOPHILS 2.1 % (0-7); HEMATOCRIT 32.5 % (36.0-48.0); HEMOGLOBIN 10.1 g/dL (12-16); IMMATURE GRANULOCYTES 0.4 % (0-5); MCH 30.6 pg (26.0-34.0); MCHC 31.1 g/dL (31.0-37.0); MCV 98.5 fL (80.0-100.0); MONOCYTES 6.8 % (2-11); NEUTROPHILS 63.6 % (40-80); PLATELET COUNT 231 10x3/uL (130-400); RDW 16.4 % (11.5-14.5); WBC 7.2 10x3/uL (4.8-10.8)
[2019-09-16 16:28] LABS: BILIRUBIN NEGATIVE (NEGATIVE); GLUCOSE NEGATIVE (NEGATIVE); KETONE NEGATIVE (NEGATIVE); NITRITE NEGATIVE (NEGATIVE); UROBILINOGEN NORMAL (NORMAL)
[2019-09-16 16:29] LABS: EPITHELIAL CELLS OCC /hpf (0-5); WHITE CELLS - URINE 0-5 /hpf (NEGATIVE)
[2019-09-16 16:37] LABS: APTT 28.1 SECONDS (22.8-39.4); INR 1.03 (0.85-1.17); PROTIME 13.4 SECONDS (11.6-15.0)
[2019-09-16 16:41] LABS: ANION GAP 10.3 mmol/L (8-16); CALCIUM 9.4 mg/dL (8.5-10.1); CARBON DIOXIDE 31.2 mmol/L (21.0-32.0); CREATININE - SERUM 1.1 mg/dL (0.6-1.3); POTASSIUM - SERUM 4.5 mmol/L (3.5-5.1)
[2019-09-16 16:48] LABS: ALBUMIN 2.8 g/dL (3.4-5.0); BILIRUBIN - TOTAL 0.3 mg/dL (0.2-1.3); PROTEIN - SERUM 5.8 g/dL (6.4-8.2)
[2019-09-16 18:01] VITALS: BP 138/73
== END 2019-09-16 18:02 | disposition home or self-care (01) ==
LOC: D.ER 15:26
PROVIDERS: Family Medicine
DX: S00.83XA Contusion of other part of head, initial encounter (principal); W19.XXXA Unspecified fall, initial encounter; Y93.9 Activity, unspecified; Y92.9 Unspecified place or not applicable; S16.1XXA Strain of muscle, fascia and tendon at neck level, initial encounter; I10 Essential (primary) hypertension; J44.9 Chronic obstructive pulmonary disease, unspecified; G30.9 Alzheimer's disease, unspecified; F02.80 Dementia in other diseases classified elsewhere, unspecified severity, without behavioral disturbance, psychotic disturbance, mood disturbance, and anxiety; G20 Parkinson's disease; K21.9 Gastro-esophageal reflux disease without esophagitis